=== PATIENT | male | born 1945 | race Caucasian/White ===

== ENCOUNTER 2016-09-28 09:35 | Inpatient (IN) | payer MEDICARE, OTHER ==
[~2016-09-28] VITALS: Ht 172.7 cm; Wt 81.6 kg
[~2016-09-28 09:35] MED LIST: ALBU2.5V13 NEB; ALBU8.5H2 IH; DILT240C88 PO; Ipratropium Bromide NEB; LEVO500T15 PO; MOME13HF2 IH; PRED20TA PO; RIVA10TA PO; TIOT18CA3 IH
--- NOTE | 2016-09-28 09:45 | NUR ---
WORSENING SOB X 3 DAYS. WORSENING WHEN AMBULATING. PT DOES STATE THIS HAPPENED BEFORE, AND HAS GOT BREATHING TX IN THE PAST. PT PLACED IN GOWN AND MONITOR. DR HILLS AT BEDSIDE FOR EVAL.
[2016-09-28] MEDS ORDERED: predniSONE 20 MG TABLET ONE (09:47)
[2016-09-28] MEDS ORDERED: IPRATROPIUM NEB FS 0.5 MG/2.5 ML AMPUL.NEB ONE (09:52)
[2016-09-28] MEDS ORDERED: ALBUTEROL FS 2.5 MG/3 ML VIAL.NEB ONE (09:52)
--- NOTE | 2016-09-28 09:53 | NUR ---
RT PAGED FOR BREATHING TX
--- NOTE | 2016-09-28 09:57 | NUR ---
RT AT BEDSIDE FOR BREATHING TX
[2016-09-28] MEDS ORDERED: IPRATROPIUM NEB FS 0.5 MG/2.5 ML AMPUL.NEB NEB ONE (10:00)
[2016-09-28] MEDS ORDERED: ALBUTEROL FS 2.5 MG/3 ML VIAL.NEB CONTNEB ONE (10:00)
[2016-09-28] MEDS ORDERED: predniSONE 20 MG TABLET PO ONE (10:00)
[2016-09-28 10:01] LABS: BASOPHILS % (AUTO) 0.3 % (0.0-2.0); EOSINOPHILS # (AUTO) 0.6 /CMM (0.0-0.7); EOSINOPHILS % (AUTO) 7.3 % (0.0-6.0); HEMATOCRIT 35 % (39-51); HEMOGLOBIN 11.5 g/dL (13.5-17.5); LYMPHOCYTES # (AUTO) 1.5 /CMM (0.8-4.8); MEAN CORPUSCULAR HEMOGLOBIN 26 PG (26.0-33.0); MEAN CORPUSCULAR HGB CONC 33 g/dl (31.0-36.0); MEAN CORPUSCULAR VOLUME 79 fL (80-96); MONOCYTES # (AUTO) 0.7 /CMM (0.1-1.30); NEUTROPHILS # (AUTO) 5.2 /CMM (1.8-8.9); NEUTROPHILS % (AUTO) 64.4 % (43.0-81.0); PLATELET COUNT (AUTO) 277 /CMM (150-450); RDW COEFFICIENT OF VARIATION 15.9 (11.5-15.0); RED BLOOD CELL COUNT(AUTO) 4.42 MIL/uL (4.5-6.0)
[2016-09-28] MEDS ORDERED: DILT240C88 PO (10:08)
[2016-09-28] MEDS ORDERED: FLUT12AE5 INH (10:08)
[2016-09-28] MEDS ORDERED: ASPI81TA2 PO (10:08)
[2016-09-28] MEDS ORDERED: HYDR12.55 PO (10:08)
[2016-09-28] MEDS ORDERED: ATOR40TA PO (10:08)
[2016-09-28] MEDS ORDERED: FAMO20TA8 PO (10:08)
[2016-09-28] MEDS ORDERED: IPRA3AMP IH (10:08)
[2016-09-28] MEDS ORDERED: LOSA25TA13 PO (10:08)
[2016-09-28] MEDS ORDERED: ALBU18HF2 IH (10:08)
[2016-09-28 10:14] LABS: CALCIUM, SERUM 9.2 mg/dL (8.5-10.1); CREATININE 0.9 mg/dL (0.6-1.3); POTASSIUM 4.1 mmol/L (3.5-5.1)
[2016-09-28 10:20] LABS: ALBUMIN 3.8 g/dL (3.4-5.0); BILIRUBIN,DIRECT 0.3 mg/dL (0.0-0.2)
[2016-09-28 10:23] LABS: TROPONIN I 0.021 ng/mL (0.00-0.056)
--- NOTE | 2016-09-28 10:39 | NUR ---
PAGED DR MARSHALL FOR ADMISSION
--- NOTE | 2016-09-28 11:12 | NUR ---
ISIS PAGED, RN CVICU
--- NOTE | 2016-09-28 11:19 | NUR ---
REPORT GIVEN TO OXANA CHANG FOR NIKKY
[2016-09-28 12:00] VITALS: BP 126/68
[2016-09-28] MEDS ORDERED: MAGNESIUM HYDROXIDE 30 ML UDC PO PRN (12:00)
[2016-09-28] MEDS ORDERED: ACETAMINOPHEN 325 MG TABLET PO PRN (12:00)
[2016-09-28] MEDS ORDERED: HYDROCODONE/APAP 5/325MG 1 EACH TABLET PO PRN (12:00)
[2016-09-28] MEDS ORDERED: Z GUARD REMEDY 2 OZ OINT TP PRN (12:00)
[2016-09-28] MEDS ORDERED: MAG HYDROX/AL HYDROX/SIMETH 30 ML UDC PO PRN (12:00)
[2016-09-28] MEDS ORDERED: ONDANSETRON HCL/PF 4 MG/2 ML VIAL IVP PRN (12:00)
[2016-09-28] MEDS ORDERED: AZITHROMYCIN 250 MG TABLET PO ONE (12:00)
[2016-09-28] MEDS ORDERED: ZOLPIDEM TARTRATE 5 MG TABLET PO PRN (12:00)
--- NOTE | 2016-09-28 13:00 | NUR ---
AM RN NOTE Received patient from ER @ 1140 via W/C. Pt A/O X3 verbally responsive. No SOB noted resp even and non-labored. Denies any pain or discomfort at this time. IV site on LAC #20 intact and patent. Body check done and pictures placed in chart. Pt seen and assessed by Dr. Cain. Pt continent of bowel and bladder. Will continue to monitor.
[2016-09-28] MEDS: IPRATROPIUM NEB FS 0.5 MG/2.5 ML AMPUL.NEB NEB SCH ×2 (14:48→20:09)
[2016-09-28] MEDS: ALBUTEROL FS 2.5 MG/3 ML VIAL.NEB NEB SCH ×2 (14:48→20:09)
[2016-09-28 15:57] VITALS: BP 147/71
[2016-09-28] MEDS: RIVAROXABAN 10 MG TABLET PO SCH (16:08)
[2016-09-28] MEDS: FLUTICASONE 110MCG 1 EA INHALER IH SCH (16:08)
--- NOTE | 2016-09-28 18:42 | NUR ---
AM RN NOTE Patient awake, ambulating in the hallways. Denies any SOB at this time. Will endorse care to next shift.
--- NOTE | 2016-09-28 19:30 | NUR ---
RN NOTES RECEIVED PT. AWAKE ON BED, A/OX3, DENIES PAIN, NO SOB, CALL LIGHT WITHIN REACH, SIDERAILS UPX2 , CONTINUE TO MONITOR
[2016-09-28 20:00] VITALS: BP 144/73
[2016-09-28 20:54] VITALS: BP 144/73
[2016-09-28] MEDS: FAMOTIDINE (20 MG) 20 MG TABLET PO SCH (21:11)
--- NOTE | 2016-09-28 22:01 | NUR ---
RN NOTES SPOKE TO DR. ESCAMILLA AND INFORMED HIM THAT PT IS ANXIOUS AND ASKING FOR ATIVAN. DR ESCAMILLA ORDERED ATIVAN 0.5 MG PO PRN ORDERED NOTED AND CARRIED OUT
[2016-09-28] MEDS ORDERED: LORAZEPAM 0.5 MG TABLET ONE (22:29)
[2016-09-28] MEDS: LORAZEPAM 0.5 MG TABLET PO PRN (22:33)
--- NOTE | 2016-09-28 22:40 | NUR ---
RN NOTES PT IS SO ANXIOUS- ATIVAN 0.5MG PO GIVEN ORDERED, V/S STABLE
[2016-09-29] MEDS: IPRATROPIUM NEB FS 0.5 MG/2.5 ML AMPUL.NEB NEB SCH ×7 (00:21→23:52)
[2016-09-29] MEDS: ALBUTEROL FS 2.5 MG/3 ML VIAL.NEB NEB SCH ×7 (00:21→23:52)
--- NOTE | 2016-09-29 06:45 | NUR ---
RN NOTES AWAKE, DENIES PAIN, NO SOB, MORNING CARE RENDERED, PT. NEEDS ATTENDED
[2016-09-29 07:04] LABS: BASOPHILS % (AUTO) 0.1 % (0.0-2.0); EOSINOPHILS % (AUTO) 0.1 % (0.0-6.0); HEMATOCRIT 30 % (39-51); HEMOGLOBIN 9.9 g/dL (13.5-17.5); LYMPHOCYTES # (AUTO) 0.8 /CMM (0.8-4.8); LYMPHOCYTES % (AUTO) 12.4 % (20.0-44.0); MEAN CORPUSCULAR HEMOGLOBIN 26 PG (26.0-33.0); MEAN CORPUSCULAR HGB CONC 33 g/dl (31.0-36.0); MEAN CORPUSCULAR VOLUME 80 fL (80-96); MONOCYTES # (AUTO) 0.8 /CMM (0.1-1.30); MONOCYTES % (AUTO) 11.8 % (2.0-12.0); NEUTROPHILS # (AUTO) 4.9 /CMM (1.8-8.9); NEUTROPHILS % (AUTO) 75.6 % (43.0-81.0); PLATELET COUNT (AUTO) 222 /CMM (150-450); RDW COEFFICIENT OF VARIATION 16.4 (11.5-15.0); RED BLOOD CELL COUNT(AUTO) 3.77 MIL/uL (4.5-6.0); WHITE BLOOD COUNT (AUTO) 6.5 K/uL (4.3-11.0)
[2016-09-29 07:11] LABS: CALCIUM, SERUM 9.1 mg/dL (8.5-10.1); CREATININE 0.7 mg/dL (0.6-1.3); MAGNESIUM 1.7 mg/dL (1.8-2.4); PHOSPHORUS 4.2 mg/dL (2.5-4.9); POTASSIUM 3.7 mmol/L (3.5-5.1)
--- NOTE | 2016-09-29 07:24 | NUR ---
AM RN NOTE Received patient awake, A/O X3 verbally responsive. No SOB noted resp even and non-labored. Denies any pain or discomfort at this time. IV site intact. Will continue to monitor.
[2016-09-29 08:00] VITALS: BP 148/81
[2016-09-29] MEDS: FLUTICASONE 110MCG 1 EA INHALER IH SCH ×2 (08:06→16:33)
[2016-09-29] MEDS: ASPIRIN 81 MG TAB.CHEW PO SCH (08:06)
[2016-09-29] MEDS: HYDROCHLOROTHIAZIDE 25 MG TABLET PO SCH (08:07)
[2016-09-29] MEDS: ATORVASTATIN 40 MG TABLET PO SCH (08:07)
[2016-09-29] MEDS: DILTIAZEM HCL CD 240 MG PO SCH (08:07)
[2016-09-29] MEDS: FAMOTIDINE (20 MG) 20 MG TABLET PO SCH ×2 (08:07→20:46)
[2016-09-29] MEDS: LOSARTAN POTASSIUM 25 MG TABLET PO SCH (08:07)
[2016-09-29] MEDS: methylPREDNISolone SOD SUCC 125 MG/2ML VIAL IV SCH (08:08)
[2016-09-29] MEDS ORDERED: IV SET PRIMARY PUMP SET 1 EA INFUS.SET MC ONE (11:40)
[2016-09-29] MEDS: LORAZEPAM 0.5 MG TABLET PO PRN ×2 (11:40→20:47)
[2016-09-29] MEDS: Magnesium 1GM/D5W 100ML PREMIX 100 ML IV SCH ×2 (11:44→12:46)
[2016-09-29] MEDS ORDERED: AZITHROMYCIN 250 MG TABLET PO SCH (12:00)
[2016-09-29 16:00] VITALS: BP 145/64
[2016-09-29] MEDS: RIVAROXABAN 10 MG TABLET PO SCH (16:34)
--- NOTE | 2016-09-29 18:52 | NUR ---
AM RN NOTE Pt resting in his bed no acute distress noted. IV site intact and patent. Will endorse care to next shift.
--- NOTE | 2016-09-29 19:20 | NUR ---
MS RN NOTES RECEIVED PT SITTING UP IN BED, A/O X 3. VERBALLY RESPONSIVE. NO DISTRESS, NO SOB NOTED. DENIES ANY PAIN OR DISCOMFORT AT THIS TIME. IV SITE ON LEFT ARM INTACT AND PATENT. NO S/S OF INFILTRATION NOTED. PT AMBULATORY. ALL NEEDS ATTENDED AND MET. KEPT COMFORTABLE. CALL LIGHT WITHIN REACH. SAFETY PRECAUTIONS OBSERVED. WILL CONTINUE TON MONITOR.
[2016-09-29 20:00] VITALS: BP 156/8
[2016-09-30] MEDS: ALBUTEROL FS 2.5 MG/3 ML VIAL.NEB NEB SCH ×4 (03:14→10:32)
[2016-09-30] MEDS: IPRATROPIUM NEB FS 0.5 MG/2.5 ML AMPUL.NEB NEB SCH ×4 (03:14→10:32)
--- NOTE | 2016-09-30 06:30 | NUR ---
MS RN NOTES PT UP IN BED, SLEEPING AT THIS TIME. AROUSES EASILY, A/O X 3. VERBALLY RESPONSIVE. NO DISTRESS, NO SOB NOTED. NO C/O PAIN OR DISCOMFORT AT THIS TIME. IV SITE ON LEFT ARM INTACT AND PATENT. NO S/S OF INFILTRATION NOTED. PT AMBULATORY. ALL NEEDS ATTENDED AND MET. KEPT COMFORTABLE. CALL LIGHT WITHIN REACH. SAFETY PRECAUTIONS OBSERVED. WILL ENDORSE TO NEXT SHIFT FOR NIKKY.
[2016-09-30 06:53] LABS: CALCIUM, SERUM 9.3 mg/dL (8.5-10.1); CREATININE 0.7 mg/dL (0.6-1.3); MAGNESIUM 1.9 mg/dL (1.8-2.4); POTASSIUM 3.5 mmol/L (3.5-5.1)
--- NOTE | 2016-09-30 07:13 | NUR ---
MS RN NOTES PT STABLE, NO DISTRESS ENDORSED TO DAY SHIFT RN FOR NIKKY.
--- NOTE | 2016-09-30 07:15 | NUR ---
RN MS NOTES PATIENT ALERT AND ORIENTED, AMBULATORY, NO S/SX OF DISTRESS NOTED, NO SHORTNESS OF BREATH, ALL NEEDS ATTENDED, SAFETY MEASURES IN PLACED, CALL LIGHT WITHIN REACH, WILL CONTINUE TO MONITOR.
[2016-09-30 08:00] VITALS: BP 149/71
[2016-09-30] MEDS: FLUTICASONE 110MCG 1 EA INHALER IH SCH (08:06)
[2016-09-30] MEDS: methylPREDNISolone SOD SUCC 125 MG/2ML VIAL IV SCH (08:07)
[2016-09-30] MEDS: ASPIRIN 81 MG TAB.CHEW PO SCH (08:07)
[2016-09-30] MEDS: ATORVASTATIN 40 MG TABLET PO SCH (08:07)
[2016-09-30] MEDS: DILTIAZEM HCL CD 240 MG PO SCH (08:07)
[2016-09-30 08:08] VITALS: BP 149/71
[2016-09-30] MEDS: LORAZEPAM 0.5 MG TABLET PO PRN (08:08)
[2016-09-30] MEDS: LOSARTAN POTASSIUM 25 MG TABLET PO SCH (08:08)
[2016-09-30] MEDS: FAMOTIDINE (20 MG) 20 MG TABLET PO SCH (08:08)
[2016-09-30] MEDS: HYDROCHLOROTHIAZIDE 25 MG TABLET PO SCH (08:08)
[2016-09-30] MEDS ORDERED: PRED20TA PO (10:02)
[2016-09-30] MEDS ORDERED: LEVO750T21 PO (10:02)
--- NOTE | 2016-09-30 10:31 | NUR ---
RN MS NOTES PATIENT SEEN BY DR. MTZ AND RECEIVED NEW ORDER FOR DISCHARGE. ORDER CARRIED OUT. PATIENT RECEIVED DISCHARGE INSTRUCTIONS, SKIN ASSESSMENT COMPLETED, PHOTO TAKEN OF RIGHT LOWER LEG AND ANKLE DRY SCABS AND SCRATCHES, PATIENT IN STABLE CONDITION, NO SOB NOR DISTRESS, NO COMPLAINT OF PAIN AT THIS TIME. PIV REMOVED, MEDICATIONS AND BELONGINGS GIVEN TO THE PATIENT, DISCHARGE PAPERWORKS SIGNED, REQUESTED ANOTHER BREATHING TREATMENT PRIOR TO LEAVING THE FACILITY.
--- NOTE | 2016-09-30 11:00 | NUR ---
MOTOCROSS RACER PATIENT LEFT THE FACILITY IN STABLE CONDITION, BROUGHT ALL HIS BELONGINGS, MEDICATIONS AND PAPERWORKS, PATIENT STATED HE WILL DRIVE HIS OWN CAR.
== END 2016-09-30 11:00 | disposition home or self-care (01) | DRG 189 ==
LOC: ER 09:38 → TELE2 11:17 → MEDSG2 11:51
PROVIDERS: ADMIT Family Medicine; ATTEND Family Medicine
DX: J96.01 Acute respiratory failure with hypoxia (principal); J44.1 Chronic obstructive pulmonary disease with (acute) exacerbation; D68.59 Other primary thrombophilia; I10 Essential (primary) hypertension; E78.5 Hyperlipidemia, unspecified; K21.9 Gastro-esophageal reflux disease without esophagitis; I48.91 Unspecified atrial fibrillation; Z87.891 Personal history of nicotine dependence; D63.8 Anemia in other chronic diseases classified elsewhere
CPT/HCPCS: 36415; 71010-TC; 80048-TC; 80061-TC; 80076-TC; 83605-TC; 83735-TC; 84100-TC; 84484-TC; 85025-TC; 87040-TC; 87081-TC; A4606; J2930; J3475; Z7610

== ENCOUNTER 2016-10-03 15:39 | Inpatient (IN) | payer MEDICARE, OTHER ==
[~2016-10-03] VITALS: Ht 177.8 cm; Wt 81.6 kg
[~2016-10-03 15:39] MED LIST changes: +ALBU18HF2 IH; -ALBU2.5V13 NEB; -ALBU8.5H2 IH; +ASPI81TA2 PO; +ATOR40TA PO; +FAMO20TA8 PO; +FLUT12AE5 INH; +HYDR12.55 PO; +IPRA3AMP IH; -Ipratropium Bromide NEB; -LEVO500T15 PO; +LEVO750T21 PO; +LOSA25TA13 PO; -MOME13HF2 IH
[2016-10-03 16:08] LABS: BASOPHILS % (AUTO) 0.2 % (0.0-2.0); EOSINOPHILS % (AUTO) 0.1 % (0.0-6.0); HEMATOCRIT 38 % (39-51); HEMOGLOBIN 12.2 g/dL (13.5-17.5); LYMPHOCYTES # (AUTO) 0.8 /CMM (0.8-4.8); LYMPHOCYTES % (AUTO) 7.1 % (20.0-44.0); MEAN CORPUSCULAR HEMOGLOBIN 26 PG (26.0-33.0); MEAN CORPUSCULAR HGB CONC 33 g/dl (31.0-36.0); MEAN CORPUSCULAR VOLUME 78 fL (80-96); MONOCYTES # (AUTO) 0.4 /CMM (0.1-1.30); MONOCYTES % (AUTO) 3.4 % (2.0-12.0); NEUTROPHILS # (AUTO) 10.3 /CMM (1.8-8.9); NEUTROPHILS % (AUTO) 89.2 % (43.0-81.0); PLATELET COUNT (AUTO) 365 /CMM (150-450); RDW COEFFICIENT OF VARIATION 16.6 (11.5-15.0); WHITE BLOOD COUNT (AUTO) 11.5 K/uL (4.3-11.0)
[2016-10-03 16:30] LABS: CALCIUM, SERUM 9.5 mg/dL (8.5-10.1); CARBON DIOXIDE 24 mmol/L (21-32); CHLORIDE 95 mmol/L (98-107); CREATININE 1.1 mg/dL (0.6-1.3); GLUCOSE 134 mg/dL (74-106); POTASSIUM 3.7 mmol/L (3.5-5.1); SODIUM SERUM 134 mmol/L (136-145); UREA NITROGEN, BLOOD 18 mg/dL (7-18)
[2016-10-03 16:31] LABS: INR 1.24 (0.87-1.13); PROTHROMBIN TIME 13.4 SECS (9.5-12.7)
[2016-10-03 16:36] LABS: ALANINE AMINOTRANSFERASE 34 U/L (12-78); ALBUMIN 3.6 g/dL (3.4-5.0); ALKALINE PHOSPHATASE 86 U/L (46-116); ASPARTATE AMINOTRANSFERASE 34 U/L (15-37); BILIRUBIN,DIRECT 0.2 mg/dL (0.0-0.2); BILIRUBIN,TOTAL 0.6 mg/dL (0.2-1.0); TOTAL PROTEIN, SERUM 7.6 g/dL (6.4-8.2)
[2016-10-03 16:38] LABS: TROPONIN I < 0.017 ng/mL (0.00-0.056)
[2016-10-03] MEDS ORDERED: IV NS 0.9% 1,000 ML IV PRN (18:41)
[2016-10-03] MEDS ORDERED: HYDROCODONE/APAP 5/325MG 1 EACH TABLET PO PRN (19:00)
[2016-10-03] MEDS ORDERED: ONDANSETRON HCL/PF 4 MG/2 ML VIAL IVP PRN (19:00)
[2016-10-03] MEDS ORDERED: ACETAMINOPHEN 325 MG TABLET PO PRN (19:00)
[2016-10-03] MEDS ORDERED: Z GUARD REMEDY 2 OZ OINT TP PRN (19:00)
[2016-10-03] MEDS ORDERED: ALBUTEROL FS 2.5 MG/3 ML VIAL.NEB NEB PRN (19:30)
[2016-10-03] MEDS ORDERED: IV SET PRIMARY PUMP SET 1 EA INFUS.SET MC ONE (19:56)
[2016-10-03 20:00] VITALS: BP 149/70
[2016-10-03] MEDS ORDERED: LORAZEPAM 0.5 MG TABLET PO PRN (21:00)
[2016-10-03] MEDS: FAMOTIDINE (20 MG) 20 MG TABLET PO SCH (21:19)
[2016-10-03] MEDS: IPRATROPIUM NEB FS 0.5 MG/2.5 ML AMPUL.NEB NEB SCH (22:01)
[2016-10-04 00:17] VITALS: BP 134/68
[2016-10-04 04:00] VITALS: BP 140/71
[2016-10-04 07:01] VITALS: BP 144/81
[2016-10-04] MEDS ORDERED: PANTOPRAZOLE 40 MG TABLET.DR PO SCH (07:30)
[2016-10-04 08:00] VITALS: BP 157/80
[2016-10-04 08:09] LABS: BASOPHILS % (AUTO) 0.2 % (0.0-2.0); EOSINOPHILS # (AUTO) 0.1 /CMM (0.0-0.7); EOSINOPHILS % (AUTO) 1.1 % (0.0-6.0); HEMATOCRIT 35 % (39-51); HEMOGLOBIN 11.5 g/dL (13.5-17.5); LYMPHOCYTES # (AUTO) 2.3 /CMM (0.8-4.8); LYMPHOCYTES % (AUTO) 18.1 % (20.0-44.0); MEAN CORPUSCULAR HEMOGLOBIN 26 PG (26.0-33.0); MEAN CORPUSCULAR HGB CONC 33 g/dl (31.0-36.0); MEAN CORPUSCULAR VOLUME 79 fL (80-96); MONOCYTES % (AUTO) 7.6 % (2.0-12.0); NEUTROPHILS # (AUTO) 9.2 /CMM (1.8-8.9); PLATELET COUNT (AUTO) 356 /CMM (150-450); RDW COEFFICIENT OF VARIATION 16.8 (11.5-15.0); RED BLOOD CELL COUNT(AUTO) 4.47 MIL/uL (4.5-6.0); WHITE BLOOD COUNT (AUTO) 12.6 K/uL (4.3-11.0)
[2016-10-04] MEDS: FAMOTIDINE (20 MG) 20 MG TABLET PO SCH (08:15)
[2016-10-04 08:16] VITALS: BP 157/80
[2016-10-04] MEDS: IPRATROPIUM NEB FS 0.5 MG/2.5 ML AMPUL.NEB NEB SCH (08:16)
[2016-10-04 08:27] LABS: ALBUMIN 3.4 g/dL (3.4-5.0); BILIRUBIN,TOTAL 0.7 mg/dL (0.2-1.0); CALCIUM, SERUM 9.1 mg/dL (8.5-10.1); MAGNESIUM 1.8 mg/dL (1.8-2.4); PHOSPHORUS 4.1 mg/dL (2.5-4.9); POTASSIUM 3.5 mmol/L (3.5-5.1); TOTAL PROTEIN, SERUM 6.9 g/dL (6.4-8.2)
[2016-10-04 08:30] LABS: THYROID STIMULATING HORMONE 0.776 uIU/mL (0.358-3.74)
[2016-10-04] MEDS ORDERED: predniSONE 20 MG TABLET PO SCH (09:00)
[2016-10-04] MEDS ORDERED: ASPIRIN 81 MG TAB.CHEW PO SCH (09:00)
[2016-10-04] MEDS ORDERED: LEVOFLOXACIN (750 MG) 750 MG TABLET PO SCH (09:00)
[2016-10-04] MEDS ORDERED: LOSARTAN POTASSIUM 25 MG TABLET PO SCH (09:00)
[2016-10-04] MEDS ORDERED: FLUTICASONE 110MCG 1 EA INHALER IH SCH (09:00)
[2016-10-04] MEDS ORDERED: HYDROCHLOROTHIAZIDE 25 MG TABLET PO SCH (09:00)
[2016-10-04] MEDS ORDERED: RIVAROXABAN 10 MG TABLET PO SCH (09:00)
[2016-10-04] MEDS ORDERED: ATORVASTATIN 40 MG TABLET PO SCH (09:00)
[2016-10-04] MEDS ORDERED: DILTIAZEM HCL CD 240 MG PO SCH (09:00)
[2016-10-04 09:18] LABS: IRON, SERUM 28 ug/dl (50-175); TOTAL IRON BINDING CAPACITY 405 ug/dl (250-450)
[2016-10-04 09:50] LABS: FERRITIN 27 ng/mL (8-388)
== END 2016-10-04 14:55 | disposition home or self-care (01) | DRG 74 ==
LOC: ER 15:41 → TELE 18:22
PROVIDERS: ADMIT Nurse Practitioner Acute Care; ATTEND Nurse Practitioner Acute Care
DX: G90.8 Other disorders of autonomic nervous system (principal); I48.92 Unspecified atrial flutter; I50.32 Chronic diastolic (congestive) heart failure; E87.1 Hypo-osmolality and hyponatremia; I49.9 Cardiac arrhythmia, unspecified; E78.5 Hyperlipidemia, unspecified; J44.9 Chronic obstructive pulmonary disease, unspecified; K29.70 Gastritis, unspecified, without bleeding; K21.9 Gastro-esophageal reflux disease without esophagitis; I48.91 Unspecified atrial fibrillation; D50.9 Iron deficiency anemia, unspecified; E86.0 Dehydration; Z79.01 Long term (current) use of anticoagulants; Z87.891 Personal history of nicotine dependence; I11.0 Hypertensive heart disease with heart failure; R53.81 Other malaise
CPT/HCPCS: 36415; 71010-TC; 80048-TC; 80053-TC; 80061-TC; 80076-TC; 82533; 82728-TC; 82962-TC; 83540-TC; 83735-TC; 84100-TC; 84443-TC; 84484-TC; 85025-TC; 85730-TC; 87081-TC; A4606; J7030; Z7610

== ENCOUNTER 2016-11-30 07:30 | Inpatient (IN) | payer MEDICARE, OTHER ==
[2016-11-30] VITALS (21 sets, daily range): BP systolic 139–170; BP diastolic 48–108
[~2016-11-30] VITALS: Ht 177.8 cm; Wt 87.1 kg
--- NOTE | 2016-11-30 07:30 | NUR ---
NAUSEA WITH BLOODY VOMITING AND BLOOD IN STOOL. ADMITS DRINKING BEER. NAD NOTED. PT AAO X4, AMB WITH STEADY GAIT. RR EVEN AND UNLABORED. VSS. PENDING MD BARRIENTOS.
[2016-11-30] MEDS ORDERED: ONDANSETRON HCL/PF 4 MG/2 ML VIAL IVP ONE (08:00)
[2016-11-30] MEDS ORDERED: PANTOPRAZOLE 80 MG in IV NS 0.9% 100 ML IV ONE (08:00)
[2016-11-30] MEDS ORDERED: IV NS 0.9% 1,000 ML BAG IV ONE (08:00)
--- NOTE | 2016-11-30 08:05 | NUR ---
POLYMER ENGINEER AT BEDSIDE
[2016-11-30] MEDS ORDERED: ONDANSETRON HCL/PF 4 MG/2 ML VIAL ONE (08:06)
[2016-11-30] MEDS ORDERED: PANTOPRAZOLE 40 MG VIAL ONE (08:11)
[2016-11-30 08:24] LABS: BASOPHILS % (AUTO) 0.6 % (0.0-2.0); EOSINOPHILS % (AUTO) 0.4 % (0.0-6.0); HEMATOCRIT 26 % (39-51); LYMPHOCYTES # (AUTO) 1.5 /CMM (0.8-4.8); LYMPHOCYTES % (AUTO) 17.9 % (20.0-44.0); MEAN CORPUSCULAR HEMOGLOBIN 23 PG (26.0-33.0); MEAN CORPUSCULAR HGB CONC 31 g/dl (31.0-36.0); MEAN CORPUSCULAR VOLUME 73 fL (80-96); MONOCYTES # (AUTO) 0.6 /CMM (0.1-1.30); MONOCYTES % (AUTO) 7.5 % (2.0-12.0); NEUTROPHILS # (AUTO) 6.2 /CMM (1.8-8.9); NEUTROPHILS % (AUTO) 73.6 % (43.0-81.0); PLATELET COUNT (AUTO) 184 /CMM (150-450); RDW COEFFICIENT OF VARIATION 19.7 (11.5-15.0); RED BLOOD CELL COUNT(AUTO) 3.49 MIL/uL (4.5-6.0); WHITE BLOOD COUNT (AUTO) 8.5 K/uL (4.3-11.0)
[2016-11-30 08:35] LABS: CALCIUM, SERUM 8.7 mg/dL (8.5-10.1); CREATININE 0.7 mg/dL (0.6-1.3)
[2016-11-30 08:43] LABS: INR 1.01 (0.87-1.13); PROTHROMBIN TIME 10.8 SECS (9.5-12.7); TROPONIN I 0.113 ng/mL (0.00-0.056)
[2016-11-30 08:44] LABS: ALBUMIN 3.5 g/dL (3.4-5.0); BILIRUBIN,DIRECT 0.2 mg/dL (0.0-0.2); BILIRUBIN,TOTAL 0.5 mg/dL (0.2-1.0); TOTAL PROTEIN, SERUM 7.3 g/dL (6.4-8.2)
[2016-11-30 09:16] LABS: LYMPHOCYTES % (MANUAL) 12 % (16-48); MONOCYTES % (MANUAL) 4 % (0-11.0); NEUTROPHILS % (MANUAL) 84 (42-76)
--- NOTE | 2016-11-30 09:17 | NUR ---
PT RESTING IN BED COMFORTABLY. NAD NOTED. AAO X4, VSS.
[2016-11-30] MEDS ORDERED: LORAZEPAM INJ 2 MG/ML VIAL IV ONE (09:30)
[2016-11-30] MEDS ORDERED: PANTOPRAZOLE 80 MG in IV NS 0.9% 500 ML IV ONE (10:00)
[2016-11-30] MEDS ORDERED: LORAZEPAM INJ 2 MG/ML VIAL ONE (10:02)
--- NOTE | 2016-11-30 10:22 | NUR ---
FIRST UNIT PRBC STARTED, VSS. WITNESSED BY STELLA CRANE RN. CONTINUE TO MONITOR.
[2016-11-30] MEDS ORDERED: Medication Not On Formulary EA (Ipratropium/Albuterol Sulfate (Duoneb 2.5-0.5 Mg/3 Ml So IH PRN (10:30)
[2016-11-30] MEDS ORDERED: PANTOPRAZOLE 40 MG VIAL IV SCH (10:30)
[2016-11-30] MEDS ORDERED: ACETAMINOPHEN 325 MG TABLET PO PRN (10:30)
[2016-11-30] MEDS ORDERED: ONDANSETRON HCL/PF 4 MG/2 ML VIAL IVP PRN (10:30)
[2016-11-30] MEDS ORDERED: FAMOTIDINE (20 MG) 20 MG TABLET PO SCH (10:30)
[2016-11-30] MEDS ORDERED: Z GUARD REMEDY 2 OZ OINT TP PRN (10:30)
[2016-11-30] MEDS ORDERED: TIOTROPIUM BROMIDE 6 CAP/BOX CAP.W.DEV IH SCH (10:30)
[2016-11-30] MEDS ORDERED: HYDROCODONE/APAP 5/325MG 1 EACH TABLET PO PRN (10:30)
--- NOTE | 2016-11-30 11:05 | NUR ---
REPORT GIVEN TO [facility] FARMWORKER ANIMAL FOR NIKKY
--- NOTE | 2016-11-30 11:20 | NUR ---
ICU/RN INITIAL NOTES,AM RECEIVED REPORT FROM BERNARDO ARGUETA. PT TRANSFERRED VIA GURNEY. PT ALERT, AWAKE, ORIENTED TO PERSON, PLACE AND TIME. PT ON ROOM AIR, NO ACUTE DISTRESS NOTED. PT PLACED ON TELE, CONTROLLED ATRIAL FIB. BLOOD TRANSFUSION INFUSING FIRST OUT OF 2 UNITS, WILL CONTINUE. PIV'S PATENT AND INTACT, NO S/S OF INFECTION OR INFILTRATION NOTED. WILL CONTINUE TO MONITOR AND ASSESS. ALL NEEDS WILL BE MET, SAFETY MEASURES TAKEN, BED IN LOW POSITION, SIDE RAILS UP, CALL LIGHT WITHIN REACH. WILL CONTINUE CARE
[2016-11-30] MEDS ORDERED: IPRATROPIUM NEB FS 0.5 MG/2.5 ML AMPUL.NEB NEB PRN (11:30)
[2016-11-30] MEDS: ATORVASTATIN 40 MG TABLET PO SCH (12:50)
[2016-11-30] MEDS: PANTOPRAZOLE 40 MG VIAL IV SCH ×2 (12:50→23:08)
[2016-11-30] MEDS: DILTIAZEM HCL CD 240 MG PO SCH (12:51)
[2016-11-30] MEDS: LOSARTAN POTASSIUM 25 MG TABLET PO SCH (12:51)
[2016-11-30] MEDS ORDERED: ALBUTEROL FS 2.5 MG/3 ML VIAL.NEB NEB PRN (13:30)
[2016-11-30] MEDS: IPRATROPIUM NEB FS 0.5 MG/2.5 ML AMPUL.NEB NEB SCH ×2 (13:30→19:47)
[2016-11-30] MEDS: LORAZEPAM INJ 2 MG/ML VIAL IV PRN (13:44)
--- NOTE | 2016-11-30 14:14 | NUR ---
pt refused abg at this time rn aware. zero distress noted pt [id number] on room air
--- NOTE | 2016-11-30 14:30 | NUR ---
ICU/RN: PT SEEN AND ASSESSED BY . PLAN OF CARE DISCUSSED. WILL FOLLOW THROUGH. NO NEW ORDERS AT THIS TIME. WILL CONTINUE TO MONITOR AND CARE.
[2016-11-30] MEDS ORDERED: FLUTICASONE 110MCG 1 EA INHALER IH SCH (17:00)
[2016-11-30] MEDS: IV NS 0.9% 1,000 ML IV PRN (18:00)
--- NOTE | 2016-11-30 18:01 | NUR ---
ICU/RN: IV FLUIDS JUST STARTED POST COMPLETION OF 2 UNITS OF PRBC'S.
--- NOTE | 2016-11-30 18:41 | NUR ---
ICU/RN ENDING NOTES,AM REPORT WILL BE ENDORSED TO NIGHT NURSE FOR CONTINUATION OF CARE. PT AAO 3-4. ALERT, FOLLOWS ALL COMMANDS. PT ON ROOM AIR, NO DISTRESS NOTED. NO S/S OF BLEEDING NOTED AT THIS TIME. 2 UNITS BLOOD TRANSFUSED, NO S/S OF ADVERSE REACTIONS NOTED. IV FLUIDS STARTED POST TRANSFUSION. PLANNING FOR EGD, NO ORDERS AT THIS TIME. WILL ENDORSE TO NIGHT RN TO COLLECT FOR OCCULT STOOL, PT HAD TO BM FOR MY SHIFT. ALL NEEDS WILL BE MET, SAFETY MEASURES TAKEN, BED IN LOW POSITION, SIDE RAILS UP, CALL LIGHT WITHIN REACH.
--- NOTE | 2016-11-30 19:55 | NUR ---
RETORT LOADER. INITIAL ASSESSMENT RECEIVED THE PT AWAKE, ALERT, FOLLOW COMMANDS. MEDICAL SECRETARY RECEPTIONIST SHOWING AFIB. PT ON ROOM AIR. SAT 95%. NO ACUTE DISTRESS NOTED. IV RT FA 20G,IVF NS 75ML/H. HOB ELEVATED. NPO. WILL CONTINUE TO ONITOR VITALS.
[2016-11-30] MEDS: ZOLPIDEM TARTRATE 5 MG TABLET PO PRN (23:08)
[2016-12-01] VITALS (50 sets, daily range): BP systolic 103–168; BP diastolic 45–97
[2016-12-01] MEDS: IPRATROPIUM NEB FS 0.5 MG/2.5 ML AMPUL.NEB NEB SCH ×4 (01:14→19:42)
--- NOTE | 2016-12-01 02:55 | NUR ---
SAFETY LEAD. AM CARE. ORAL CARE. BED BATH GIVEN. LINEN CHANGED. REMAINING SAME OXYGEN 2L VIA NASAL CANNULA. SAT 98%.DRAPERY HEMMER AUTOMATIC SHOWING A FLUTTER. IVF NS 75ML/H. NPO. AFEBRILE. WILL CONTINUE TO MONITOR VITALS.
[2016-12-01 04:39] LABS: BASOPHILS % (AUTO) 0.3 % (0.0-2.0); EOSINOPHILS # (AUTO) 0.1 /CMM (0.0-0.7); EOSINOPHILS % (AUTO) 1.4 % (0.0-6.0); HEMATOCRIT 27 % (39-51); HEMOGLOBIN 8.8 g/dL (13.5-17.5); LYMPHOCYTES % (AUTO) 15.4 % (20.0-44.0); MEAN CORPUSCULAR HEMOGLOBIN 25 PG (26.0-33.0); MEAN CORPUSCULAR HGB CONC 32 g/dl (31.0-36.0); MEAN CORPUSCULAR VOLUME 77 fL (80-96); MONOCYTES # (AUTO) 0.6 /CMM (0.1-1.30); MONOCYTES % (AUTO) 9.4 % (2.0-12.0); NEUTROPHILS # (AUTO) 4.9 /CMM (1.8-8.9); NEUTROPHILS % (AUTO) 73.5 % (43.0-81.0); PLATELET COUNT (AUTO) 143 /CMM (150-450); RDW COEFFICIENT OF VARIATION 20.3 (11.5-15.0); RED BLOOD CELL COUNT(AUTO) 3.56 MIL/uL (4.5-6.0); WHITE BLOOD COUNT (AUTO) 6.6 K/uL (4.3-11.0)
[2016-12-01] MEDS: IV NS 0.9% 1,000 ML IV PRN ×2 (04:48→21:57)
[2016-12-01 05:28] LABS: ALBUMIN 3.1 g/dL (3.4-5.0); CALCIUM, SERUM 8.4 mg/dL (8.5-10.1); CREATININE 0.6 mg/dL (0.6-1.3); MAGNESIUM 1.9 mg/dL (1.8-2.4); PHOSPHORUS 3.4 mg/dL (2.5-4.9); POTASSIUM 3.5 mmol/L (3.5-5.1); TOTAL PROTEIN, SERUM 6.3 g/dL (6.4-8.2)
[2016-12-01 05:53] LABS: TROPONIN I 5.334 ng/mL (0.00-0.056)
[2016-12-01] MEDS: ATORVASTATIN 40 MG TABLET PO SCH (09:49)
[2016-12-01] MEDS: FLUTICASONE 110MCG 1 EA INHALER IH SCH ×2 (09:49→16:48)
[2016-12-01] MEDS: LOSARTAN POTASSIUM 25 MG TABLET PO SCH (09:50)
[2016-12-01] MEDS: DILTIAZEM HCL CD 240 MG PO SCH (09:50)
[2016-12-01] MEDS: LORAZEPAM INJ 2 MG/ML VIAL IV PRN ×2 (11:38→20:08)
[2016-12-01] MEDS: PANTOPRAZOLE 40 MG VIAL IV SCH (11:59)
--- NOTE | 2016-12-01 18:36 | NUR ---
horticultural agent pt in bed up in chair couple of time in the day pt is stable vs stable denied any chest pain or discomfort, 2 units of prbc ordered 1 unit finished running 2nd unit of prbc hung running, no s/s of allergic reaction noted at this time, awaiting for gun stock maker to make rounds, report given to pm nurse for continuity of care, pt is still having black tarry stools, no nausia or vomiting during shift.
--- NOTE | 2016-12-01 19:10 | NUR ---
LAUNDRY HOUSEKEEPER. INITIAL ASSESSMENT. RECEIVED THE PT REST ON THE BED. AWAKE, ALERT, FOLLOW COMMANDS. OWNER SPA DIRECTOR SHOWING AFIB. CONTROLLED. OXYGEN 2L VIA NASAL CANNULA. SAT 98%. IV RT HAND IVF NS 75ML/H. HOB ELEVATED. TURN AND REPOSITION INDEPENDENT
[2016-12-01] MEDS: ZOLPIDEM TARTRATE 5 MG TABLET PO PRN (22:58)
[2016-12-02] VITALS (46 sets, daily range): BP systolic 126–167; BP diastolic 60–98
[2016-12-02] MEDS: PANTOPRAZOLE 40 MG VIAL IV SCH ×3 (00:41→23:01)
[2016-12-02] MEDS: IPRATROPIUM NEB FS 0.5 MG/2.5 ML AMPUL.NEB NEB SCH ×4 (01:08→19:47)
--- NOTE | 2016-12-02 07:05 | NUR ---
RN INITIAL NOTES RECEIVED PT AWAKE, A/OX4. NO RESPIRATORY DISTRESS NOTED. NO SOB NOTED. ON 02 AT 2LMP VIA NC. HOB ELEVATED. DENIES ANY PAIN. A.FIB ON MONITOR AT 67. IV LINES IN PLACE. TOLERATING NS AT 75ML/HR. NO SIGNS OF ACTIVE BLEEDING NOTED. SKIN REMAINS INTACT. PT COMFORTABLE. CALL LIGHT WITHIN REACH. WILL MONITOR.
[2016-12-02] MEDS: ATORVASTATIN 40 MG TABLET PO SCH (08:13)
[2016-12-02] MEDS: FLUTICASONE 110MCG 1 EA INHALER IH SCH ×2 (08:13→16:30)
[2016-12-02] MEDS: DILTIAZEM HCL CD 240 MG PO SCH (08:14)
[2016-12-02] MEDS: LOSARTAN POTASSIUM 25 MG TABLET PO SCH (08:14)
[2016-12-02 09:03] LABS: BASOPHILS % (AUTO) 0.2 % (0.0-2.0); EOSINOPHILS # (AUTO) 0.2 /CMM (0.0-0.7); EOSINOPHILS % (AUTO) 2.1 % (0.0-6.0); HEMATOCRIT 33 % (39-51); HEMOGLOBIN 10.7 g/dL (13.5-17.5); LYMPHOCYTES # (AUTO) 1.1 /CMM (0.8-4.8); LYMPHOCYTES % (AUTO) 14.8 % (20.0-44.0); MEAN CORPUSCULAR HEMOGLOBIN 26 PG (26.0-33.0); MEAN CORPUSCULAR HGB CONC 32 g/dl (31.0-36.0); MEAN CORPUSCULAR VOLUME 80 fL (80-96); MONOCYTES # (AUTO) 0.6 /CMM (0.1-1.30); MONOCYTES % (AUTO) 7.5 % (2.0-12.0); NEUTROPHILS # (AUTO) 5.6 /CMM (1.8-8.9); NEUTROPHILS % (AUTO) 75.4 % (43.0-81.0); PLATELET COUNT (AUTO) 134 /CMM (150-450); RDW COEFFICIENT OF VARIATION 20.3 (11.5-15.0); RED BLOOD CELL COUNT(AUTO) 4.18 MIL/uL (4.5-6.0); WHITE BLOOD COUNT (AUTO) 7.4 K/uL (4.3-11.0)
[2016-12-02] MEDS: IV NS 0.9% 1,000 ML IV PRN ×2 (10:17→23:00)
--- NOTE | 2016-12-02 11:00 | NUR ---
RN NOTES SEEN AND EXAMINED BY DR. ALTAMIRANO. AWARE OF CURRENT LAB VALUES. TROPONIN 2.430, TRENDING DOWN. WILL FF UP WITH CARDIO FOR CLEARANCE. PT STATED SHE FEELS BETTER. WILL MONITOR.
[2016-12-02] MEDS: LORAZEPAM INJ 2 MG/ML VIAL IV PRN ×2 (11:22→21:35)
--- NOTE | 2016-12-02 18:39 | NUR ---
RN CLOSING NOTES PT REMAINS STABLE. NO SIGNIFICANT CHANGE NOTED. NO ACTIVE BLEEDING NOTED. IV LINES IN PLACE. KEPT CLEAN AND DRY. ALL NEEDS ATTENDED AND MET. KEPT COMFORTABLE. CALL LIGHT WITHIN REACH. WILL ENDORSE FOR CONTINUITY OF CARE.
[2016-12-02] MEDS: ZOLPIDEM TARTRATE 5 MG TABLET PO PRN (23:02)
[2016-12-03] VITALS (36 sets, daily range): BP systolic 102–179; BP diastolic 58–114
[2016-12-03] MEDS: IPRATROPIUM NEB FS 0.5 MG/2.5 ML AMPUL.NEB NEB SCH ×4 (01:19→19:19)
--- NOTE | 2016-12-03 07:31 | NUR ---
SHUTTLE SPOTTER RECEIVED PATIENT FROM THE PREVIOUS SHIFT. PATIENT IS IN BED. ALERT AND ORIENTED X 4. ABLE TO VERBALIZE NEEDS. AFIB ON MONITOR. ABLE TO VERBALIZE NEEDS. CALL LIGHT AT REACH. WILL CONTINUE TO MONITOR AND PROVIDE CARE.
--- NOTE | 2016-12-03 07:35 | NUR ---
HEARING THERAPIST RECEIVED PATIENT FROM THE PREVIOUS SHIFT. PATIENT IS IN BED. RESTING COMFORTABLY. NO ACUTE DISTRESS NOTED. AFEBRILE. SINUS RHYTHM ON MONITOR. HARLEY DRAINING URINE TO GRAVITY. TURNED AND REPOSITIONED FOR COMFORT WOUND PREVENTION. Addendum: 12/03/16 at 1056 by KENA JENKINS RN DOCUMENTED ON THE WRONG PATIENT.
[2016-12-03 07:53] LABS: BASOPHILS # (AUTO) 0.1 /CMM (0.0-0.2); BASOPHILS % (AUTO) 1.2 % (0.0-2.0); EOSINOPHILS # (AUTO) 0.2 /CMM (0.0-0.7); EOSINOPHILS % (AUTO) 2.1 % (0.0-6.0); HEMATOCRIT 34 % (39-51); HEMOGLOBIN 10.8 g/dL (13.5-17.5); LYMPHOCYTES # (AUTO) 1.1 /CMM (0.8-4.8); LYMPHOCYTES % (AUTO) 15.4 % (20.0-44.0); MEAN CORPUSCULAR HEMOGLOBIN 26 PG (26.0-33.0); MEAN CORPUSCULAR HGB CONC 32 g/dl (31.0-36.0); MEAN CORPUSCULAR VOLUME 80 fL (80-96); MONOCYTES # (AUTO) 0.7 /CMM (0.1-1.30); MONOCYTES % (AUTO) 9.4 % (2.0-12.0); NEUTROPHILS # (AUTO) 5.3 /CMM (1.8-8.9); NEUTROPHILS % (AUTO) 71.9 % (43.0-81.0); PLATELET COUNT (AUTO) 145 /CMM (150-450); RDW COEFFICIENT OF VARIATION 21.1 (11.5-15.0); RED BLOOD CELL COUNT(AUTO) 4.23 MIL/uL (4.5-6.0); WHITE BLOOD COUNT (AUTO) 7.4 K/uL (4.3-11.0)
[2016-12-03 08:05] LABS: CALCIUM, SERUM 8.2 mg/dL (8.5-10.1); CREATININE 0.5 mg/dL (0.6-1.3)
[2016-12-03] MEDS: FLUTICASONE 110MCG 1 EA INHALER IH SCH ×2 (09:11→17:46)
[2016-12-03] MEDS: DILTIAZEM HCL CD 240 MG PO SCH (09:12)
[2016-12-03] MEDS: LOSARTAN POTASSIUM 25 MG TABLET PO SCH (09:12)
[2016-12-03] MEDS: ATORVASTATIN 40 MG TABLET PO SCH (09:12)
[2016-12-03] MEDS: LORAZEPAM INJ 2 MG/ML VIAL IV PRN ×2 (09:15→19:52)
[2016-12-03] MEDS: POTASSIUM CHLORIDE 20 MEQ TAB.PRT.SR PO ONE ×2 (10:30→11:26)
--- NOTE | 2016-12-03 10:45 | NUR ---
METALLURGICAL ENGINEER CALLED DR. HUYNH'S OFFICE NUMBER [phone] AND LEFT A MESSAGE REGARDING EGT SCHEDULE AND NPO STATUS. AWAITING CALL BACK.
[2016-12-03] MEDS: PANTOPRAZOLE 40 MG VIAL IV SCH ×2 (11:26→23:39)
--- NOTE | 2016-12-03 11:56 | NUR ---
SHEAR SCRAPMAN RN CALLED THE ACCORDION TUNER. PER ACCORDION TUNER PATIENT IS CLEARED FOR EGD PROCEDURE. CERTIFIED JUVENILE PROBATION OFFICER MADE AWARE OF CARDIAC CLEARANCE. ALSO HELD KDUR PER MD ORDER.
[2016-12-03] MEDS ORDERED: hydrALAZINE HCL 10 MG TABLET ONE (13:00)
[2016-12-03] MEDS ORDERED: hydrALAZINE HCL IV 20 MG VIAL ONE (13:00)
[2016-12-03] MEDS ORDERED: hydrALAZINE HCL IV 20 MG VIAL IV PRN (13:30)
[2016-12-03] MEDS ORDERED: POTASSIUM CHLORIDE 20 MEQ TAB.PRT.SR PO ONE (14:00)
--- NOTE | 2016-12-03 15:00 | NUR ---
TD/RN DOWNGRADED TO TD REPORT GIVEN BY ICU NURSEJORGE FOR PT ADMITTED FOR GI BLEED, UNDER THE CARE OF DR. ALTAMIRANO. PT HAD EGD TODAY. AWAITING FOR PT'S ARRIVAL.
--- NOTE | 2016-12-03 15:20 | NUR ---
TD/PRIMARY CARE NURSE PRACTITIONER TO HEIDI PT ARRIVED TO HEIDI VIA WHEELCHAIR ACCOMPANIED BY ICU NURSE JORGE. PT A/O X 4, NO ACUTE CHANGE OF CONDITION OR ACTIVE BLEEDING NOTED, DENIES ANY SYMPTOMS. PT ON ROOM AIR SATURATING WELL, TELEMONITORING BOX PLACED, WITH CONTROLLED A-FIB, HR. 76 IV SITES FLUSHED, PATENT, NO S/S OF INFECTION, SL. CONTINUE TO MONITOR. CL WITHIN REACHED AND SAFETY MAINTAINED.
--- NOTE | 2016-12-03 15:27 | NUR ---
SEATER GRINDER TRANSFERRED THE PATIENT TO HEIDI LEVEL OF CARE ON STABLE CONDITIONS. ACLS PROTOCOL.
--- NOTE | 2016-12-03 18:25 | NUR ---
TD/RN ROUNDS - DR. STANLEY PT SEEN & EXAMINED BY DR. STANLEY, NO NEW ORDERS RECEIVED AT THIS TIME. MONITORING CONTINUED.
--- NOTE | 2016-12-03 18:42 | NUR ---
TD/RN CONSENT - MYOCARDIAL STRESS TEST CONSENT FOR MYOCARDIAL STRESS TEST OBTAINED FROM PATIENT, PLACED ON CHART. PT TO BE NPO AFTER BREAKFAST IN AM.
--- NOTE | 2016-12-03 19:24 | NUR ---
TD/RN INCREASED HR PT NOTED WITH INCREASED HR TO THE 200s WHILE SITTING IN BED. DR. STANLEY NOTIFIED, WITH TELEPHONE ORDER RECEIVED FOR METOPROLOL 2.5MG IVP Q4HRS FOR HR ABOVE 120. ORDER NOTED AND CARRIED. PT DENIES ANY SYMPTOMS. CHARGE NURSE MADE AWARE.
[2016-12-03] MEDS ORDERED: METOPROLOL TARTRATE INJ 5 MG/5 ML AMPUL IVP PRN (19:30)
--- NOTE | 2016-12-03 19:36 | NUR ---
TD/RN AM SHIFT END NOTES PT'S HR 134 AT THIS TIME. NEW ORDER FOR PRN METOPROLOL PLACED, PT ENDORSED TO PM NURSE TO CONTINUE CARE. CL WITHIN REACHED AND SAFETY MAINTAINED.
--- NOTE | 2016-12-03 19:40 | NUR ---
RN TD NOTE PT RECEIVED WITH TACHYCARDIA(A-FIB 160BPM)/HYPERTENSION IN AN ANXIOUS STATE WONDERING WHERE HIS TWO FRIENDS WERE THAT CAME TO VISIT HIM AND LEFT. HE WAS NOT ABLE TO REACH THEM SO HE FELT NERVOUS. PT IS ON RA WITH 02 AT 96%. PT IS A/O X4 AND ABLE TO MAKE NEEDS KNOWN AND WALK WELL. PT HAS A LEFT FA 20G IV THAT IS INTACT AND A LEFT WRIST 20G THAT IS LEAKING WHEN FLUSHED SO IT WILL BE D/C'D. WILL MONITOR PT FOR REST OF SHIFT.
--- NOTE | 2016-12-03 19:50 | NUR ---
RN TD NOTE PT RECEIVED ATIVAN 1MG FOR ANXIETY WELL LOPRESSOR 2.5MG FOR TACHYCARDIA/HYPERTENSION. WILL CONTINUE TO MONITOR PT FOR ANY NEEDS.
[2016-12-03] MEDS ORDERED: METOPROLOL TARTRATE INJ 5 MG/5 ML AMPUL ONE (19:51)
[2016-12-03] MEDS: ZOLPIDEM TARTRATE 5 MG TABLET PO PRN (23:48)
[2016-12-04] VITALS: BP 158/73
[2016-12-04] MEDS: IPRATROPIUM NEB FS 0.5 MG/2.5 ML AMPUL.NEB NEB SCH ×3 (00:35→13:30)
[2016-12-04 04:00] VITALS: BP 140/76
--- NOTE | 2016-12-04 06:17 | NUR ---
RN HEIDI CLOSING NOTE PT REMAINS IN NO ACUTE DISTRESS AT THIS TIME. ON 2LPM 02 VIA NC. A-FIB/VFIB CONTROLLED DURING SHIFT WITH PRN LOPRESSOR ORDER. ATIVAN AND AMBIEN GIVEN DURING SHIFT. LEFT WRIST IV TAKEN OUT AFTER LEAKING. LFA IV DRY AND INTACT. WILL ENDORSE CARE TO AM NURSE.
--- NOTE | 2016-12-04 07:10 | NUR ---
RN INITIAL NOTE PATIENT RECEIVED IN BED, RESTING. NO S/S OF PAIN OR DISCOMFORT. PATIENT ALERT AND ORIENTED. ABLE TO MAKE NEEDS KNOWN. RESPIRATIONS ARE EVEN AND UNLABORED. NO S/S OF RESPIRATORY DISTRESS OR SOB. SATING WELL ON 2L NASAL CANULA. AFIB ON TELE MONITOR. IV SITE FLUSHED, PATENT. SKIN IS WARM AND DRY TO TOUCH. PATIENT SCHEDULED FOR STESS TEST TODAY. ORDERS FOR NPO STATUS AFTER BREAKFAST. SAFETY PRECAUTIONS IMPLEMENTED, BED IN LOCKED, LOW POSITION WITH TWO SIDE RAILS UP. WILL CONTINUE TO MONITOR CLOSELY.
[2016-12-04 08:00] VITALS: BP_SYST 161; BP_DIAS 81; BP_DIAS 87
[2016-12-04] MEDS: DILTIAZEM HCL CD 240 MG PO SCH (08:07)
[2016-12-04] MEDS: ATORVASTATIN 40 MG TABLET PO SCH (08:07)
[2016-12-04] MEDS: FLUTICASONE 110MCG 1 EA INHALER IH SCH (08:07)
[2016-12-04] MEDS: LOSARTAN POTASSIUM 25 MG TABLET PO SCH (08:08)
[2016-12-04] MEDS: PANTOPRAZOLE 40 MG VIAL IV SCH (11:42)
[2016-12-04 12:00] VITALS: BP 144/78
[2016-12-04] MEDS ORDERED: REGADENOSON 0.4 MG/5 ML DISP.SYRIN IVP ONE (13:00)
--- NOTE | 2016-12-04 13:10 | NUR ---
RN NOTE PATIENT WENT TO NUCLEAR MEDICINE FOR STRESS TEST
--- NOTE | 2016-12-04 14:00 | NUR ---
RT PT ABSENT FOR PROCEDURE, WILL CHECK BACK WITH AT A LATER TIME. Addendum: 12/04/16 at 1402 by YOLANDE WELLER RT Amended: Links added.
[2016-12-04 16:00] VITALS: BP 162/84
--- NOTE | 2016-12-04 18:29 | NUR ---
RN CLOSING NOTE PATIENT DISCHARGED HOME. PAPERWORK COMPLETE. IV SITE DISCONTINUED. ID BAND REMOVED.
== END 2016-12-04 18:23 | disposition home or self-care (01) | DRG 380 ==
LOC: ER 07:31 → ICU 11:00 → TELE1 12-03 15:12 → TELE-TD 12-03 18:42
PROVIDERS: ADMIT Internal Medicine; ATTEND Internal Medicine
PROC: 0DB58ZX Excision of Esophagus, Via Natural or Artificial Opening Endoscopic, Diagnostic (ICD-10-PCS; principal; 2016-12-03 12:30)
DX: K22.70 Barrett's esophagus without dysplasia (principal); I21.4 Non-ST elevation (NSTEMI) myocardial infarction; D68.59 Other primary thrombophilia; D62 Acute posthemorrhagic anemia; E78.5 Hyperlipidemia, unspecified; K92.0 Hematemesis; I10 Essential (primary) hypertension; E87.6 Hypokalemia; I35.0 Nonrheumatic aortic (valve) stenosis; J44.9 Chronic obstructive pulmonary disease, unspecified; K21.9 Gastro-esophageal reflux disease without esophagitis; K44.9 Diaphragmatic hernia without obstruction or gangrene; Z79.899 Other long term (current) drug therapy; Z79.51 Long term (current) use of inhaled steroids; Z87.891 Personal history of nicotine dependence; Z79.82 Long term (current) use of aspirin; Z79.01 Long term (current) use of anticoagulants; I48.2 Chronic atrial fibrillation
CPT/HCPCS: 36415; 71010-TC; 80048-TC; 80053-TC; 80061-TC; 80076-TC; 83690-TC; 83735-TC; 83880; 84100-TC; 84484-TC; 85025-TC; 85730-TC; 86850-TC; 86921-TC; 87081-TC; 88305-TC; 88313-TC; 88342; 93307-TC; 94799-TC; A4606; A9502; C9113; J0360; J2060; J2405; J2785; J3490; J7030; J7040; J7050; P9016-BL; Z7610

== ENCOUNTER 2017-07-22 12:18 | Inpatient (IN) | payer MEDICARE, OTHER ==
[~2017-07-22] VITALS: Ht 175.3 cm; Wt 83.9 kg
[~2017-07-22 12:18] MED LIST changes: +ASPI-992 PO; -ASPI81TA2 PO; -IPRA3AMP IH; +IPRA3AMP23 IH; -LEVO750T21 PO; -PRED20TA PO; -RIVA10TA PO; +SUCR1TAB PO
--- NOTE | 2017-07-22 12:20 | NUR ---
PRESENTS TO ER C/O SHORTNESS OF BREATH X 6 DAYS, WORSENING TODAY. ALSO C/O COUGH AND CONGESTION. A/OX 4. BREATHING EVEN AND UNLABORED. NAD NOTED. VITALS STABLE. SAFETY AND COMFORT MEASURES IN PLACE. AWAITING MD ORDERS.
[2017-07-22] MEDS ORDERED: methylPREDNISolone SOD SUCC 125 MG/2ML VIAL ONE (12:41)
--- NOTE | 2017-07-22 12:50 | NUR ---
NEW IV STARTED ON LFA, 18G, BLOOD DRAWN AND SENT TO LAB.
[2017-07-22] MEDS ORDERED: methylPREDNISolone SOD SUCC 125 MG/2ML VIAL IV ONE (13:00)
[2017-07-22] MEDS ORDERED: ALBUTEROL FS 2.5 MG/3 ML VIAL.NEB CONTNEB ONE (13:00)
[2017-07-22 13:05] LABS: BASOPHILS # (AUTO) 0.1 /CMM (0.0-0.2); LYMPHOCYTES # (AUTO) 0.8 /CMM (0.8-4.8)
[2017-07-22 13:11] LABS: BASOPHILS % (AUTO) 0.6 % (0.0-2.0); EOSINOPHILS % (AUTO) 0.6 % (0.0-6.0); HEMATOCRIT 40 % (39-51); HEMOGLOBIN 13.3 g/dL (13.5-17.5); LYMPHOCYTES % (AUTO) 8.5 % (20.0-44.0); MEAN CORPUSCULAR HGB CONC 33 g/dl (31.0-36.0); MEAN CORPUSCULAR VOLUME 79 fL (80-96); MONOCYTES % (AUTO) 10.8 % (2.0-12.0); NEUTROPHILS # (AUTO) 7.2 /CMM (1.8-8.9); NEUTROPHILS % (AUTO) 79.5 % (43.0-81.0); PLATELET COUNT (AUTO) 227 /CMM (150-450); RDW COEFFICIENT OF VARIATION 15.7 (11.5-15.0); RED BLOOD CELL COUNT(AUTO) 5.02 MIL/uL (4.5-6.0); WHITE BLOOD COUNT (AUTO) 9.2 K/uL (4.3-11.0)
[2017-07-22 13:16] LABS: CARBON DIOXIDE 25 mmol/L (21-32); CHLORIDE 92 mmol/L (98-107); CREATININE 0.7 mg/dL (0.6-1.3); GLUCOSE 105 mg/dL (74-106); POTASSIUM 4.2 mmol/L (3.5-5.1); SODIUM SERUM 128 mmol/L (136-145); UREA NITROGEN, BLOOD 9 mg/dL (7-18)
[2017-07-22 13:23] LABS: TROPONIN I < 0.017 ng/mL (0.00-0.056)
[2017-07-22 13:29] LABS: ALANINE AMINOTRANSFERASE 22 U/L (12-78); ALBUMIN 3.2 g/dL (3.4-5.0); ALKALINE PHOSPHATASE 127 U/L (46-116); ASPARTATE AMINOTRANSFERASE 34 U/L (15-37); B-TYPE NATRIURETIC PEPTIDE 2315 PG/ML (0-125); BILIRUBIN,DIRECT 0.3 mg/dL (0.0-0.2); BILIRUBIN,TOTAL 0.9 mg/dL (0.2-1.0); TOTAL PROTEIN, SERUM 7.9 g/dL (6.4-8.2)
[2017-07-22] MEDS ORDERED: ALBUTEROL FS 2.5 MG/3 ML VIAL.NEB ONE (13:39)
[2017-07-22] MEDS ORDERED: ASPIRIN 325 MG TABLET PO STA (13:40)
[2017-07-22] MEDS ORDERED: ASPIRIN 325 MG TABLET ONE (13:59)
[2017-07-22] MEDS ORDERED: BUDE10.22 IH (14:11)
[2017-07-22] MEDS ORDERED: SERT25TA PO (14:11)
[2017-07-22] MEDS ORDERED: ASPI-1152 PO (14:11)
--- NOTE | 2017-07-22 14:51 | NUR ---
REPORT GIVEN TO RAINER CHANG FOR NIKKY UPON ADMISSION.
[2017-07-22 15:10] VITALS: BP 171/92
--- NOTE | 2017-07-22 15:10 | NUR ---
CRISIS WORKEROPTO MECHANICAL TECHNICIAN NOTES. PATIENT ADMITTED FOR ACUTE RESPIRATORY FAILURE AND HYPONATREMIA. RECEIVED PATIENT AWAKE AND ALERT ,VERBALLY RESPONSIVE, ABLE TO MAKE NEEDS KNOWN, RESPIRATIONS EVEN AND UNLABORED, AMBULATORY, ON UM RN, NO DISTRESS NOTED AT THIS TIME, NO COMPLAINTS OF PAIN OR DISCOMFORT. IV INSERTED TO RIGHT WRIST 22 GAUGE INTACT AND PATENT, ACCOMPANIED BY FRIEND MARIA LUISA, BELONGINGS CHECKED , HOME MEDICATION TAKEN BY CHECO, SKIN IS INTACT, ORIENTED TO ROOM ,SAFETY MEASURES IN PLACE,CALL LIGHT KEPT WITHIN REACH. MD AWARE OF ADMISSION WITH ORDERS PLACED ,PATIENT HAD DINNER WITH NO COMPLICATIONS, FLUIDS OFFERED, REMAINS COMFORTABLE AT THIS TIME, WILL CONTINUE TO MONITOR.
[2017-07-22] MEDS ORDERED: ONDANSETRON HCL/PF 4 MG/2 ML VIAL IVP PRN (16:00)
[2017-07-22] MEDS ORDERED: Z GUARD REMEDY 2 OZ OINT TP PRN (16:00)
[2017-07-22] MEDS ORDERED: MAGNESIUM HYDROXIDE 30 ML UDC PO PRN (16:00)
[2017-07-22] MEDS ORDERED: MAG HYDROX/AL HYDROX/SIMETH 30 ML UDC PO PRN (16:00)
[2017-07-22] MEDS ORDERED: ACETAMINOPHEN 325 MG TABLET PO PRN (16:00)
[2017-07-22 16:30] VITALS: BP 164/84
[2017-07-22] MEDS: SUCRALFATE 1 G TABLET PO SCH ×2 (16:34→22:15)
[2017-07-22] MEDS: methylPREDNISolone SOD SUCC 40 MG/ML VIAL IV SCH (16:37)
[2017-07-22] MEDS: ENOXAPARIN SODIUM 40 MG/0.4 ML DISP.SYRIN SQ SCH (16:51)
[2017-07-22] MEDS ORDERED: Medication Not On Formulary EA (Budesonide/Formoterol Fumarate (Symbicort 80-4.5 Mcg Inh IH SCH (17:00)
[2017-07-22] MEDS: IPRATROPIUM NEB FS 0.5 MG/2.5 ML AMPUL.NEB NEB SCH ×3 (17:33→22:54)
[2017-07-22] MEDS ORDERED: hydrALAZINE HCL 25 MG TABLET PO PRN (18:30)
[2017-07-22] MEDS ORDERED: PNEUMOCOCCAL 23-VAL P-SAC VAC 0.5 ML VIAL SQ ONE (18:30)
[2017-07-22 18:36] VITALS: BP 153/79
--- NOTE | 2017-07-22 19:06 | NUR ---
REGIONAL CLIMATE CHANGE ANALYST CLOSING NOTES PATIENT IN BED, AWAKE AND ALERT VERBALLY RESPONSIVE,ON CONTRACT PROGRAMMER, NO S/S OF DISTRESS, RESPIRATIONS EVEN AND UNLABORED, NO COMPLAINTS OF PAIN OR DISCOMFORT, PATIENT IN BED RESTING AND COMFORTABLE, IV REMAINS INTACT AND PATENT, CALL LIGHT KEPT WITHIN REACH
[2017-07-22] MEDS ORDERED: ALBUTEROL FS 2.5 MG/3 ML VIAL.NEB NEB PRN (19:30)
--- NOTE | 2017-07-22 19:30 | NUR ---
BOX STAMPER NOTE RECEIVED PATIENT AWAKE AND ALERT IN BED. NO RESPIRATORY DISTRESS AT THIS TIME. DENIES ANY PAIN OR DISCOMFORT. IV SITE INTACT WITH NO REDNESS OR INFILTRATION NOTED. BED LOCKED AND IN LOWEST POSITION, SIDE RAILS UP, CALL LIGHT WITHIN REACH. WILL CONTINUE TO MONITOR.
[2017-07-22 20:00] VITALS: BP 178/81
[2017-07-22] MEDS: ALBUTEROL FS 2.5 MG/3 ML VIAL.NEB NEB SCH (20:21)
[2017-07-22] MEDS ORDERED: PNEUMOCOCCAL 23-VAL P-SAC VAC 0.5 ML VIAL ONE (21:38)
[2017-07-22 22:00] VITALS: BP 178/81
[2017-07-22] MEDS: ATORVASTATIN 40 MG TABLET PO SCH (22:15)
--- NOTE | 2017-07-22 22:30 | NUR ---
GENERAL MANAGER IN TRAINING NOTE ADMINISTERED FLU VACCINE TO RED. ADMINISTERED PNA VACCINE TO ABDOMEN. PATIENT TOLERATED WELL. WILL CONTINUE TO MONITOR.
[2017-07-23] VITALS: BP 150/96
[2017-07-23] MEDS: ALBUTEROL FS 2.5 MG/3 ML VIAL.NEB NEB SCH ×4 (02:08→15:30)
[2017-07-23] MEDS: IPRATROPIUM NEB FS 0.5 MG/2.5 ML AMPUL.NEB NEB SCH ×5 (03:30→20:19)
--- NOTE | 2017-07-23 06:09 | NUR ---
WELDING MACHINE OPERATOR FRICTION NOTE PATIENT STABLE. ALL NEEDS MET AND ATTENDED TO. WILL ENDORSE TO DAY SHIFT FOR NIKKY.
[2017-07-23 06:44] LABS: BASOPHILS % (AUTO) 0.1 % (0.0-2.0); HEMATOCRIT 37 % (39-51); HEMOGLOBIN 12.3 g/dL (13.5-17.5); LYMPHOCYTES # (AUTO) 0.4 /CMM (0.8-4.8); LYMPHOCYTES % (AUTO) 7.2 % (20.0-44.0); MEAN CORPUSCULAR HGB CONC 33 g/dl (31.0-36.0); MEAN CORPUSCULAR VOLUME 80 fL (80-96); MONOCYTES # (AUTO) 0.3 /CMM (0.1-1.30); MONOCYTES % (AUTO) 4.7 % (2.0-12.0); NEUTROPHILS # (AUTO) 5.1 /CMM (1.8-8.9); PLATELET COUNT (AUTO) 189 /CMM (150-450); RDW COEFFICIENT OF VARIATION 16.5 (11.5-15.0); RED BLOOD CELL COUNT(AUTO) 4.66 MIL/uL (4.5-6.0); WHITE BLOOD COUNT (AUTO) 5.8 K/uL (4.3-11.0)
--- NOTE | 2017-07-23 07:05 | NUR ---
telecommunications line mechanic initial notes Received patient in bed, awake, head of bed elevated, no SOB or distress noted, on room air and tolerated well, saturation of 97%. On tele monitor Aflutter heart rate of 67, no complaint of pain or discomfort noted. Alert and oriented x 4, verbally responsive and able to make needs known. IV intact and patent HL only. Call light with in patient reach, will continue to monitor accordingly.
[2017-07-23 07:07] LABS: CALCIUM, SERUM 8.8 mg/dL (8.5-10.1); CREATININE 0.5 mg/dL (0.6-1.3); MAGNESIUM 1.9 mg/dL (1.8-2.4); PHOSPHORUS 3.8 mg/dL (2.5-4.9); POTASSIUM 3.8 mmol/L (3.5-5.1)
[2017-07-23 08:00] VITALS: BP 150/96
[2017-07-23] MEDS: ASPIRIN EC 81 MG TABLET.DR PO SCH (08:14)
[2017-07-23] MEDS: methylPREDNISolone SOD SUCC 40 MG/ML VIAL IV SCH ×3 (08:14→16:06)
[2017-07-23] MEDS: SERTRALINE HCL 25 MG TABLET PO SCH (08:14)
[2017-07-23] MEDS: SUCRALFATE 1 G TABLET PO SCH ×4 (08:14→20:09)
[2017-07-23] MEDS: CARVEDILOL 6.25 MG TABLET PO SCH ×2 (08:16→20:10)
[2017-07-23] MEDS: DILTIAZEM HCL CD 240 MG PO SCH (08:16)
[2017-07-23] MEDS: VALSARTAN 80 MG TABLET PO SCH (09:00)
[2017-07-23] MEDS ORDERED: LOSARTAN POTASSIUM 25 MG TABLET PO SCH (09:00)
[2017-07-23] MEDS ORDERED: TIOTROPIUM BROMIDE 6 CAP/BOX CAP.W.DEV IH SCH (09:00)
[2017-07-23 09:12] LABS: THYROID STIMULATING HORMONE 0.38 uIU/mL (0.358-3.74)
[2017-07-23 09:13] LABS: ABG BASE EXCESS 0.3 mmol/L; ABG OXYGEN SATURATION 91.6 % (92.0-98.5); ABG PCO2 31.8 mmHg (35.0-45.0); ABG PH 7.479 (7.350-7.450); ABG PO2 63.6 mmHg (75.0-100.0); AaDO2 48.1 mmHg; COHb 0.3 % (0.5-1.5); MetHb 1.1 % (0.0-1.5); O2Hb 90.3 % (94.0-97.0); SITE, ABG Left Radial; VENT MODE, BG ROOM AIR
[2017-07-23] MEDS: DIGOXIN INJ 0.5 MG/2 ML AMPUL IV SCH ×2 (11:58→18:06)
[2017-07-23] MEDS ORDERED: ALBUTEROL FS 2.5 MG/0.5 ML VIAL.NEB NEB PRN (13:30)
[2017-07-23 15:22] LABS: IRON, SERUM 23 ug/dl (50-175); TOTAL IRON BINDING CAPACITY 267 ug/dl (250-450)
--- NOTE | 2017-07-23 15:53 | NUR ---
Ventolin scheduled for 15:30 (Q8)was not given due to it is a duplicate order. There is an active order for ventolin Q6 and Atrovent Q4. Both meds were given today at 14:50.
[2017-07-23 16:00] VITALS: BP_SYST 144; BP_SYST 151; BP_DIAS 78; BP_DIAS 80
[2017-07-23] MEDS: LORAZEPAM INJ 2 MG/ML VIAL IV PRN (16:06)
[2017-07-23] MEDS: PANTOPRAZOLE 40 MG VIAL IV SCH (16:06)
--- NOTE | 2017-07-23 19:13 | NUR ---
ms rn closing notes All needs provided, attended, and anticipated. Patient in stable condition at this time. Call light with in patient reach, endorsed to next shift RN to continue care.
[2017-07-23] MEDS ORDERED: PEG 3350/NA SULF,BICARB,CL/KCL 4,000 ML BOTTLE PO ONE (19:30)
[2017-07-23] MEDS ORDERED: MAGNESIUM CITRATE 296 ML BOTTLE PO ONE (19:30)
[2017-07-23] MEDS ORDERED: NA PHOS,M-B/NA PHOS,DI-BA 1 EA ENEMA RC PRN (19:30)
--- NOTE | 2017-07-23 19:30 | NUR ---
TENNIS COURT ATTENDANT NOTE RECEIVED PATIENT AWAKE AND ALERT IN BED. ABLE TO MAKE NEEDS KNOWN. IV SITE INTACT WITH NO REDNESS OR INFILTRATION. DENIES ANY PAIN OR DISCOMFORT. NO RESPIRATORY DISTRESS AT THIS TIME. ORDER FROM JUANITA WALKER, FOR COLONOSCOPY IN AM. WAITING TO BEGIN BOWEL PREP. BED LOCKED AND IN LOWEST POSITION. SIDE RAILS UP, CALL LIGHT WITHIN REACH. WILL CONTINUE TO MONITOR.
--- NOTE | 2017-07-23 20:00 | NUR ---
HAULAGE BOSS NOTE PER PATIENT, HE IS AWARE OF HIS EGD IN AM, BUT NOT COLONOSCOPY. CALLED JUANITA DIRECTOR OF EDUCATION AND TRAINING TO INFORM HER. WAITING FOR CALL BACK. PATIENT REFUSING GO-LYTLEY AT THIS TIME. WILL CONTINUE TO MONITOR.
[2017-07-23] MEDS ORDERED: MAGNESIUM CITRATE 296 ML BOTTLE ONE (20:04)
[2017-07-23 20:19] VITALS: BP 144/80
[2017-07-23] MEDS: ENOXAPARIN SODIUM 40 MG/0.4 ML DISP.SYRIN SQ SCH (21:00)
--- NOTE | 2017-07-23 21:00 | NUR ---
CONTRACTS REPRESENTATIVE NOTE SPOKE TO AARON GRANT. PER JUANITA, PATIENT IS TO HAVE BOTH COLONOSCOPY AND EGD IN AM. DUE TO PATIENTS HISTORY OF ULCERS AND GI BLEED. SHE ASKED ME TO INFORM PATIENT OF THIS. I SPOKE TO PATIENT WHO IS ANXIOUS AT THIS TIME. I EXPLAINED WHY BOTH PROCEDURES ARE NECESSARY. I PROVIDED RELAXATION TECHNIQUES AND REASSURED PATIENT. AT THIS TIME, PATIENT IS TILL REFUSING BOWEL PREP. WILL CONTINUE TO MONITOR AND REASSESS SHORTLY.
--- NOTE | 2017-07-23 21:20 | NUR ---
CBX OPERATOR NOTE REASSURED PATIENT ABOUT COLONOSCOPY AND EGD. EDUCATED PATIENT ON IMPORTANCE OF BOTH PROCEDURES. PATIENT IS AGREEING TO BEGIN GO LIGHTLY AT THIS TIME. WILL BE NPO POST MIDNIGHT.
[2017-07-23] MEDS: ATORVASTATIN 40 MG TABLET PO SCH (21:32)
[2017-07-23 22:00] VITALS: BP 144/80
[2017-07-24] VITALS: BP 130/69
[2017-07-24] MEDS: DIGOXIN INJ 0.5 MG/2 ML AMPUL IV SCH
[2017-07-24] MEDS: ZOLPIDEM TARTRATE 5 MG TABLET PO PRN ×2 (00:14→23:31)
[2017-07-24] MEDS: ALBUTEROL FS 2.5 MG/3 ML VIAL.NEB NEB SCH ×3 (00:15→15:11)
[2017-07-24] MEDS: IPRATROPIUM NEB FS 0.5 MG/2.5 ML AMPUL.NEB NEB SCH ×6 (00:15→20:13)
--- NOTE | 2017-07-24 00:30 | NUR ---
WARP PREPARER NOTE PATIENT HAS HAD TWO LARGE, LOOSE BOWEL MOVEMENTS. STOOL SPECIMEN AND URINE SPECIMEN COLLECTED AND PLACED IN LAB [facility]. WILL CONTINUE TO MONITOR.
[2017-07-24 04:00] VITALS: BP 135/70
[2017-07-24] MEDS ORDERED: NA PHOS,M-B/NA PHOS,DI-BA 1 EA ENEMA RC PRN (06:30)
--- NOTE | 2017-07-24 06:39 | NUR ---
local telephone operator note Patient stable. Patient's stool still with particles. Administered fleet enema. Patient very anxious. Does not want another enema. Explained importance of it. Will try to give another one in 30 minutes. All needs met and attended to. Consents and checklist in chart. Will endorse to day shift for tristan.
[2017-07-24 06:47] LABS: INR 0.96 (0.87-1.13)
[2017-07-24 06:55] LABS: BASOPHILS % (AUTO) 0.1 % (0.0-2.0); HEMATOCRIT 34 % (39-51); HEMOGLOBIN 11.2 g/dL (13.5-17.5); LYMPHOCYTES # (AUTO) 0.6 /CMM (0.8-4.8); LYMPHOCYTES % (AUTO) 7.9 % (20.0-44.0); MEAN CORPUSCULAR HGB CONC 33 g/dl (31.0-36.0); MEAN CORPUSCULAR VOLUME 81 fL (80-96); MONOCYTES # (AUTO) 0.5 /CMM (0.1-1.30); MONOCYTES % (AUTO) 5.6 % (2.0-12.0); NEUTROPHILS % (AUTO) 86.4 % (43.0-81.0); PLATELET COUNT (AUTO) 209 /CMM (150-450); RDW COEFFICIENT OF VARIATION 16.2 (11.5-15.0); RED BLOOD CELL COUNT(AUTO) 4.24 MIL/uL (4.5-6.0); WHITE BLOOD COUNT (AUTO) 8.1 K/uL (4.3-11.0)
[2017-07-24] MEDS ORDERED: ANESTHESIA TRAY IN PYXIS 1 EA TRAY MC ONE (07:09)
--- NOTE | 2017-07-24 07:10 | NUR ---
telemetry monitor initial notes Received patient in bed, awake, head of bed elevated, no SOB or distress noted, on room air and tolerated well. On tele monitor A flutter heart rate of 85, no complaint of pain or discomfort at this time. On NPO for procedure today. IV intact and patent, HL only. Call light with in patient reach, will continue to monitor accordingly.
[2017-07-24 07:28] LABS: CALCIUM, SERUM 8.4 mg/dL (8.5-10.1); CREATININE 0.6 mg/dL (0.6-1.3); MAGNESIUM 1.9 mg/dL (1.8-2.4); PHOSPHORUS 3.6 mg/dL (2.5-4.9); POTASSIUM 3.6 mmol/L (3.5-5.1)
[2017-07-24 07:53] LABS: URINE SODIUM, RANDOM < 5 mmol/l (40-220)
[2017-07-24 08:00] VITALS: BP_SYST 129; BP_SYST 135; BP_DIAS 75; BP_DIAS 84
[2017-07-24] MEDS: methylPREDNISolone SOD SUCC 40 MG/ML VIAL IV SCH ×3 (08:21→16:48)
[2017-07-24 08:22] LABS: OCCULT BLOOD STOOL POSITIVE (NEGATIVE)
[2017-07-24] MEDS: PANTOPRAZOLE 40 MG VIAL IV SCH ×2 (08:22→16:48)
[2017-07-24] MEDS: SUCRALFATE 1 G TABLET PO SCH ×4 (08:58→21:59)
[2017-07-24] MEDS: ASPIRIN EC 81 MG TABLET.DR PO SCH (08:58)
[2017-07-24] MEDS: DILTIAZEM HCL CD 240 MG PO SCH (08:58)
[2017-07-24] MEDS: SERTRALINE HCL 25 MG TABLET PO SCH (08:59)
[2017-07-24] MEDS: VALSARTAN 80 MG TABLET PO SCH (08:59)
[2017-07-24] MEDS: CARVEDILOL 6.25 MG TABLET PO SCH ×2 (08:59→21:59)
--- NOTE | 2017-07-24 09:00 | NUR ---
television reporter notes Held all morning oral medications due to patient is NPO for scheduled procedure. Will continue to monitor.
[2017-07-24 09:41] LABS: OSMOLALITY,URINE 647 mOS/kg (340-1090)
--- NOTE | 2017-07-24 11:38 | NUR ---
satellite television installer notes patient left the unit for scheduled procedure accompanied by pyrotechnic assembler in stable condition.
[2017-07-24] MEDS: SOD FERRIC GLUC 125 MG in IV NS 0.9% 100 ML IV SCH (15:16)
[2017-07-24 16:00] VITALS: BP 115/65
--- NOTE | 2017-07-24 19:13 | NUR ---
ms rn closing notes All needs provided, attended, and anticipated. Patient in stable condition. Call light with in patient reach, endorsed to next shift RN to continue care.
--- NOTE | 2017-07-24 19:30 | NUR ---
MS/RN RECEIVE PATIENT AWAKE, ALERT, ORIENTED, COMFORTABLE, NO C/O PAIN, NO DISTRESS NOTED, CALL LIGHT IN REACH. WILL MONITOR.
[2017-07-24 20:00] VITALS: BP 145/71
[2017-07-24] MEDS: ATORVASTATIN 40 MG TABLET PO SCH (21:59)
[2017-07-24] MEDS: ENOXAPARIN SODIUM 40 MG/0.4 ML DISP.SYRIN SQ SCH (22:00)
[2017-07-25] MEDS: ALBUTEROL FS 2.5 MG/3 ML VIAL.NEB NEB SCH ×4 (00:09→22:54)
[2017-07-25] MEDS: IPRATROPIUM NEB FS 0.5 MG/2.5 ML AMPUL.NEB NEB SCH ×7 (00:09→22:54)
--- NOTE | 2017-07-25 00:58 | NUR ---
MS/RN PATIENT IS SLEEPING AT THIS TIME, AROUSABLE, APPEAR COMFORTABLE, NO DISTRESS NOTED, CALL LIGHT IN REACH. WILL MONITOR.
--- NOTE | 2017-07-25 07:05 | NUR ---
MS/RN PATIENT STILL SLEEPING, EASILY AROUSABLE, APPEAR COMFORTABLE, NO DISTRESS NOTED, ALL NEEDS ATTENDED AT THIS TIME, WILL CONTINUE TO MONITOR.
[2017-07-25 08:00] VITALS: BP 158/84
[2017-07-25] MEDS: methylPREDNISolone SOD SUCC 40 MG/ML VIAL IV SCH ×3 (08:44→17:20)
[2017-07-25] MEDS: DILTIAZEM HCL CD 240 MG PO SCH (08:44)
[2017-07-25] MEDS: SERTRALINE HCL 25 MG TABLET PO SCH (08:45)
[2017-07-25] MEDS: VALSARTAN 80 MG TABLET PO SCH (08:45)
[2017-07-25] MEDS: SUCRALFATE 1 G TABLET PO SCH ×4 (08:45→21:46)
[2017-07-25] MEDS: PANTOPRAZOLE 40 MG VIAL IV SCH ×2 (08:46→17:21)
[2017-07-25] MEDS: CARVEDILOL 6.25 MG TABLET PO SCH ×2 (08:46→21:46)
[2017-07-25] MEDS: HYDROCODONE/APAP 5/325MG 1 EACH TABLET PO PRN (08:53)
[2017-07-25] MEDS ORDERED: ERGOCALCIFEROL (VITAMIN D 2) 50,000 UNIT CAPSULE PO SCH (09:00)
[2017-07-25] MEDS: LORAZEPAM INJ 2 MG/ML VIAL IV PRN ×2 (10:39→21:53)
--- NOTE | 2017-07-25 10:40 | NUR ---
MS RN NOTE: PT IN THE HALLWAY COMPLAINING OF ANXIETY ATIVAN 0.5 MG IV GIVEN PER [place] REQUEST VSS, UNABLE TO SCAN MEDICATIONS DUE TO THROW MEDICATIONS IN THE MED CONTAINER BY MISTAKE WILL CONTINUE MONITORING PT CONDITIONS
[2017-07-25 11:50] LABS: BASOPHILS # (AUTO) 0.1 /CMM (0.0-0.2); BASOPHILS % (AUTO) 0.6 % (0.0-2.0); HEMATOCRIT 33 % (39-51); HEMOGLOBIN 11.3 g/dL (13.5-17.5); LYMPHOCYTES # (AUTO) 0.5 /CMM (0.8-4.8); LYMPHOCYTES % (AUTO) 4.7 % (20.0-44.0); MEAN CORPUSCULAR HGB CONC 34 g/dl (31.0-36.0); MEAN CORPUSCULAR VOLUME 80 fL (80-96); MONOCYTES # (AUTO) 0.7 /CMM (0.1-1.30); MONOCYTES % (AUTO) 6.4 % (2.0-12.0); NEUTROPHILS # (AUTO) 10.1 /CMM (1.8-8.9); NEUTROPHILS % (AUTO) 88.3 % (43.0-81.0); PLATELET COUNT (AUTO) 229 /CMM (150-450); RDW COEFFICIENT OF VARIATION 16.4 (11.5-15.0); RED BLOOD CELL COUNT(AUTO) 4.17 MIL/uL (4.5-6.0); WHITE BLOOD COUNT (AUTO) 11.5 K/uL (4.3-11.0)
[2017-07-25] MEDS: SOD FERRIC GLUC 125 MG in IV NS 0.9% 100 ML IV SCH (15:11)
[2017-07-25 16:00] VITALS: BP 128/85
[2017-07-25] MEDS: FLUCONAZOLE (100 MG) 100 MG TABLET PO SCH (17:20)
--- NOTE | 2017-07-25 18:40 | NUR ---
RN NOTE; PT HAD NO BM THIS SHIFT
--- NOTE | 2017-07-25 19:30 | NUR ---
MS/RN RECEIVE PATIENT AWAKE, ALERT, ORIENTED, COMFORTABLE, NO C/O PAIN, NO DISTRESS NOTED, CALL LIGHT IN REACH. WILL MONITOR.
[2017-07-25 20:00] VITALS: BP 136/94
[2017-07-25] MEDS: ENOXAPARIN SODIUM 40 MG/0.4 ML DISP.SYRIN SQ SCH (21:00)
[2017-07-25] MEDS: ATORVASTATIN 40 MG TABLET PO SCH (21:47)
--- NOTE | 2017-07-25 22:09 | NUR ---
MS/RN PATIENT'S ROOM MATE IN 308-2 IS VERY CONFUSED AND IS GOING IN AND OUT OF THE ROOM. OFFERED THE PATIENT TO MOVE TO ANOTHER ROOM FOR HIS COMFORT, BUT PATIENT REFUSED AND BECAME ANXIOUS AND AGITATED AND REQUESTS FOR MEDICATION TO CALM HIM DOWN. ATIVAN 0.5 MG IVP WAS GIVEN ORDERED. WILL MONITOR.
--- NOTE | 2017-07-25 22:40 | NUR ---
MS/RN PATIENT IS SLEEPING AT THIS TIME, AROUSABLE, APPEAR COMFORTABLE, NO DISTRESS NOTED, CALL LIGHT IN REACH. WILL CONTINUE TO MONITOR.
--- NOTE | 2017-07-25 23:06 | NUR ---
MS/RN PER DR. HUYNH'S NOTE, HOLD ANTICOAGULATIONS 3-5 DAYS POST COLONOSCOPY. OBTAINED ORDER KELLEE ZEE NP, TO HOLD TONIGHT'S DOSE OF LOVENOX.
[2017-07-26] MEDS: ZOLPIDEM TARTRATE 5 MG TABLET PO PRN (01:28)
[2017-07-26] MEDS: IPRATROPIUM NEB FS 0.5 MG/2.5 ML AMPUL.NEB NEB SCH ×4 (03:43→15:23)
[2017-07-26] MEDS: HYDROCODONE/APAP 5/325MG 1 EACH TABLET PO PRN (06:01)
--- NOTE | 2017-07-26 06:36 | NUR ---
MS/RN PATIENT IS SLEEPING AT THIS TIME, AROUSABLE, APPEAR COMFORTABLE, NO SIGNS OF DISTRESS NOTED, CALL LIGHT IN REACH. ALL NEEDS ATTENDED AT THIS TIME, WILL CONTINUE TO MONITOR.
[2017-07-26] MEDS: ALBUTEROL FS 2.5 MG/3 ML VIAL.NEB NEB SCH ×2 (07:20→15:23)
--- NOTE | 2017-07-26 07:30 | NUR ---
MS RN OPENING NOTES RECEIVED PATIENT IN BED RESTING, ON BREATHING TREATMENT. NO ACUTE DISTRESS, NO SOB NOTED. NO S/S OF PAIN OR DISCOMFORT. IV SITE INTACT AND PATENT. KEPT PATIENT SAFE AND COMFORTABLE. BED IN LOW/LOCKED POSITION, SIDERAILS UPX2, CALL LIGHT IN REACH. WILL CONTINUE TO MONITOR ACCORDINGLY.
[2017-07-26 08:54] VITALS: BP 134/76
[2017-07-26] MEDS ORDERED: FLUTICASONE/VILANTEROL 1 EACH BLST.W.DEV IH SCH (09:00)
[2017-07-26] MEDS: methylPREDNISolone SOD SUCC 40 MG/ML VIAL IV SCH ×2 (09:29→16:58)
[2017-07-26] MEDS: PANTOPRAZOLE 40 MG VIAL IV SCH ×2 (09:29→16:58)
[2017-07-26] MEDS: VALSARTAN 80 MG TABLET PO SCH (09:30)
[2017-07-26] MEDS: CARVEDILOL 6.25 MG TABLET PO SCH (09:30)
[2017-07-26] MEDS: DILTIAZEM HCL CD 240 MG PO SCH (09:30)
[2017-07-26] MEDS: SERTRALINE HCL 25 MG TABLET PO SCH (09:30)
[2017-07-26] MEDS: SUCRALFATE 1 G TABLET PO SCH ×3 (09:31→16:58)
[2017-07-26] MEDS: FLUCONAZOLE (100 MG) 100 MG TABLET PO SCH (09:31)
[2017-07-26] MEDS: LORAZEPAM INJ 2 MG/ML VIAL IV PRN (09:44)
[2017-07-26] MEDS ORDERED: FLUC100T8 PO (11:00)
[2017-07-26] MEDS ORDERED: PRED20TA PO (11:00)
[2017-07-26] MEDS ORDERED: PANT40TA2 PO (11:00)
[2017-07-26] MEDS ORDERED: RIVA10TA PO (11:08)
[2017-07-26] MEDS: SOD FERRIC GLUC 125 MG in IV NS 0.9% 100 ML IV SCH (14:18)
[2017-07-26] MEDS ORDERED: BISACODYL SUPP (10 MG) 10 MG/SUPP.RECT SUPP.RECT RC PRN (14:30)
[2017-07-26 16:00] VITALS: BP 146/73
--- NOTE | 2017-07-26 16:00 | NUR ---
RN NOTES CALLED CAREGIVER TO SCHEDULE AN APPOINTMENT FOR THE PATIENT ON HIS PRIMARY CARE PROVIDER IN [facility]. PER CAREGIVER, APPOINTMENT WAS MADE AND SCHEDULED IT ON 08/03/17 AT 1000 AM.
--- NOTE | 2017-07-26 19:00 | NUR ---
CONTROL OPERATOR NOTES DISCHARGED PATIENT IN STABLE CONDITION PICKED UP BY CAREGIVER ACCOMPANIED BY FERNANDA GORDON. DISCHARGE INSTRUCTIONS GIVEN TO PATIENT AND CAREGIVER, VERBALIZED UNDERSTANDING, PAPERWORK AND PRESCRIPTIONS GIVEN. ALL BELONGINGS RETURNED. REMOVED IV, APPLIED PRESSURE, NO BLEEDING, NO COMPLICATIONS. REMOVED NAME BAND.
[2017-10-20] MEDS ORDERED: IPRA3AMP23 IH (11:36)
== END 2017-07-26 18:57 | disposition home or self-care (01) | DRG 368 ==
LOC: ER 12:20 → TELE 14:55 → MED 15:20 → TELE 15:21 → MED 07-24 11:52
PROVIDERS: ADMIT Internal Medicine; ATTEND Internal Medicine
PROC: 0DBN8ZZ Excision of Sigmoid Colon, Via Natural or Artificial Opening Endoscopic (ICD-10-PCS; 2017-07-24)
PROC: 0DB48ZX Excision of Esophagogastric Junction, Via Natural or Artificial Opening Endoscopic, Diagnostic (ICD-10-PCS; principal; 2017-07-24 12:59)
PROC: 0DB18ZX Excision of Upper Esophagus, Via Natural or Artificial Opening Endoscopic, Diagnostic (ICD-10-PCS; 2017-07-24 12:59)
DX: B37.81 Candidal esophagitis (principal); J96.01 Acute respiratory failure with hypoxia; I50.33 Acute on chronic diastolic (congestive) heart failure; E44.0 Moderate protein-calorie malnutrition; D62 Acute posthemorrhagic anemia; E87.1 Hypo-osmolality and hyponatremia; I48.92 Unspecified atrial flutter; J44.1 Chronic obstructive pulmonary disease with (acute) exacerbation; K22.70 Barrett's esophagus without dysplasia; I11.0 Hypertensive heart disease with heart failure; E86.0 Dehydration; E86.1 Hypovolemia; E03.9 Hypothyroidism, unspecified; I16.0 Hypertensive urgency; E11.9 Type 2 diabetes mellitus without complications; E78.5 Hyperlipidemia, unspecified; F41.9 Anxiety disorder, unspecified; K21.9 Gastro-esophageal reflux disease without esophagitis; Z87.891 Personal history of nicotine dependence; Z68.27 Body mass index [BMI] 27.0-27.9, adult; K44.9 Diaphragmatic hernia without obstruction or gangrene; K64.8 Other hemorrhoids; K57.30 Diverticulosis of large intestine without perforation or abscess without bleeding; E55.9 Vitamin D deficiency, unspecified; D12.5 Benign neoplasm of sigmoid colon; D50.9 Iron deficiency anemia, unspecified
CPT/HCPCS: 36415; 36600; 71045-TC; 80048-TC; 80061-TC; 80076-TC; 82272-TC; 82306; 82803-TC; 83540-TC; 83735-TC; 83880; 83935-TC; 84100-TC; 84300-TC; 84439-TC; 84443-TC; 84484-TC; 85025-TC; 85610-TC; 85730-TC; 87081-TC; 88305-TC; 88312-TC; 88313-TC; 88342; 90732; 93307-TC; A4606; C9113; J1160; J1650; J2060; J2704; J2916; J2920; J2930; J7030; J7050; Q2036; Z7610

== ENCOUNTER 2017-07-30 12:19 | Outpatient (CLI) | payer MEDICARE, OTHER ==
[~2017-07-30 12:19] MED LIST changes: +ASPI-1152 PO; -ASPI-992 PO; +BUDE10.22 IH; -FAMO20TA8 PO; +FLUC100T8 PO; -FLUT12AE5 INH; -HYDR12.55 PO; -IPRA3AMP23 IH; +PANT40TA2 PO; +PRED20TA PO; +RIVA10TA PO; +SERT25TA PO
[2017-07-30 12:28] VITALS: BP 140/93
[2017-10-20] MEDS ORDERED: IPRA3AMP23 IH (11:36)
== END 2017-07-30 23:59 | disposition home or self-care (01) ==
LOC: MSC 12:19
PROVIDERS: ATTEND Internal Medicine
DX: B37.81 Candidal esophagitis (principal); K22.70 Barrett's esophagus without dysplasia; D64.9 Anemia, unspecified; I48.92 Unspecified atrial flutter; I11.0 Hypertensive heart disease with heart failure; I50.32 Chronic diastolic (congestive) heart failure; E78.5 Hyperlipidemia, unspecified; E44.0 Moderate protein-calorie malnutrition; E03.9 Hypothyroidism, unspecified; E11.9 Type 2 diabetes mellitus without complications; D12.5 Benign neoplasm of sigmoid colon; Z79.01 Long term (current) use of anticoagulants; Z79.82 Long term (current) use of aspirin; K21.9 Gastro-esophageal reflux disease without esophagitis; K44.9 Diaphragmatic hernia without obstruction or gangrene

== ENCOUNTER 2017-10-20 11:18 | Inpatient (IN) | payer MEDICARE, OTHER ==
[~2017-10-20] VITALS: Ht 177.8 cm; Wt 80.7 kg
--- NOTE | 2017-10-20 11:25 | NUR ---
BB : COPD EXACERBATION. NAD NOTED, VSS, RESP EVEN AND UNLABORED, PT WAS PUT ON MONITOR, AT BS.
[2017-10-20] MEDS ORDERED: methylPREDNISolone SOD SUCC 125 MG/2ML VIAL ONE (11:29)
[2017-10-20] MEDS ORDERED: methylPREDNISolone SOD SUCC 125 MG/2ML VIAL IV ONE (11:30)
[2017-10-20] MEDS ORDERED: IPRATROPIUM NEB FS 0.5 MG/2.5 ML AMPUL.NEB NEB ONE (11:30)
[2017-10-20] MEDS ORDERED: ALBUTEROL FS 2.5 MG/3 ML VIAL.NEB CONTNEB ONE ×2 (11:30→13:00)
[2017-10-20] MEDS ORDERED: ALBUTEROL FS 2.5 MG/3 ML VIAL.NEB ONE ×2 (11:35→13:00)
[2017-10-20] MEDS ORDERED: IPRATROPIUM NEB FS 0.5 MG/2.5 ML AMPUL.NEB ONE ×2 (11:35→13:00)
[2017-10-20] MEDS ORDERED: PANT40TA2 PO (11:36)
[2017-10-20] MEDS ORDERED: RIVA10TA PO (11:36)
[2017-10-20] MEDS ORDERED: OMEG-167 PO (11:36)
[2017-10-20] MEDS ORDERED: BUDE10.2 IH (11:36)
[2017-10-20] MEDS ORDERED: IPRA3AMP IH (11:36)
[2017-10-20 11:40] LABS: BASOPHILS # (AUTO) 0.1 /CMM (0.0-0.2); BASOPHILS % (AUTO) 1.3 % (0.0-2.0); EOSINOPHILS % (AUTO) 6.4 % (0.0-6.0); HEMATOCRIT 43 % (39-51); LYMPHOCYTES # (AUTO) 1.6 /CMM (0.8-4.8); LYMPHOCYTES % (AUTO) 15.9 % (20.0-44.0); MEAN CORPUSCULAR HEMOGLOBIN 26 PG (26.0-33.0); MEAN CORPUSCULAR HGB CONC 33 g/dl (31.0-36.0); MEAN CORPUSCULAR VOLUME 78 fL (80-96); MONOCYTES # (AUTO) 0.5 /CMM (0.1-1.30); MONOCYTES % (AUTO) 5.3 % (2.0-12.0); NEUTROPHILS # (AUTO) 7.3 /CMM (1.8-8.9); NEUTROPHILS % (AUTO) 71.1 % (43.0-81.0); PLATELET COUNT (AUTO) 282 /CMM (150-450); RED BLOOD CELL COUNT(AUTO) 5.46 MIL/uL (4.5-6.0); WHITE BLOOD COUNT (AUTO) 10.2 K/uL (4.3-11.0)
--- NOTE | 2017-10-20 11:44 | NUR ---
RT AT BS
[2017-10-20 11:49] LABS: CALCIUM, SERUM 9.7 mg/dL (8.5-10.1); CARBON DIOXIDE 22 mmol/L (21-32); CHLORIDE 99 mmol/L (98-107); CREATININE 0.8 mg/dL (0.6-1.3); GLUCOSE 95 mg/dL (74-106); POTASSIUM 4.6 mmol/L (3.5-5.1); SODIUM SERUM 134 mmol/L (136-145); UREA NITROGEN, BLOOD 6 mg/dL (7-18)
[2017-10-20 11:59] LABS: TROPONIN I < 0.017 ng/mL (0.00-0.056)
--- NOTE | 2017-10-20 12:10 | NUR ---
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
[2017-10-20] MEDS ORDERED: HYDROCODONE/APAP 5/325MG 1 EACH TABLET PO PRN (13:00)
[2017-10-20] MEDS ORDERED: MAGNESIUM HYDROXIDE 30 ML UDC PO PRN (13:00)
[2017-10-20] MEDS ORDERED: ACETAMINOPHEN 325 MG TABLET PO PRN (13:00)
[2017-10-20] MEDS ORDERED: Z GUARD REMEDY 2 OZ OINT TP PRN (13:00)
[2017-10-20] MEDS ORDERED: MAG HYDROX/AL HYDROX/SIMETH 30 ML UDC PO PRN (13:00)
[2017-10-20] MEDS ORDERED: ONDANSETRON HCL/PF 4 MG/2 ML VIAL IVP PRN (13:00)
--- NOTE | 2017-10-20 13:12 | NUR ---
TELE 323-1 FOR COPD EXACERBATION, ADMITTING
--- NOTE | 2017-10-20 14:10 | NUR ---
male pt. alert and oriented x4 adm. to rm. 323-1.a little sob with exertion. o2 on standby if pt. needs.oriented to rm and procedures.friend accompanying pt.
[2017-10-20 16:00] VITALS: BP 161/73
[2017-10-20] MEDS: RIVAROXABAN 10 MG TABLET PO SCH (16:31)
[2017-10-20] MEDS: LEVOFLOXACIN 750 MG /D5W 150ML 750 MG in PREMIX 1 EA IV SCH (16:50)
[2017-10-20] MEDS: SERTRALINE HCL 25 MG TABLET PO SCH (17:07)
[2017-10-20] MEDS: PANTOPRAZOLE 40 MG TABLET.DR PO SCH (17:07)
[2017-10-20] MEDS: SUCRALFATE 1 G TABLET PO SCH ×3 (17:07→21:00)
[2017-10-20] MEDS: methylPREDNISolone SOD SUCC 125 MG/2ML VIAL IV SCH ×2 (17:08→23:01)
[2017-10-20] MEDS: DILTIAZEM HCL CD 240 MG PO SCH (17:08)
[2017-10-20] MEDS: IPRATROPIUM NEB FS 0.5 MG/2.5 ML AMPUL.NEB NEB PRN ×2 (17:32→23:28)
[2017-10-20] MEDS: ALBUTEROL FS 2.5 MG/0.5 ML VIAL.NEB NEB PRN ×2 (17:32→23:28)
--- NOTE | 2017-10-20 18:00 | NUR ---
walking about in rm. and halls.
--- NOTE | 2017-10-20 19:30 | NUR ---
RN NOTES RECEIVED PT. AWAKE , SITTING ON EDGE OF THE BED, TALKING ON HIS CELLPHONE, A/OX4, AMBULATORY, A-FIB ON TELE MONITOR HR-97, DENIES PAIN, NO SOB, BED IN LOCKED POSITION, CALL LIGHT WITHIN REACH, [id number], CONTINUE TO MONITOR
[2017-10-20 20:00] VITALS: BP 151/82
[2017-10-20] MEDS: GUAIFENESIN LA 600 MG TABLET.SA PO SCH (21:25)
[2017-10-20] MEDS ORDERED: ATORVASTATIN 40 MG TABLET PO SCH (22:00)
[2017-10-20] MEDS: ZOLPIDEM TARTRATE 5 MG TABLET PO PRN (23:00)
--- NOTE | 2017-10-20 23:30 | NUR ---
RN NOTES ASKED FOR SLEEPING PILL- AMBIEN 5 MG PO GIVEN ORDERED, V/S STABLE
[2017-10-21] VITALS (7 sets, daily range): BP systolic 127–144; BP diastolic 73–85
[2017-10-21] MEDS: methylPREDNISolone SOD SUCC 125 MG/2ML VIAL IV SCH ×4 (05:58→23:00)
--- NOTE | 2017-10-21 06:44 | NUR ---
RN NOTES AWAKE, DENIES PAIN, NO SOB, MORNING CARE RENDERED, CALL LIGHT WITHIN REACH, [id number], PT. NEEDS ATTENDED
[2017-10-21 07:17] LABS: BASOPHILS % (AUTO) 0.3 % (0.0-2.0); EOSINOPHILS % (AUTO) 0.1 % (0.0-6.0); HEMATOCRIT 39 % (39-51); HEMOGLOBIN 12.6 g/dL (13.5-17.5); LYMPHOCYTES # (AUTO) 0.7 /CMM (0.8-4.8); LYMPHOCYTES % (AUTO) 10.4 % (20.0-44.0); MEAN CORPUSCULAR HEMOGLOBIN 26 PG (26.0-33.0); MEAN CORPUSCULAR HGB CONC 32 g/dl (31.0-36.0); MEAN CORPUSCULAR VOLUME 80 fL (80-96); MONOCYTES # (AUTO) 0.1 /CMM (0.1-1.30); MONOCYTES % (AUTO) 1.5 % (2.0-12.0); NEUTROPHILS # (AUTO) 5.9 /CMM (1.8-8.9); NEUTROPHILS % (AUTO) 87.7 % (43.0-81.0); PLATELET COUNT (AUTO) 252 /CMM (150-450); RDW COEFFICIENT OF VARIATION 17.7 (11.5-15.0); RED BLOOD CELL COUNT(AUTO) 4.83 MIL/uL (4.5-6.0); WHITE BLOOD COUNT (AUTO) 6.8 K/uL (4.3-11.0)
[2017-10-21] MEDS ORDERED: PANTOPRAZOLE 40 MG TABLET.DR PO SCH (07:30)
--- NOTE | 2017-10-21 07:30 | NUR ---
MIS SPECIALIST NOTES PATIENT RECEIVED RESTING INSIDE ROOM, SLEEPING BUT EASILY AROUSABLE THROUGH VERBAL AND TACTILE STIMULI. ABLE TO MAKE NEEDS KNOWN AND FOLLOW SIMPLE INSTRUCTIONS. VERBALLY RESPONSIVE AND RESPONDS TO VERBAL AND TACTILE STIMULI. BREATHING EVEN AND UNLABORED. NO SOB OR ACUTE DISTRESS NOTED AT THIS TIME. PATIENT DENIES ANY PAIN OR DISCOMFORT. NO CHANGES IN LOC NOTED AT THIS TIME. PATIENT AFEBRILE, SKIN DRY AND WARM TO TOUCH. IV SITE INTACT AND PATENT, NO SWELLING NOTED ON SITE. WILL CONTINUE TO MONITOR. BED LOCKED AND IN LOW POSITION. BILATERAL UPPER SIDE RAILS UP AND LOCKED. CALL LIGHT WITHIN EASY REACH
[2017-10-21 07:31] LABS: CALCIUM, SERUM 9.8 mg/dL (8.5-10.1); CARBON DIOXIDE 24 mmol/L (21-32); CHLORIDE 101 mmol/L (98-107); CREATININE 0.7 mg/dL (0.6-1.3); GLUCOSE 170 mg/dL (74-106); MAGNESIUM 1.7 mg/dL (1.8-2.4); POTASSIUM 4.1 mmol/L (3.5-5.1); SODIUM SERUM 134 mmol/L (136-145); UREA NITROGEN, BLOOD 12 mg/dL (7-18)
[2017-10-21 07:42] LABS: CHOLESTEROL 137 mg/dL (<200); HDL CHOLESTEROL 74 mg/dL (40-60); LDL 58 mg/dL (0-99); THYROID STIMULATING HORMONE 0.509 uIU/mL (0.358-3.74); TRIGLYCERIDES 33 mg/dL (30-150)
[2017-10-21] MEDS: GUAIFENESIN LA 600 MG TABLET.SA PO SCH ×2 (08:38→20:52)
[2017-10-21] MEDS: ATORVASTATIN 40 MG TABLET PO SCH (08:38)
[2017-10-21] MEDS: DILTIAZEM HCL CD 240 MG PO SCH (08:38)
[2017-10-21] MEDS: SERTRALINE HCL 25 MG TABLET PO SCH (08:38)
[2017-10-21] MEDS: PANTOPRAZOLE 40 MG TABLET.DR PO SCH (08:38)
[2017-10-21] MEDS: SUCRALFATE 1 G TABLET PO SCH ×4 (08:38→20:52)
[2017-10-21] MEDS: LOSARTAN POTASSIUM 25 MG TABLET PO SCH (08:40)
[2017-10-21] MEDS ORDERED: SERTRALINE HCL 25 MG TABLET PO SCH (09:00)
[2017-10-21] MEDS ORDERED: DILTIAZEM HCL CD 240 MG PO SCH (09:00)
[2017-10-21] MEDS: Magnesium 1GM/D5W 100ML PREMIX 100 ML IV SCH ×2 (10:04→11:10)
[2017-10-21] MEDS: IPRATROPIUM NEB FS 0.5 MG/2.5 ML AMPUL.NEB NEB PRN (13:23)
[2017-10-21] MEDS: ALBUTEROL FS 2.5 MG/0.5 ML VIAL.NEB NEB PRN (13:24)
[2017-10-21] MEDS: LEVOFLOXACIN 750 MG /D5W 150ML 750 MG in PREMIX 1 EA IV SCH (15:08)
[2017-10-21] MEDS: RIVAROXABAN 10 MG TABLET PO SCH (17:13)
--- NOTE | 2017-10-21 18:40 | NUR ---
MOLD YARD SUPERVISOR NOTES PATIENT RESTING INSIDE ROOM. AWAKE, ALERT AND ORIENTED. VERBALLY RESPONSIVE AND RESPONDS TO VERBAL AND TACTILE STIMULI. BREATHING EVEN AND UNLABORED. NO SOB OR ACUTE DISTRESS NOTED. PATIENT DENIES ANY PAIN OR DISCOMFORT. NO CHANGES IN LOC NOTED AT THIS TIME. PATIENT AFEBRILE, SKIN DRY AND WARM TO TOUCH. IV SITE INTACT AND PATENT. WILL ENDORSE TO INCOMING SHIFT FOR NIKKY. BED LOCKED AND IN LOW POSITION. BILATERAL UPPER SIDE RAILS UP AND LOCKED. CALL LIGHT WITHIN EASY REACH
--- NOTE | 2017-10-21 19:30 | NUR ---
RN NOTES RECEIVED PT. AWAKE ON BED, A/OX4, AMBULATORY DENIES PAIN, NO SOB, A-FIB ON TELE MONITOR HR-66, DENIES PAIN, NO SOB, BED IN LOCKED POSITION, CALL LIGHT WITHIN REACH, SIDERAILSUPX2, CONTINUE TO MONITOR
[2017-10-21] MEDS: IPRATROPIUM NEB FS 0.5 MG/2.5 ML AMPUL.NEB NEB SCH (20:22)
[2017-10-21] MEDS: ALBUTEROL FS 2.5 MG/3 ML VIAL.NEB NEB SCH (20:22)
[2017-10-22] VITALS (8 sets, daily range): BP systolic 118–132; BP diastolic 66–80
[2017-10-22] MEDS: IPRATROPIUM NEB FS 0.5 MG/2.5 ML AMPUL.NEB NEB SCH ×3 (00:42→14:10)
[2017-10-22] MEDS: ALBUTEROL FS 2.5 MG/3 ML VIAL.NEB NEB SCH (00:42)
[2017-10-22] MEDS: ZOLPIDEM TARTRATE 5 MG TABLET PO PRN (01:04)
--- NOTE | 2017-10-22 01:06 | NUR ---
RN NOTES ASKED FOR SLEEPING PILL- AMBIEN 5 MG PO GIVEN ORDERED, V/S STABLE
[2017-10-22] MEDS: methylPREDNISolone SOD SUCC 125 MG/2ML VIAL IV SCH ×3 (05:54→17:31)
--- NOTE | 2017-10-22 06:46 | NUR ---
RN NOTES AWAKE, DENIES PAIN, NO SOB, MORNING CARE RENDERED, CALL LIGHT WITHIN REACH, [id number], PT. NEEDS ATTENDED
--- NOTE | 2017-10-22 07:11 | NUR ---
RN OPENING NOTES RECEIVED PATIENT IN BED RESTING. NO ACUTE DISTRESS, NO SOB NOTED. DENIED PAIN AND DISCOMFORT AT THE MOMENT. ON TELEMETRY AFIB HR 65. KEPT PATIENT SAFE AND COMFORTABLE. BED IN LOW/LOCKED POSITION, SIDERAILS UPX2, CALL LIGHT IN REACH. WILL CONTINUE TO MONITOR ACCORDINGLY.
[2017-10-22] MEDS: ALBUTEROL FS 2.5 MG/0.5 ML VIAL.NEB NEB SCH ×2 (07:37→14:10)
[2017-10-22] MEDS: ATORVASTATIN 40 MG TABLET PO SCH (08:33)
[2017-10-22] MEDS: SUCRALFATE 1 G TABLET PO SCH ×3 (08:33→16:44)
[2017-10-22] MEDS: PANTOPRAZOLE 40 MG TABLET.DR PO SCH (08:33)
[2017-10-22] MEDS: DILTIAZEM HCL CD 240 MG PO SCH (08:34)
[2017-10-22] MEDS: LOSARTAN POTASSIUM 25 MG TABLET PO SCH (08:34)
[2017-10-22] MEDS: GUAIFENESIN LA 600 MG TABLET.SA PO SCH (08:34)
[2017-10-22] MEDS: SERTRALINE HCL 25 MG TABLET PO SCH (08:35)
[2017-10-22] MEDS ORDERED: PRED20TA PO (11:45)
[2017-10-22] MEDS ORDERED: LEVO750T21 PO (11:45)
[2017-10-22] MEDS: LEVOFLOXACIN 750 MG /D5W 150ML 750 MG in PREMIX 1 EA IV SCH (14:50)
[2017-10-22] MEDS: RIVAROXABAN 10 MG TABLET PO SCH (16:48)
--- NOTE | 2017-10-22 19:15 | NUR ---
FITTER TYPE BAR AND SEGMENT NOTES DISCHARGED PATIENT IN STABLE CONDITION, PICKED UP BY CAREGIVER, JOSÉ. DISCHARGE INSTRUCTIONS GIVEN, VERBALIZED UNDERSTANDING. PAPERWORK AND PRESCRIPTION GIVEN. ALL BELONGINGS RETURNED, FORM SIGNED. REMOVED IV, APPLIED PRESSURE, NO BLEEDING, NO COMPLICATION. REMOVED NAME BAND.
== END 2017-10-22 19:10 | disposition home or self-care (01) | DRG 192 ==
LOC: ER 11:20 → TELE 13:33
DX: J44.1 Chronic obstructive pulmonary disease with (acute) exacerbation (principal); E11.9 Type 2 diabetes mellitus without complications; F41.9 Anxiety disorder, unspecified; I48.91 Unspecified atrial fibrillation; E03.9 Hypothyroidism, unspecified; E78.5 Hyperlipidemia, unspecified; G89.29 Other chronic pain; I10 Essential (primary) hypertension; K21.9 Gastro-esophageal reflux disease without esophagitis; Z79.01 Long term (current) use of anticoagulants; D64.9 Anemia, unspecified; Z87.891 Personal history of nicotine dependence
CPT/HCPCS: 31720; 36415; 71045-TC; 80048-TC; 80061-TC; 83735-TC; 84100-TC; 84443-TC; 84484-TC; 85025-TC; 87081-TC; A4216; A4606; J1956; J2930; J3475; Z7610

== ENCOUNTER 2018-05-25 22:04 | Emergency (ER) | payer MEDICARE, OTHER ==
[~2018-05-25] VITALS: Ht 177.8 cm; Wt 81.6 kg
[~2018-05-25 22:04] MED LIST changes: -ASPI-1152 PO; +BUDE10.2 IH; -BUDE10.22 IH; -FLUC100T8 PO; +IPRA3AMP23 IH; +LEVO750T21 PO; -LOSA25TA13 PO; +LOSA25TA27 PO; +OMEG-167 PO
[2018-05-25] MEDS ORDERED: IPRATROPIUM NEB FS 0.5 MG/2.5 ML AMPUL.NEB NEB ONE (22:30)
[2018-05-25] MEDS ORDERED: methylPREDNISolone SOD SUCC 125 MG/2ML VIAL IV ONE (22:30)
[2018-05-25] MEDS ORDERED: ALBUTEROL FS 2.5 MG/3 ML VIAL.NEB NEB ONE (22:30)
[2018-05-25] MEDS ORDERED: IPRATROPIUM NEB FS 0.5 MG/2.5 ML AMPUL.NEB ONE (22:35)
[2018-05-25] MEDS ORDERED: ALBUTEROL FS 2.5 MG/3 ML VIAL.NEB ONE (22:35)
[2018-05-25] MEDS ORDERED: methylPREDNISolone SOD SUCC 125 MG/2ML VIAL ONE (22:35)
[2018-05-25 22:43] LABS: BASOPHILS % (AUTO) 0.7 % (0.0-2.0); EOSINOPHILS % (AUTO) 5.9 % (0.0-6.0); HEMATOCRIT 42 % (39-51); HEMOGLOBIN 13.8 g/dL (13.5-17.5); LYMPHOCYTES # (AUTO) 1.5 /CMM (0.8-4.8); LYMPHOCYTES % (AUTO) 22.3 % (20.0-44.0); MEAN CORPUSCULAR HGB CONC 33 g/dl (31.0-36.0); MEAN CORPUSCULAR VOLUME 84 fL (80-96); MONOCYTES # (AUTO) 0.8 /CMM (0.1-1.30); MONOCYTES % (AUTO) 11.5 % (2.0-12.0); NEUTROPHILS % (AUTO) 59.6 % (43.0-81.0); PLATELET COUNT (AUTO) 172 /CMM (150-450); RED BLOOD CELL COUNT(AUTO) 4.97 MIL/uL (4.5-6.0); WHITE BLOOD COUNT (AUTO) 6.6 K/uL (4.3-11.0)
--- NOTE | 2018-05-25 22:45 | NUR ---
PT BIB FRIEND FOR C/C SOB, VS STABLE, O2 88% ON R/A, AOX4 AMBULATORY, PLACED ON ER BED 3, PLACED ON NC @ 2L/PM, LILLY JORGE BARRIENTOS DONE DR DENG WITH TX ORDERS ENTERED.
[2018-05-25 23:04] LABS: CALCIUM, SERUM 9.3 mg/dL (8.5-10.1); CARBON DIOXIDE 27 mmol/L (21-32); CHLORIDE 102 mmol/L (98-107); CREATININE 0.7 mg/dL (0.6-1.3); GLUCOSE 97 mg/dL (74-106); POTASSIUM 4.8 mmol/L (3.5-5.1); SODIUM SERUM 138 mmol/L (136-145); UREA NITROGEN, BLOOD 12 mg/dL (7-18)
[2018-05-25 23:16] LABS: B-TYPE NATRIURETIC PEPTIDE 1276 PG/ML (0-125)
[2018-05-26 00:48] VITALS: BP 132/84
[2018-06-16] MEDS ORDERED: PRED5TAB48 PO (09:14)
[2018-06-16] MEDS ORDERED: POTA20TA83 PO (09:14)
[2018-06-16] MEDS ORDERED: FURO20TA4 PO (09:14)
[2018-07-14] MEDS ORDERED: AZIT250T PO (09:17)
[2018-07-14] MEDS ORDERED: PRED20TA PO (09:17)
[2018-07-14] MEDS ORDERED: ALBUT2 NEB (09:17)
[2018-07-14] MEDS ORDERED: IPRA0.2S9 NEB (09:17)
== END 2018-05-26 | disposition home or self-care (01) ==
LOC: ER 22:06
DX: J44.1 Chronic obstructive pulmonary disease with (acute) exacerbation (principal); I11.0 Hypertensive heart disease with heart failure; I50.9 Heart failure, unspecified; R79.89 Other specified abnormal findings of blood chemistry; E78.5 Hyperlipidemia, unspecified; I48.91 Unspecified atrial fibrillation; Z60.2 Problems related to living alone; Z79.899 Other long term (current) drug therapy
CPT/HCPCS: 36415; 71045; 80048; 83880; 84484; 85025; 93005; 94644; 96374; 99285; A4606; J2930

== ENCOUNTER 2018-06-08 11:04 | Emergency (ER) | payer MEDICARE, OTHER ==
[~2018-06-08] VITALS: Ht 177.8 cm; Wt 81.6 kg
--- NOTE | 2018-06-08 11:07 | NUR ---
BIB SELF W C/O COPD EXACERBATION X 3 DAYS, SEEN HERE LAST WEEK FOR THE SAME ISSUE. TO ER BED 3, HOOKED TO MONITOR, CHANGED TO GOWN, AWAITING MD BARRIENTOS
--- NOTE | 2018-06-08 11:10 | NUR ---
DR MOORE AT BEDSIDE
[2018-06-08] MEDS ORDERED: methylPREDNISolone SOD SUCC 125 MG/2ML VIAL ONE (11:19)
[2018-06-08 11:24] LABS: BASOPHILS # (AUTO) 0.1 /CMM (0.0-0.2); BASOPHILS % (AUTO) 1.2 % (0.0-2.0); EOSINOPHILS % (AUTO) 5.8 % (0.0-6.0); HEMATOCRIT 40 % (39-51); HEMOGLOBIN 13.2 g/dL (13.5-17.5); LYMPHOCYTES # (AUTO) 1.1 /CMM (0.8-4.8); LYMPHOCYTES % (AUTO) 15.6 % (20.0-44.0); MEAN CORPUSCULAR HGB CONC 33 g/dl (31.0-36.0); MEAN CORPUSCULAR VOLUME 84 fL (80-96); MONOCYTES # (AUTO) 0.7 /CMM (0.1-1.30); MONOCYTES % (AUTO) 10.7 % (2.0-12.0); NEUTROPHILS # (AUTO) 4.7 /CMM (1.8-8.9); NEUTROPHILS % (AUTO) 66.7 % (43.0-81.0); PLATELET COUNT (AUTO) 174 /CMM (150-450); RED BLOOD CELL COUNT(AUTO) 4.76 MIL/uL (4.5-6.0)
[2018-06-08] MEDS ORDERED: OMEG1CAP PO (11:29)
[2018-06-08] MEDS ORDERED: ALBU18HF2 IH (11:29)
[2018-06-08] MEDS ORDERED: CARV12.52 PO (11:29)
[2018-06-08] MEDS ORDERED: UBID100C13 PO (11:29)
[2018-06-08] MEDS ORDERED: methylPREDNISolone SOD SUCC 125 MG/2ML VIAL IV ONE (11:30)
[2018-06-08] MEDS ORDERED: ALBUTEROL FS 2.5 MG/3 ML VIAL.NEB NEB ONE (11:30)
[2018-06-08] MEDS ORDERED: IPRATROPIUM NEB FS 0.5 MG/2.5 ML AMPUL.NEB NEB ONE (11:30)
[2018-06-08 11:32] LABS: CALCIUM, SERUM 8.8 mg/dL (8.5-10.1); CARBON DIOXIDE 25 mmol/L (21-32); CHLORIDE 103 mmol/L (98-107); CREATININE 0.7 mg/dL (0.6-1.3); GLUCOSE 115 mg/dL (74-106); POTASSIUM 4.5 mmol/L (3.5-5.1); SODIUM SERUM 136 mmol/L (136-145); UREA NITROGEN, BLOOD 11 mg/dL (7-18)
[2018-06-08] MEDS ORDERED: IPRATROPIUM NEB FS 0.5 MG/2.5 ML AMPUL.NEB ONE (11:44)
[2018-06-08] MEDS ORDERED: ALBUTEROL FS 2.5 MG/3 ML VIAL.NEB ONE (11:44)
--- NOTE | 2018-06-08 11:44 | NUR ---
JOSÉ [facility] [phone].
[2018-06-08 11:45] LABS: ALANINE AMINOTRANSFERASE 13 U/L (12-78); ALBUMIN 3.2 g/dL (3.4-5.0); ALKALINE PHOSPHATASE 117 U/L (46-116); ASPARTATE AMINOTRANSFERASE 14 U/L (15-37); B-TYPE NATRIURETIC PEPTIDE 770 PG/ML (0-125); BILIRUBIN,DIRECT 0.1 mg/dL (0.0-0.2); BILIRUBIN,TOTAL 0.3 mg/dL (0.2-1.0); TOTAL PROTEIN, SERUM 7.1 g/dL (6.4-8.2)
--- NOTE | 2018-06-08 11:47 | NUR ---
ONGOING BREATHING TX
--- NOTE | 2018-06-08 12:46 | NUR ---
CALLED FOR TELE BED
--- NOTE | 2018-06-08 12:57 | NUR ---
IV removed. Catheter intact and site benign. Pressure and 4x4 applied to site. No bleeding noted. Patient discharged in stable condition, assisted to waiting room as pt will be picked up by neighbor Roslyn. Written and verbal after care instructions given. Patient verbalizes understanding of instruction.
[2018-06-08 12:59] VITALS: BP 144/68
[2018-06-16] MEDS ORDERED: PRED5TAB48 PO (09:14)
[2018-06-16] MEDS ORDERED: POTA20TA83 PO (09:14)
[2018-06-16] MEDS ORDERED: FURO20TA4 PO (09:14)
[2018-07-14] MEDS ORDERED: ALBUT2 NEB (09:17)
[2018-07-14] MEDS ORDERED: IPRA0.2S9 NEB (09:17)
[2018-07-14] MEDS ORDERED: PRED20TA PO (09:17)
[2018-07-14] MEDS ORDERED: AZIT250T PO (09:17)
== END 2018-06-08 13:00 | disposition home or self-care (01) ==
LOC: ER 11:08
DX: J44.1 Chronic obstructive pulmonary disease with (acute) exacerbation (principal); I48.91 Unspecified atrial fibrillation; I11.0 Hypertensive heart disease with heart failure; I50.9 Heart failure, unspecified; E78.5 Hyperlipidemia, unspecified; F10.10 Alcohol abuse, uncomplicated; I44.7 Left bundle-branch block, unspecified; Y90.9 Presence of alcohol in blood, level not specified; Z60.2 Problems related to living alone; Z87.891 Personal history of nicotine dependence
CPT/HCPCS: 36415; 71045; 80048; 80076; 83880; 84484; 85025; 93005 ×2; 94640 ×2; 96374; 99284; A4606; J2930

== ENCOUNTER 2018-06-13 14:02 | Inpatient (IN) | payer MEDICARE, OTHER ==
[~2018-06-13] VITALS: Ht 177.8 cm; Wt 81.6 kg
[~2018-06-13 14:02] MED LIST changes: -BUDE10.2 IH; +CARV12.52 PO; -DILT240C88 PO; -IPRA3AMP23 IH; -LEVO750T21 PO; -OMEG-167 PO; +OMEG1CAP PO; -PRED20TA PO; -SUCR1TAB PO; +UBID100C13 PO
[2018-06-13] MEDS ORDERED: PRED50TA PO (14:24)
[2018-06-13] MEDS ORDERED: ALBU8.5H8 IH (14:24)
[2018-06-13 14:54] LABS: BASOPHILS % (AUTO) 0.7 % (0.0-2.0); EOSINOPHILS % (AUTO) 6.1 % (0.0-6.0); HEMATOCRIT 40 % (39-51); HEMOGLOBIN 13.2 g/dL (13.5-17.5); LYMPHOCYTES # (AUTO) 1.1 /CMM (0.8-4.8); LYMPHOCYTES % (AUTO) 16.2 % (20.0-44.0); MEAN CORPUSCULAR HGB CONC 33 g/dl (31.0-36.0); MEAN CORPUSCULAR VOLUME 83 fL (80-96); MONOCYTES # (AUTO) 0.7 /CMM (0.1-1.30); MONOCYTES % (AUTO) 10.5 % (2.0-12.0); NEUTROPHILS # (AUTO) 4.5 /CMM (1.8-8.9); NEUTROPHILS % (AUTO) 66.5 % (43.0-81.0); PLATELET COUNT (AUTO) 185 /CMM (150-450); RED BLOOD CELL COUNT(AUTO) 4.79 MIL/uL (4.5-6.0); WHITE BLOOD COUNT (AUTO) 6.8 K/uL (4.3-11.0)
--- NOTE | 2018-06-13 14:56 | NUR ---
CALLED RT FOR BREATHING TX.
[2018-06-13] MEDS ORDERED: ALBUTEROL FS 2.5 MG/3 ML VIAL.NEB NEB ONE (15:00)
[2018-06-13] MEDS ORDERED: IPRATROPIUM NEB FS 0.5 MG/2.5 ML AMPUL.NEB NEB ONE (15:00)
--- NOTE | 2018-06-13 15:00 | NUR ---
SOB SINCE YESTERDAY WORST TODAY, HX OF COPD. PT AAOX4, VSS. DENIES CP, DIZZINESS, N/V @ THIS TIME. PT SEEN & EVAL'D BY DR. WILLOUGHBY & WILL CONT TO MONITOR. AWAITING BREATHING TX.
[2018-06-13] MEDS ORDERED: IPRATROPIUM NEB FS 0.5 MG/2.5 ML AMPUL.NEB ONE (15:04)
[2018-06-13] MEDS ORDERED: ALBUTEROL FS 2.5 MG/3 ML VIAL.NEB ONE (15:04)
[2018-06-13 15:10] LABS: CALCIUM, SERUM 8.9 mg/dL (8.5-10.1); CARBON DIOXIDE 28 mmol/L (21-32); CHLORIDE 100 mmol/L (98-107); CREATININE 0.8 mg/dL (0.6-1.3); GLUCOSE 118 mg/dL (74-106); SODIUM SERUM 136 mmol/L (136-145); UREA NITROGEN, BLOOD 12 mg/dL (7-18)
[2018-06-13 15:22] LABS: ALANINE AMINOTRANSFERASE 11 U/L (12-78); ALBUMIN 3.4 g/dL (3.4-5.0); ALKALINE PHOSPHATASE 105 U/L (46-116); ASPARTATE AMINOTRANSFERASE 13 U/L (15-37); B-TYPE NATRIURETIC PEPTIDE 2776 PG/ML (0-125); BILIRUBIN,DIRECT 0.2 mg/dL (0.0-0.2); BILIRUBIN,TOTAL 0.6 mg/dL (0.2-1.0); TOTAL PROTEIN, SERUM 6.9 g/dL (6.4-8.2)
[2018-06-13] MEDS ORDERED: FUROSEMIDE 40 MG/4 ML VIAL IV ONE (18:00)
[2018-06-13] MEDS ORDERED: FUROSEMIDE 40 MG/4 ML VIAL ONE (18:06)
--- NOTE | 2018-06-13 18:29 | NUR ---
GIVEN 40MG OF LASIX IVP. PT HEIDY WELL.
[2018-06-13] MEDS ORDERED: ZOLPIDEM TARTRATE 5 MG TABLET PO PRN (18:30)
[2018-06-13] MEDS ORDERED: ONDANSETRON HCL/PF 4 MG/2 ML VIAL IVP PRN (18:30)
[2018-06-13] MEDS ORDERED: HYDROCODONE/APAP 5/325MG 1 EACH TABLET PO PRN (18:30)
[2018-06-13] MEDS ORDERED: ALBUTEROL FS 2.5 MG/0.5 ML VIAL.NEB NEB ONE (18:30)
[2018-06-13] MEDS ORDERED: MAG HYDROX/AL HYDROX/SIMETH 30 ML UDC PO PRN (18:30)
[2018-06-13] MEDS ORDERED: ACETAMINOPHEN 325 MG TABLET PO PRN (18:30)
[2018-06-13] MEDS ORDERED: Z GUARD REMEDY 2 OZ OINT TP PRN (18:30)
[2018-06-13] MEDS ORDERED: methylPREDNISolone SOD SUCC 125 MG/2ML VIAL IV ONE (18:30)
[2018-06-13] MEDS ORDERED: MAGNESIUM HYDROXIDE 30 ML UDC PO PRN (18:30)
--- NOTE | 2018-06-13 19:15 | NUR ---
RECEIVED REPORT FROM JEM CHANG FOR NIKKY
[2018-06-13] MEDS ORDERED: methylPREDNISolone SOD SUCC 125 MG/2ML VIAL ONE (19:32)
[2018-06-13] MEDS ORDERED: ALBUTEROL FS 2.5 MG/0.5 ML VIAL.NEB ONE (19:33)
--- NOTE | 2018-06-13 19:40 | NUR ---
GAVE REPORT TO PRITESH CHANG FOR NIKKY
[2018-06-13 20:00] VITALS: BP 139/83
--- NOTE | 2018-06-13 20:14 | NUR ---
PT TRANSFERRED PER ACLS PROTOCOL
[2018-06-13 21:08] VITALS: BP 139/83
--- NOTE | 2018-06-13 22:32 | NUR ---
SERVICE SPRINKLER HELPER RECEIVE PT FROM [facility] AT 2007 ADMIT TO TELE UNIT PT A/O X4, RESPIRATIONS EVEN AND UNLABORED, ON 2LPM VIA NC 02 SAT AT 95%, HEAD TO TOE ASSESSMENT IS DONE. HEAD OF BED ELEVATED, NO CHEST PAIN, NO PATTERSON, NO NAUSEA. ELEVATED LOWER EXTREMITY TO REDUCE EDEMA. WITH RHYTHM OF A-FIB CONTROLLED 73 IN THE TELE MTR, HOSPITALIST AWARE. NO S/S OF DISTRESS. KEPT CLEAN AND DRY AND COMFORTABLE, NEEDS ATTENDED. WILL MTR.
[2018-06-13] MEDS: methylPREDNISolone SOD SUCC 40 MG/ML VIAL IV SCH (23:04)
[2018-06-14] VITALS: BP 139/78
[2018-06-14 04:00] VITALS: BP 136/74
[2018-06-14] MEDS: methylPREDNISolone SOD SUCC 40 MG/ML VIAL IV SCH ×4 (05:19→23:12)
--- NOTE | 2018-06-14 06:09 | NUR ---
RN CLOSING NOTE ASLEEP AND EASILY AWAKEN, NOT IN DISTRESS. WITH RHYTHM OF A-FLUTTER 60 IN THE TELE MONITOR, HOSPITALIST AWARE. NNO. STABLE, RESPIRATIONS EVEN AND UNLABORED. NURSING CARE RENDERED, KEPT CLEAN AND DRY AND COMFORT, NEEDS ATTENDED AND ANTICIPATED. NO COMPLAIN OF PAIN, SAFETY MEASURES IN PLACE, CALL LIGHT WITHIN REACH. WILL ENDORSE TO THE NEXT SHIFT.
--- NOTE | 2018-06-14 07:30 | NUR ---
PRODUCT SAFETY TECHNICAL ASSISTANT NOTES PT IN BED, AWAKE, ALERT AND ORIENTED, NO COMPLAINT OF PAIN, RESPIRATIONS NORMAL, NO COMPLAINT OF SOB, CALL LIGHT WITHIN REACH, PLAN OF CARE DISCUSSED WITH PT, VERBALIZED UNDERSTANDING.
[2018-06-14 08:06] LABS: ALANINE AMINOTRANSFERASE 12 U/L (12-78); ALBUMIN 3.4 g/dL (3.4-5.0); ALKALINE PHOSPHATASE 109 U/L (46-116); ASPARTATE AMINOTRANSFERASE 13 U/L (15-37); BILIRUBIN,TOTAL 0.5 mg/dL (0.2-1.0); CARBON DIOXIDE 28 mmol/L (21-32); CHLORIDE 99 mmol/L (98-107); CREATININE 0.8 mg/dL (0.6-1.3); GLUCOSE 177 mg/dL (74-106); MAGNESIUM 1.7 mg/dL (1.8-2.4); PHOSPHORUS 3.8 mg/dL (2.5-4.9); POTASSIUM 3.9 mmol/L (3.5-5.1); SODIUM SERUM 137 mmol/L (136-145); TOTAL PROTEIN, SERUM 7.2 g/dL (6.4-8.2); UREA NITROGEN, BLOOD 13 mg/dL (7-18)
[2018-06-14 08:10] LABS: EOSINOPHILS % (AUTO) 0.2 % (0.0-6.0); HEMATOCRIT 42 % (39-51); HEMOGLOBIN 13.9 g/dL (13.5-17.5); LYMPHOCYTES # (AUTO) 0.6 /CMM (0.8-4.8); LYMPHOCYTES % (AUTO) 22.8 % (20.0-44.0); MEAN CORPUSCULAR HGB CONC 33 g/dl (31.0-36.0); MEAN CORPUSCULAR VOLUME 82 fL (80-96); MONOCYTES # (AUTO) 0.1 /CMM (0.1-1.30); MONOCYTES % (AUTO) 2.1 % (2.0-12.0); NEUTROPHILS # (AUTO) 2.1 /CMM (1.8-8.9); NEUTROPHILS % (AUTO) 74.9 % (43.0-81.0); PLATELET COUNT (AUTO) 186 /CMM (150-450); RED BLOOD CELL COUNT(AUTO) 5.04 MIL/uL (4.5-6.0); WHITE BLOOD COUNT (AUTO) 2.7 K/uL (4.3-11.0)
[2018-06-14 08:19] VITALS: BP 163/90
[2018-06-14] MEDS ORDERED: RIVAROXABAN 10 MG TABLET PO SCH (08:30)
[2018-06-14] MEDS ORDERED: FUROSEMIDE 40 MG/4 ML VIAL IV SCH (09:00)
[2018-06-14] MEDS: CARVEDILOL 12.5 MG TABLET PO SCH ×2 (09:14→16:39)
[2018-06-14] MEDS: LOSARTAN POTASSIUM 25 MG TABLET PO SCH (09:15)
[2018-06-14] MEDS: RIVAROXABAN 10 MG TABLET PO SCH (09:16)
[2018-06-14 09:38] LABS: CHOLESTEROL 201 mg/dL (<200); HDL CHOLESTEROL 76 mg/dL (40-60); LDL 117 mg/dL (0-99); THYROID STIMULATING HORMONE 0.158 uIU/mL (0.358-3.74); TRIGLYCERIDES 55 mg/dL (30-150)
[2018-06-14 10:27] LABS: EOSINOPHILS % (MANUAL) 2 % (0-4); LYMPHOCYTES % (MANUAL) 18 % (16-48); MONOCYTES % (MANUAL) 3 % (0-11.0); NEUTROPHILS % (MANUAL) 77 (42-76)
[2018-06-14] MEDS: Magnesium 1GM/D5W 100ML PREMIX 100 ML IV SCH ×2 (11:37→12:47)
--- NOTE | 2018-06-14 11:43 | NUR ---
WOUND CARE CONSULT: PT PRESENTS AMBULATORY AND CONTINENT WITH UPPER BACK RAISED LESION/SCAR, PRESENT ON ADMISSION. PT STATES HAS HAD CYST THERE FOR LONG HE CAN REMEMBER. DEFER TO MD. WILL SEE PRN. CURRENT DANIELA SCORE IS 22.
--- NOTE | 2018-06-14 13:06 | NUR ---
RN MS NOTES PT IN BED, AWAKE, ALERT AND ORIENTED, WATCHING TV, NO COMPLAINT OF PAIN, NO SOB, TOLERATING ROOM AIR NOW, AMBULATES WITH STEADY GAIT, SEEN BY DR. LOZA AND DR. MCMAHON THIS MORNING, PLAN OF CARE DISCUSSED WITH PT, VERBALIZED UNDERSTANDING, CALL LIGHT WITHIN REACH.
[2018-06-14] MEDS: IPRATROPIUM NEB FS 0.5 MG/2.5 ML AMPUL.NEB NEB PRN ×2 (15:52→22:52)
[2018-06-14 16:00] VITALS: BP 155/84
--- NOTE | 2018-06-14 18:45 | NUR ---
RN MS NOTES Patient with stable vital signs all shift, patient able to ambulate without assistance, no sob or ventilatory distress noted. Patient able to eat independently. Abdulaziz removes nasal cannula when he is ambulating. Tolerating diet well.
--- NOTE | 2018-06-14 19:09 | NUR ---
MS RN RECEIVED PT ON BED, A/O X 3, NOT IN ANY FORM OF DISTRESS, RESPIRATIONS EVEN AND UNLABORED, NO SOB NOTED, STABLE CONDITION. SAFETY MEASURES IN PLACE. WILL CONTINUE TO MONITOR.
[2018-06-14 20:00] VITALS: BP 117/72
[2018-06-15] MEDS: methylPREDNISolone SOD SUCC 40 MG/ML VIAL IV SCH ×2 (05:09→20:26)
--- NOTE | 2018-06-15 06:11 | NUR ---
RN CLOSING NOTE ASLEEP AND EASILY AWAKEN, STABLE AND NOT IN DISTRESS. RESPIRATIONS EVEN AND UNLABORED. NO COMPLAIN OF PAIN. NURSING CARE RENDERED, KEPT CLEAN AND DRY AND COMFORT, NEEDS ATTENDED AND ANTICIPATED. SAFETY MEASURES IN PLACE, CALL LIGHT WITHIN REACH. WILL ENDORSE TO THE NEXT SHIFT.
[2018-06-15 07:26] LABS: BASOPHILS % (AUTO) 0.1 % (0.0-2.0); HEMATOCRIT 39 % (39-51); HEMOGLOBIN 12.9 g/dL (13.5-17.5); LYMPHOCYTES # (AUTO) 0.9 /CMM (0.8-4.8); LYMPHOCYTES % (AUTO) 7.8 % (20.0-44.0); MEAN CORPUSCULAR HGB CONC 34 g/dl (31.0-36.0); MEAN CORPUSCULAR VOLUME 82 fL (80-96); MONOCYTES # (AUTO) 0.5 /CMM (0.1-1.30); MONOCYTES % (AUTO) 4.5 % (2.0-12.0); NEUTROPHILS % (AUTO) 87.6 % (43.0-81.0); PLATELET COUNT (AUTO) 210 /CMM (150-450); WHITE BLOOD COUNT (AUTO) 11.5 K/uL (4.3-11.0)
--- NOTE | 2018-06-15 07:34 | NUR ---
MS RN OPENING NOTE RECEIVED PT IN BED, ALERT AND ORIENTED X4. DENIES CHEST PAIN, SOB, N/V. BREATHING IS EVEN AND UNLABORED ON ROOM AIR. PT HAS NC AT THE BEDSIDE PRN FOR SOB. RIGHT AC #20G IV IS SALINE LOCKED WITHOUT REDNESS OR SWELLING. PT IS FOR POSSIBLE D/C TODAY BACK HOME. ALL NEEDS ATTENDED TO. BED IS LOCKED AND IN LOWEST POSITION, SIDE RAILS UP X2, CALL LIGHT AND POSSESSIONS WITHIN REACH.
[2018-06-15 07:35] LABS: CALCIUM, SERUM 9.3 mg/dL (8.5-10.1); CARBON DIOXIDE 30 mmol/L (21-32); CHLORIDE 100 mmol/L (98-107); CREATININE 0.8 mg/dL (0.6-1.3); GLUCOSE 151 mg/dL (74-106); MAGNESIUM 1.9 mg/dL (1.8-2.4); PHOSPHORUS 3.2 mg/dL (2.5-4.9); POTASSIUM 3.9 mmol/L (3.5-5.1); SODIUM SERUM 136 mmol/L (136-145); UREA NITROGEN, BLOOD 23 mg/dL (7-18)
[2018-06-15 08:00] VITALS: BP_SYST 131; BP_SYST 134; BP_DIAS 76
[2018-06-15] MEDS: POTASSIUM CHLORIDE 20 MEQ TAB.PRT.SR PO SCH (08:27)
[2018-06-15] MEDS: LOSARTAN POTASSIUM 25 MG TABLET PO SCH (08:27)
[2018-06-15] MEDS: CARVEDILOL 12.5 MG TABLET PO SCH ×2 (08:28→16:41)
[2018-06-15] MEDS: FUROSEMIDE 20 MG TABLET PO SCH (08:28)
[2018-06-15] MEDS: IPRATROPIUM NEB FS 0.5 MG/2.5 ML AMPUL.NEB NEB PRN ×2 (08:29→20:33)
[2018-06-15 16:00] VITALS: BP 124/62
[2018-06-15] MEDS: RIVAROXABAN 10 MG TABLET PO SCH (16:45)
--- NOTE | 2018-06-15 17:38 | NUR ---
MS RN NOTE PER FIONA CHIN TO RESTART ZOLOFT 25MG DAILY.
[2018-06-15] MEDS: SERTRALINE HCL 25 MG TABLET PO SCH (18:01)
--- NOTE | 2018-06-15 18:22 | NUR ---
MS RN CLOSING NOTE PT SITTING UP IN BED, ALERT AND ORIENTED X4. DENIES CHEST PAIN, SOB, N/V. BREATHING IS EVEN AND UNLABORED ON ROOM AIR. PT HAS NC AT THE BEDSIDE PRN FOR SOB. RIGHT AC #20G IV IS SALINE LOCKED WITHOUT REDNESS OR SWELLING. ADLS PROVIDED. ALL NEEDS ATTENDED TO, PT ASSISTED TO TURN AND REPOSITION Q2H FOR THE DURATION OF THE SHIFT. BED IS LOCKED AND IN LOWEST POSITION, SIDE RAILS UP X2, BED ALARM ON, CALL LIGHT AND POSSESSIONS WITHIN REACH. WILL ENDORSE TO SLIP CASTER NURSE FOR CONTINUITY OF CARE.
[2018-06-15] MEDS: GUAIFENESIN/D-METHORPHAN HB 5 ML UDC PO PRN (18:46)
--- NOTE | 2018-06-15 19:26 | NUR ---
MS RN AWAKE WATCHING TV, A/O X 3, NOT IN ANY FORM OF DISTRESS, RESPIRATIONS EVEN AND UNLABORED, NO SOB NOTED, STABLE CONDITION. SAFETY MEASURES IN PLACE. WILL CONTINUE TO MONITOR.
[2018-06-15 20:00] VITALS: BP 133/74
[2018-06-16] MEDS: GUAIFENESIN/D-METHORPHAN HB 5 ML UDC PO PRN (02:16)
--- NOTE | 2018-06-16 06:12 | NUR ---
RN CLOSING NOTE ASLEEP AND EASILY AWAKEN,TOLERATING ROOM AIR NOW @ 94%. NO SOB, NO COMPLAIN OF PAIN. RESPIRATIONS EVEN AND UNLABORED. NURSING CARE RENDERED, KEPT CLEAN AND DRY AND COMFORT, NEEDS ATTENDED AND ANTICIPATED. SAFETY MEASURES IN PLACE, CALL LIGHT WITHIN REACH. WILL ENDORSE TO THE NEXT SHIFT.
[2018-06-16 07:41] LABS: BASOPHILS % (AUTO) 0.2 % (0.0-2.0); HEMATOCRIT 38 % (39-51); HEMOGLOBIN 12.5 g/dL (13.5-17.5); LYMPHOCYTES # (AUTO) 0.9 /CMM (0.8-4.8); LYMPHOCYTES % (AUTO) 7.9 % (20.0-44.0); MEAN CORPUSCULAR HGB CONC 33 g/dl (31.0-36.0); MEAN CORPUSCULAR VOLUME 82 fL (80-96); MONOCYTES # (AUTO) 0.8 /CMM (0.1-1.30); MONOCYTES % (AUTO) 6.9 % (2.0-12.0); NEUTROPHILS # (AUTO) 9.3 /CMM (1.8-8.9); PLATELET COUNT (AUTO) 204 /CMM (150-450); RED BLOOD CELL COUNT(AUTO) 4.54 MIL/uL (4.5-6.0)
[2018-06-16 08:00] VITALS: BP 158/74
[2018-06-16 08:08] LABS: CARBON DIOXIDE 29 mmol/L (21-32); CHLORIDE 104 mmol/L (98-107); CREATININE 0.8 mg/dL (0.6-1.3); GLUCOSE 125 mg/dL (74-106); MAGNESIUM 1.9 mg/dL (1.8-2.4); PHOSPHORUS 3.1 mg/dL (2.5-4.9); POTASSIUM 4.2 mmol/L (3.5-5.1); SODIUM SERUM 140 mmol/L (136-145); UREA NITROGEN, BLOOD 27 mg/dL (7-18)
[2018-06-16] MEDS: POTASSIUM CHLORIDE 20 MEQ TAB.PRT.SR PO SCH (09:05)
[2018-06-16] MEDS: methylPREDNISolone SOD SUCC 40 MG/ML VIAL IV SCH (09:05)
[2018-06-16] MEDS: FUROSEMIDE 20 MG TABLET PO SCH (09:06)
[2018-06-16] MEDS: CARVEDILOL 12.5 MG TABLET PO SCH (09:06)
[2018-06-16] MEDS: SERTRALINE HCL 25 MG TABLET PO SCH (09:06)
[2018-06-16 09:07] VITALS: BP 140/79
[2018-06-16] MEDS: LOSARTAN POTASSIUM 25 MG TABLET PO SCH (09:07)
[2018-06-16] MEDS ORDERED: PRED5TAB48 PO (09:14)
[2018-06-16] MEDS ORDERED: FURO20TA4 PO (09:14)
[2018-06-16] MEDS ORDERED: POTA20TA83 PO (09:14)
--- NOTE | 2018-06-16 13:08 | NUR ---
MS RN PT DISCHARGED PT DISCHARGE HOME VIA PRIVATE CAR, ACCOMPANIED BY CAREGIVER FRANNY IN MEDICALLY STABLE CONDITION. PT IS A/OX4, DENIES CHEST PAIN, SOB, N/V. BREATHING IS EVEN AND UNLABORED ON ROOM AIR. WOUND DOCUMENTATION COMPLETED PER PROTOCOL. DISCHARGE PAPERWORK AND EDUCATION PROVIDED PER PROTOCOL. DISCUSSED MD RECOMMENDATIONS AND INSTRUCTION TO FOLLOW UP WITH PRIMARY CARE PROVIDER AND HEELER MACHINE WITHIN 1 WEEK INCLUDING TO FOLLOW UP REGARDING ABLATION FOR A FLUTTER PER DR. LOZA NOTES AND RECOMMENDATIONS. INFORMED PT TO CALL 911 OR RETURN TO THE NEAREST ER FOR CHEST PAIN, SOB, TEMPERATURE THAT DOES NOT GO DOWN WITH TYLENOL ADMINISTRATION, UNILATERAL CALF SWELLING OR REOCCURRENCE OF CHIEF COMPLAINT. PT AND CAREGIVER JOSÉ VERBALIZED UNDERSTANDING. COVER CUTTER MACHINE PROVIDED ASSISTANCE WITH PT DRESSING IN HOME CLOTHING PRIOR TO D/C. ALL BELONGINGS ACCOUNTED FOR AND BELONGINGS LIST SIGNED AND PLACED IN CHART. RETURNED PT MEDICATIONS FROM PHARMACY. RIGHT AC PERIPHERAL IV REMOVED WITH CATHETER TIP INTACT AND MINIMAL BLEEDING. THE NURSE ACCOMPANIED THE PT VIA WHEELCHAIR TO THE MAIN LOBBY WITHOUT INCIDENT. Addendum: 06/24/18 at 0847 by HEIDE CARCAMO RN PT REFUSED WOUND DOCUMENTATION TO COMPLETED PER PROTOCOL. EDUCATION PROVIDED REGARDING WOUND DOCUMENTATION UPON DISCHARGE. PT STILL REFUSED X2 AND WAS EAGER TO GO HOME.
[2018-07-14] MEDS ORDERED: PRED20TA PO (09:17)
[2018-07-14] MEDS ORDERED: AZIT250T PO (09:17)
[2018-07-14] MEDS ORDERED: ALBUT2 NEB (09:17)
[2018-07-14] MEDS ORDERED: IPRA0.2S9 NEB (09:17)
== END 2018-06-16 13:00 | disposition home or self-care (01) | DRG 190 ==
LOC: ER 14:04 → TELE 19:46 → MED 06-14 10:15
PROVIDERS: ADMIT Student in an Organized Health Care Education/Training Program; ATTEND Student in an Organized Health Care Education/Training Program
DX: J44.1 Chronic obstructive pulmonary disease with (acute) exacerbation (principal); I50.33 Acute on chronic diastolic (congestive) heart failure; I48.92 Unspecified atrial flutter; I11.0 Hypertensive heart disease with heart failure; E11.9 Type 2 diabetes mellitus without complications; E03.9 Hypothyroidism, unspecified; F41.9 Anxiety disorder, unspecified; I48.91 Unspecified atrial fibrillation; K21.9 Gastro-esophageal reflux disease without esophagitis; E78.5 Hyperlipidemia, unspecified; Z79.01 Long term (current) use of anticoagulants; Z79.51 Long term (current) use of inhaled steroids; Z87.891 Personal history of nicotine dependence; G89.29 Other chronic pain; D64.9 Anemia, unspecified
CPT/HCPCS: 36415; 71045-TC; 80048-TC; 80053-TC; 80061-TC; 80076-TC; 83735-TC; 83880; 84100-TC; 84439-TC; 84443-TC; 84484-TC; 85025-TC; 87081-TC; 93307-TC; 94799-TC; G0378; J1940; J2920; J2930; J3475

== ENCOUNTER 2018-06-29 19:43 | Inpatient (IN) | payer MEDICARE, OTHER ==
[~2018-06-29] VITALS: Ht 177.8 cm; Wt 78.2 kg
[~2018-06-29 19:43] MED LIST changes: +ALBU8.5H8 IH; +FURO20TA4 PO; +POTA20TA83 PO; +PRED50TA PO; +PRED5TAB48 PO
--- NOTE | 2018-06-29 20:07 | NUR ---
BIBS. C/O "HAVING SOB FOR 3X DAYS" -ACUTE DISTRESS AT THIS TIME. AOX4. AMBULATORY W.STEADY GAIT.
[2018-06-29] MEDS ORDERED: Magnesium 1GM/D5W 100ML PREMIX 200 ML IV ONE ×2 (20:18→20:29)
[2018-06-29] MEDS ORDERED: methylPREDNISolone SOD SUCC 125 MG/2ML VIAL ONE (20:29)
[2018-06-29] MEDS ORDERED: IPRATROPIUM NEB FS 0.5 MG/2.5 ML AMPUL.NEB NEB ONE (20:30)
[2018-06-29] MEDS ORDERED: methylPREDNISolone SOD SUCC 125 MG/2ML VIAL IV ONE (20:30)
[2018-06-29 20:48] LABS: BASOPHILS # (AUTO) 0.1 /CMM (0.0-0.2); EOSINOPHILS % (AUTO) 3.2 % (0.0-6.0); HEMATOCRIT 41 % (39-51); HEMOGLOBIN 13.6 g/dL (13.5-17.5); LYMPHOCYTES # (AUTO) 0.9 /CMM (0.8-4.8); LYMPHOCYTES % (AUTO) 12.4 % (20.0-44.0); MEAN CORPUSCULAR HGB CONC 33 g/dl (31.0-36.0); MEAN CORPUSCULAR VOLUME 82 fL (80-96); MONOCYTES # (AUTO) 0.8 /CMM (0.1-1.30); MONOCYTES % (AUTO) 10.5 % (2.0-12.0); NEUTROPHILS # (AUTO) 5.4 /CMM (1.8-8.9); NEUTROPHILS % (AUTO) 72.9 % (43.0-81.0); PLATELET COUNT (AUTO) 232 /CMM (150-450); RED BLOOD CELL COUNT(AUTO) 5.02 MIL/uL (4.5-6.0); WHITE BLOOD COUNT (AUTO) 7.5 K/uL (4.3-11.0)
[2018-06-29 20:58] LABS: CALCIUM, SERUM 9.1 mg/dL (8.5-10.1); CARBON DIOXIDE 27 mmol/L (21-32); CHLORIDE 96 mmol/L (98-107); GLUCOSE 111 mg/dL (74-106); POTASSIUM 4.2 mmol/L (3.5-5.1); SODIUM SERUM 131 mmol/L (136-145); UREA NITROGEN, BLOOD 13 mg/dL (7-18)
[2018-06-29] MEDS ORDERED: IPRATROPIUM NEB FS 0.5 MG/2.5 ML AMPUL.NEB ONE (21:00)
[2018-06-29 21:10] LABS: B-TYPE NATRIURETIC PEPTIDE 1209 PG/ML (0-125)
--- NOTE | 2018-06-29 21:13 | NUR ---
CALLED NURSING SUP. FOR TELE BED
--- NOTE | 2018-06-29 21:17 | NUR ---
TELE 320-1
[2018-06-29] MEDS ORDERED: ROSU20TA31 PO (21:21)
--- NOTE | 2018-06-29 21:41 | NUR ---
ISIS BRENNAN, SIMÓN ROWLEY NP FRESH FOODS CLERK
--- NOTE | 2018-06-29 21:50 | NUR ---
REPORT GIVEN TO YNES CHANG.
[2018-06-29 22:50] VITALS: BP 116/84
[2018-06-29 23:00] VITALS: BP 116/84
[2018-06-29] MEDS ORDERED: ALBUTEROL FS 2.5 MG/3 ML VIAL.NEB NEB ONE (23:00)
[2018-06-29] MEDS ORDERED: IPRATROPIUM NEB FS 0.5 MG/2.5 ML AMPUL.NEB NEB PRN (23:30)
[2018-06-29] MEDS ORDERED: TIOTROPIUM BROMIDE 6 CAP/BOX CAP.W.DEV IH PRN (23:30)
[2018-06-29] MEDS ORDERED: MAGNESIUM HYDROXIDE 30 ML UDC PO PRN (23:30)
[2018-06-29] MEDS ORDERED: ACETAMINOPHEN 325 MG TABLET PO PRN (23:30)
[2018-06-29] MEDS ORDERED: HYDROCODONE/APAP 5/325MG 1 EACH TABLET PO PRN (23:30)
[2018-06-29] MEDS ORDERED: ALBUTEROL FS 2.5 MG/0.5 ML VIAL.NEB NEB PRN (23:30)
[2018-06-29] MEDS ORDERED: ONDANSETRON HCL/PF 4 MG/2 ML VIAL IVP PRN (23:30)
[2018-06-29] MEDS ORDERED: ZOLPIDEM TARTRATE 5 MG TABLET PO PRN (23:30)
[2018-06-30] VITALS: BP 121/71
[2018-06-30] MEDS: RIVAROXABAN 10 MG TABLET PO SCH ×2 (00:33→17:46)
[2018-06-30] MEDS: CARVEDILOL 12.5 MG TABLET PO SCH ×3 (00:34→17:00)
--- NOTE | 2018-06-30 00:49 | NUR ---
SPIKE DRIVER Receive pt from ER via [facility] at 06/29/18 2245 pt a/o x 4, respirations even and unlabored. normal coordination. atraumatic, well developed, head to toe assessment is done skin intact, non toxic appearing, admit to tele unit. kept clean and dry and comfortable wiil cont to mtr.
[2018-06-30 04:00] VITALS: BP 106/62
[2018-06-30] MEDS ORDERED: methylPREDNISolone SOD SUCC 125 MG/2ML VIAL IV SCH (04:00)
--- NOTE | 2018-06-30 06:11 | NUR ---
FLORIST DESIGNER ASLEEP AND EASILY AWAKEN, RESPIRATIONS EVEN AND UNLABORED. TOLERATING ROOM AIR 98%. A-FLUTTER 67 IN THE TELE MTR. HOSPITALIST AWARE, NNO. NEEDS ATTENDED AND ANTICIPATED. NURSING CARE RENDERED. KEPT CLEAN AND DRY, COMFORTABLE. SAFETY MEASURES AT ALL TIMES. ENDORSE TO NEXT SHIFT.
[2018-06-30 06:52] LABS: BASOPHILS % (AUTO) 0.2 % (0.0-2.0); EOSINOPHILS % (AUTO) 0.1 % (0.0-6.0); HEMATOCRIT 37 % (39-51); HEMOGLOBIN 12.6 g/dL (13.5-17.5); LYMPHOCYTES # (AUTO) 0.4 /CMM (0.8-4.8); LYMPHOCYTES % (AUTO) 15.3 % (20.0-44.0); MEAN CORPUSCULAR HGB CONC 34 g/dl (31.0-36.0); MEAN CORPUSCULAR VOLUME 81 fL (80-96); MONOCYTES # (AUTO) 0.1 /CMM (0.1-1.30); MONOCYTES % (AUTO) 2.3 % (2.0-12.0); NEUTROPHILS # (AUTO) 2.2 /CMM (1.8-8.9); NEUTROPHILS % (AUTO) 82.1 % (43.0-81.0); PLATELET COUNT (AUTO) 196 /CMM (150-450); RED BLOOD CELL COUNT(AUTO) 4.59 MIL/uL (4.5-6.0); WHITE BLOOD COUNT (AUTO) 2.6 K/uL (4.3-11.0)
[2018-06-30 06:59] LABS: CALCIUM, SERUM 9.1 mg/dL (8.5-10.1); CARBON DIOXIDE 25 mmol/L (21-32); CHLORIDE 98 mmol/L (98-107); CREATININE 0.9 mg/dL (0.6-1.3); GLUCOSE 190 mg/dL (74-106); MAGNESIUM 2.1 mg/dL (1.8-2.4); PHOSPHORUS 4.3 mg/dL (2.5-4.9); SODIUM SERUM 132 mmol/L (136-145); UREA NITROGEN, BLOOD 15 mg/dL (7-18)
--- NOTE | 2018-06-30 07:15 | NUR ---
MEETING PLANNER. PT TELE A FLUTTER 63. PT A&0X4 AWAKE AND RESTING IN BED. PT TOLERATING ROOM AIR WITHOUT DISTRESS AND DENIES SOB, AUSCULTATED WITH DIMINISHED LUNG SOUNDS AND L LOWER CRACKLES/RHONCHI. PT WITH IVC AT R AC INTACT AND SALINE FLUSH PATENT. PT WITH ORDER FOR 1L FLUID RESTRICTION, DISCUSSED WITH PT. PT BED IN LOWEST LOCKED POSITION WITH HANDRAILSX2 AND CALL RAMÍREZ WITHIN REACH. PT BRIEFED ON TODAY'S POC AND IS WITHOUT CONCERN OR COMPLAINT AT THIS TIME.
[2018-06-30] MEDS: IPRATROPIUM NEB FS 0.5 MG/2.5 ML AMPUL.NEB NEB SCH ×3 (07:35→21:56)
[2018-06-30 08:00] VITALS: BP 119/70
[2018-06-30 08:05] LABS: EOSINOPHILS % (MANUAL) 1 % (0-4); LYMPHOCYTES % (MANUAL) 12 % (16-48); MONOCYTES % (MANUAL) 3 % (0-11.0); NEUTROPHILS % (MANUAL) 84 (42-76)
[2018-06-30] MEDS: FUROSEMIDE 20 MG TABLET PO SCH (08:14)
[2018-06-30] MEDS: LOSARTAN POTASSIUM 25 MG TABLET PO SCH (08:15)
[2018-06-30] MEDS: PANTOPRAZOLE 40 MG TABLET.DR PO SCH (08:15)
[2018-06-30] MEDS: SERTRALINE HCL 25 MG TABLET PO SCH (08:15)
[2018-06-30] MEDS: POTASSIUM CHLORIDE 20 MEQ TAB.PRT.SR PO SCH (08:16)
[2018-06-30] MEDS: methylPREDNISolone SOD SUCC 125 MG/2ML VIAL IV SCH ×2 (11:39→20:22)
--- NOTE | 2018-06-30 14:00 | NUR ---
PT SHOWERED. REPORTING INCREASED SOB, RT CALLED FOR PRN.
--- NOTE | 2018-06-30 18:18 | NUR ---
MSRN. PT A&0X4 OOB WATCHING T.V. PT TOLERATING ROOM AIR WITHOUT DISTRESS AND REPORTS MINOR CONTINUED SOB. PT WITH IVC AT R FA INTACT AND SL. PT BED IN LOWEST LOCKED POSITION WITH HANDRAILSX2 AND CALL RAMÍREZ WITHIN REACH. ALL DAY NURSE DUTIES ATTENDED TO AND PT WITHOUT CONCERN OR COMPLAINT AT THIS TIME. WILL ENDORSE TO NIGHT NURSE AT BEDSIDE FOR NIKKY.
--- NOTE | 2018-06-30 19:30 | NUR ---
RN MS OPENING NOTES RECEIVED PATIENT IN BED AWAKE. ALERT AND ORIENTED X4, VERBALLY RESPONSIVE, ABLE TO MAKE NEEDS KNOWN. BREATHING EVEN AND UNLABORED. NO SOB NOTED. TOLERATING ROOM AIR. NO COMPLAINTS OF PAIN OR DISCOMFORT. NO FACIAL GRIMACING. IV ON RIGHT FOREARM INTACT AND PATENT. SKIN DRY AND WARM TO TOUCH. AFEBRILE. REMINDED OF FLUID RESTRICTION. ALL OTHER NEEDS ATTENDED TO. SAFETY MEASURES IN PLACE. CALL LIGHT WITHIN REACH. WILL CONTINUE TO MONITOR.
[2018-06-30 20:00] VITALS: BP 142/83
[2018-06-30] MEDS ORDERED: ATORVASTATIN 40 MG TABLET PO SCH (22:00)
[2018-07-01] MEDS: IPRATROPIUM NEB FS 0.5 MG/2.5 ML AMPUL.NEB NEB SCH ×3 (00:35→13:17)
[2018-07-01] MEDS: methylPREDNISolone SOD SUCC 125 MG/2ML VIAL IV SCH ×2 (04:16→12:01)
[2018-07-01 06:42] LABS: CALCIUM, SERUM 9.3 mg/dL (8.5-10.1); CARBON DIOXIDE 26 mmol/L (21-32); CHLORIDE 102 mmol/L (98-107); CREATININE 0.9 mg/dL (0.6-1.3); GLUCOSE 147 mg/dL (74-106); POTASSIUM 4.5 mmol/L (3.5-5.1); SODIUM SERUM 135 mmol/L (136-145); UREA NITROGEN, BLOOD 24 mg/dL (7-18)
--- NOTE | 2018-07-01 06:55 | NUR ---
RN MS CLOSING NOTES PATIENT RESTING IN BED. NO ACUTE CHANGES THROUGHOUT SHIFT. BREATHING EVEN AND UNLABORED. NO SOB NOTED. TOLERATING ROOM AIR. NO COMPLAINTS OF PAIN OR DISCOMFORT. NO FACIAL GRIMACING. IV ON RIGHT FOREARM INTACT AND PATENT. SKIN DRY AND WARM TO TOUCH. AFEBRILE. ALL OTHER NEEDS ATTENDED TO. SAFETY MEASURES IN PLACE. CALL LIGHT WITHIN REACH. WILL ENDORSE TO ONCOMING NURSE FOR NIKKY.
[2018-07-01 08:00] VITALS: BP 126/73
[2018-07-01] MEDS: PANTOPRAZOLE 40 MG TABLET.DR PO SCH (08:41)
[2018-07-01] MEDS: POTASSIUM CHLORIDE 20 MEQ TAB.PRT.SR PO SCH (08:41)
[2018-07-01 08:42] VITALS: BP 126/68
[2018-07-01] MEDS: SERTRALINE HCL 25 MG TABLET PO SCH (08:42)
[2018-07-01] MEDS: CARVEDILOL 12.5 MG TABLET PO SCH (08:42)
[2018-07-01] MEDS: LOSARTAN POTASSIUM 25 MG TABLET PO SCH (08:42)
[2018-07-01] MEDS: FUROSEMIDE 20 MG TABLET PO SCH (08:43)
--- NOTE | 2018-07-01 10:34 | NUR ---
WOUND CARE CONSULT: PT PRESENTS AMBULATORY AND CONTINENT WITH DRY SCAB ON HIS LEFT KNEE, PRESENT ON ADMISSION. WILL SEE PRN.
--- NOTE | 2018-07-01 14:15 | NUR ---
PATIENT CLEARED FOR DISCHARGE TO HOME BY MD. PATIENT ALERT AND ORIENTED X4 , NOT IN DISTRESS , ON ROOM AIR TOLERATING WELL. D/C INSTRUCTIONS AND TEACHING PROVIDED TO PATIENT. PATIENT VERBALIZED UNDERSTANDING. APPOINTMENTS ARRANGED PRIOR TO DISCHARGE. PATIENT WILL SEE DR. SARAVIA IN ONE WEEK, AND ON JULY 08 AT 3-15 PM. VALUABLES CHECKED AND BELONGINGS FORM SIGHED BY PATIENT ( ALL BELONGINGS WITH PATIENT). D/C INSTRUCTIONS SIGHED BY PATIENT . CHART CHECKED: PICTURES WERE TAKEN BY OYSTER PREPARER. IV ASSESS AND ID WRIST BAND REMOVED.PATIENT SAFELY TRANSFERRED TO 1-ST FLOOR ACCOMPANIED BY RIP SAW OPERATOR AND FREIGHT SALES BROKER PETE
[2018-07-14] MEDS ORDERED: AZIT250T PO (09:17)
[2018-07-14] MEDS ORDERED: PRED20TA PO (09:17)
[2018-07-14] MEDS ORDERED: ALBUT2 NEB (09:17)
[2018-07-14] MEDS ORDERED: IPRA0.2S9 NEB (09:17)
== END 2018-07-01 15:00 | disposition home or self-care (01) | DRG 190 ==
LOC: ER 19:44 → TELE 22:03 → MED 06-30 10:35
PROVIDERS: ADMIT Nurse Practitioner Acute Care; ATTEND Nurse Practitioner Acute Care
DX: J44.1 Chronic obstructive pulmonary disease with (acute) exacerbation (principal); I50.33 Acute on chronic diastolic (congestive) heart failure; E87.1 Hypo-osmolality and hyponatremia; I48.92 Unspecified atrial flutter; I11.0 Hypertensive heart disease with heart failure; E78.5 Hyperlipidemia, unspecified; I48.2 Chronic atrial fibrillation; E03.9 Hypothyroidism, unspecified; E11.9 Type 2 diabetes mellitus without complications; G89.29 Other chronic pain; K21.9 Gastro-esophageal reflux disease without esophagitis; F41.9 Anxiety disorder, unspecified; Y92.89 Other specified places as the place of occurrence of the external cause; W18.30XA Fall on same level, unspecified, initial encounter; Z79.01 Long term (current) use of anticoagulants; Z79.899 Other long term (current) drug therapy; D64.9 Anemia, unspecified
CPT/HCPCS: 36415; 71045-TC; 80048-TC; 83735-TC; 83880; 84100-TC; 84484-TC; 85025-TC; 85730-TC; 87081-TC; 94799-TC; G0378; J2930; J3475

== ENCOUNTER 2018-07-12 13:07 | Inpatient (IN) | payer MEDICARE, OTHER ==
[~2018-07-12] VITALS: Ht 177.8 cm; Wt 80.7 kg
[~2018-07-12 13:07] MED LIST changes: +ROSU20TA31 PO
--- NOTE | 2018-07-12 13:07 | NUR ---
PT BIB SELF C/O WORSENING SOB AND L SIDE RIB AREA PAIN X 2 DAYS, PT IS AAOX4, NOTED RESPIRATORY DISTRESS, HOOKED TO O2 VIA NC AT 2LPM, HOOKED TO MONITOR, KEPT RESTED AND COMFORTABLE, WILL CONTINUE TO MONITOR.
--- NOTE | 2018-07-12 13:15 | NUR ---
SEEN AND EXAMINED BY DR. HILLS.
[2018-07-12] MEDS ORDERED: ALBUTEROL FS 2.5 MG/3 ML VIAL.NEB ONE (13:22)
[2018-07-12] MEDS ORDERED: IPRATROPIUM NEB FS 0.5 MG/2.5 ML AMPUL.NEB ONE (13:22)
--- NOTE | 2018-07-12 13:25 | NUR ---
IV LINE ESTABLISHED LABS DRAWNED AND SENT TO LAB.
[2018-07-12] MEDS ORDERED: methylPREDNISolone SOD SUCC 125 MG/2ML VIAL ONE (13:27)
[2018-07-12] MEDS ORDERED: methylPREDNISolone SOD SUCC 125 MG/2ML VIAL IV ONE (13:30)
[2018-07-12] MEDS ORDERED: ALBUTEROL FS 2.5 MG/3 ML VIAL.NEB CONTNEB ONE (13:30)
[2018-07-12] MEDS ORDERED: IPRATROPIUM NEB FS 0.5 MG/2.5 ML AMPUL.NEB NEB ONE (13:30)
--- NOTE | 2018-07-12 13:30 | NUR ---
SALES SPECIALIST AT BEDSIDE FOR XRAY.
[2018-07-12 13:32] LABS: BASOPHILS # (AUTO) 0.1 /CMM (0.0-0.2); BASOPHILS % (AUTO) 1.3 % (0.0-2.0); EOSINOPHILS % (AUTO) 3.4 % (0.0-6.0); HEMATOCRIT 40 % (39-51); HEMOGLOBIN 13.4 g/dL (13.5-17.5); LYMPHOCYTES # (AUTO) 1.2 /CMM (0.8-4.8); LYMPHOCYTES % (AUTO) 14.1 % (20.0-44.0); MEAN CORPUSCULAR HGB CONC 34 g/dl (31.0-36.0); MEAN CORPUSCULAR VOLUME 81 fL (80-96); MONOCYTES # (AUTO) 0.9 /CMM (0.1-1.30); MONOCYTES % (AUTO) 10.3 % (2.0-12.0); NEUTROPHILS # (AUTO) 6.2 /CMM (1.8-8.9); NEUTROPHILS % (AUTO) 70.9 % (43.0-81.0); PLATELET COUNT (AUTO) 258 /CMM (150-450); RED BLOOD CELL COUNT(AUTO) 4.94 MIL/uL (4.5-6.0); WHITE BLOOD COUNT (AUTO) 8.8 K/uL (4.3-11.0)
--- NOTE | 2018-07-12 13:39 | NUR ---
HOUSE SUP WAS CALLED FOR A TELE BED
[2018-07-12 13:40] LABS: CARBON DIOXIDE 28 mmol/L (21-32); CHLORIDE 98 mmol/L (98-107); CREATININE 0.9 mg/dL (0.6-1.3); GLUCOSE 124 mg/dL (74-106); POTASSIUM 4.6 mmol/L (3.5-5.1); SODIUM SERUM 134 mmol/L (136-145); UREA NITROGEN, BLOOD 10 mg/dL (7-18)
[2018-07-12 13:46] LABS: ALANINE AMINOTRANSFERASE 9 U/L (12-78); ALBUMIN 2.9 g/dL (3.4-5.0); ALKALINE PHOSPHATASE 121 U/L (46-116); ASPARTATE AMINOTRANSFERASE 17 U/L (15-37); BILIRUBIN,DIRECT 0.2 mg/dL (0.0-0.2); BILIRUBIN,TOTAL 0.6 mg/dL (0.2-1.0); TOTAL PROTEIN, SERUM 7.1 g/dL (6.4-8.2)
[2018-07-12] MEDS ORDERED: ALBU2.5V38 IH (13:51)
[2018-07-12] MEDS ORDERED: BUDE10.2 IH (13:51)
[2018-07-12] MEDS ORDERED: ACET-868 PO (13:51)
[2018-07-12] MEDS ORDERED: TRIA15OI2 TP (13:51)
--- NOTE | 2018-07-12 13:53 | NUR ---
ISIS CALLED. WAS PAGED
--- NOTE | 2018-07-12 14:08 | NUR ---
TELE BED 322-1 GIVEN. GERA IS THE RN
[2018-07-12] MEDS ORDERED: MAG HYDROX/AL HYDROX/SIMETH 30 ML UDC PO PRN (14:30)
[2018-07-12] MEDS ORDERED: TRIAMCINOLONE OINT 0.1% 15 GM TUBE TP PRN (14:30)
[2018-07-12] MEDS ORDERED: ONDANSETRON HCL/PF 4 MG/2 ML VIAL IVP PRN (14:30)
[2018-07-12] MEDS ORDERED: HYDROCODONE/APAP 5/325MG 1 EACH TABLET PO PRN (14:30)
[2018-07-12] MEDS ORDERED: ACETAMINOPHEN 325 MG TABLET PO PRN ×2 (14:30)
[2018-07-12] MEDS ORDERED: MAGNESIUM HYDROXIDE 30 ML UDC PO PRN (14:30)
[2018-07-12] MEDS ORDERED: Z GUARD REMEDY 2 OZ OINT TP PRN (14:30)
--- NOTE | 2018-07-12 14:30 | NUR ---
REPORT GIVEN TO BERNARDO CONKLIN FOR NIKKY.
[2018-07-12 15:00] VITALS: BP 126/69
[2018-07-12] MEDS ORDERED: AZITHROMYCIN 250 MG TABLET PO ONE (15:00)
--- NOTE | 2018-07-12 15:00 | NUR ---
COMMUNICATION ANALYSTPRESENTATION MANAGER NOTE PT ARRIVED TO TELE UNIT VIA GURNEY IN STABLE CONDITION ACCOMPANIED BY 2 ER STAFF. PT IS A/O X4, AFEBRILE. RESPIRATIONS ARE EVEN AND UNLABORED, NOT IN ANY ACUTE DISTRESS NOTED. PT DENIES ANY PAIN, SOB, N/V AT THIS TIME. PUPILS ARE REACTIVE TO LIGHT, BILATERAL HAND ONLINE PRODUCER ARE STRONG AND EQUAL. ABDOMEN IS SOFT AND NONDISTENDED, BOWEL SOUNDS ARE PRESENT IN ALL 4 QUADRANTS UPON AUSCULTATION. DENIES ANY BLADDER DISCOMFORT. PT IS CONTINENT AND ABLE TO AMBULATE TO THE BATHROOM. MULTIPLE SCABS NOTED TO BLE AND A RED, RAISED BUMP ON BACK. PICTURES TAKEN AND PLACED IN CHART. TELE LEADS PLACED AND NOTED WITH AFIB. ALL BELONGINGS ACCOUNTED FOR. DR. MARSHALL MADE AWARE OF ADMISSION WITH ORDERS NOTED AND CARRIED OUT. INSTRUCTED PT TO USE CALL LIGHT WHEN ASSISTANCE IS NEEDED, CALL LIGHT IS LEFT WITHIN REACH. WILL CONTINUE TO MONITOR THROUGHOUT SHIFT FOR CONTINUITY OF CARE.
[2018-07-12] MEDS ORDERED: IPRATROPIUM NEB FS 0.5 MG/2.5 ML AMPUL.NEB NEB SCH (15:30)
[2018-07-12] MEDS: IPRATROPIUM NEB FS 0.5 MG/2.5 ML AMPUL.NEB NEB SCH ×3 (15:38→23:34)
[2018-07-12 16:12] VITALS: BP 126/69
[2018-07-12] MEDS: CARVEDILOL 12.5 MG TABLET PO SCH (16:17)
[2018-07-12] MEDS: RIVAROXABAN 10 MG TABLET PO SCH (16:17)
--- NOTE | 2018-07-12 16:18 | NUR ---
GEOGRAPHIC ANALYST NOTES-- HELD XARELTO ORDER IS ONCE A DAY. PER PT, HE TOOK IT ONCE THIS MORNING AND ONLY TAKES IT ONCE A DAY. WILL CONTINUE TO MONITOR. NO S/SX OF BLEEDING.
[2018-07-12] MEDS ORDERED: ALBUTEROL FS 2.5 MG/3 ML VIAL.NEB NEB SCH (17:00)
[2018-07-12] MEDS ORDERED: Medication Not On Formulary EA (Omega-3 Fatty Acids/Fish Oil (Fish Oil 1,000 Mg Capsule) PO SCH (17:00)
--- NOTE | 2018-07-12 17:00 | NUR ---
CORE WINDER MACHINE OPERATOR NOTES-- PT SEEN AND EXAMINED BY DR. MARSHALL.
--- NOTE | 2018-07-12 18:43 | NUR ---
PROFESSIONAL BASS FISHER CLOSING NOTES ALL DUE MEDS GIVEN, NEEDS MET AND RENDERED. PT IS A/O X4, AFEBRILE. RESPIRATIONS ARE EVEN AND UNLABORED, NOT IN ANY ACUTE DISTRESS NOTED. PT DENIES ANY PAIN, SOB, N/V AT THIS TIME. IV ACCESS INTACT, NO INFILTRATION NOTED. DRESSING KEPT CLEAN AND DRY. SAFETY MEASURES ARE IN PLACE. REMINDED PT TO USE CALL LIGHT WHEN ASSISTANCE IS NEEDED, CALL LIGHT IS LEFT WITHIN REACH. WILL ENDORSE TO NEXT SHIFT FOR CONTINUITY OF CARE.
--- NOTE | 2018-07-12 19:00 | NUR ---
RN MS OPENING NOTES RECEIVED PATIENT IN BED AWAKE ALERT AND ORIENTED X4, ON 2 L VIA NC RESPIRATIONS EVEN AND UNLABORED WITH EQUAL RISE AND FALL OF CHEST, NO SOB AT THIS TIME DENIES ANY PAIN OR DISCOMFORT AT THIS TIME, ON CP BLEACHER OPERATOR A.FIB , NO DISTRESS PRESENT, IV SITE TO RIGHT AC #18G INTACT AND PATENT, NO REDNESS,NO INFILTRATION PRESENT. ORIENTED TO STAFF AND CALL LIGHT ALL NEEDS ATTENDED WILL CONTINUE TO MONITOR REMAINS COMFORTABLE AT THIS TIME.
[2018-07-12] MEDS ORDERED: ALBUTEROL FS 2.5 MG/0.5 ML VIAL.NEB NEB PRN (19:30)
[2018-07-12 20:00] VITALS: BP 110/66
[2018-07-12] MEDS: ALBUTEROL FS 2.5 MG/3 ML VIAL.NEB NEB SCH ×2 (20:26→23:35)
[2018-07-13] VITALS (7 sets, daily range): BP systolic 115–145; BP diastolic 51–80
[2018-07-13] MEDS: ZOLPIDEM TARTRATE 5 MG TABLET PO PRN (00:05)
--- NOTE | 2018-07-13 00:07 | NUR ---
RN MS NOTES PATIENT REQUESTING FOR AMBIEN PRN FOR SLEEP. PRN GIVEN ORDERED, WILL CONTINUE TO MONITOR FOR EFFECTIVENESS.
[2018-07-13] MEDS: ALBUTEROL FS 2.5 MG/3 ML VIAL.NEB NEB SCH ×6 (03:29→23:43)
[2018-07-13] MEDS: IPRATROPIUM NEB FS 0.5 MG/2.5 ML AMPUL.NEB NEB SCH ×6 (03:29→23:42)
--- NOTE | 2018-07-13 07:20 | NUR ---
BERNARDO MS CLOSING NOTES PATIENT IN BED SLEPT WELL , ALERT AND ORIENTED X 4, RESPIRATIONS EVEN AND UNLABORED WITH EQUAL RISE AND FALL OF CHEST, NO SOB AT THIS TIME DENIES ANY PAIN OR DISCOMFORT AT THIS TIME, ON MACHINE HEEL SEAT FITTER A.FIB , NO DISTRESS PRESENT, IV SITE TO RIGHT AC #18G INTACT AND PATENT, NO REDNESS,NO INFILTRATION PRESENT. CALL LIGHT ALL NEEDS ATTENDED WILL CONTINUE TO MONITOR REMAINS COMFORTABLE AT THIS TIME AND WILL ENDORSE TO NEXT SHIFT, ALL NEEDS WERE ATTENDED. Addendum: 07/13/18 at 0744 by RAINER SHAY RN HEART RATE 67.
--- NOTE | 2018-07-13 07:35 | NUR ---
MEDICAL TRANSCRIPTIONIST CLOSING NOTES RECEIVED PT SITTING UP IN BED. PT IS A/O X4, AFEBRILE. RESPIRATIONS ARE EVEN AND UNLABORED, NOT IN ANY ACUTE DISTRESS NOTED. PT DENIES ANY PAIN, SOB, N/V AT THIS TIME. IV ACCESS INTACT, NO INFILTRATION NOTED. DRESSING KEPT CLEAN AND DRY. SAFETY MEASURES ARE IN PLACE. REMINDED PT TO USE CALL LIGHT WHEN ASSISTANCE IS NEEDED, CALL LIGHT IS LEFT WITHIN REACH. WILL MONITOR THROUGHOUT SHIFT FOR CONTINUITY OF CARE.
[2018-07-13 07:50] LABS: BASOPHILS % (AUTO) 0.1 % (0.0-2.0); HEMATOCRIT 37 % (39-51); HEMOGLOBIN 12.4 g/dL (13.5-17.5); LYMPHOCYTES # (AUTO) 0.7 /CMM (0.8-4.8); LYMPHOCYTES % (AUTO) 10.7 % (20.0-44.0); MEAN CORPUSCULAR HGB CONC 34 g/dl (31.0-36.0); MEAN CORPUSCULAR VOLUME 79 fL (80-96); MONOCYTES # (AUTO) 0.1 /CMM (0.1-1.30); MONOCYTES % (AUTO) 2.1 % (2.0-12.0); NEUTROPHILS % (AUTO) 87.1 % (43.0-81.0); PLATELET COUNT (AUTO) 225 /CMM (150-450); RED BLOOD CELL COUNT(AUTO) 4.61 MIL/uL (4.5-6.0); WHITE BLOOD COUNT (AUTO) 6.9 K/uL (4.3-11.0)
[2018-07-13 08:05] LABS: CALCIUM, SERUM 9.2 mg/dL (8.5-10.1); CARBON DIOXIDE 24 mmol/L (21-32); CHLORIDE 99 mmol/L (98-107); CREATININE 0.9 mg/dL (0.6-1.3); GLUCOSE 195 mg/dL (74-106); MAGNESIUM 1.5 mg/dL (1.8-2.4); PHOSPHORUS 3.3 mg/dL (2.5-4.9); POTASSIUM 4.3 mmol/L (3.5-5.1); SODIUM SERUM 135 mmol/L (136-145); UREA NITROGEN, BLOOD 15 mg/dL (7-18)
[2018-07-13 08:19] LABS: CHOLESTEROL 144 mg/dL (<200); HDL CHOLESTEROL 56 mg/dL (40-60); LDL 80 mg/dL (0-99); TRIGLYCERIDES 44 mg/dL (30-150)
[2018-07-13] MEDS ORDERED: TIOTROPIUM BROMIDE 6 CAP/BOX CAP.W.DEV IH SCH (09:00)
[2018-07-13] MEDS ORDERED: Medication Not On Formulary EA (Ubidecarenone (Coq-10) 200 MG) PO SCH (09:00)
[2018-07-13] MEDS: methylPREDNISolone SOD SUCC 125 MG/2ML VIAL IV SCH (09:06)
[2018-07-13] MEDS: CARVEDILOL 12.5 MG TABLET PO SCH ×2 (09:07→16:03)
[2018-07-13] MEDS: LOSARTAN POTASSIUM 25 MG TABLET PO SCH (09:07)
[2018-07-13] MEDS: SERTRALINE HCL 25 MG TABLET PO SCH (09:08)
[2018-07-13] MEDS: ATORVASTATIN 40 MG TABLET PO SCH (09:08)
[2018-07-13] MEDS: FLUTICASONE/VILANTEROL 1 EACH BLST.W.DEV IH SCH (09:09)
[2018-07-13] MEDS: PANTOPRAZOLE 40 MG TABLET.DR PO SCH (09:10)
--- NOTE | 2018-07-13 09:30 | NUR ---
DOMESTIC CLEANER NOTES-- PT SEEN AND EXAMINED BY DR. MARSHALL.
[2018-07-13] MEDS: Magnesium 1GM/D5W 100ML PREMIX 100 ML IV SCH ×2 (10:20→11:21)
[2018-07-13] MEDS ORDERED: AZITHROMYCIN 250 MG TABLET PO SCH (15:00)
[2018-07-13] MEDS: RIVAROXABAN 10 MG TABLET PO SCH (16:07)
--- NOTE | 2018-07-13 19:46 | NUR ---
RN NOTES RECEIVED PATIENT AWAKE. PATIENT IS A/O X4. RESPIRATIONS ARE EVEN AND UNLABORED, NO SIGNS OF RESPIRATORY DISTRESS NOTED. DENIES SHORTNESS OF BREATH AT THIS TIME. DENIES ANY PAIN. IV ACCESS INTACT AND PATENT. SAFETY PRECAUTIONS IMPLEMENTED. CALL LIGHT WITHIN REACH. WILL CONTINUE TO MONITOR PATIENT THROUGHOUT THE SHIFT.
[2018-07-13] MEDS: ALBUTEROL FS 2.5 MG/0.5 ML VIAL.NEB NEB PRN ×3 (23:41→23:43)
[2018-07-14] VITALS: BP 123/67
[2018-07-14] MEDS: ZOLPIDEM TARTRATE 5 MG TABLET PO PRN (00:10)
[2018-07-14] MEDS: ALBUTEROL FS 2.5 MG/3 ML VIAL.NEB NEB SCH ×3 (03:56→11:28)
[2018-07-14] MEDS: IPRATROPIUM NEB FS 0.5 MG/2.5 ML AMPUL.NEB NEB SCH ×3 (03:56→11:28)
[2018-07-14 04:00] VITALS: BP 126/81
[2018-07-14 04:39] VITALS: BP 126/81
--- NOTE | 2018-07-14 06:14 | NUR ---
RN CLOSING NOTES PATIENT IS RESTING COMFORTABLY IN BED. A/O X4. RESPIRATIONS ARE EVEN AND UNLABORED. NO SIGNS OF RESPIRATORY DISTRESS. PATIENT DENIES SHORTNESS OF BREATH. PATIENT DENIES PAIN. PATIENT DENIES FURTHER NEEDS AT THIS TIME. SAFETY PRECAUTIONS IMPLEMENTED. CALL LIGHT WITHIN REACH. WILL ENDORSE TO AM SHIFT AT BEDSIDE.
[2018-07-14 06:44] LABS: HEMATOCRIT 34 % (39-51); HEMOGLOBIN 11.4 g/dL (13.5-17.5); LYMPHOCYTES # (AUTO) 0.8 /CMM (0.8-4.8); LYMPHOCYTES % (AUTO) 5.5 % (20.0-44.0); MEAN CORPUSCULAR HGB CONC 34 g/dl (31.0-36.0); MEAN CORPUSCULAR VOLUME 81 fL (80-96); MONOCYTES # (AUTO) 0.7 /CMM (0.1-1.30); MONOCYTES % (AUTO) 4.5 % (2.0-12.0); NEUTROPHILS # (AUTO) 13.8 /CMM (1.8-8.9); PLATELET COUNT (AUTO) 245 /CMM (150-450); RED BLOOD CELL COUNT(AUTO) 4.19 MIL/uL (4.5-6.0); WHITE BLOOD COUNT (AUTO) 15.3 K/uL (4.3-11.0)
[2018-07-14 06:45] LABS: CALCIUM, SERUM 9.2 mg/dL (8.5-10.1); CARBON DIOXIDE 26 mmol/L (21-32); CHLORIDE 101 mmol/L (98-107); CREATININE 0.7 mg/dL (0.6-1.3); GLUCOSE 143 mg/dL (74-106); MAGNESIUM 1.9 mg/dL (1.8-2.4); POTASSIUM 4.1 mmol/L (3.5-5.1); SODIUM SERUM 137 mmol/L (136-145); UREA NITROGEN, BLOOD 17 mg/dL (7-18)
--- NOTE | 2018-07-14 07:24 | NUR ---
INTERNAL CARVER OPENING NOTES RECEIVED PT SITTING UP IN BED. PT IS A/O X4, AFEBRILE. RESPIRATIONS ARE EVEN AND UNLABORED, NOT IN ANY ACUTE DISTRESS NOTED. PT DENIES ANY PAIN, SOB, N/V AT THIS TIME. IV ACCESS INTACT, NO INFILTRATION NOTED. DRESSING KEPT CLEAN AND DRY. SAFETY MEASURES ARE IN PLACE. REMINDED PT TO USE CALL LIGHT WHEN ASSISTANCE IS NEEDED, CALL LIGHT IS LEFT WITHIN REACH. WILL MONITOR THROUGHOUT SHIFT FOR CONTINUITY OF CARE.
[2018-07-14 08:00] VITALS: BP 110/68
[2018-07-14] MEDS: SERTRALINE HCL 25 MG TABLET PO SCH (08:38)
[2018-07-14] MEDS: ATORVASTATIN 40 MG TABLET PO SCH (08:38)
[2018-07-14] MEDS: methylPREDNISolone SOD SUCC 125 MG/2ML VIAL IV SCH (08:38)
[2018-07-14] MEDS: FLUTICASONE/VILANTEROL 1 EACH BLST.W.DEV IH SCH (08:38)
[2018-07-14] MEDS: PANTOPRAZOLE 40 MG TABLET.DR PO SCH (08:38)
[2018-07-14 08:39] VITALS: BP 110/68
[2018-07-14] MEDS: LOSARTAN POTASSIUM 25 MG TABLET PO SCH (08:39)
[2018-07-14] MEDS: CARVEDILOL 12.5 MG TABLET PO SCH (08:39)
--- NOTE | 2018-07-14 09:09 | NUR ---
SPOOLER NOTES-- PT SEEN AND EXAMINED BY DR. MARSHALL.
[2018-07-14] MEDS ORDERED: ALBUT2 NEB (09:17)
[2018-07-14] MEDS ORDERED: IPRA0.2S9 NEB (09:17)
[2018-07-14] MEDS ORDERED: AZIT250T PO (09:17)
[2018-07-14] MEDS ORDERED: PRED20TA PO (09:17)
--- NOTE | 2018-07-14 12:10 | NUR ---
AUTO DAMAGE APPRAISER NOTE PT DISCHARGED TO HOME IN MEDICALLY STABLE CONDITION VIA OWN VEHICLE. PT IS A/O X4, AFEBRILE. RESPIRATIONS ARE EVEN AND UNLABORED, NOT IN ANY ACUTE DISTRESS NOTED. PT DENIES ANY PAIN, N/V, SOB. PT RECEIVED BREATHING TX PRIOR TO LEAVING. PT IS AMBULATORY. EXPLAINED DISCHARGE PAPERWORK TO PT AND CG JOSÉ RE: ALL MEDICATIONS (SIDE EFFECTS, TIMES, DOSAGES) WITH VERBAL AND WRITTEN UNDERSTANDING. APPT WAS SET UP FOR [facility] TOMORROW, PT AND CG MADE AWARE. IV ACCESS REMOVED, APPLIED PRESSURE AND TOLERATED WELL. ID BAND REMOVED. ACCOMPANIED PT TO VEHICLE TO DROP ALL BELONGINGS OFF AND WALKED WITH PT TO [facility] TO MAKE SURE HE KNOWS WHERE IT IS. CHARGE NURSE AWARE. PT LEFT IN MEDICALLY STABLE CONDITION.
== END 2018-07-14 12:30 | disposition home or self-care (01) | DRG 190 ==
LOC: ER 13:09 → TELE 14:12
PROVIDERS: ADMIT Family Medicine; ATTEND Family Medicine
DX: J44.1 Chronic obstructive pulmonary disease with (acute) exacerbation (principal); J96.01 Acute respiratory failure with hypoxia; E87.1 Hypo-osmolality and hyponatremia; E44.0 Moderate protein-calorie malnutrition; I48.92 Unspecified atrial flutter; E78.5 Hyperlipidemia, unspecified; I50.9 Heart failure, unspecified; I11.0 Hypertensive heart disease with heart failure; Z79.51 Long term (current) use of inhaled steroids; Z79.899 Other long term (current) drug therapy; E03.9 Hypothyroidism, unspecified; D64.9 Anemia, unspecified; G89.29 Other chronic pain; I48.91 Unspecified atrial fibrillation; K21.9 Gastro-esophageal reflux disease without esophagitis; Z87.891 Personal history of nicotine dependence; Z79.01 Long term (current) use of anticoagulants; E86.1 Hypovolemia; F41.9 Anxiety disorder, unspecified; R73.9 Hyperglycemia, unspecified
CPT/HCPCS: 36415; 71045-TC; 80048-TC; 80061-TC; 80076-TC; 83605-TC; 83735-TC; 84100-TC; 84484-TC; 85025-TC; 87040-TC; 87081-TC; 94799-TC; G0378; J2930; J3475; J7050

== ENCOUNTER 2018-07-15 12:52 | Outpatient (CLI) | payer MEDICARE, OTHER ==
[~2018-07-15 12:52] MED LIST changes: +ACET-868 PO; -ALBU18HF2 IH; +ALBU2.5V38 IH; +ALBUT2 NEB; -ATOR40TA PO; +AZIT250T PO; +BUDE10.2 IH; -FURO20TA4 PO; +IPRA0.2S9 NEB; -POTA20TA83 PO; +PRED20TA PO; -PRED50TA PO; -PRED5TAB48 PO; +TRIA15OI2 TP
[2018-07-15 13:24] VITALS: BP 130/89
== END 2018-07-15 23:59 | disposition home or self-care (01) ==
LOC: MSC 12:52
PROVIDERS: ATTEND Nurse Practitioner Acute Care
DX: J44.9 Chronic obstructive pulmonary disease, unspecified (principal); I48.2 Chronic atrial fibrillation; I10 Essential (primary) hypertension; K21.9 Gastro-esophageal reflux disease without esophagitis; D64.9 Anemia, unspecified; G89.29 Other chronic pain; M54.5 Low back pain; E03.9 Hypothyroidism, unspecified; F32.9 Major depressive disorder, single episode, unspecified

== ENCOUNTER 2018-08-12 00:57 | Inpatient (IN) | payer MEDICARE, OTHER ==
[~2018-08-12] VITALS: Ht 167.6 cm; Wt 83.2 kg
[2018-08-12] MEDS ORDERED: ALBUTEROL FS 2.5 MG/3 ML VIAL.NEB ONE (01:12)
[2018-08-12] MEDS ORDERED: IPRATROPIUM NEB FS 0.5 MG/2.5 ML AMPUL.NEB ONE (01:12)
[2018-08-12] MEDS ORDERED: methylPREDNISolone SOD SUCC 125 MG/2ML VIAL ONE (01:15)
--- NOTE | 2018-08-12 01:16 | NUR ---
PT BIBS. C/O "HAVING SHORTNESS OF BREATH THATS NOT GOING AWAY AFTER I USE MY NEBULIZER" PT AOX4. -ACUTE DISTRESS AT THIS TIME.
[2018-08-12 01:26] LABS: BASOPHILS # (AUTO) 0.1 /CMM (0.0-0.2); BASOPHILS % (AUTO) 0.9 % (0.0-2.0); HEMATOCRIT 39 % (39-51); LYMPHOCYTES # (AUTO) 1.3 /CMM (0.8-4.8); LYMPHOCYTES % (AUTO) 23.4 % (20.0-44.0); MEAN CORPUSCULAR HGB CONC 33 g/dl (31.0-36.0); MEAN CORPUSCULAR VOLUME 81 fL (80-96); MONOCYTES # (AUTO) 0.6 /CMM (0.1-1.30); MONOCYTES % (AUTO) 10.5 % (2.0-12.0); NEUTROPHILS # (AUTO) 3.1 /CMM (1.8-8.9); NEUTROPHILS % (AUTO) 54.2 % (43.0-81.0); PLATELET COUNT (AUTO) 260 /CMM (150-450); RED BLOOD CELL COUNT(AUTO) 4.86 MIL/uL (4.5-6.0); WHITE BLOOD COUNT (AUTO) 5.7 K/uL (4.3-11.0)
[2018-08-12] MEDS ORDERED: IPRATROPIUM NEB FS 0.5 MG/2.5 ML AMPUL.NEB NEB ONE (01:30)
[2018-08-12] MEDS ORDERED: ALBUTEROL FS 2.5 MG/3 ML VIAL.NEB NEB ONE (01:30)
[2018-08-12] MEDS ORDERED: methylPREDNISolone SOD SUCC 125 MG/2ML VIAL IV ONE (01:30)
[2018-08-12 01:36] LABS: CALCIUM, SERUM 8.7 mg/dL (8.5-10.1); CARBON DIOXIDE 25 mmol/L (21-32); CHLORIDE 105 mmol/L (98-107); CREATININE 0.7 mg/dL (0.6-1.3); GLUCOSE 107 mg/dL (74-106); POTASSIUM 4.4 mmol/L (3.5-5.1); SODIUM SERUM 141 mmol/L (136-145); UREA NITROGEN, BLOOD 10 mg/dL (7-18)
[2018-08-12 01:48] LABS: ALANINE AMINOTRANSFERASE 14 U/L (12-78); ALBUMIN 3.8 g/dL (3.4-5.0); ALKALINE PHOSPHATASE 110 U/L (46-116); ASPARTATE AMINOTRANSFERASE 18 U/L (15-37); B-TYPE NATRIURETIC PEPTIDE 481 PG/ML (0-125); BILIRUBIN,DIRECT 0.1 mg/dL (0.0-0.2); BILIRUBIN,TOTAL 0.4 mg/dL (0.2-1.0); TOTAL PROTEIN, SERUM 7.5 g/dL (6.4-8.2)
--- NOTE | 2018-08-12 02:34 | NUR ---
REPORT GIVEN TO YOMAIRA CHANG
[2018-08-12] MEDS ORDERED: ONDANSETRON HCL/PF 4 MG/2 ML VIAL IVP PRN (03:00)
[2018-08-12] MEDS ORDERED: MAG HYDROX/AL HYDROX/SIMETH 30 ML UDC PO PRN (03:00)
[2018-08-12] MEDS ORDERED: HYDROCODONE/APAP 5/325MG 1 EACH TABLET PO PRN (03:00)
[2018-08-12] MEDS ORDERED: TRIAMCINOLONE OINT 0.1% 15 GM TUBE TP PRN (03:00)
[2018-08-12] MEDS ORDERED: Z GUARD REMEDY 2 OZ OINT TP PRN (03:00)
[2018-08-12] MEDS ORDERED: ACETAMINOPHEN 325 MG TABLET PO PRN (03:00)
[2018-08-12] MEDS ORDERED: MAGNESIUM HYDROXIDE 30 ML UDC PO PRN (03:00)
[2018-08-12 04:48] VITALS: BP 177/88
--- NOTE | 2018-08-12 07:30 | NUR ---
RN NOTES RECEIVED PATIENT IN BED, ON SITTING POSITION. A/OX4, ON MILD ANXIOUS STATE, ABLE TO MAKE NEEDS KNOWN. WITH COMPLAINTS OF SOB BUT ON BREATHING TREATMENT AT THIS TIME. NO INDICATION OF SOB NOTED.54* Addendum: 08/12/18 at 0828 by ANTOINETTE WAYNE RN DISREGARD ABOVE NOTES. WILL RE ENTER
--- NOTE | 2018-08-12 07:30 | NUR ---
RN NOTES RECEIVED PATIENT IN BED, ON SITTING POSITION. A/OX4, ON MILD ANXIOUS STATE, ABLE TO MAKE NEEDS KNOWN. WITH COMPLAINTS OF SOB BUT ON BREATHING TREATMENT AT THIS TIME. NO INDICATION OF SOB NOTED. SATING AT 96 %. WILL MONITOR PATIENT CLOSELY. SINUS RHYTHM ON THE MONITOR, HR AT 70 'S. IV ACCESS ON THE L WRIST, G [address] AND INTACT, PATENT ON FLUSHING. SAFETY MEASURES OBSERVED AND MAINTAINED. ENCOURAGE TO CALL FOR HELP OR ASSISTANCE, SRX2 RAISED, BED LOW AND LOCKED POSITION, CALL LIGHT PLACED WITHIN REACH
[2018-08-12] MEDS ORDERED: IPRATROPIUM NEB FS 0.5 MG/2.5 ML AMPUL.NEB NEB SCH (07:35)
[2018-08-12] MEDS ORDERED: ALBUTEROL FS 2.5 MG/0.5 ML VIAL.NEB NEB SCH (07:35)
[2018-08-12] MEDS: IPRATROPIUM NEB FS 0.5 MG/2.5 ML AMPUL.NEB NEB SCH ×3 (07:43→20:34)
[2018-08-12 08:00] VITALS: BP_SYST 154; BP_SYST 180; BP_DIAS 85; BP_DIAS 90
[2018-08-12] MEDS ORDERED: Medication Not On Formulary EA (Budesonide/Formoterol Fumarate (Symbicort 160-4.5 Mcg In IH SCH (09:00)
[2018-08-12] MEDS ORDERED: TIOTROPIUM BROMIDE 6 CAP/BOX CAP.W.DEV IH SCH (09:00)
[2018-08-12] MEDS ORDERED: Medication Not On Formulary EA (Omega-3 Fatty Acids/Fish Oil (Fish Oil 1,000 Mg Capsule) PO SCH (09:00)
[2018-08-12] MEDS ORDERED: Medication Not On Formulary EA (Ubidecarenone (Coq-10) 200 MG) PO SCH (09:00)
[2018-08-12] MEDS: PANTOPRAZOLE 40 MG TABLET.DR PO SCH ×2 (09:01→09:12)
[2018-08-12] MEDS: CARVEDILOL 12.5 MG TABLET PO SCH ×2 (09:08→16:31)
[2018-08-12] MEDS: LOSARTAN POTASSIUM 25 MG TABLET PO SCH (09:12)
[2018-08-12] MEDS: methylPREDNISolone SOD SUCC 40 MG/ML VIAL IV SCH ×3 (09:12→16:32)
[2018-08-12] MEDS: SERTRALINE HCL 25 MG TABLET PO SCH (09:12)
[2018-08-12] MEDS: AZITHROMYCIN 250 MG TABLET PO SCH (11:29)
[2018-08-12] MEDS: FLUTICASONE/VILANTEROL 1 EACH BLST.W.DEV IH SCH (11:29)
[2018-08-12] MEDS: ALBUTEROL HALF STRENGTH 1.25 MG/3 ML VIAL.NEB NEB SCH ×2 (13:26→20:34)
[2018-08-12 16:00] VITALS: BP_SYST 163; BP_DIAS 80; BP_DIAS 83
[2018-08-12] MEDS ORDERED: RIVAROXABAN 10 MG TABLET PO SCH (17:00)
--- NOTE | 2018-08-12 19:18 | NUR ---
RN NOTES ENDORSED PATIENT FOR CONTINUITY OF CARE/ NOT ON ANY FORM OF DISTRESS. NO ACUTE CHANGES WITHIN THE SHIFT. ALL NURSING NEEDS ATTENDED AND MET. SAFETY MEASURES IN PLACE AT ALL TIME. CALL LIGHT WITHIN REACH
[2018-08-12 20:00] VITALS: BP 144/78
--- NOTE | 2018-08-12 20:00 | NUR ---
MS RN NOTES RECEIVED PATIENT AMBULATING IN HALLWAY BY SELF, STRONG STEADY GAIT NOTED WITH BILATERAL NON SLIP SOCKS IN PLACE, AND INTERACTING WITH STAFF. NO DISTRESS NOTED. PERIPHERAL LINE INTACT AND PATENT. WILL CONTINUE TO MONITOR.
[2018-08-12] MEDS ORDERED: ATORVASTATIN 40 MG TABLET PO SCH (22:00)
--- NOTE | 2018-08-13 06:40 | NUR ---
PATIENT AWAKE IN BED WITH NO DISTRESS NOTED. CALL LIGHT WITHIN REACH. ALL DUE MEDS GIVEN ORDERED WITH NO ASE NOTED. NO FURTHER C/O PAIN OR DISCOMFORT. PERIPHERAL LINE INTACT AND PATENT. BED IN LOW LOCK SETTING. WILL ENDORSE TO ONCOMING SHIFT.
[2018-08-13 06:58] LABS: BASOPHILS % (AUTO) 0.1 % (0.0-2.0); HEMATOCRIT 34 % (39-51); HEMOGLOBIN 11.2 g/dL (13.5-17.5); LYMPHOCYTES # (AUTO) 0.7 /CMM (0.8-4.8); LYMPHOCYTES % (AUTO) 15.9 % (20.0-44.0); MEAN CORPUSCULAR HGB CONC 33 g/dl (31.0-36.0); MEAN CORPUSCULAR VOLUME 81 fL (80-96); MONOCYTES # (AUTO) 0.3 /CMM (0.1-1.30); NEUTROPHILS # (AUTO) 3.6 /CMM (1.8-8.9); PLATELET COUNT (AUTO) 209 /CMM (150-450); RED BLOOD CELL COUNT(AUTO) 4.19 MIL/uL (4.5-6.0); WHITE BLOOD COUNT (AUTO) 4.6 K/uL (4.3-11.0)
[2018-08-13] MEDS: ALBUTEROL HALF STRENGTH 1.25 MG/3 ML VIAL.NEB NEB SCH ×2 (07:31→13:07)
[2018-08-13] MEDS: IPRATROPIUM NEB FS 0.5 MG/2.5 ML AMPUL.NEB NEB SCH ×2 (07:31→13:07)
[2018-08-13 07:40] LABS: CALCIUM, SERUM 8.9 mg/dL (8.5-10.1); CARBON DIOXIDE 28 mmol/L (21-32); CHLORIDE 104 mmol/L (98-107); CREATININE 0.7 mg/dL (0.6-1.3); GLUCOSE 146 mg/dL (74-106); MAGNESIUM 1.8 mg/dL (1.8-2.4); PHOSPHORUS 3.2 mg/dL (2.5-4.9); POTASSIUM 3.8 mmol/L (3.5-5.1); SODIUM SERUM 141 mmol/L (136-145); UREA NITROGEN, BLOOD 14 mg/dL (7-18)
[2018-08-13] MEDS: CARVEDILOL 12.5 MG TABLET PO SCH (07:53)
[2018-08-13 08:00] VITALS: BP 153/81
[2018-08-13 08:30] LABS: CHOLESTEROL 179 mg/dL (<200); HDL CHOLESTEROL 76 mg/dL (40-60); LDL 105 mg/dL (0-99); THYROID STIMULATING HORMONE 0.279 uIU/mL (0.358-3.74); TRIGLYCERIDES 58 mg/dL (30-150)
[2018-08-13] MEDS: PANTOPRAZOLE 40 MG TABLET.DR PO SCH (08:32)
[2018-08-13] MEDS: FLUTICASONE/VILANTEROL 1 EACH BLST.W.DEV IH SCH (08:33)
[2018-08-13] MEDS: SERTRALINE HCL 25 MG TABLET PO SCH (08:35)
[2018-08-13] MEDS: AZITHROMYCIN 250 MG TABLET PO SCH (08:35)
[2018-08-13 08:36] VITALS: BP 144/78
[2018-08-13] MEDS: LOSARTAN POTASSIUM 25 MG TABLET PO SCH (08:36)
[2018-08-13] MEDS: methylPREDNISolone SOD SUCC 40 MG/ML VIAL IV SCH (08:36)
[2018-08-13] MEDS ORDERED: AZIT500T PO (12:01)
[2018-08-13] MEDS ORDERED: METH4TAB3 PO (12:01)
[2018-08-13] MEDS ORDERED: ALBU8.5H8 INH (12:01)
[2018-08-13] MEDS ORDERED: IPRA0.2S9 IH (12:01)
[2018-08-13] MEDS ORDERED: LEVA0.6320 NEB (12:01)
[2018-08-13] MEDS ORDERED: TIOT18CA3 INH (12:01)
[2018-08-13] MEDS ORDERED: BUDE10.2 INH (12:01)
--- NOTE | 2018-08-13 14:30 | NUR ---
Patient tolerated 100 % of lunch. Given discharge instruction and follow up information with current medication list in Turkmen to patient and caregiver Julissa. Patient and caregiver verbalized understanding. Discontinued IV site. Intact catheter tip noted. Patient identification bracelet removed. Ramez Figueroa RN
== END 2018-08-13 14:15 | disposition home or self-care (01) | DRG 191 ==
LOC: ER 01:00 → TELE 02:23 → MED 09:46
PROVIDERS: ADMIT Nurse Practitioner Acute Care; ATTEND Nurse Practitioner Acute Care
DX: J44.1 Chronic obstructive pulmonary disease with (acute) exacerbation (principal); D68.59 Other primary thrombophilia; I48.92 Unspecified atrial flutter; I10 Essential (primary) hypertension; E78.5 Hyperlipidemia, unspecified; Z79.01 Long term (current) use of anticoagulants; I70.90 Unspecified atherosclerosis; I48.2 Chronic atrial fibrillation; K21.9 Gastro-esophageal reflux disease without esophagitis; D63.8 Anemia in other chronic diseases classified elsewhere; G89.29 Other chronic pain; M54.9 Dorsalgia, unspecified; F32.9 Major depressive disorder, single episode, unspecified; E03.9 Hypothyroidism, unspecified; E66.9 Obesity, unspecified; Z68.29 Body mass index [BMI] 29.0-29.9, adult; G47.33 Obstructive sleep apnea (adult) (pediatric); E11.69 Type 2 diabetes mellitus with other specified complication; Z87.891 Personal history of nicotine dependence
CPT/HCPCS: 36415; 70220-TC; 71045-TC; 80048-TC; 80061-TC; 80076-TC; 83605-TC; 83735-TC; 83880; 84100-TC; 84443-TC; 84484-TC; 85025-TC; 85730-TC; 87040-TC; 87081-TC; 94799-TC; G0378; J2920; J2930

== ENCOUNTER 2018-09-06 19:20 | Emergency (ER) | payer MEDICARE, OTHER ==
[~2018-09-06] VITALS: Ht 177.8 cm; Wt 77.1 kg
[~2018-09-06 19:20] MED LIST changes: -ALBU2.5V38 IH; +ALBU8.5H8 INH; -ALBUT2 NEB; -AZIT250T PO; +AZIT500T PO; +BUDE10.2 INH; +IPRA0.2S9 IH; +LEVA0.6320 NEB; +METH4TAB3 PO; -PRED20TA PO; +TIOT18CA3 INH
--- NOTE | 2018-09-06 19:36 | NUR ---
BBSELF FROM HOME C/C ON/OFF SOB X2 DAYS, WORSE TODAY. PER PT, NO RELIEF FROM NEBULIZER AND INHALER. DENIES CP AND COUGH. AFEBRILE. AOX4, VSS, AMBULATORY. MOST COMFORTABLE IN TRIPOD POSITION. HOOKED TO MONITOR AND MADE COMFORTABLE. READY FOR EVAL.
[2018-09-06] MEDS ORDERED: Magnesium 1GM/D5W 100ML PREMIX 200 ML IV ONE (19:37)
[2018-09-06] MEDS ORDERED: IPRATROPIUM NEB FS 0.5 MG/2.5 ML AMPUL.NEB ONE (19:41)
[2018-09-06] MEDS ORDERED: ALBUTEROL FS 2.5 MG/3 ML VIAL.NEB ONE ×2 (19:41→20:39)
[2018-09-06] MEDS ORDERED: methylPREDNISolone SOD SUCC 125 MG/2ML VIAL ONE (19:44)
[2018-09-06] MEDS ORDERED: Magnesium 1GM/D5W 100ML PREMIX 100 ML IV ONE ×2 (19:44→20:50)
--- NOTE | 2018-09-06 19:50 | NUR ---
RT AT BEDSIDE FOR BREATHING TX
[2018-09-06 19:55] LABS: BASOPHILS # (AUTO) 0.1 /CMM (0.0-0.2); EOSINOPHILS % (AUTO) 7.3 % (0.0-6.0); HEMATOCRIT 39 % (39-51); LYMPHOCYTES # (AUTO) 1.4 /CMM (0.8-4.8); LYMPHOCYTES % (AUTO) 17.2 % (20.0-44.0); MEAN CORPUSCULAR HGB CONC 33 g/dl (31.0-36.0); MEAN CORPUSCULAR VOLUME 81 fL (80-96); MONOCYTES # (AUTO) 0.6 /CMM (0.1-1.30); NEUTROPHILS # (AUTO) 5.2 /CMM (1.8-8.9); NEUTROPHILS % (AUTO) 66.5 % (43.0-81.0); PLATELET COUNT (AUTO) 206 /CMM (150-450); RED BLOOD CELL COUNT(AUTO) 4.83 MIL/uL (4.5-6.0); WHITE BLOOD COUNT (AUTO) 7.9 K/uL (4.3-11.0)
[2018-09-06] MEDS ORDERED: ALBUTEROL FS 2.5 MG/3 ML VIAL.NEB CONTNEB ONE (20:00)
[2018-09-06] MEDS ORDERED: methylPREDNISolone SOD SUCC 125 MG/2ML VIAL IV ONE (20:00)
[2018-09-06] MEDS ORDERED: IPRATROPIUM NEB FS 0.5 MG/2.5 ML AMPUL.NEB NEB ONE (20:00)
[2018-09-06 20:04] LABS: CALCIUM, SERUM 8.6 mg/dL (8.5-10.1); CARBON DIOXIDE 26 mmol/L (21-32); CHLORIDE 105 mmol/L (98-107); CREATININE 0.8 mg/dL (0.6-1.3); GLUCOSE 94 mg/dL (74-106); POTASSIUM 4.4 mmol/L (3.5-5.1); SODIUM SERUM 142 mmol/L (136-145); UREA NITROGEN, BLOOD 11 mg/dL (7-18)
--- NOTE | 2018-09-06 20:34 | NUR ---
PT RESTING COMFORTABLY IN BED. NO COMPLAINTS AT THIS TIME. VSS.
[2018-09-06] MEDS ORDERED: AMOX/CLAVULANATE 875 MG TABLET ONE (20:50)
[2018-09-06] MEDS ORDERED: AMOX/CLAVULANATE 875 MG TABLET PO ONE (21:00)
[2018-09-06] MEDS ORDERED: ALBUTEROL FS 2.5 MG/3 ML VIAL.NEB NEB ONE (21:00)
--- NOTE | 2018-09-06 21:55 | NUR ---
IV removed. Catheter intact and site benign. Pressure and 4x4 applied to site. No bleeding noted.Patient discharged to home in stable condition. Written and verbal after care instructions given. Patient verbalizes understanding of instruction.
[2018-09-06 22:09] VITALS: BP 158/89
== END 2018-09-06 21:55 | disposition home or self-care (01) ==
LOC: ER 19:21
DX: J44.1 Chronic obstructive pulmonary disease with (acute) exacerbation (principal); J20.9 Acute bronchitis, unspecified; I10 Essential (primary) hypertension; E78.5 Hyperlipidemia, unspecified; F10.10 Alcohol abuse, uncomplicated; F17.200 Nicotine dependence, unspecified, uncomplicated; I48.91 Unspecified atrial fibrillation; Y90.9 Presence of alcohol in blood, level not specified; Z60.2 Problems related to living alone
CPT/HCPCS: 36415; 71045; 80048; 85025; 93005; 94640 ×2; 96365; 96366; 96375; 99284; J2930; J3475 ×2

== ENCOUNTER 2018-10-10 07:38 | Emergency (ER) | payer MEDICARE, OTHER ==
[~2018-10-10] VITALS: Ht 170.2 cm; Wt 90.7 kg
[~2018-10-10 07:38] MED LIST changes: -ROSU20TA31 PO; +ROSU20TA32 PO
[2018-10-10] MEDS ORDERED: methylPREDNISolone SOD SUCC 125 MG/2ML VIAL ONE (07:47)
[2018-10-10] MEDS ORDERED: IPRATROPIUM NEB FS 0.5 MG/2.5 ML AMPUL.NEB ONE (07:49)
[2018-10-10] MEDS ORDERED: ALBUTEROL FS 2.5 MG/3 ML VIAL.NEB ONE ×2 (07:49→09:21)
--- NOTE | 2018-10-10 07:50 | NUR ---
PT SELF PRESENTS TO ED BED 01 C/O SOB, CHEST TIGHTNESS X 2 DAYS. DENIES FEVER. HX OF COPD. GOWNED AND PLACED ON MONITOR. VSS. AWAITING MD BARRIENTOS.
--- NOTE | 2018-10-10 07:51 | NUR ---
IV LINE STARTED BLOOD DRAWN AND SENT TO LAB.
--- NOTE | 2018-10-10 07:52 | NUR ---
DR WILLOUGHBY AT BEDSIDE FOR EVAL.
[2018-10-10 07:59] LABS: BASOPHILS # (AUTO) 0.2 /CMM (0.0-0.2); BASOPHILS % (AUTO) 2.2 % (0.0-2.0); EOSINOPHILS % (AUTO) 9.6 % (0.0-6.0); HEMATOCRIT 43 % (39-51); HEMOGLOBIN 13.9 g/dL (13.5-17.5); LYMPHOCYTES % (AUTO) 19.5 % (20.0-44.0); MEAN CORPUSCULAR HGB CONC 33 g/dl (31.0-36.0); MEAN CORPUSCULAR VOLUME 82 fL (80-96); MONOCYTES # (AUTO) 0.9 /CMM (0.1-1.30); MONOCYTES % (AUTO) 8.5 % (2.0-12.0); NEUTROPHILS # (AUTO) 6.1 /CMM (1.8-8.9); NEUTROPHILS % (AUTO) 60.2 % (43.0-81.0); PLATELET COUNT (AUTO) 257 /CMM (150-450); RED BLOOD CELL COUNT(AUTO) 5.19 MIL/uL (4.5-6.0); WHITE BLOOD COUNT (AUTO) 10.2 K/uL (4.3-11.0)
[2018-10-10] MEDS ORDERED: IPRATROPIUM NEB FS 0.5 MG/2.5 ML AMPUL.NEB NEB ONE (08:00)
[2018-10-10] MEDS ORDERED: methylPREDNISolone SOD SUCC 125 MG/2ML VIAL IV ONE (08:00)
[2018-10-10] MEDS ORDERED: ALBUTEROL FS 2.5 MG/3 ML VIAL.NEB NEB ONE ×3 (08:00→09:30)
[2018-10-10 08:18] LABS: CALCIUM, SERUM 9.4 mg/dL (8.5-10.1); CARBON DIOXIDE 21 mmol/L (21-32); CHLORIDE 105 mmol/L (98-107); CREATININE 0.8 mg/dL (0.6-1.3); GLUCOSE 184 mg/dL (74-106); POTASSIUM 4.7 mmol/L (3.5-5.1); SODIUM SERUM 133 mmol/L (136-145); UREA NITROGEN, BLOOD 12 mg/dL (7-18)
[2018-10-10] MEDS ORDERED: ALBUTEROL FS 2.5 MG/0.5 ML VIAL.NEB ONE (08:25)
[2018-10-10 08:27] LABS: ALANINE AMINOTRANSFERASE 14 U/L (12-78); ALBUMIN 3.7 g/dL (3.4-5.0); ALKALINE PHOSPHATASE 101 U/L (46-116); ASPARTATE AMINOTRANSFERASE 30 U/L (15-37); BILIRUBIN,DIRECT 0.1 mg/dL (0.0-0.2); BILIRUBIN,TOTAL 0.7 mg/dL (0.2-1.0); TOTAL PROTEIN, SERUM 7.8 g/dL (6.4-8.2)
[2018-10-10] MEDS ORDERED: IV NS 0.9% 500 ML BAG IV ONE (08:30)
[2018-10-10] MEDS ORDERED: OMEG100037 PO (08:49)
[2018-10-10] MEDS ORDERED: BUDE10.2 IH (08:53)
[2018-10-10 09:14] LABS: EOSINOPHILS % (MANUAL) 2 % (0-4); LYMPHOCYTES % (MANUAL) 29 % (16-48); MONOCYTES % (MANUAL) 12 % (0-11.0); NEUTROPHILS % (MANUAL) 57 (42-76)
[2018-10-10 10:31] VITALS: BP 154/72
[2018-10-28] MEDS ORDERED: METH4TAB17 PO (10:49)
[2018-10-28] MEDS ORDERED: VALS80TA2 PO (10:49)
[2018-10-28] MEDS ORDERED: AZIT250T PO (10:49)
== END 2018-10-10 10:31 | disposition home or self-care (01) ==
LOC: ER 07:39
DX: J44.1 Chronic obstructive pulmonary disease with (acute) exacerbation (principal); I10 Essential (primary) hypertension; E78.5 Hyperlipidemia, unspecified; I48.91 Unspecified atrial fibrillation; E03.9 Hypothyroidism, unspecified; E11.9 Type 2 diabetes mellitus without complications; G89.29 Other chronic pain; D64.9 Anemia, unspecified; F41.9 Anxiety disorder, unspecified; K21.9 Gastro-esophageal reflux disease without esophagitis; F17.200 Nicotine dependence, unspecified, uncomplicated; Z60.2 Problems related to living alone; Z79.899 Other long term (current) drug therapy
CPT/HCPCS: 36415; 71045; 80048; 80076; 83605 ×2; 84484; 85025; 87040 ×2; 93005 ×2; 94640 ×3; 96374; 99285; J2930; J7040

== ENCOUNTER 2018-10-25 23:22 | Inpatient (IN) | payer MEDICARE, OTHER ==
[~2018-10-25] VITALS: Ht 177.8 cm; Wt 84.8 kg
[~2018-10-25 23:22] MED LIST changes: -ALBU8.5H8 INH; -AZIT500T PO; -BUDE10.2 INH; -METH4TAB3 PO; +OMEG100037 PO; -OMEG1CAP PO; -TIOT18CA3 INH; -TRIA15OI2 TP; -UBID100C13 PO
[2018-10-25] MEDS ORDERED: ALBUTEROL FS 2.5 MG/3 ML VIAL.NEB ONE (23:57)
[2018-10-25] MEDS ORDERED: TERBUTALINE SULFATE 1 MG/ML VIAL ONE (23:58)
[2018-10-25] MEDS ORDERED: IPRATROPIUM NEB FS 0.5 MG/2.5 ML AMPUL.NEB ONE (23:58)
[2018-10-25] MEDS ORDERED: methylPREDNISolone SOD SUCC 125 MG/2ML VIAL ONE (23:58)
[2018-10-26] VITALS (7 sets, daily range): BP systolic 141–182; BP diastolic 75–106
[2018-10-26] MEDS ORDERED: TERBUTALINE SULFATE 1 MG/ML VIAL ONE
[2018-10-26] MEDS ORDERED: TERBUTALINE SULFATE 1 MG/ML VIAL SQ ONE
[2018-10-26] MEDS ORDERED: methylPREDNISolone SOD SUCC 125 MG/2ML VIAL IV ONE
[2018-10-26] MEDS ORDERED: ALBUTEROL FS 2.5 MG/3 ML VIAL.NEB CONTNEB ONE
[2018-10-26] MEDS ORDERED: IPRATROPIUM NEB FS 0.5 MG/2.5 ML AMPUL.NEB NEB ONE
[2018-10-26 00:02] LABS: BASOPHILS # (AUTO) 0.2 /CMM (0.0-0.2); EOSINOPHILS % (AUTO) 1.8 % (0.0-6.0); HEMATOCRIT 43 % (39-51); HEMOGLOBIN 13.8 g/dL (13.5-17.5); LYMPHOCYTES # (AUTO) 2.3 /CMM (0.8-4.8); LYMPHOCYTES % (AUTO) 14.3 % (20.0-44.0); MEAN CORPUSCULAR HGB CONC 32 g/dl (31.0-36.0); MEAN CORPUSCULAR VOLUME 81 fL (80-96); MONOCYTES # (AUTO) 0.7 /CMM (0.1-1.30); MONOCYTES % (AUTO) 4.1 % (2.0-12.0); NEUTROPHILS # (AUTO) 12.5 /CMM (1.8-8.9); NEUTROPHILS % (AUTO) 78.8 % (43.0-81.0); PLATELET COUNT (AUTO) 196 /CMM (150-450); RED BLOOD CELL COUNT(AUTO) 5.31 MIL/uL (4.5-6.0); WHITE BLOOD COUNT (AUTO) 15.9 K/uL (4.3-11.0)
[2018-10-26 00:09] LABS: CALCIUM, SERUM 8.9 mg/dL (8.5-10.1); CARBON DIOXIDE 24 mmol/L (21-32); CHLORIDE 104 mmol/L (98-107); CREATININE 0.9 mg/dL (0.6-1.3); GLUCOSE 148 mg/dL (74-106); POTASSIUM 4.2 mmol/L (3.5-5.1); SODIUM SERUM 141 mmol/L (136-145); UREA NITROGEN, BLOOD 14 mg/dL (7-18)
[2018-10-26 00:21] LABS: ALANINE AMINOTRANSFERASE 21 U/L (12-78); ALKALINE PHOSPHATASE 105 U/L (46-116); ASPARTATE AMINOTRANSFERASE 44 U/L (15-37); B-TYPE NATRIURETIC PEPTIDE 1308 PG/ML (0-125); BILIRUBIN,DIRECT 0.2 mg/dL (0.0-0.2); TOTAL PROTEIN, SERUM 7.7 g/dL (6.4-8.2)
[2018-10-26] MEDS ORDERED: ALBUTEROL FS 2.5 MG/0.5 ML VIAL.NEB NEB ONE (01:30)
[2018-10-26 01:33] LABS: ABG BASE EXCESS -4.8 mmol/L; ABG OXYGEN SATURATION 56.9 % (92.0-98.5); ABG PCO2 37.7 mmHg (35.0-45.0); ABG PH 7.349 (7.350-7.450); ABG PO2 31.8 mmHg (75.0-100.0); AaDO2 123.4 mmHg; MetHb 0.7 % (0.0-1.5); O2Hb 55.9 % (94.0-97.0); SITE, ABG Right Radial; VENT MODE, BG 2L NC
[2018-10-26] MEDS ORDERED: ALBUTEROL FS 2.5 MG/3 ML VIAL.NEB ONE (01:36)
[2018-10-26] MEDS ORDERED: Z GUARD REMEDY 2 OZ OINT TP PRN (04:00)
[2018-10-26] MEDS ORDERED: MAG HYDROX/AL HYDROX/SIMETH 30 ML UDC PO PRN (04:00)
[2018-10-26] MEDS ORDERED: MAGNESIUM HYDROXIDE 30 ML UDC PO PRN (04:00)
[2018-10-26] MEDS ORDERED: ACETAMINOPHEN 325 MG TABLET PO PRN (04:00)
[2018-10-26] MEDS ORDERED: ONDANSETRON HCL/PF 4 MG/2 ML VIAL IVP PRN (04:00)
[2018-10-26] MEDS ORDERED: HYDROCODONE/APAP 5/325MG 1 EACH TABLET PO PRN (04:00)
[2018-10-26] MEDS ORDERED: LORAZEPAM 0.5 MG TABLET PO ONE (05:00)
[2018-10-26] MEDS ORDERED: AZITHROMYCIN 500 MG VIAL ONE (05:59)
[2018-10-26] MEDS: AZITHROMYCIN 500 MG in IV D5W 250 ML IV SCH (06:18)
[2018-10-26] MEDS: IPRATROPIUM NEB FS 0.5 MG/2.5 ML AMPUL.NEB NEB SCH ×7 (07:35→20:06)
[2018-10-26] MEDS: ALBUTEROL FS 2.5 MG/0.5 ML VIAL.NEB NEB SCH ×3 (08:27→19:57)
[2018-10-26] MEDS: ATORVASTATIN 40 MG TABLET PO SCH (08:48)
[2018-10-26] MEDS: PANTOPRAZOLE 40 MG TABLET.DR PO SCH (08:49)
[2018-10-26] MEDS: CARVEDILOL 12.5 MG TABLET PO SCH ×2 (08:49→17:35)
[2018-10-26] MEDS: LOSARTAN POTASSIUM 25 MG TABLET PO SCH (08:49)
[2018-10-26] MEDS: methylPREDNISolone SOD SUCC 40 MG/ML VIAL IV SCH ×3 (08:49→17:35)
[2018-10-26] MEDS: SERTRALINE HCL 25 MG TABLET PO SCH (08:55)
[2018-10-26] MEDS ORDERED: ENOXAPARIN SODIUM 40 MG/0.4 ML DISP.SYRIN SQ SCH (09:00)
[2018-10-26] MEDS ORDERED: Medication Not On Formulary EA (Omega-3/Dha/Epa/Fish Oil (Fish Oil 1,000 mg Softgel) 1,0 PO SCH (09:00)
[2018-10-26] MEDS ORDERED: LORAZEPAM 1 MG TABLET PO ONE (11:00)
[2018-10-26] MEDS: RIVAROXABAN 10 MG TABLET PO SCH (17:36)
[2018-10-26] MEDS: LORAZEPAM INJ 2 MG/ML VIAL IV PRN (23:30)
[2018-10-27] VITALS: BP 152/80
[2018-10-27] MEDS: IPRATROPIUM NEB FS 0.5 MG/2.5 ML AMPUL.NEB NEB SCH ×7 (01:21→19:40)
[2018-10-27 04:00] VITALS: BP 144/84
[2018-10-27] MEDS: GUAIFENESIN/D-METHORPHAN HB 5 ML UDC PO PRN (05:00)
[2018-10-27] MEDS: AZITHROMYCIN 500 MG in IV D5W 250 ML IV SCH (05:00)
[2018-10-27 07:17] LABS: BASOPHILS % (AUTO) 0.2 % (0.0-2.0); HEMATOCRIT 37 % (39-51); HEMOGLOBIN 12.1 g/dL (13.5-17.5); LYMPHOCYTES # (AUTO) 0.7 /CMM (0.8-4.8); MEAN CORPUSCULAR HGB CONC 33 g/dl (31.0-36.0); MEAN CORPUSCULAR VOLUME 81 fL (80-96); MONOCYTES # (AUTO) 0.3 /CMM (0.1-1.30); NEUTROPHILS # (AUTO) 7.1 /CMM (1.8-8.9); NEUTROPHILS % (AUTO) 86.8 % (43.0-81.0); PLATELET COUNT (AUTO) 130 /CMM (150-450); RED BLOOD CELL COUNT(AUTO) 4.54 MIL/uL (4.5-6.0); WHITE BLOOD COUNT (AUTO) 8.2 K/uL (4.3-11.0)
[2018-10-27] MEDS: ALBUTEROL FS 2.5 MG/0.5 ML VIAL.NEB NEB SCH ×3 (07:35→19:35)
[2018-10-27 07:40] LABS: CHOLESTEROL 135 mg/dL (<200); HDL CHOLESTEROL 85 mg/dL (40-60); LDL 43 mg/dL (0-99); THYROID STIMULATING HORMONE 0.274 uIU/mL (0.358-3.74); TRIGLYCERIDES 71 mg/dL (30-150)
[2018-10-27 07:45] LABS: ALANINE AMINOTRANSFERASE 17 U/L (12-78); ALBUMIN 3.2 g/dL (3.4-5.0); ALKALINE PHOSPHATASE 71 U/L (46-116); ASPARTATE AMINOTRANSFERASE 25 U/L (15-37); BILIRUBIN,DIRECT 0.2 mg/dL (0.0-0.2); BILIRUBIN,TOTAL 0.7 mg/dL (0.2-1.0); CALCIUM, SERUM 8.8 mg/dL (8.5-10.1); CARBON DIOXIDE 24 mmol/L (21-32); CHLORIDE 104 mmol/L (98-107); CREATININE 1.1 mg/dL (0.6-1.3); GLUCOSE 165 mg/dL (74-106); MAGNESIUM 1.5 mg/dL (1.8-2.4); PHOSPHORUS 2.6 mg/dL (2.5-4.9); POTASSIUM 4.1 mmol/L (3.5-5.1); SODIUM SERUM 139 mmol/L (136-145); TOTAL PROTEIN, SERUM 6.3 g/dL (6.4-8.2); UREA NITROGEN, BLOOD 15 mg/dL (7-18)
[2018-10-27 08:00] VITALS: BP 152/79
[2018-10-27] MEDS: CARVEDILOL 12.5 MG TABLET PO SCH ×2 (09:19→17:51)
[2018-10-27] MEDS: methylPREDNISolone SOD SUCC 40 MG/ML VIAL IV SCH ×3 (09:19→17:51)
[2018-10-27] MEDS: LOSARTAN POTASSIUM 25 MG TABLET PO SCH (09:19)
[2018-10-27] MEDS: ATORVASTATIN 40 MG TABLET PO SCH (09:19)
[2018-10-27] MEDS: SERTRALINE HCL 25 MG TABLET PO SCH (09:19)
[2018-10-27] MEDS: Magnesium 1GM/D5W 100ML PREMIX 100 ML IV SCH ×2 (09:24→11:10)
[2018-10-27] MEDS: PANTOPRAZOLE 40 MG TABLET.DR PO SCH (09:24)
[2018-10-27] MEDS: FLUTICASONE/VILANTEROL 1 EACH BLST.W.DEV IH SCH (09:24)
[2018-10-27 12:00] VITALS: BP 150/89
[2018-10-27] MEDS: LORAZEPAM INJ 2 MG/ML VIAL IV PRN ×2 (15:23→21:38)
[2018-10-27 16:00] VITALS: BP 155/76
[2018-10-27] MEDS: RIVAROXABAN 10 MG TABLET PO SCH (17:54)
[2018-10-27 20:00] VITALS: BP 127/66
[2018-10-28] MEDS: IPRATROPIUM NEB FS 0.5 MG/2.5 ML AMPUL.NEB NEB SCH ×6 (02:03→20:20)
[2018-10-28] MEDS: GUAIFENESIN/D-METHORPHAN HB 5 ML UDC PO PRN (06:34)
[2018-10-28 07:07] LABS: BASOPHILS % (AUTO) 0.1 % (0.0-2.0); HEMATOCRIT 34 % (39-51); HEMOGLOBIN 11.4 g/dL (13.5-17.5); LYMPHOCYTES # (AUTO) 0.9 /CMM (0.8-4.8); LYMPHOCYTES % (AUTO) 11.3 % (20.0-44.0); MEAN CORPUSCULAR HGB CONC 34 g/dl (31.0-36.0); MEAN CORPUSCULAR VOLUME 80 fL (80-96); MONOCYTES # (AUTO) 0.5 /CMM (0.1-1.30); MONOCYTES % (AUTO) 6.4 % (2.0-12.0); NEUTROPHILS # (AUTO) 6.3 /CMM (1.8-8.9); NEUTROPHILS % (AUTO) 82.2 % (43.0-81.0); PLATELET COUNT (AUTO) 120 /CMM (150-450); RED BLOOD CELL COUNT(AUTO) 4.26 MIL/uL (4.5-6.0); WHITE BLOOD COUNT (AUTO) 7.6 K/uL (4.3-11.0)
[2018-10-28] MEDS: ALBUTEROL FS 2.5 MG/0.5 ML VIAL.NEB NEB SCH ×3 (07:28→20:20)
[2018-10-28 07:31] LABS: CALCIUM, SERUM 8.6 mg/dL (8.5-10.1); CARBON DIOXIDE 28 mmol/L (21-32); CHLORIDE 101 mmol/L (98-107); CREATININE 0.8 mg/dL (0.6-1.3); GLUCOSE 128 mg/dL (74-106); MAGNESIUM 1.9 mg/dL (1.8-2.4); PHOSPHORUS 3.1 mg/dL (2.5-4.9); POTASSIUM 4.1 mmol/L (3.5-5.1); SODIUM SERUM 135 mmol/L (136-145); UREA NITROGEN, BLOOD 19 mg/dL (7-18)
[2018-10-28 08:00] VITALS: BP 160/59
[2018-10-28] MEDS: ATORVASTATIN 40 MG TABLET PO SCH (08:15)
[2018-10-28] MEDS: methylPREDNISolone SOD SUCC 40 MG/ML VIAL IV SCH ×3 (08:15→16:30)
[2018-10-28] MEDS: SERTRALINE HCL 25 MG TABLET PO SCH (08:15)
[2018-10-28] MEDS: LOSARTAN POTASSIUM 25 MG TABLET PO SCH (08:15)
[2018-10-28] MEDS: CARVEDILOL 12.5 MG TABLET PO SCH ×2 (08:16→16:30)
[2018-10-28] MEDS: PANTOPRAZOLE 40 MG TABLET.DR PO SCH (08:16)
[2018-10-28] MEDS: AZITHROMYCIN 250 MG TABLET PO SCH (08:16)
[2018-10-28] MEDS: FLUTICASONE/VILANTEROL 1 EACH BLST.W.DEV IH SCH (08:18)
[2018-10-28 09:00] VITALS: BP 160/59
[2018-10-28 10:00] VITALS: BP 165/90
[2018-10-28] MEDS ORDERED: AZIT250T PO (10:49)
[2018-10-28] MEDS ORDERED: VALS80TA2 PO (10:49)
[2018-10-28] MEDS ORDERED: METH4TAB17 PO (10:49)
[2018-10-28 10:53] LABS: THYROID STIMULATING HORMONE 0.172 uIU/mL (0.358-3.74)
[2018-10-28] MEDS: VALSARTAN 80 MG TABLET PO SCH (11:00)
[2018-10-28 16:00] VITALS: BP 161/97
[2018-10-28] MEDS: LORAZEPAM INJ 2 MG/ML VIAL IV PRN (16:30)
[2018-10-28] MEDS: RIVAROXABAN 10 MG TABLET PO SCH (16:33)
[2018-10-28 20:00] VITALS: BP 146/89
[2018-10-29] MEDS: IPRATROPIUM NEB FS 0.5 MG/2.5 ML AMPUL.NEB NEB SCH (07:48)
[2018-10-29] MEDS: ALBUTEROL FS 2.5 MG/0.5 ML VIAL.NEB NEB SCH (07:48)
[2018-10-29 07:50] LABS: HEMATOCRIT 37 % (39-51); LYMPHOCYTES # (AUTO) 0.9 /CMM (0.8-4.8); LYMPHOCYTES % (AUTO) 11.6 % (20.0-44.0); MEAN CORPUSCULAR HGB CONC 33 g/dl (31.0-36.0); MEAN CORPUSCULAR VOLUME 81 fL (80-96); MONOCYTES # (AUTO) 0.5 /CMM (0.1-1.30); MONOCYTES % (AUTO) 6.5 % (2.0-12.0); NEUTROPHILS # (AUTO) 6.3 /CMM (1.8-8.9); NEUTROPHILS % (AUTO) 81.9 % (43.0-81.0); PLATELET COUNT (AUTO) 122 /CMM (150-450); RED BLOOD CELL COUNT(AUTO) 4.52 MIL/uL (4.5-6.0); WHITE BLOOD COUNT (AUTO) 7.7 K/uL (4.3-11.0)
[2018-10-29 08:00] VITALS: BP 161/86
[2018-10-29 08:13] LABS: CALCIUM, SERUM 8.8 mg/dL (8.5-10.1); CARBON DIOXIDE 29 mmol/L (21-32); CHLORIDE 100 mmol/L (98-107); CREATININE 0.8 mg/dL (0.6-1.3); GLUCOSE 120 mg/dL (74-106); MAGNESIUM 1.8 mg/dL (1.8-2.4); PHOSPHORUS 3.9 mg/dL (2.5-4.9); POTASSIUM 3.8 mmol/L (3.5-5.1); SODIUM SERUM 136 mmol/L (136-145); UREA NITROGEN, BLOOD 21 mg/dL (7-18)
[2018-10-29] MEDS: PANTOPRAZOLE 40 MG TABLET.DR PO SCH (08:58)
[2018-10-29] MEDS: SERTRALINE HCL 25 MG TABLET PO SCH (08:59)
[2018-10-29] MEDS: AZITHROMYCIN 250 MG TABLET PO SCH (08:59)
[2018-10-29] MEDS: ATORVASTATIN 40 MG TABLET PO SCH (08:59)
[2018-10-29] MEDS: CARVEDILOL 12.5 MG TABLET PO SCH (08:59)
[2018-10-29] MEDS: methylPREDNISolone SOD SUCC 40 MG/ML VIAL IV SCH (09:00)
[2018-10-29] MEDS: VALSARTAN 80 MG TABLET PO SCH (09:00)
[2018-10-29] MEDS: FLUTICASONE/VILANTEROL 1 EACH BLST.W.DEV IH SCH (09:01)
[2018-10-29] MEDS ORDERED: NIFEdipine XL 60 MG TAB PO SCH (10:30)
[2018-10-29 11:06] VITALS: BP 149/60
== END 2018-10-29 13:00 | disposition home or self-care (01) | DRG 189 ==
LOC: ER 23:23 → TELE 10-26 02:29 → MED 10-27 15:11
PROVIDERS: ADMIT Nurse Practitioner Acute Care; ATTEND Nurse Practitioner Acute Care
DX: J96.01 Acute respiratory failure with hypoxia (principal); J44.1 Chronic obstructive pulmonary disease with (acute) exacerbation; D68.59 Other primary thrombophilia; F10.239 Alcohol dependence with withdrawal, unspecified; I10 Essential (primary) hypertension; J40 Bronchitis, not specified as acute or chronic; D63.8 Anemia in other chronic diseases classified elsewhere; D72.829 Elevated white blood cell count, unspecified; E03.9 Hypothyroidism, unspecified; E11.9 Type 2 diabetes mellitus without complications; E66.9 Obesity, unspecified; E78.5 Hyperlipidemia, unspecified; E83.42 Hypomagnesemia; K21.9 Gastro-esophageal reflux disease without esophagitis; Z87.891 Personal history of nicotine dependence; I48.2 Chronic atrial fibrillation; Z99.81 Dependence on supplemental oxygen; Z68.26 Body mass index [BMI] 26.0-26.9, adult; Y90.9 Presence of alcohol in blood, level not specified; F32.9 Major depressive disorder, single episode, unspecified; G89.29 Other chronic pain; Z79.01 Long term (current) use of anticoagulants
CPT/HCPCS: 36415; 36600; 71045-TC; 76536-TC; 76700-TC; 80048-TC; 80061-TC; 80076-TC; 82803-TC; 83735-TC; 83880; 84100-TC; 84439-TC; 84443-TC; 84484-TC; 85025-TC; 85378-TC; 87081-TC; 87400; 94799-TC; G0378; J0456; J2060; J2920; J2930; J3105; J3475; J7050; J7060

== ENCOUNTER 2018-11-15 18:08 | Emergency (ER) | payer MEDICARE, OTHER ==
[~2018-11-15] VITALS: Ht 170.2 cm; Wt 85.7 kg
[~2018-11-15 18:08] MED LIST changes: +AZIT250T PO; +METH4TAB17 PO; +VALS80TA2 PO
--- NOTE | 2018-11-15 18:22 | NUR ---
WEAKNESS FOR THE PAST FEW DAYS. STATES "JUST FEEL REALLY WEIRD". DENIES DIZZINESS, SOB, N/V. NO ACUTE DISTRESS NOTED. FRIEND AT BEDSIDE. ON MONITOR AND READY FOR EVAL.
[2018-11-15] MEDS ORDERED: ONDANSETRON HCL/PF 4 MG/2 ML VIAL IVP ONE (18:30)
[2018-11-15] MEDS ORDERED: IV NS 0.9% 1,000 ML BAG IV ONE (18:30)
[2018-11-15] MEDS ORDERED: ONDANSETRON HCL/PF 4 MG/2 ML VIAL ONE (18:33)
[2018-11-15 18:45] LABS: BASOPHILS # (AUTO) 0.1 /CMM (0.0-0.2); BASOPHILS % (AUTO) 1.1 % (0.0-2.0); EOSINOPHILS % (AUTO) 0.8 % (0.0-6.0); HEMATOCRIT 42 % (39-51); HEMOGLOBIN 13.8 g/dL (13.5-17.5); LYMPHOCYTES # (AUTO) 1.4 /CMM (0.8-4.8); MEAN CORPUSCULAR HGB CONC 33 g/dl (31.0-36.0); MEAN CORPUSCULAR VOLUME 82 fL (80-96); MONOCYTES # (AUTO) 0.5 /CMM (0.1-1.30); MONOCYTES % (AUTO) 6.3 % (2.0-12.0); NEUTROPHILS # (AUTO) 6.2 /CMM (1.8-8.9); NEUTROPHILS % (AUTO) 74.8 % (43.0-81.0); PLATELET COUNT (AUTO) 202 /CMM (150-450); RED BLOOD CELL COUNT(AUTO) 5.05 MIL/uL (4.5-6.0); WHITE BLOOD COUNT (AUTO) 8.3 K/uL (4.3-11.0)
[2018-11-15 18:53] LABS: CALCIUM, SERUM 8.5 mg/dL (8.5-10.1); CARBON DIOXIDE 24 mmol/L (21-32); CHLORIDE 103 mmol/L (98-107); CREATININE 1.1 mg/dL (0.6-1.3); GLUCOSE 110 mg/dL (74-106); POTASSIUM 4.3 mmol/L (3.5-5.1); SODIUM SERUM 141 mmol/L (136-145); UREA NITROGEN, BLOOD 16 mg/dL (7-18)
[2018-11-15 18:58] LABS: ALANINE AMINOTRANSFERASE 24 U/L (12-78); ALBUMIN 3.4 g/dL (3.4-5.0); ALKALINE PHOSPHATASE 75 U/L (46-116); ASPARTATE AMINOTRANSFERASE 39 U/L (15-37); BILIRUBIN,DIRECT 0.2 mg/dL (0.0-0.2); BILIRUBIN,TOTAL 0.4 mg/dL (0.2-1.0); TOTAL PROTEIN, SERUM 6.8 g/dL (6.4-8.2)
--- NOTE | 2018-11-15 20:06 | NUR ---
Patient is resting comfortably in bed with eyes closed. Easily aroused. VSS
[2018-11-15 20:18] LABS: APPEARANCE,URINE Clear (CLEAR); BILIRUBIN,URINE Negative (NEGATIVE); BLOOD, URINE Negative Ery/uL (NEGATIVE); COLOR,URINE Yellow (YELLOW); KETONES,URINE Negative (NEGATIVE); LEUKOCYTE ESTERASE ,URINE Negative (NEGATIVE); NITRITE, URINE Negative (NEGATIVE); PROTEIN,URINE Negative (NEGATIVE); UGLUCOSE Negative (NEGATIVE); UROBILINOGEN,URINE 0.2 EU/dL (0.2)
--- NOTE | 2018-11-15 20:46 | NUR ---
PT STATES FEELING MUCH BETTER. AMBULATES WITH A STEADY GAIT, UNASSISTED.
[2018-11-15 22:10] VITALS: BP 121/86
== END 2018-11-15 21:00 | disposition home or self-care (01) ==
LOC: ER 18:08
DX: R53.1 Weakness (principal); I48.2 Chronic atrial fibrillation; I10 Essential (primary) hypertension; J44.9 Chronic obstructive pulmonary disease, unspecified; E11.9 Type 2 diabetes mellitus without complications; E78.5 Hyperlipidemia, unspecified; F17.200 Nicotine dependence, unspecified, uncomplicated; Z98.890 Other specified postprocedural states; Z60.2 Problems related to living alone; Z79.899 Other long term (current) drug therapy
CPT/HCPCS: 36415; 71045; 80048; 80076; 81001; 82962; 85025; 93005; 96374; 99284; J2405; J7030; 81000-TC

== ENCOUNTER 2019-01-19 15:21 | Emergency (ER) | payer MEDICARE, OTHER ==
[~2019-01-19] VITALS: Ht 170.2 cm; Wt 85.3 kg
--- NOTE | 2019-01-19 15:30 | NUR ---
"SOB/Hard to breathe. COPD" +Retracting/use of accessory muscles/Labored/grunting. Patient a/ox4, labored breathing, assisted to bed, attached to the patent counsel, changed into gown. Patient HOB elevated, needs attended. MD at bedside for eval.
[2019-01-19] MEDS ORDERED: IPRATROPIUM NEB FS 0.5 MG/2.5 ML AMPUL.NEB ONE ×2 (15:42→16:34)
[2019-01-19] MEDS ORDERED: ALBUTEROL FS 2.5 MG/3 ML VIAL.NEB ONE ×3 (15:42→18:04)
[2019-01-19] MEDS ORDERED: predniSONE 20 MG TABLET ONE (15:43)
[2019-01-19 15:51] LABS: BASOPHILS % (AUTO) 0.7 % (0.0-2.0); EOSINOPHILS % (AUTO) 7.6 % (0.0-6.0); HEMATOCRIT 39 % (39-51); HEMOGLOBIN 13.1 g/dL (13.5-17.5); LYMPHOCYTES # (AUTO) 1.4 /CMM (0.8-4.8); LYMPHOCYTES % (AUTO) 20.1 % (20.0-44.0); MEAN CORPUSCULAR HGB CONC 33 g/dl (31.0-36.0); MEAN CORPUSCULAR VOLUME 85 fL (80-96); MONOCYTES # (AUTO) 0.5 /CMM (0.1-1.30); MONOCYTES % (AUTO) 7.8 % (2.0-12.0); NEUTROPHILS # (AUTO) 4.4 /CMM (1.8-8.9); NEUTROPHILS % (AUTO) 63.8 % (43.0-81.0); PLATELET COUNT (AUTO) 162 /CMM (150-450); RED BLOOD CELL COUNT(AUTO) 4.66 MIL/uL (4.5-6.0); WHITE BLOOD COUNT (AUTO) 6.9 K/uL (4.3-11.0)
[2019-01-19] MEDS ORDERED: predniSONE 20 MG TABLET PO ONE (16:00)
[2019-01-19] MEDS ORDERED: IPRATROPIUM NEB FS 0.5 MG/2.5 ML AMPUL.NEB NEB ONE ×2 (16:00→16:30)
[2019-01-19] MEDS ORDERED: ALBUTEROL FS 2.5 MG/3 ML VIAL.NEB NEB ONE ×2 (16:00→16:30)
[2019-01-19 16:06] LABS: CREATININE 0.8 mg/dL (0.6-1.3); POTASSIUM 4.2 mmol/L (3.5-5.1)
--- NOTE | 2019-01-19 17:30 | NUR ---
PATIENT'S ON ROOM AIR, WITH NO SOB AT THIS TIME. BREATHING HAS IMPROVED. WILL CONTINUE TO MONITOR.
[2019-01-19] MEDS ORDERED: ALBUTEROL FS 2.5 MG/3 ML VIAL.NEB CONTNEB ONE (18:00)
[2019-01-19] MEDS ORDERED: NIFE60TA73 PO (18:03)
--- NOTE | 2019-01-19 18:54 | NUR ---
PATIENT RESTING, IN NO DISTRESS. NEEDS ATTENDED. BREATHING TX STILL ONGOING.
[2019-01-19 18:58] VITALS: BP 144/82
--- NOTE | 2019-01-19 19:22 | NUR ---
ENDORSED TO ALAN CHANG FOR NIKKY.
--- NOTE | 2019-01-19 21:53 | NUR ---
Patient discharged to home in stable condition. Written and verbal after care instructions given. Patient verbalizes understanding of instruction.
== END 2019-01-19 20:25 | disposition other institution (70) ==
LOC: ER 15:21
DX: J44.1 Chronic obstructive pulmonary disease with (acute) exacerbation (principal); L91.8 Other hypertrophic disorders of the skin; I48.91 Unspecified atrial fibrillation; I10 Essential (primary) hypertension; E11.9 Type 2 diabetes mellitus without complications; E78.5 Hyperlipidemia, unspecified; F10.10 Alcohol abuse, uncomplicated; F17.200 Nicotine dependence, unspecified, uncomplicated; Y90.9 Presence of alcohol in blood, level not specified; Z98.49 Cataract extraction status, unspecified eye
CPT/HCPCS: 36415; 71045; 80048; 85025; 93005; 94640 ×2; 94644; 99285; J7512

== ENCOUNTER 2019-01-27 00:02 | Inpatient (IN) | payer MEDICARE, OTHER ==
[2019-01-27] VITALS (43 sets, daily range): BP systolic 121–163; BP diastolic 59–99
[~2019-01-27] VITALS: Ht 177.8 cm; Wt 85.7 kg
[~2019-01-27 00:02] MED LIST changes: -AZIT250T PO; -METH4TAB17 PO; +NIFE60TA73 PO; -VALS80TA2 PO
[2019-01-27] MEDS ORDERED: methylPREDNISolone SOD SUCC 125 MG/2ML VIAL ONE (00:07)
--- NOTE | 2019-01-27 00:11 | NUR ---
BIB RA, AA/OX4, CPAP PRIOR TO ARRIVAL C/C SOB. PER PARAMEDICS FOUND AT HOME SOB X 4 HOURS WITH MULTIPLE OPEN CONTAINERS OF ALBUTEROL FOUND AROUND PT. SKIN PINK, WARM, DRY. MOVES ALL EXTREMITIES WELL. HIGH FOWLERS POSITION. RT AT BEDSIDE WITH BIPAP IN PLACE 15/5, FIO2 AT 40%. ALL OTHER VSS. NAD. WILL CONTINUE TO MONITOR.
[2019-01-27 00:19] LABS: BASOPHILS # (AUTO) 0.1 /CMM (0.0-0.2); BASOPHILS % (AUTO) 0.9 % (0.0-2.0); EOSINOPHILS % (AUTO) 6.1 % (0.0-6.0); HEMATOCRIT 39 % (39-51); HEMOGLOBIN 12.9 g/dL (13.5-17.5); LYMPHOCYTES # (AUTO) 4.6 /CMM (0.8-4.8); LYMPHOCYTES % (AUTO) 35.5 % (20.0-44.0); MEAN CORPUSCULAR HGB CONC 33 g/dl (31.0-36.0); MEAN CORPUSCULAR VOLUME 85 fL (80-96); MONOCYTES # (AUTO) 1.2 /CMM (0.1-1.30); MONOCYTES % (AUTO) 8.9 % (2.0-12.0); NEUTROPHILS # (AUTO) 6.3 /CMM (1.8-8.9); NEUTROPHILS % (AUTO) 48.6 % (43.0-81.0); PLATELET COUNT (AUTO) 255 /CMM (150-450); RED BLOOD CELL COUNT(AUTO) 4.57 MIL/uL (4.5-6.0)
[2019-01-27] MEDS ORDERED: methylPREDNISolone SOD SUCC 125 MG/2ML VIAL IV ONE (00:30)
[2019-01-27] MEDS ORDERED: IPRATROPIUM NEB FS 0.5 MG/2.5 ML AMPUL.NEB NEB ONE (00:30)
[2019-01-27] MEDS ORDERED: ALBUTEROL FS 2.5 MG/3 ML VIAL.NEB CONTNEB ONE (00:30)
[2019-01-27 00:43] LABS: CALCIUM, SERUM 8.4 mg/dL (8.5-10.1); CARBON DIOXIDE 24 mmol/L (21-32); CHLORIDE 99 mmol/L (98-107); GLUCOSE 123 mg/dL (74-106); POTASSIUM 4.3 mmol/L (3.5-5.1); SODIUM SERUM 135 mmol/L (136-145); UREA NITROGEN, BLOOD 16 mg/dL (7-18)
--- NOTE | 2019-01-27 00:50 | NUR ---
ICU ROON 257
[2019-01-27 00:56] LABS: B-TYPE NATRIURETIC PEPTIDE 549 PG/ML (0-125)
--- NOTE | 2019-01-27 01:16 | NUR ---
PT SITTING UP WITH EYES OPEN. VSS. NAD. SAFETY MEASURES IN PLACE.
--- NOTE | 2019-01-27 01:16 | NUR ---
REPORT GIVEN TO COLLECTIONS CURATORBERNARDO KEYS
--- NOTE | 2019-01-27 01:49 | NUR ---
XRAY AT BEDSIDE
[2019-01-27] MEDS ORDERED: MAG HYDROX/AL HYDROX/SIMETH 30 ML UDC PO PRN (02:00)
[2019-01-27] MEDS ORDERED: HYDROCODONE/APAP 5/325MG 1 EACH TABLET PO PRN (02:00)
[2019-01-27] MEDS ORDERED: Z GUARD REMEDY 2 OZ OINT TP PRN (02:00)
[2019-01-27] MEDS ORDERED: ONDANSETRON HCL/PF 4 MG/2 ML VIAL IVP PRN (02:00)
[2019-01-27] MEDS ORDERED: ACETAMINOPHEN 325 MG TABLET PO PRN (02:00)
[2019-01-27] MEDS ORDERED: MAGNESIUM HYDROXIDE 30 ML UDC PO PRN (02:00)
--- NOTE | 2019-01-27 02:01 | NUR ---
PT TRANSPORTED TO ICU BED 257. VSS. NAD. VIA ACLS PROTOCOLS
[2019-01-27] MEDS: IV NS 0.9% 1,000 ML IV PRN ×2 (02:13→18:41)
[2019-01-27] MEDS ORDERED: AZITHROMYCIN 500 MG VIAL ONE (02:14)
[2019-01-27] MEDS: AZITHROMYCIN 500 MG in IV D5W 250 ML IV SCH ×2 (02:32→20:59)
--- NOTE | 2019-01-27 02:46 | NUR ---
RCVD PT ON BIPAP 15/5, RATE 4 , FIO2 40%. PT IS ALERT AND AWAKE. SKIN INTACT. BIPAP PLUGGED INTO RED OUTLET, ALARMS SET AND AUDIBLE. AMBU BAG AT BEDSIDE. WILL CONTINUE TO MONITOR.
--- NOTE | 2019-01-27 03:10 | NUR ---
RN NOTES RECEIVED PATIENT AWAKE ALERT ORIENTED X 3 WITH SOB AND ANXIETY NOTED PATIENT VERBALIZING THAT HE CANT BREATH COMFORTING PATIENT TO RELAX AND TEACH HOW TO BREATH GOOD. VSS SATURATION 98% TELE MONITOR REVEALS A- FLUTTER HR 76 DENIES CHEST PAIN NO N/V. PATIENT CALMED AND COOPERATE FROM BEING ANXIOUS.. BIPAP SETTING IS 15/5 RATE4 FIO2 40% SOLU MEDROL WAS GIVEN IN ER . IV SITE ON LAC AND RW G 18 INTACT AND PATENT. KEPT HOB ELEVATED TO 45% PATIENT REQUESTED AND COMFORTABLE. KEPT PT CLEAN AND DRY. CALL LIGHT INSTRUCTION PROVIDED. BED LOCKED AND IN LOWEST POSSIBLE POSITION. PATIENT SLEEP AT THIS TIME WITH SATURATION 98%. LAB DRAWN BLOOD CULTURE AT BEDSIDE AND IVF AND IV ATB STARTED ORDERED. WILL CLOSELY MONITOR.
[2019-01-27 04:52] LABS: BILIRUBIN,DIRECT 0.2 mg/dL (0.0-0.2); BILIRUBIN,TOTAL 0.3 mg/dL (0.2-1.0)
--- NOTE | 2019-01-27 06:59 | NUR ---
RN NOTES PATIENT ASLEEP WELL ON BED. BIPAP TOLERATED WELL AT THE SAME SETTING . DENIES PAIN. NO SIGNIFICANT CHANGE OF CONDITION. ENCOURAGED TO URINATE IN A URINAL PER PATIENT HE DOESN'T FEEL IT YET AND WANTED TO REST. A- FLUTTER ON TELE MONITOR. IVF NS ONGOING. KEPT PATIENT CLEAN AND DRY WILL ENDORSED CONTINUITY OF CARE TO AM NURSE.
--- NOTE | 2019-01-27 07:30 | NUR ---
RN NOTES RECEIVED PATIENT IN BED, ON HIGH BACK REST, ASLEEP BUT EASILY AWAKEN BY VERBAL STIMULI, ABLE TO MAKE NEEDS KNOWN. ON BI PAP, TOLERATING WELL. SATS AT 95%. A FIB ON THE TELEMONITOR WITH HR ON THE 80s. IV LINE ON THE R WRIST AND LAC G [address] AND INTACT, WITH ONGOING IVF OF NS AT 75CC/HR. PATIENT NO COMPLAINTS OF PAIN OF ANY KIND BUT NOTED TO BE ANXIOUS AND KEEPS ON ASKING " AM I GONNA BE ALRIGHT?" PATIENT'S CONCERNS ADDRESSED APPROPRIATELY. PATIENT THEN ENCOURAGE TO VERBALIZE FEELINGS AND CONCERNS, TO CALL CALL FOR HELP AND ASSISTANCE. CALL LIGHT PLACED WITHIN REACH. SAFETY MEASURES OBSERVED AND MAINTAINED. WILL CONTINUE TO MONITOR AND ATTEND TO NEEDS
[2019-01-27] MEDS: IPRATROPIUM NEB FS 0.5 MG/2.5 ML AMPUL.NEB NEB SCH ×3 (07:42→20:16)
[2019-01-27] MEDS: ALBUTEROL FS 2.5 MG/0.5 ML VIAL.NEB NEB SCH ×3 (07:43→20:17)
[2019-01-27] MEDS ORDERED: CARVEDILOL 12.5 MG TABLET PO SCH (08:00)
[2019-01-27] MEDS: methylPREDNISolone SOD SUCC 40 MG/ML VIAL IV SCH ×3 (08:54→17:23)
[2019-01-27] MEDS: LOSARTAN POTASSIUM 25 MG TABLET PO SCH (08:55)
[2019-01-27] MEDS: PANTOPRAZOLE 40 MG TABLET.DR PO SCH (08:55)
[2019-01-27] MEDS: ATORVASTATIN 40 MG TABLET PO SCH (08:55)
[2019-01-27] MEDS: SERTRALINE HCL 50 MG TABLET PO SCH (08:56)
[2019-01-27] MEDS: NIFEdipine XL 60 MG TAB PO SCH (08:56)
[2019-01-27] MEDS ORDERED: Medication Not On Formulary EA (Omega-3/Dha/Epa/Fish Oil (Fish Oil 1,000 mg Softgel) 1,0 PO SCH (09:00)
[2019-01-27] MEDS: LORAZEPAM 0.5 MG TABLET PO PRN (15:15)
[2019-01-27 16:31] LABS: APPEARANCE,URINE Clear (CLEAR); BILIRUBIN,URINE Negative (NEGATIVE); BLOOD, URINE Negative Ery/uL (NEGATIVE); COLOR,URINE Yellow (YELLOW); KETONES,URINE Negative (NEGATIVE); LEUKOCYTE ESTERASE ,URINE Negative (NEGATIVE); NITRITE, URINE Negative (NEGATIVE); PH,URINE 5.5 (5.0-8.0); PROTEIN,URINE Negative (NEGATIVE); UGLUCOSE Negative (NEGATIVE); UROBILINOGEN,URINE 0.2 EU/dL (0.2)
[2019-01-27] MEDS: RIVAROXABAN 10 MG TABLET PO SCH (17:23)
--- NOTE | 2019-01-27 18:00 | NUR ---
RN NOTES PATIENT BROUGHT DOWN TO HEIDI VIA ACLS PROTOCOL.
--- NOTE | 2019-01-27 19:10 | NUR ---
RN NOTES ENDORSED FOR CONTINUITY OF CARE. NOT ON ANY FORM OF DISTRESS. NO COMPLAINTS OF PAIN AT THIS TIME. ALL NURSING NEEDS ATTENDED AND MET. SAFETY MEASURES KEPT IN PLACE AT ALL TIMES AND CALL LIGHT WITHIN REACH AT ALL TIMES.
--- NOTE | 2019-01-27 20:00 | NUR ---
RN NOTES - RECEIVED PATIENT AWAKE ALERT ORIENTED X 3 WITH SOB AND ANXIETY NOTED. VSS SATURATION 98% TELE MONITOR REVEALS A- FLUTTER DENIES CHEST PAIN NO N/V. PATIENT CALMED AND COOPERATE FROM BEING ANXIOUS. IV SITE ON LAC AND RW G 18 INTACT AND PATENT. KEPT HOB ELEVATED TO 45 PATIENT REQUESTED AND COMFORTABLE. KEPT PT CLEAN AND DRY. CALL LIGHT INSTRUCTION PROVIDED. BED LOCKED AND IN LOWEST POSSIBLE POSITION. PATIENT SLEEP AT THIS TIME WITH SATURATION 98%. IVF AND IV ATB STARTED ORDERED. WILL CLOSELY MONITOR.
[2019-01-27] MEDS ORDERED: ZOLPIDEM TARTRATE 10 MG TABLET PO ONE (22:00)
[2019-01-28] VITALS (8 sets, daily range): BP systolic 121–159; BP diastolic 65–86
[2019-01-28] MEDS: IPRATROPIUM NEB FS 0.5 MG/2.5 ML AMPUL.NEB NEB SCH ×3 (07:30→19:47)
[2019-01-28] MEDS: ALBUTEROL FS 2.5 MG/0.5 ML VIAL.NEB NEB SCH ×3 (07:30→19:47)
[2019-01-28 07:40] LABS: BASOPHILS % (AUTO) 0.2 % (0.0-2.0); HEMATOCRIT 35 % (39-51); HEMOGLOBIN 11.8 g/dL (13.5-17.5); LYMPHOCYTES # (AUTO) 0.9 /CMM (0.8-4.8); LYMPHOCYTES % (AUTO) 9.6 % (20.0-44.0); MEAN CORPUSCULAR HGB CONC 34 g/dl (31.0-36.0); MEAN CORPUSCULAR VOLUME 84 fL (80-96); MONOCYTES # (AUTO) 0.8 /CMM (0.1-1.30); MONOCYTES % (AUTO) 8.7 % (2.0-12.0); NEUTROPHILS # (AUTO) 7.2 /CMM (1.8-8.9); NEUTROPHILS % (AUTO) 81.5 % (43.0-81.0); PLATELET COUNT (AUTO) 206 /CMM (150-450); RED BLOOD CELL COUNT(AUTO) 4.19 MIL/uL (4.5-6.0); WHITE BLOOD COUNT (AUTO) 8.8 K/uL (4.3-11.0)
[2019-01-28 07:47] LABS: CALCIUM, SERUM 8.4 mg/dL (8.5-10.1); CREATININE 0.8 mg/dL (0.6-1.3); MAGNESIUM 1.8 mg/dL (1.8-2.4); PHOSPHORUS 2.7 mg/dL (2.5-4.9); POTASSIUM 3.8 mmol/L (3.5-5.1)
--- NOTE | 2019-01-28 08:00 | NUR ---
TD/RN AM SHIFT INITIAL NOTES RECEIVED PT AWAKE IN BED, PT A/O X 3, PT DENIES ANY SYMPTOMS. PT ON 2L O2 VIA N/C SATURATING @ 99%, LUNG SOUNDS DIMINISHED, RESPIRATIONS EVEN & UNLABORED. ON TELE MONITORING WITH A-FLUTTER, HR 65. WITH ON GOING IV INFUSION OF NS @ 100CC/HR, IV SITES NOTED BLEEDING. IV INFUSION STOPPED WILL INSERT NEW IV SITE. PATENT WITH NO S/S OF INFECTION. PT IS COMFORTABLE, SCHEDULED AM MEDS TO BE GIVEN. CL WITHIN REACHED AND SAFETY MAINTAINED. ON GOING MONITORING.
[2019-01-28 08:06] LABS: THYROID STIMULATING HORMONE 0.448 uIU/mL (0.358-3.74)
[2019-01-28] MEDS: ATORVASTATIN 40 MG TABLET PO SCH (08:26)
[2019-01-28] MEDS: methylPREDNISolone SOD SUCC 40 MG/ML VIAL IV SCH ×2 (08:26→16:20)
[2019-01-28] MEDS: PANTOPRAZOLE 40 MG TABLET.DR PO SCH (08:26)
[2019-01-28] MEDS: LOSARTAN POTASSIUM 25 MG TABLET PO SCH (08:26)
[2019-01-28] MEDS: SERTRALINE HCL 50 MG TABLET PO SCH (08:26)
[2019-01-28] MEDS: NIFEdipine XL 60 MG TAB PO SCH (08:26)
[2019-01-28] MEDS ORDERED: methylPREDNISolone SOD SUCC 40 MG/ML VIAL IV SCH (10:00)
--- NOTE | 2019-01-28 13:05 | NUR ---
TELE1/RN ROUNDS - DR. ALTAMIRANO UPDATED PT'S CONDITION, PT SEEN & EXAMINED BY DR. ALTAMIRANO. WITH ORDERS RECEIVED TO CHANGE BREATHING TREATMENTS FROM Q6HRS TO Q4HRS, AMBIEN 5MG QHS PRN FOR SLEEP AND ZOLOFT SCHEDULE FROM AM TO HS. ORDER NOTED AND CARRIED OUT. Addendum: 01/28/19 at 1321 by MO STERLING RN ADDENDUM: DR. ALTAMIRANO ALSO DISCONTINUED NS @ 75CC/HR. NOTED AND CARRIED.
[2019-01-28] MEDS: LORAZEPAM 0.5 MG TABLET PO PRN (13:25)
[2019-01-28] MEDS ORDERED: ZOLPIDEM TARTRATE 5 MG TABLET PO PRN (13:30)
--- NOTE | 2019-01-28 14:00 | NUR ---
TELE1/RN WALKING STEADY PT WALKING WITH STEADY GAIT IN UNIT HALLWAY. MONITORING CONTINUED.
[2019-01-28] MEDS: RIVAROXABAN 10 MG TABLET PO SCH (16:19)
--- NOTE | 2019-01-28 19:05 | NUR ---
RN OPENING NOTE: PATIENT IN BED, AWAKE, AND VERBALLY RESPONSIVE. NO RESPIRATORY DISTRESS. NO PAIN. A&OX4. ON CARDIAC MONITORING SHOWING A-FLUTTER. PATIENT ON CARDIAC DIET. LEFT HAND IV SITE 20G PATENT AND INTACT. BED IN LOWEST POSITION. SAFETY MEASURES IMPLEMENTED. CALL LIGHT PLACED WITHIN REACH. WILL CONT. TO MONITOR.
--- NOTE | 2019-01-28 19:13 | NUR ---
TELE1/RN AM SHIFT END NOTES NO ACUTE CHANGE OF CONDITION NOTED DURING THE SHIFT, ALL NEEDS MET. PT ENDORSED TO PM NURSE TO CONTINUE CARE. CL WITHIN REACHED AND SAFETY MAINTAINED.
[2019-01-28] MEDS: AZITHROMYCIN 500 MG in IV D5W 250 ML IV SCH (20:10)
[2019-01-29] VITALS: BP 145/74
[2019-01-29 04:00] VITALS: BP 152/80
--- NOTE | 2019-01-29 07:00 | NUR ---
MACHINIST BENCH OPENING NOTE PATIENT IN BED, AWAKE, AND VERBALLY RESPONSIVE. NO RESPIRATORY DISTRESS. NO PAIN. A&OX4. ON CARDIAC MONITORING SHOWING A-FLUTTER WITH HR 70. PATIENT ON CARDIAC DIET. LEFT HAND IV SITE 20G PATENT, INTACT AND FLUSHED WELL. BED IN LOWEST POSITION AND LOCKED. SIDE RAILS UPX2. SAFETY MEASURES IMPLEMENTED. CALL LIGHT PLACED WITHIN REACH. WILL CONT. TO MONITOR.
--- NOTE | 2019-01-29 07:10 | NUR ---
RN CLOSING NOTES: PATIENT IN BED, AWAKE, AND VERBALLY RESPONSIVE. A&OX4. NO SOB. NO PAIN. ON SILK PRINTER SHOWING AFLUTTER. NO SIGNIFICANT CHANGES THROUGHOUT THE SHIFT. ENDORSED NIKKY TO AM NURSE.
[2019-01-29] MEDS: IPRATROPIUM NEB FS 0.5 MG/2.5 ML AMPUL.NEB NEB SCH ×3 (07:58→14:48)
[2019-01-29] MEDS: ALBUTEROL FS 2.5 MG/0.5 ML VIAL.NEB NEB SCH ×3 (07:58→14:48)
[2019-01-29 08:00] VITALS: BP 160/82
[2019-01-29] MEDS: methylPREDNISolone SOD SUCC 40 MG/ML VIAL IV SCH (08:04)
[2019-01-29] MEDS: NIFEdipine XL 60 MG TAB PO SCH (08:05)
[2019-01-29 08:06] VITALS: BP 160/82
[2019-01-29] MEDS: PANTOPRAZOLE 40 MG TABLET.DR PO SCH (08:06)
[2019-01-29] MEDS: ATORVASTATIN 40 MG TABLET PO SCH (08:06)
[2019-01-29] MEDS: LOSARTAN POTASSIUM 25 MG TABLET PO SCH (08:06)
[2019-01-29] MEDS ORDERED: PRED5TAB48 PO (11:28)
[2019-01-29] MEDS ORDERED: ATOR40TA PO (11:28)
[2019-01-29] MEDS ORDERED: DILT-3 PO (11:28)
[2019-01-29] MEDS ORDERED: SERT50TA PO (11:28)
[2019-01-29] MEDS ORDERED: AZIT250T PO (11:28)
[2019-01-29] MEDS ORDERED: FLUT1DIS3 INH (11:28)
--- NOTE | 2019-01-29 14:32 | NUR ---
MS RN NOTE PT DISCHARGED AND LEFT THE HOSPITAL BY HIS FERNED (ELIZABETH). STABLE UPON DISCHARGE. ACCOMPANIED BY THE CRIPPLE CUTTER TO THE CAR.
[2019-01-29] MEDS ORDERED: AZITHROMYCIN 250 MG TABLET PO SCH (21:00)
[2019-01-29] MEDS ORDERED: SERTRALINE HCL 50 MG TABLET PO SCH (22:00)
[2019-01-30] MEDS ORDERED: DILTIAZEM HCL CD 240 MG PO SCH (09:00)
[2019-02-25] MEDS ORDERED: PRED20TA PO (08:18)
== END 2019-01-29 15:21 | disposition home health service (06) | DRG 189 ==
LOC: ER 00:04 → ICU 00:57 → TELE-TD 18:15 → TELE1 01-28 11:03 → MEDSG1 01-29 10:14
PROVIDERS: ADMIT Nurse Practitioner Acute Care; ATTEND Internal Medicine
PROC: 5A09357 Assistance with Respiratory Ventilation, Less than 24 Consecutive Hours, Continuous Positive Airway Pressure (ICD-10-PCS; principal; 2019-01-27)
DX: J96.01 Acute respiratory failure with hypoxia (principal); J44.1 Chronic obstructive pulmonary disease with (acute) exacerbation; D68.59 Other primary thrombophilia; J44.0 Chronic obstructive pulmonary disease with (acute) lower respiratory infection; I48.92 Unspecified atrial flutter; E87.2 Acidosis; D72.829 Elevated white blood cell count, unspecified; J20.9 Acute bronchitis, unspecified; I48.91 Unspecified atrial fibrillation; I10 Essential (primary) hypertension; G47.33 Obstructive sleep apnea (adult) (pediatric); D63.8 Anemia in other chronic diseases classified elsewhere; E78.5 Hyperlipidemia, unspecified; E03.9 Hypothyroidism, unspecified; G89.29 Other chronic pain; M54.9 Dorsalgia, unspecified; F41.9 Anxiety disorder, unspecified; Z79.01 Long term (current) use of anticoagulants; K21.9 Gastro-esophageal reflux disease without esophagitis; F32.9 Major depressive disorder, single episode, unspecified; Z87.891 Personal history of nicotine dependence; I44.30 Unspecified atrioventricular block
CPT/HCPCS: 36415; 36600; 71045-TC; 74018; 80048-TC; 80061-TC; 81000-TC; 82247-TC; 82248-TC; 82803-TC; 83605-TC; 83735-TC; 83880; 84100-TC; 84443-TC; 84484-TC; 85025-TC; 87040-TC; 87081-TC; 87086-TC; 94799-TC; 99082-TC; G0378; J0456; J2920; J2930; J7030; J7050; J7060

== ENCOUNTER 2019-01-30 14:32 | Inpatient (IN) | payer MEDICARE, OTHER ==
[~2019-01-30] VITALS: Ht 170.2 cm; Wt 88.5 kg
[~2019-01-30 14:32] MED LIST changes: +ATOR40TA PO; +AZIT250T PO; +DILT-3 PO; +FLUT1DIS3 INH; +PRED5TAB48 PO; +SERT50TA PO
--- NOTE | 2019-01-30 14:39 | NUR ---
PT BIBA RA 102 Lightheaded/funny feeling "was here yesterday discharged am but felt funny/lightheaded" PT IS AAOX4, NOT IN RESPIRATORY DISTRESS, HOOKED TO MONITOR, KEPT RESTED AND COMFORTABLE, WILL CONTINUE TO MONITOR.
--- NOTE | 2019-01-30 14:39 | NUR ---
AT BEDSIDE FOR EVAL.
[2019-01-30] MEDS ORDERED: DILTIAZEM HCL 50 MG IV ONE (14:50)
--- NOTE | 2019-01-30 14:50 | NUR ---
BLOOD DRAWN AND SENT TO LAB.
[2019-01-30 14:55] LABS: BASOPHILS # (AUTO) 0.1 /CMM (0.0-0.2); BASOPHILS % (AUTO) 0.9 % (0.0-2.0); EOSINOPHILS % (AUTO) 1.3 % (0.0-6.0); HEMATOCRIT 40 % (39-51); HEMOGLOBIN 13.6 g/dL (13.5-17.5); LYMPHOCYTES # (AUTO) 2.7 /CMM (0.8-4.8); LYMPHOCYTES % (AUTO) 19.8 % (20.0-44.0); MEAN CORPUSCULAR HGB CONC 34 g/dl (31.0-36.0); MEAN CORPUSCULAR VOLUME 85 fL (80-96); MONOCYTES # (AUTO) 1.5 /CMM (0.1-1.30); MONOCYTES % (AUTO) 11.4 % (2.0-12.0); NEUTROPHILS # (AUTO) 8.9 /CMM (1.8-8.9); NEUTROPHILS % (AUTO) 66.6 % (43.0-81.0); PLATELET COUNT (AUTO) 264 /CMM (150-450); RED BLOOD CELL COUNT(AUTO) 4.75 MIL/uL (4.5-6.0); WHITE BLOOD COUNT (AUTO) 13.4 K/uL (4.3-11.0)
--- NOTE | 2019-01-30 14:57 | NUR ---
[facility] P[facility] (DR NEVILLE)
--- NOTE | 2019-01-30 14:58 | NUR ---
DOUGHNUT DOUGH MIXER AT BEDSIDE FOR XRAY.
[2019-01-30] MEDS ORDERED: DILTIAZEM HCL 50 MG IV IV ONE (15:00)
--- NOTE | 2019-01-30 15:04 | NUR ---
DR DENIA BRENNAN
[2019-01-30 15:12] LABS: CALCIUM, SERUM 8.8 mg/dL (8.5-10.1); CARBON DIOXIDE 30 mmol/L (21-32); CHLORIDE 100 mmol/L (98-107); CREATININE 0.9 mg/dL (0.6-1.3); GLUCOSE 105 mg/dL (74-106); POTASSIUM 3.4 mmol/L (3.5-5.1); SODIUM SERUM 136 mmol/L (136-145); UREA NITROGEN, BLOOD 23 mg/dL (7-18)
[2019-01-30 15:17] LABS: ALANINE AMINOTRANSFERASE 14 U/L (12-78); ALBUMIN 3.8 g/dL (3.4-5.0); ALKALINE PHOSPHATASE 72 U/L (46-116); ASPARTATE AMINOTRANSFERASE 18 U/L (15-37); B-TYPE NATRIURETIC PEPTIDE 2467 PG/ML (0-125); BILIRUBIN,DIRECT 0.2 mg/dL (0.0-0.2); BILIRUBIN,TOTAL 0.5 mg/dL (0.2-1.0); TOTAL PROTEIN, SERUM 6.8 g/dL (6.4-8.2)
--- NOTE | 2019-01-30 15:20 | NUR ---
DR KELIN BRENNAN
[2019-01-30] MEDS ORDERED: LORAZEPAM 1 MG TABLET ONE (15:48)
--- NOTE | 2019-01-30 15:51 | NUR ---
[facility] PAGED
--- NOTE | 2019-01-30 15:55 | NUR ---
CALLED FOR TELE BED
[2019-01-30] MEDS ORDERED: LORAZEPAM 1 MG TABLET PO ONE (16:00)
--- NOTE | 2019-01-30 16:30 | NUR ---
REPORT GIVEN TO BERNARDO OVERTON FOR NIKKY.
[2019-01-30 17:00] VITALS: BP 121/51
--- NOTE | 2019-01-30 17:45 | NUR ---
recieved patient from er. patient is a/ox4. diagnosis of chest pain. denied chest pain at this time. not in any form of distress, no sob. ambulatory. placed on telemoniotr, hr 30s. dr birmingham at the nursing station and made aware. per MD, transfer patient to [facility]. iv access intact and patent. kept patient safe and comfortable. bed in low/locked position, siderails upx2, call light in reach. will cont to moniotr accordingly.
--- NOTE | 2019-01-30 17:50 | NUR ---
nursing diversified crops supervisor assigned bed to HEIDI room 102. transferred patient to HEIDI via hosptal bed. ALS protocol iniitiated, placed on moniotr and 2lpm o2 via nc. Bedside report given to BERNARDO Estrella
[2019-01-30 18:15] VITALS: BP 103/54
--- NOTE | 2019-01-30 18:15 | NUR ---
RN note Received pt from Yared RN, pt aox3, in bed, tolerates room air, denies pain, on automatic dry starch operator hr 35, A-flutter, bp 103/54, no dizziness, wants food, per Dr Watters, okay to feed, cardiac diet ordered, call light within reach, bed in low, locked position. dr Wattesr paged for admitting orders. awaiting fro orders.
[2019-01-30] MEDS ORDERED: MAGNESIUM HYDROXIDE 30 ML UDC PO PRN (19:00)
[2019-01-30] MEDS ORDERED: HYDROCODONE/APAP 5/325MG 1 EACH TABLET PO PRN (19:00)
[2019-01-30] MEDS ORDERED: MAG HYDROX/AL HYDROX/SIMETH 30 ML UDC PO PRN (19:00)
[2019-01-30] MEDS ORDERED: ACETAMINOPHEN 325 MG TABLET PO PRN (19:00)
[2019-01-30] MEDS ORDERED: Z GUARD REMEDY 2 OZ OINT TP PRN (19:00)
[2019-01-30] MEDS ORDERED: ZOLPIDEM TARTRATE 5 MG TABLET PO PRN (19:00)
[2019-01-30] MEDS ORDERED: ONDANSETRON HCL/PF 4 MG/2 ML VIAL IVP PRN (19:00)
--- NOTE | 2019-01-30 19:06 | NUR ---
rn note attempted to reach dr Barahona, but not available at this time [phone]. will notify primary MD.
--- NOTE | 2019-01-30 20:10 | NUR ---
HEIDI RN PATIENT TRANSFERRED TO ROOM 261 PER BED ALL REPORTS GIVEN TO SHAHANA CHANG
--- NOTE | 2019-01-30 20:20 | NUR ---
2020 TRANSFERRED PATIENT TO ICU VIA BED ON ACLS PROTOCOL. AAOX4. DENIES CHEST PAIN.
[2019-01-30 20:30] VITALS: BP 112/56
--- NOTE | 2019-01-30 20:30 | NUR ---
FINISH SPECIALIST NOTE RECEIVED PT A/O X4 AND ABLE TO VERBALIZE NEEDS. TRANSFERRED SAFELY TO ROOM 261. ON 2L OF O2 VIA NC AND SATURATING WELL. BREATHING REGULAR AND UNLABORED. NOTED TO BE SLIGHTLY ANXIOUS. DENIES CHEST PAIN OR DISCOMFORT. TELE- AFLUTTER 30'S. AFEBRILE. IV'S IN PLACE AND FLUSHING WELL. CALL LIGHT WITHIN REACH. WILL MONITOR CLOSELY.
[2019-01-30] MEDS: IV NS 0.9% 1,000 ML IV PRN (20:35)
[2019-01-30 21:01] VITALS: BP 111/58
[2019-01-30 22:00] VITALS: BP 95/52
[2019-01-30 23:06] VITALS: BP 114/58
[2019-01-31] VITALS (16 sets, daily range): BP systolic 99–152; BP diastolic 43–78
[2019-01-31 05:00] LABS: BASOPHILS # (AUTO) 0.1 /CMM (0.0-0.2); BASOPHILS % (AUTO) 0.5 % (0.0-2.0); EOSINOPHILS % (AUTO) 1.4 % (0.0-6.0); HEMATOCRIT 36 % (39-51); HEMOGLOBIN 12.1 g/dL (13.5-17.5); LYMPHOCYTES # (AUTO) 2.3 /CMM (0.8-4.8); LYMPHOCYTES % (AUTO) 19.8 % (20.0-44.0); MEAN CORPUSCULAR HGB CONC 34 g/dl (31.0-36.0); MEAN CORPUSCULAR VOLUME 85 fL (80-96); MONOCYTES % (AUTO) 9.1 % (2.0-12.0); NEUTROPHILS % (AUTO) 69.2 % (43.0-81.0); PLATELET COUNT (AUTO) 194 /CMM (150-450); RED BLOOD CELL COUNT(AUTO) 4.22 MIL/uL (4.5-6.0); WHITE BLOOD COUNT (AUTO) 11.5 K/uL (4.3-11.0)
[2019-01-31 05:07] LABS: CALCIUM, SERUM 8.6 mg/dL (8.5-10.1); CREATININE 0.8 mg/dL (0.6-1.3); MAGNESIUM 1.5 mg/dL (1.8-2.4); PHOSPHORUS 4.6 mg/dL (2.5-4.9); POTASSIUM 3.4 mmol/L (3.5-5.1)
[2019-01-31 05:35] LABS: THYROID STIMULATING HORMONE 0.869 uIU/mL (0.358-3.74)
--- NOTE | 2019-01-31 07:11 | NUR ---
BULK PIGMENT REDUCER NOTE PT REMAINED STABLE DURING SHIFT. A/O X4. TELE- A-FLUTTER 30'S. NO DIZZINESS OR LIGHTHEADEDNESS NOTED. ALL SAFETY MEASURES IN PLACE. WILL ENDORSE TO NEXT SHIFT FOR CONTINUITY OF CARE.
[2019-01-31] MEDS: PANTOPRAZOLE 40 MG TABLET.DR PO SCH (07:18)
--- NOTE | 2019-01-31 07:36 | NUR ---
WOUND CARE CONSULT: PT PRESENTS WITH RAISED AREA TO UPPER BACK, PRESENT ON ADMISSION. PT STATES HAS HAD THIS RECURRENT CYST FOR YEARS AND DENIES DISCOMFORT. PT STATES WILL FOLLOW WITH HIS PMD. DEFER TO MD FOR RAISED AREA. PT IS INDEPENDENT WITH BED MOBILITY AND CONTINENT. WILL SEE PRN.
[2019-01-31] MEDS: ALBUTEROL FS 2.5 MG/0.5 ML VIAL.NEB NEB PRN ×2 (07:44→20:07)
--- NOTE | 2019-01-31 08:15 | NUR ---
IP ARCHITECT OPENING NOTES RECEIVED PT LYING ON BED,ALERT/ORIENTED X4.ON TELE HR IS 47,ON 2LPM O2 VIA NC CONTINUOUSLY.NO SOB AND ACUTE DISTRESS NOTED.IV LINE IS ON RIGHT AC G20,SL AND LEFT AC G18,WITH IV FLUID 0.9%NS @75CC/HR IS RUNNING.SITE IS CLEAN,DRY AND INTACT.NO INFILTRATION NOTED.SAFETY IS MAINTAINED AT ALL TIMES.BED IS IN LOW POSITION AND LOCKED,CALL LIGHT IS WITH IN REACH.WILL CONTINUE TO MONITOR THE PT CLOSELY.
[2019-01-31] MEDS: Magnesium 1GM/D5W 100ML PREMIX 100 ML IV SCH ×2 (09:58→11:10)
[2019-01-31] MEDS ORDERED: POTASSIUM CHLORIDE 20 MEQ TAB.PRT.SR PO SCH (11:00)
--- NOTE | 2019-01-31 12:01 | NUR ---
EMBROIDERY WORKER NOTES PER PT REQUEST,DR.SANTA MCMAHON (PCP)ORDERED XANAX 0.25MG PO Q6HR PRN.NEW ORDERS NOTED AND CARRIED OUT.
[2019-01-31] MEDS: ALPRAZOLAM 0.25 MG TABLET PO PRN ×2 (12:23→18:53)
--- NOTE | 2019-01-31 13:00 | NUR ---
QUALITY PROJECT MANAGER NOTES PT TRANSFERRED TO HEIDI TO ROOM 104 WITH ALL THE MEDICATIONS.
[2019-01-31] MEDS: FLUTICASONE/VILANTEROL 1 EACH BLST.W.DEV IH SCH (14:22)
[2019-01-31] MEDS: IV NS 0.9% 1,000 ML IV PRN (14:38)
[2019-01-31] MEDS ORDERED: RIVAROXABAN 10 MG TABLET PO SCH (17:00)
--- NOTE | 2019-01-31 18:49 | NUR ---
FACULTY RESEARCH PHYSICIAN CLOSING NOTES PT IS LYING ON BED,ALERT/ORIENTED X4.IV LINE IS IN PLACE WITH IV FLUID IS RUNNING.SITE IS CLEAN,DRY AND INTACT.RESPIRATION IS EVEN AND NONLABORED.NO SIGNIFICANT CHANGES NOTED IN THE SHIFT.WILL ENDORSE TO STUDENT RECRUITER RN FOR NIKKY.
[2019-01-31] MEDS: IPRATROPIUM NEB FS 0.5 MG/2.5 ML AMPUL.NEB NEB PRN (20:07)
[2019-02-01] MEDS: ALPRAZOLAM 0.25 MG TABLET PO PRN (01:41)
[2019-02-01 06:59] LABS: BASOPHILS # (AUTO) 0.1 /CMM (0.0-0.2); BASOPHILS % (AUTO) 0.8 % (0.0-2.0); EOSINOPHILS % (AUTO) 2.7 % (0.0-6.0); HEMATOCRIT 36 % (39-51); HEMOGLOBIN 11.8 g/dL (13.5-17.5); LYMPHOCYTES # (AUTO) 1.8 /CMM (0.8-4.8); LYMPHOCYTES % (AUTO) 21.1 % (20.0-44.0); MEAN CORPUSCULAR HGB CONC 33 g/dl (31.0-36.0); MEAN CORPUSCULAR VOLUME 85 fL (80-96); MONOCYTES # (AUTO) 0.8 /CMM (0.1-1.30); MONOCYTES % (AUTO) 9.3 % (2.0-12.0); NEUTROPHILS # (AUTO) 5.7 /CMM (1.8-8.9); NEUTROPHILS % (AUTO) 66.1 % (43.0-81.0); PLATELET COUNT (AUTO) 176 /CMM (150-450); RED BLOOD CELL COUNT(AUTO) 4.26 MIL/uL (4.5-6.0); WHITE BLOOD COUNT (AUTO) 8.7 K/uL (4.3-11.0)
--- NOTE | 2019-02-01 07:00 | NUR ---
RN NOTES RECEIVED PT ON BED, A/Ox4, ON RA , RESPIRATION EVEN AND UNLABORED, NO SOB NOTED . ON TELE A.FLUTTER HR IN 50'S , PT DENIES ANY DISTRESS , SR UP x3, CALL LIGHT WITHIN EASY REACH, BED LOCKED AND IN LOWEST POSITION, CONTINUE TO MONITOR.
[2019-02-01 07:28] LABS: CALCIUM, SERUM 8.4 mg/dL (8.5-10.1); CREATININE 0.7 mg/dL (0.6-1.3); MAGNESIUM 1.6 mg/dL (1.8-2.4); PHOSPHORUS 3.9 mg/dL (2.5-4.9); POTASSIUM 4.1 mmol/L (3.5-5.1)
[2019-02-01 08:00] VITALS: BP 150/81
[2019-02-01] MEDS: PANTOPRAZOLE 40 MG TABLET.DR PO SCH (08:15)
[2019-02-01] MEDS: FLUTICASONE/VILANTEROL 1 EACH BLST.W.DEV IH SCH (08:16)
[2019-02-01] MEDS: Magnesium 1GM/D5W 100ML PREMIX 100 ML IV SCH ×2 (10:49→12:02)
[2019-02-01] MEDS: ALBUTEROL FS 2.5 MG/0.5 ML VIAL.NEB NEB PRN (11:09)
[2019-02-01] MEDS: IPRATROPIUM NEB FS 0.5 MG/2.5 ML AMPUL.NEB NEB PRN (11:10)
[2019-02-01 12:00] VITALS: BP 137/85
--- NOTE | 2019-02-01 13:44 | NUR ---
RN NOTES DISCHARGE INSTRUCTION GIVEN TO RADHA ( COTTON BAG SEWER) AND PATIENT . VERBALIZED UNDERSTANDING . L AC IV SITE D/JENNIFER , PT LEFT THE FLOOR TO MAIN ENTRANCE ACCOMPANIED BY STAFF MEMBERS IN STABLE CONDITION VIA LYFT .
== END 2019-02-01 13:50 | disposition home or self-care (01) | DRG 918 ==
LOC: ER 14:34 → TELE 16:41 → TELE-TD 17:46 → ICU 20:23 → TELE1 01-31 12:38
PROVIDERS: ADMIT Student in an Organized Health Care Education/Training Program; ATTEND Student in an Organized Health Care Education/Training Program
DX: T44.7X1A Poisoning by beta-adrenoreceptor antagonists, accidental (unintentional), initial encounter (principal); D68.59 Other primary thrombophilia; I48.92 Unspecified atrial flutter; I48.20 Chronic atrial fibrillation, unspecified; T46.1X1A Poisoning by calcium-channel blockers, accidental (unintentional), initial encounter; E03.9 Hypothyroidism, unspecified; D63.8 Anemia in other chronic diseases classified elsewhere; E11.9 Type 2 diabetes mellitus without complications; K21.9 Gastro-esophageal reflux disease without esophagitis; Z79.01 Long term (current) use of anticoagulants; Z87.891 Personal history of nicotine dependence; G47.33 Obstructive sleep apnea (adult) (pediatric); E87.6 Hypokalemia; E78.5 Hyperlipidemia, unspecified; J44.9 Chronic obstructive pulmonary disease, unspecified; I10 Essential (primary) hypertension; J40 Bronchitis, not specified as acute or chronic; Y92.009 Unspecified place in unspecified non-institutional (private) residence as the place of occurrence of the external cause; G89.29 Other chronic pain; D72.828 Other elevated white blood cell count
CPT/HCPCS: 36415; 71045-TC; 80048-TC; 80061-TC; 80076-TC; 83735-TC; 83880; 84100-TC; 84443-TC; 84484-TC; 85025-TC; 85730-TC; 87081-TC; 93307-TC; 97116-TC; 97530-TC; G0378; J3475; J3490; J7030

== ENCOUNTER 2019-02-22 08:25 | Inpatient (IN) | payer MEDICARE, OTHER ==
[~2019-02-22] VITALS: Ht 162.6 cm; Wt 88.5 kg
[~2019-02-22 08:25] MED LIST changes: -ALBU8.5H8 IH; -CARV12.52 PO; -DILT-3 PO; -NIFE60TA73 PO; -SERT50TA PO
--- NOTE | 2019-02-22 08:29 | NUR ---
BIBRA60, FROM HOME SOB, ON CPAP, GIVEN ALBUTEROL X1 POWER CLEANER OPERATOR. TO ER BED 5, HOOKED TO DIESEL MOTOR MECHANIC, CHANGED TO HOSPITAL GOWRon RT AT BEDSIDE, DR RODRIGUEZ AT BEDSIDE. PATIENT NOTED W LFA 18G PERIPHERAL IVP, PATENT AND FLUSHING. AWAITING MD ORDERS
--- NOTE | 2019-02-22 08:30 | NUR ---
DR RODRIGUEZ AT BEDSIDE
--- NOTE | 2019-02-22 08:35 | NUR ---
PATIENT PL;ACED ON BIPAP MACHINE. SETTINGS: IPAP 15 EPAP 5 RATE 14 O2 40%
--- NOTE | 2019-02-22 08:35 | NUR ---
Jamey young in ED - 02/22/19 at [address] PATIENT [address];ACED ON BIPAP MACHINE. SETTINGS: IPAP 15 EPAP 5 RATE 14 O2 40%
[2019-02-22] MEDS ORDERED: IPRATROPIUM NEB FS 0.5 MG/2.5 ML AMPUL.NEB ONE ×3 (08:38→11:07)
[2019-02-22] MEDS ORDERED: ALBUTEROL FS 2.5 MG/3 ML VIAL.NEB ONE ×3 (08:38→11:07)
[2019-02-22] MEDS ORDERED: ROSU20TA2 PO (08:46)
[2019-02-22 09:00] LABS: BASOPHILS # (AUTO) 0.1 /CMM (0.0-0.2); BASOPHILS % (AUTO) 0.9 % (0.0-2.0); EOSINOPHILS % (AUTO) 6.2 % (0.0-6.0); HEMATOCRIT 39 % (39-51); HEMOGLOBIN 12.7 g/dL (13.5-17.5); LYMPHOCYTES # (AUTO) 1.7 /CMM (0.8-4.8); LYMPHOCYTES % (AUTO) 19.4 % (20.0-44.0); MEAN CORPUSCULAR HGB CONC 33 g/dl (31.0-36.0); MEAN CORPUSCULAR VOLUME 84 fL (80-96); MONOCYTES # (AUTO) 0.5 /CMM (0.1-1.30); NEUTROPHILS # (AUTO) 5.9 /CMM (1.8-8.9); NEUTROPHILS % (AUTO) 67.5 % (43.0-81.0); PLATELET COUNT (AUTO) 246 /CMM (150-450); RED BLOOD CELL COUNT(AUTO) 4.61 MIL/uL (4.5-6.0); WHITE BLOOD COUNT (AUTO) 8.7 K/uL (4.3-11.0)
[2019-02-22] MEDS ORDERED: IPRATROPIUM NEB FS 0.5 MG/2.5 ML AMPUL.NEB NEB ONE ×2 (09:00→11:30)
[2019-02-22] MEDS ORDERED: ALBUTEROL FS 2.5 MG/3 ML VIAL.NEB NEB ONE ×2 (09:00→11:30)
[2019-02-22 09:06] LABS: CALCIUM, SERUM 9.2 mg/dL (8.5-10.1); CREATININE 0.7 mg/dL (0.6-1.3); POTASSIUM 3.6 mmol/L (3.5-5.1)
[2019-02-22 10:10] LABS: ABG BASE EXCESS -2.4 mmol/L; ABG OXYGEN SATURATION 98.9 % (92.0-98.5); ABG PCO2 42.9 mmHg (35.0-45.0); ABG PH 7.351 (7.350-7.450); ABG PO2 195.2 mmHg (75.0-100.0); AaDO2 40.7 mmHg; COHb 0.6 % (0.5-1.5); MetHb 0.5 % (0.0-1.5); O2Hb 97.8 % (94.0-97.0); SITE, ABG Right Radial; VENT MODE, BG ST 15/5 BUR 14
--- NOTE | 2019-02-22 10:47 | NUR ---
RT Pt became extremely anxious and requested to be taken off BiPAP. Pt is on room air with adequate SpO2, with mild accessory muscle usage. RN notified and aware. Addendum: 02/22/19 at 1053 by YOLANDE WELLER RT Amended: Links added.
--- NOTE | 2019-02-22 10:48 | NUR ---
PATIENT NOTED WITH ANXIETY, REMOVED BIPAP MACHINE. MADE MD AWARE
[2019-02-22] MEDS ORDERED: predniSONE 20 MG TABLET ONE (11:06)
[2019-02-22] MEDS ORDERED: LORAZEPAM INJ 2 MG/ML VIAL ONE (11:08)
[2019-02-22] MEDS ORDERED: LORAZEPAM INJ 2 MG/ML VIAL IV ONE (11:30)
[2019-02-22] MEDS ORDERED: predniSONE 20 MG TABLET PO ONE (11:30)
--- NOTE | 2019-02-22 11:48 | NUR ---
Jamey young in ED - 02/22/19 at 1454 by ASHA PATIENT NOTED WITH ANXIETY, REMOVED BIPAP MACHINE. MADE AWARE
--- NOTE | 2019-02-22 12:00 | NUR ---
ASSUMED CARE. PT ON BIPAP, ON TELE ST. RR EVEN & UNLABORED. DENIES CP, SOB, DIZZINESS, N/V @ THIS TIME. WILL CONT TO MONITOR.
--- NOTE | 2019-02-22 14:00 | NUR ---
CALLED NURSING SUP FOR BED
--- NOTE | 2019-02-22 14:02 | NUR ---
PT ASLEEP, EASILY AWAKEN BY VERBAL STIMULI. DR. RODRIGUEZ DC'D BIPAP. PT ON O2 2L NC 98%, HEIDY WELL. PT STABLE NAD NOTED @ THIS TIME & WILL CONT TO MONITOR.
--- NOTE | 2019-02-22 14:42 | NUR ---
309-1 [facility]
[2019-02-22] MEDS ORDERED: ACETAMINOPHEN 325 MG TABLET PO PRN ×2 (15:00)
[2019-02-22] MEDS ORDERED: ONDANSETRON HCL/PF 4 MG/2 ML VIAL IVP PRN (15:00)
[2019-02-22] MEDS ORDERED: MAG HYDROX/AL HYDROX/SIMETH 30 ML UDC PO PRN (15:00)
[2019-02-22] MEDS ORDERED: MAGNESIUM HYDROXIDE 30 ML UDC PO PRN (15:00)
[2019-02-22] MEDS ORDERED: Z GUARD REMEDY 2 OZ OINT TP PRN (15:00)
--- NOTE | 2019-02-22 15:10 | NUR ---
Report given to Mary CHANG for tristan.
--- NOTE | 2019-02-22 15:14 | NUR ---
Patient wheeled via gurney accompanied by EMT in no distress, Mary RN at bedside to assume care.
--- NOTE | 2019-02-22 15:30 | NUR ---
male pt. adm. to rm 309-1.made comfortable on o2.
[2019-02-22] MEDS ORDERED: methylPREDNISolone SOD SUCC 125 MG/2ML VIAL IV ONE (15:50)
[2019-02-22] MEDS: IPRATROPIUM NEB FS 0.5 MG/2.5 ML AMPUL.NEB NEB SCH ×3 (15:53→23:30)
[2019-02-22 16:00] VITALS: BP 158/80
[2019-02-22] MEDS ORDERED: IPRATROPIUM NEB FS 0.5 MG/2.5 ML AMPUL.NEB IH SCH (17:00)
[2019-02-22] MEDS ORDERED: methylPREDNISolone SOD SUCC 125 MG/2ML VIAL IV SCH (17:00)
--- NOTE | 2019-02-22 17:45 | NUR ---
had coughing spell for 5 minutes.states he was eating hamburger and started to cough with it.rn stayed at bedside till pt. stopped coughing, suction set up present.
[2019-02-22] MEDS ORDERED: RIVAROXABAN 10 MG TABLET PO SCH (18:30)
[2019-02-22] MEDS ORDERED: SERTRALINE HCL 50 MG TABLET PO SCH (18:30)
--- NOTE | 2019-02-22 18:50 | NUR ---
photo taken of lesion upper back states has been there for a while.dr. waldron texted as pt. states he needs his zoloft and his zarelto.
--- NOTE | 2019-02-22 19:43 | NUR ---
MS RN RECEIVE PT IN BED A/O X 3, STABLE AND NOT IN DISTRESS, RESPIRATIONS EVEN AND UNLABORED. WILL CONT TO MTR
[2019-02-22] MEDS: ALBUTEROL FS 2.5 MG/0.5 ML VIAL.NEB NEB SCH (19:49)
[2019-02-22 20:00] VITALS: BP 158/78
[2019-02-22] MEDS: RIVAROXABAN 10 MG TABLET PO SCH (21:36)
[2019-02-22] MEDS: SERTRALINE HCL 50 MG TABLET PO SCH (21:41)
--- NOTE | 2019-02-22 22:26 | NUR ---
MS CHANG Pt seen S/B Dr. aMuro. Obtained new orders of Zolpidem 5 mg PO Q Prn read back and verified orders noted and carried out. Addendum: 02/22/19 at 2228 by PRITESH MARTIN RN Pt was seen 191402/22/19 during rounds
[2019-02-23] MEDS: ZOLPIDEM TARTRATE 5 MG TABLET PO PRN (00:07)
[2019-02-23] MEDS: ALBUTEROL FS 2.5 MG/0.5 ML VIAL.NEB NEB SCH ×4 (02:06→19:20)
[2019-02-23] MEDS: IPRATROPIUM NEB FS 0.5 MG/2.5 ML AMPUL.NEB NEB SCH ×6 (02:06→23:51)
--- NOTE | 2019-02-23 06:14 | NUR ---
MS RN ASLEEP AND EASILY AWAKEN, ON 2LPM VIA NC 02 SAT AT 97%. SLEPT WELL. NO C/O OF PAIN. RESPIRATIONS EVEN AND UNLABORED. NO S/S OF DISTRESS, NURSING CARE RENDERED, KEPT CLEAN AND DRY AND COMFORTABLE. NEEDS ATTENDED AND ANTICIPATED. SAFETY MEASURES AT ALL TIMES. ENDORSE TO THE NEXT SHIFT.
[2019-02-23 06:50] LABS: EOSINOPHILS % (AUTO) 4.1 % (0.0-6.0); HEMATOCRIT 38 % (39-51); HEMOGLOBIN 12.5 g/dL (13.5-17.5); LYMPHOCYTES # (AUTO) 0.5 /CMM (0.8-4.8); LYMPHOCYTES % (AUTO) 8.2 % (20.0-44.0); MEAN CORPUSCULAR HGB CONC 33 g/dl (31.0-36.0); MEAN CORPUSCULAR VOLUME 84 fL (80-96); MONOCYTES # (AUTO) 0.6 /CMM (0.1-1.30); MONOCYTES % (AUTO) 10.7 % (2.0-12.0); NEUTROPHILS # (AUTO) 4.7 /CMM (1.8-8.9); PLATELET COUNT (AUTO) 207 /CMM (150-450); WHITE BLOOD COUNT (AUTO) 6.1 K/uL (4.3-11.0)
[2019-02-23 07:18] LABS: CALCIUM, SERUM 9.4 mg/dL (8.5-10.1); CREATININE 0.8 mg/dL (0.6-1.3); MAGNESIUM 1.5 mg/dL (1.8-2.4); PHOSPHORUS 3.3 mg/dL (2.5-4.9)
[2019-02-23 08:00] VITALS: BP 159/92
--- NOTE | 2019-02-23 08:00 | NUR ---
RN NOTES RECEIVED PATIENT IN THE BED A/O X3. NO ACUTE RESPIRATORY DISTRESS, PATIENT HAS DRY COUGHING, ON O2- 2L NC. KEEP HOB ELEVATED FOR PREVENTION OF SOB. REFUSED F PAIN AT THIS TIME. ADMINISTERED SCHEDULED MEDICATION. IV ACCESS ON LEFT WRIST INTACT. NEEDS ATTENDED AND ANTICIPATED. PATIENT AMBULATORY SELF CARE, USING BATHROOM. SAFETY PRECAUTION MAINTAINED ALL THE TIME.
[2019-02-23] MEDS ORDERED: Medication Not On Formulary EA (Omega-3/Dha/Epa/Fish Oil (Fish Oil 1,000 mg Softgel) 1,0 PO SCH (09:00)
[2019-02-23] MEDS ORDERED: TIOTROPIUM BROMIDE 6 CAP/BOX CAP.W.DEV IH SCH (09:00)
[2019-02-23] MEDS: ATORVASTATIN 40 MG TABLET PO SCH (09:10)
[2019-02-23] MEDS: LOSARTAN POTASSIUM 25 MG TABLET PO SCH (09:10)
[2019-02-23] MEDS: PANTOPRAZOLE 40 MG TABLET.DR PO SCH (09:10)
[2019-02-23] MEDS: methylPREDNISolone SOD SUCC 125 MG/2ML VIAL IV SCH ×4 (09:10→20:52)
[2019-02-23] MEDS: FLUTICASONE/VILANTEROL 1 EACH BLST.W.DEV IH SCH (09:18)
[2019-02-23] MEDS: Magnesium 1GM/D5W 100ML PREMIX 100 ML IV SCH ×2 (09:37→11:13)
--- NOTE | 2019-02-23 13:00 | NUR ---
RN NOTES ADMINISTERED SCHEDULED MEDICATION. PATIENT TOLERATED LUNCH WELL, V/S STABLE, NO ACUTE RESPIRATORY DISTRESS, GETTING BREATHING TREATMENT AT THIS TIME. CONTINUED MONITORING.
[2019-02-23] MEDS: NEO/POLY-B/DEXAM OPHTH SUSP 5 ML BOTTLE EACHEYE SCH ×3 (13:38→20:52)
[2019-02-23 16:00] VITALS: BP 114/79
[2019-02-23] MEDS: LORAZEPAM 1 MG TABLET PO PRN (16:07)
--- NOTE | 2019-02-23 16:07 | NUR ---
RN NOTES ADMINISTERED ATIVAN 0.5 MG PO PRN FOR ANXIETY PER PATIENT REQUEST, V/S TAKEN BP -114/79, P-83, R-18 CONTINUED MONITORING.
--- NOTE | 2019-02-23 18:30 | NUR ---
RN NOTES MEDICATION WERE ADMINISTERED FOE ANXIETY EFFECTIVE, V/S STABLE. NO ACUTE RESPIRATORY DISTRESS, ON O2-2LNC. PATIENT USING BATHROOM, SELF CARE.TOLERATED DINNER WELL. ENDORSED ONCOMING NURSE FOLLOW PLAN OF CARE.
--- NOTE | 2019-02-23 19:12 | NUR ---
MS/RN NOTES RECEIVED PT. LYING IN BED. PT. IS AWAKE, ALERT AND ORIENTED X3. BREATHING EVEN AND UNLABORED ON 2LPM O2 VIA NC. NO SOB, RESPIRATORY DISTRESS OR COMPLAINTS OF PAIN NOTED AT THIS TIME. PT. WITH LEFT WRIST 18 GAUGE IV SALINE LOCK PRESENT, PATENT AND INTACT. BED LOCKED AND IN LOWEST POSITION, SIDE RAILS UP X2, CALL LIGHT WITHIN REACH, WILL CONTINUE TO MONITOR.
[2019-02-23 20:00] VITALS: BP 171/87
[2019-02-23] MEDS: SERTRALINE HCL 50 MG TABLET PO SCH (20:51)
[2019-02-23] MEDS: RIVAROXABAN 10 MG TABLET PO SCH (20:52)
[2019-02-23 21:07] VITALS: BP 152/85
[2019-02-24] MEDS: NEO/POLY-B/DEXAM OPHTH SUSP 5 ML BOTTLE EACHEYE SCH ×6 (00:27→20:51)
[2019-02-24] MEDS: ZOLPIDEM TARTRATE 5 MG TABLET PO PRN (00:27)
[2019-02-24] MEDS: ALBUTEROL FS 2.5 MG/0.5 ML VIAL.NEB NEB SCH ×5 (01:25→23:55)
[2019-02-24] MEDS: IPRATROPIUM NEB FS 0.5 MG/2.5 ML AMPUL.NEB NEB SCH ×6 (03:20→23:55)
[2019-02-24 06:19] LABS: BASOPHILS % (AUTO) 0.1 % (0.0-2.0); HEMATOCRIT 35 % (39-51); HEMOGLOBIN 11.5 g/dL (13.5-17.5); LYMPHOCYTES # (AUTO) 0.5 /CMM (0.8-4.8); LYMPHOCYTES % (AUTO) 5.8 % (20.0-44.0); MEAN CORPUSCULAR HGB CONC 33 g/dl (31.0-36.0); MEAN CORPUSCULAR VOLUME 84 fL (80-96); MONOCYTES # (AUTO) 0.4 /CMM (0.1-1.30); MONOCYTES % (AUTO) 4.4 % (2.0-12.0); NEUTROPHILS # (AUTO) 7.9 /CMM (1.8-8.9); NEUTROPHILS % (AUTO) 89.7 % (43.0-81.0); PLATELET COUNT (AUTO) 203 /CMM (150-450); RED BLOOD CELL COUNT(AUTO) 4.17 MIL/uL (4.5-6.0); WHITE BLOOD COUNT (AUTO) 8.8 K/uL (4.3-11.0)
--- NOTE | 2019-02-24 06:29 | NUR ---
MS/RN NOTES PT. IS LYING IN BED RESTING. BREATHING EVEN AND UNLABORED ON 2LPM O2 VIA NC. NO SOB, RESPIRATORY DISTRESS OR COMPLAINTS OF PAIN NOTED AT THIS TIME AND THROUGHOUT SHIFT. PT. WITH LEFT WRIST 18 GAUGE IV SALINE LOCK PRESENT, PATENT AND INTACT. ALL PT. NEEDS MET. BED LOCKED AND IN LOWEST POSITION, SIDE RAILS UP X2, CALL LIGHT WITHIN REACH, WILL ENDORSE TO DAYSHIFT NURSE FOR CONTINUITY OF CARE.
[2019-02-24] MEDS: PANTOPRAZOLE 40 MG TABLET.DR PO SCH (07:47)
[2019-02-24 08:00] VITALS: BP 169/89
--- NOTE | 2019-02-24 08:00 | NUR ---
RN Notes: Patient resting in bed; No acute respiratory distress; Vitals signs taken; BP: 169/89; Blood pressure medication given; Patient receiving breathing treatment by RT; Call light within reach; Continue monitoring; Patient self care by using bathroom.
[2019-02-24] MEDS: ATORVASTATIN 40 MG TABLET PO SCH (08:28)
[2019-02-24] MEDS: FLUTICASONE/VILANTEROL 1 EACH BLST.W.DEV IH SCH (08:28)
[2019-02-24] MEDS: LOSARTAN POTASSIUM 25 MG TABLET PO SCH (08:29)
[2019-02-24] MEDS: methylPREDNISolone SOD SUCC 125 MG/2ML VIAL IV SCH ×4 (08:29→20:50)
[2019-02-24] MEDS: HYDROCODONE/APAP 5/325MG 1 EACH TABLET PO PRN ×3 (09:51→23:53)
--- NOTE | 2019-02-24 09:51 | NUR ---
RN notes: administered narco 5/325 mg po prb for generalized pain (11/30) after coughing, v/s taken bp:153/79 HR: 71 RR: 22 Spo2: 98. Continue to monitor
--- NOTE | 2019-02-24 10:03 | NUR ---
WOUND CARE CONSULT: PT PRESENTS INDEPENDENT WITH BED MOBILITY AND CONTINENT. PT HAS RAISED LESION TO HIS BACK WHICH HE STATES HAS HAD FOR YEARS AND IS A RECURRENT CYST. NO DRAINAGE NOTED, NO TENDERNESS. DEFER TO MD. WILL SEE PRN. CURRENT DANIELA SCORE IS 19
--- NOTE | 2019-02-24 13:15 | NUR ---
RN Notes: Pain medication given was effective; Patient in bed eating lunch and tolerating well; No acute respiratory distress.
[2019-02-24 16:00] VITALS: BP 171/75
--- NOTE | 2019-02-24 16:08 | NUR ---
RN notes: Patient complained of pain rated 10/10 in his upper abdomen; pain is exacerbated with his coughing; Administered norco 5/325 mg (1 tab) per patient's request. Vital signs - BP: 171/75 HR: 69 RR: 20 Temp: 97.8 SpO2: 95; Continue monitoring.
[2019-02-24] MEDS: LORAZEPAM 1 MG TABLET PO PRN (17:30)
--- NOTE | 2019-02-24 17:30 | NUR ---
rn notes administered Ativan 0.5 mg po prn for anxiety per patient request v/s taken bp-168/84, p-73. continued monitoring.
[2019-02-24] MEDS ORDERED: CLONIDINE HCL 0.1 MG TABLET PO PRN (18:30)
--- NOTE | 2019-02-24 18:42 | NUR ---
RN Notes: Vital signs taken; Left arm BP: 187/98 HR: 71; Right arm BP: 181/93 HR: 71; Administered Norvasc 5mg as ordered; Medication given for anxiety and pain effective; Patient on O2 NC 2L; No acute respiratory distress; Call light within reach; Endorse to night time nanny nurse to follow plan of care.
[2019-02-24] MEDS: AMLODIPINE BESYLATE 5 MG TABLET PO SCH (18:47)
[2019-02-24 20:41] VITALS: BP 181/88
[2019-02-24] MEDS: RIVAROXABAN 10 MG TABLET PO SCH (20:49)
[2019-02-24] MEDS: SERTRALINE HCL 50 MG TABLET PO SCH (20:49)
[2019-02-25] MEDS: NEO/POLY-B/DEXAM OPHTH SUSP 5 ML BOTTLE EACHEYE SCH ×4 (01:51→12:29)
[2019-02-25] MEDS: ZOLPIDEM TARTRATE 5 MG TABLET PO PRN (01:51)
[2019-02-25] MEDS: IPRATROPIUM NEB FS 0.5 MG/2.5 ML AMPUL.NEB NEB SCH ×4 (03:30→15:22)
--- NOTE | 2019-02-25 06:28 | NUR ---
MS/RN NOTES PT. IS LYING IN BED RESTING. BREATHING EVEN AND UNLABORED ON 2LPM O2 VIA NC. NO SOB, RESPIRATORY DISTRESS OR COMPLAINTS OF PAIN NOTED AT THIS TIME. PT. WITH LEFT WRIST 18 GAUGE IV SALINE LOCK PRESENT, PATENT AND INTACT. ALL PT. NEEDS MET. BED LOCKED AND IN LOWEST POSITION, SIDE RAILS UP X2, CALL LIGHT WITHIN REACH, WILL ENDORSE TO DAYSHIFT NURSE FOR CONTINUITY OF CARE.
[2019-02-25 06:53] LABS: BASOPHILS % (AUTO) 0.1 % (0.0-2.0); HEMATOCRIT 37 % (39-51); LYMPHOCYTES # (AUTO) 0.7 /CMM (0.8-4.8); LYMPHOCYTES % (AUTO) 6.7 % (20.0-44.0); MEAN CORPUSCULAR HGB CONC 33 g/dl (31.0-36.0); MEAN CORPUSCULAR VOLUME 83 fL (80-96); MONOCYTES # (AUTO) 0.5 /CMM (0.1-1.30); MONOCYTES % (AUTO) 5.4 % (2.0-12.0); NEUTROPHILS # (AUTO) 8.7 /CMM (1.8-8.9); NEUTROPHILS % (AUTO) 87.8 % (43.0-81.0); PLATELET COUNT (AUTO) 220 /CMM (150-450); RED BLOOD CELL COUNT(AUTO) 4.39 MIL/uL (4.5-6.0)
[2019-02-25 07:04] LABS: CALCIUM, SERUM 8.9 mg/dL (8.5-10.1); CREATININE 0.8 mg/dL (0.6-1.3); MAGNESIUM 1.6 mg/dL (1.8-2.4); PHOSPHORUS 3.2 mg/dL (2.5-4.9); POTASSIUM 3.8 mmol/L (3.5-5.1)
[2019-02-25] MEDS: ALBUTEROL FS 2.5 MG/0.5 ML VIAL.NEB NEB SCH ×2 (07:51→13:08)
[2019-02-25] MEDS: PANTOPRAZOLE 40 MG TABLET.DR PO SCH (07:52)
--- NOTE | 2019-02-25 08:00 | NUR ---
RN NOTES RECEIVED PATIENT IN THE BED A/O X3, PATIENT ON O2-2L NC, NO ACUTE RESPIRATORY DISTRESS, V/S STABLE, ADMINISTERED SCHEDULED MEDICATION. PATIENT WAS COMPLAINING OF PAIN LOWER ABDOMEN WHEN COUGH, AND FEEL NERVOUS. SEEN PATIENT BY HOSPITALIST Dr MARSHALL, PLAN IS GOING HOME . NEEDS ATTENDED AND ANTICIPATED,.
[2019-02-25 08:08] VITALS: BP 131/89
[2019-02-25] MEDS ORDERED: PRED20TA PO (08:18)
[2019-02-25] MEDS: FLUTICASONE/VILANTEROL 1 EACH BLST.W.DEV IH SCH (08:28)
[2019-02-25] MEDS: methylPREDNISolone SOD SUCC 125 MG/2ML VIAL IV SCH ×2 (08:29→12:28)
[2019-02-25] MEDS: AMLODIPINE BESYLATE 5 MG TABLET PO SCH (08:29)
[2019-02-25 08:30] VITALS: BP 131/82
[2019-02-25] MEDS: ATORVASTATIN 40 MG TABLET PO SCH (08:30)
[2019-02-25] MEDS: LOSARTAN POTASSIUM 25 MG TABLET PO SCH (08:30)
[2019-02-25] MEDS: HYDROCODONE/APAP 5/325MG 1 EACH TABLET PO PRN (08:40)
--- NOTE | 2019-02-25 08:40 | NUR ---
rn notes administered narco 5/325 mg po prn for lower abdominal pain 09/30 per patient request, v/s taken bp 131/82, p-82. continued monitoring.
[2019-02-25] MEDS ORDERED: MAGNESIUM OXIDE 400 MG TABLET PO ONE (11:00)
--- NOTE | 2019-02-25 13:02 | NUR ---
RN NOTES MEDICATION WERE ADMINISTERED FOR PAIN EFFECTIVE, ENCOURAGED TO AMBULATE BECAUSE OF COMPLAINING OF BLOTTED ABDOMEN. CONTINUED MONITORING FOR SAFETY.
--- NOTE | 2019-02-25 15:30 | NUR ---
field marketing representative Notes: Patient discharged home; Patient A&O; Patient stable, no acute respiratory distress, and compliant with treatment plan; No complaints of pain; Medication reconciliation and discharge orders were reviewed and explained to patient; Patient verbalized understanding; Patient will follow up with primary MD and multi-speciality clinic on 02/27/2019 at 12:15 pm; Prescription electronically done by doctor Cain; Patient states he has oxygen at home (uses 2L of oxygen as needed); Patient signed paperwork; Patient refused photo of skin lesion to be taken at discharge; All belonging are with patient; Escorted patient to lobby for safety measures; Patient picked up by friend, Christa (contact infor: [phone]).
== END 2019-02-25 15:30 | disposition home or self-care (01) | DRG 191 ==
LOC: ER 08:25 → MED 14:50
PROVIDERS: ADMIT Internal Medicine; ATTEND Family Medicine
PROC: 5A09357 Assistance with Respiratory Ventilation, Less than 24 Consecutive Hours, Continuous Positive Airway Pressure (ICD-10-PCS; principal; 2019-02-22)
DX: J44.1 Chronic obstructive pulmonary disease with (acute) exacerbation (principal); I48.92 Unspecified atrial flutter; D68.69 Other thrombophilia; D63.8 Anemia in other chronic diseases classified elsewhere; E11.9 Type 2 diabetes mellitus without complications; F41.9 Anxiety disorder, unspecified; I48.91 Unspecified atrial fibrillation; K21.9 Gastro-esophageal reflux disease without esophagitis; E78.5 Hyperlipidemia, unspecified; E03.9 Hypothyroidism, unspecified; E83.42 Hypomagnesemia; B30.9 Viral conjunctivitis, unspecified; I10 Essential (primary) hypertension; G89.29 Other chronic pain; F17.200 Nicotine dependence, unspecified, uncomplicated; F32.9 Major depressive disorder, single episode, unspecified; Z71.6 Tobacco abuse counseling; Z79.01 Long term (current) use of anticoagulants
CPT/HCPCS: 36415; 36600; 71045-TC; 74018; 80048-TC; 82803-TC; 83735-TC; 84100-TC; 85025-TC; 87081-TC; 94799-TC; G0378; J2060; J2405; J2930; J3475; J7050

== ENCOUNTER 2019-02-28 13:54 | Outpatient (CLI) | payer MEDICARE, OTHER ==
[~2019-02-28 13:54] MED LIST changes: +PRED20TA PO; +ROSU20TA2 PO
[2019-02-28 14:22] VITALS: BP 132/67
== END 2019-02-28 23:59 | disposition home or self-care (01) ==
LOC: MSC 13:54
PROVIDERS: ATTEND Internal Medicine
DX: J44.1 Chronic obstructive pulmonary disease with (acute) exacerbation (principal); I48.91 Unspecified atrial fibrillation; Z79.01 Long term (current) use of anticoagulants; D63.8 Anemia in other chronic diseases classified elsewhere; D68.59 Other primary thrombophilia; I10 Essential (primary) hypertension; E78.5 Hyperlipidemia, unspecified; E03.9 Hypothyroidism, unspecified; G89.29 Other chronic pain; M54.9 Dorsalgia, unspecified; F41.8 Other specified anxiety disorders; H10.9 Unspecified conjunctivitis; Z79.899 Other long term (current) drug therapy

== ENCOUNTER 2019-07-06 10:18 | Inpatient (IN) | payer MEDICARE, OTHER ==
[~2019-07-06] VITALS: Ht 177.8 cm; Wt 86.2 kg
[~2019-07-06 10:18] MED LIST changes: -ATOR40TA PO; -AZIT250T PO; -BUDE10.2 IH; -PRED5TAB48 PO; -ROSU20TA32 PO
[2019-07-06] MEDS ORDERED: IPRATROPIUM NEB FS 0.5 MG/2.5 ML AMPUL.NEB ONE (10:58)
[2019-07-06] MEDS ORDERED: ALBUTEROL FS 2.5 MG/3 ML VIAL.NEB ONE ×2 (10:58→11:45)
[2019-07-06] MEDS ORDERED: IPRATROPIUM NEB FS 0.5 MG/2.5 ML AMPUL.NEB NEB ONE (11:00)
[2019-07-06] MEDS ORDERED: methylPREDNISolone SOD SUCC 125 MG/2ML VIAL IV ONE (11:00)
[2019-07-06] MEDS ORDERED: ALBUTEROL FS 2.5 MG/3 ML VIAL.NEB NEB ONE (11:00)
[2019-07-06] MEDS ORDERED: methylPREDNISolone SOD SUCC 125 MG/2ML VIAL ONE (11:02)
[2019-07-06 11:11] LABS: BASOPHILS # (AUTO) 0.1 /CMM (0.0-0.2); BASOPHILS % (AUTO) 0.6 % (0.0-2.0); EOSINOPHILS % (AUTO) 3.4 % (0.0-6.0); HEMATOCRIT 36 % (39-51); HEMOGLOBIN 11.4 g/dL (13.5-17.5); LYMPHOCYTES # (AUTO) 0.9 /CMM (0.8-4.8); MEAN CORPUSCULAR HGB CONC 32 g/dl (31.0-36.0); MEAN CORPUSCULAR VOLUME 74 fL (80-96); MONOCYTES # (AUTO) 0.5 /CMM (0.1-1.30); MONOCYTES % (AUTO) 5.7 % (2.0-12.0); NEUTROPHILS # (AUTO) 7.1 /CMM (1.8-8.9); NEUTROPHILS % (AUTO) 80.3 % (43.0-81.0); PLATELET COUNT (AUTO) 238 /CMM (150-450); RED BLOOD CELL COUNT(AUTO) 4.86 MIL/uL (4.5-6.0); WHITE BLOOD COUNT (AUTO) 8.9 K/uL (4.3-11.0)
[2019-07-06 11:19] LABS: CALCIUM, SERUM 8.8 mg/dL (8.5-10.1); CREATININE 0.7 mg/dL (0.6-1.3); POTASSIUM 4.1 mmol/L (3.5-5.1)
[2019-07-06 11:22] LABS: ABG BASE EXCESS -2.7 mmol/L; ABG OXYGEN SATURATION 96.9 % (92.0-98.5); ABG PCO2 47.3 mmHg (35.0-45.0); ABG PH 7.316 (7.350-7.450); ABG PO2 98.3 mmHg (75.0-100.0); AaDO2 110.8 mmHg; COHb 0.1 % (0.5-1.5); MetHb 0.4 % (0.0-1.5); O2Hb 96.4 % (94.0-97.0); SITE, ABG Right Brachial; VENT MODE, BG 4 LPM O2 FLOW VIA HHN TX
[2019-07-06] MEDS ORDERED: IPRATROPIUM NEB FS 0.5 MG/2.5 ML AMPUL.NEB IH SCH (11:30)
[2019-07-06] MEDS ORDERED: Medication Not On Formulary EA (Omega-3/Dha/Epa/Fish Oil (Fish Oil 1,000 mg Softgel) 1,0 PO SCH (11:30)
[2019-07-06] MEDS ORDERED: ACETAMINOPHEN 325 MG TABLET PO PRN ×2 (11:30→13:30)
[2019-07-06 11:32] LABS: ALBUMIN 3.9 g/dL (3.4-5.0); BILIRUBIN,DIRECT 0.1 mg/dL (0.0-0.2); BILIRUBIN,TOTAL 0.3 mg/dL (0.2-1.0); TOTAL PROTEIN, SERUM 7.4 g/dL (6.4-8.2)
[2019-07-06] MEDS: ALBUTEROL FS 2.5 MG/3 ML VIAL.NEB NEB SCH ×4 (11:43→23:22)
[2019-07-06] MEDS: IPRATROPIUM NEB FS 0.5 MG/2.5 ML AMPUL.NEB NEB SCH ×4 (11:43→23:22)
--- NOTE | 2019-07-06 11:46 | NUR ---
CALLED [facility], PAGED ROLANDO
--- NOTE | 2019-07-06 12:07 | NUR ---
CALLED NURSING SUP FOR BED
--- NOTE | 2019-07-06 12:11 | NUR ---
Patient awake alert sob wheezing noted with excertion Rt treatment x 2
--- NOTE | 2019-07-06 12:48 | NUR ---
118-1 [facility]
[2019-07-06 13:20] VITALS: BP 146/63
--- NOTE | 2019-07-06 13:20 | NUR ---
MS RN ADMITTING NOTE PATIENT ARRIVED BY WHEELCHAIR AND IS AMBULATORY TO BED. PATIENT IN NO ACUTE DISTRESS. NO SOB NOTED. PATIENT BREATHING IS LABORED WITH MOVEMENT. PATIENT ON NC 3L SATURATING AT 94% SPO2. SAFETY PRECAUTIONS IN PLACE. PATIENT BED IS LOCKED AND IN LOWEST POSITION. CALL LIGHT WITHIN REACH.WILL CONTINUE TO MONITOR. DR. MARSHALL MADE AWARE OF PATIENTS ARRIVAL TO UNIT.
[2019-07-06] MEDS ORDERED: MAGNESIUM HYDROXIDE 30 ML UDC PO PRN (13:30)
[2019-07-06] MEDS ORDERED: HYDROCODONE/APAP 5/325MG 1 EACH TABLET PO PRN (13:30)
[2019-07-06] MEDS ORDERED: ONDANSETRON HCL/PF 4 MG/2 ML VIAL IVP PRN (13:30)
[2019-07-06] MEDS ORDERED: MAG HYDROX/AL HYDROX/SIMETH 30 ML UDC PO PRN (13:30)
[2019-07-06] MEDS ORDERED: Z GUARD REMEDY 2 OZ OINT TP PRN (13:30)
[2019-07-06] MEDS: SERTRALINE HCL 50 MG TABLET PO SCH (13:52)
[2019-07-06] MEDS: PANTOPRAZOLE 40 MG TABLET.DR PO SCH (13:52)
[2019-07-06] MEDS: LOSARTAN POTASSIUM 25 MG TABLET PO SCH (13:53)
[2019-07-06] MEDS: predniSONE 20 MG TABLET PO SCH ×2 (13:53→16:45)
[2019-07-06] MEDS: AZITHROMYCIN 500 MG in IV D5W 250 ML IV SCH (14:58)
[2019-07-06] MEDS: FLUTICASONE/VILANTEROL 1 EACH BLST.W.DEV IH SCH (14:58)
[2019-07-06] MEDS ORDERED: ALBUTEROL FS 2.5 MG/3 ML VIAL.NEB NEB SCH (15:30)
[2019-07-06] MEDS ORDERED: IPRATROPIUM NEB FS 0.5 MG/2.5 ML AMPUL.NEB NEB SCH (15:30)
[2019-07-06] MEDS: RIVAROXABAN 10 MG TABLET PO SCH (16:38)
--- NOTE | 2019-07-06 16:43 | NUR ---
MS RN NOTE PATIENT REFUSING XARELTO 1700 DOSE DUE TO PATIENT STATING HE HAD TAKEN IT BEFORE COMING TO HOSPITAL TODAY.
--- NOTE | 2019-07-06 18:33 | NUR ---
MS RN CLOSING NOTE PATIENT IN NO ACUTE DISTRESS. NO SOB NOTED. PATIENT BREATHING IS EVEN AND UNLABORED. PATIENT ON 2L NC SATURATING AT 92% SPO2. PATIENT KEPT CLEAN, DRY AND COMFORTABLE THROUGHOUT SHIFT. PATIENT SAFETY PRECAUTIONS IN PLACE. IV PATENT AND INTACT. PATIENT BED IS LOCKED AND IN LOWEST POSITION. CALL LIGHT WITHIN REACH. WILL ENDORSE CARE TO PM SHIFT FOR NIKKY.
--- NOTE | 2019-07-06 19:49 | NUR ---
MS RN OPENING NOTES PATIENT RECEIVED RESTING IN BED, A/O X 4. ON 2L OF O2 VIA NC WITH BREATHING EVEN AND UNLABORED, NO SOB NOTED. NO SIGNS OF ACUTE DISTRESS. NO COMPLAINTS OF PAIN OR DISCOMFORT. IV LOCATED ON R SL. SAFETY PRECAUTIONS IN PLACE WITH BED IN LOWEST POSITION, CALL LIGHT WITHIN REACH, SIDE RAILS UP, AND CALL BREAKS ON. WILL CONTINUE TO MONITOR THROUGHOUT THE NIGHT.
[2019-07-06] MEDS: ZOLPIDEM TARTRATE 5 MG TABLET PO PRN (22:54)
[2019-07-07] MEDS: IPRATROPIUM NEB FS 0.5 MG/2.5 ML AMPUL.NEB NEB SCH ×6 (03:26→23:40)
[2019-07-07] MEDS: ALBUTEROL FS 2.5 MG/3 ML VIAL.NEB NEB SCH ×6 (03:26→23:40)
--- NOTE | 2019-07-07 06:26 | NUR ---
MS RN CLOSING NOTES PATIENT RESTING IN BED, A/O X 4. ON 2L OF O2 VIA NC WITH BREATHING EVEN AND UNLABORED, NO SOB NOTED. NO SIGNS OF ACUTE DISTRESS. SLIGHT COMPLAINTS OF PAIN OR DISCOMFORT DUE TO NECK SPASMS, HEAT PACK RELIEVES IT. IV LOCATED ON R HAND SL. SAFETY PRECAUTIONS IN PLACE WITH BED IN LOWEST POSITION, CALL LIGHT WITHIN REACH, SIDE RAILS UP, AND CALL BREAKS ON. ALL NEEDS ATTENDED TO THROUGHOUT THE NIGHT. WILL ENDORSE TO ONCOMING SHIFT ABOUT NIKKY.
[2019-07-07] MEDS: PANTOPRAZOLE 40 MG TABLET.DR PO SCH (07:52)
[2019-07-07 07:59] LABS: HEMATOCRIT 33 % (39-51); HEMOGLOBIN 10.4 g/dL (13.5-17.5); LYMPHOCYTES # (AUTO) 0.5 /CMM (0.8-4.8); LYMPHOCYTES % (AUTO) 6.4 % (20.0-44.0); MEAN CORPUSCULAR HGB CONC 32 g/dl (31.0-36.0); MEAN CORPUSCULAR VOLUME 73 fL (80-96); MONOCYTES # (AUTO) 0.5 /CMM (0.1-1.30); MONOCYTES % (AUTO) 6.6 % (2.0-12.0); NEUTROPHILS # (AUTO) 6.3 /CMM (1.8-8.9); PLATELET COUNT (AUTO) 239 /CMM (150-450); RED BLOOD CELL COUNT(AUTO) 4.49 MIL/uL (4.5-6.0); WHITE BLOOD COUNT (AUTO) 7.2 K/uL (4.3-11.0)
[2019-07-07 08:00] VITALS: BP 149/66
[2019-07-07 08:16] LABS: ALBUMIN 3.6 g/dL (3.4-5.0); BILIRUBIN,TOTAL 0.3 mg/dL (0.2-1.0); CALCIUM, SERUM 9.2 mg/dL (8.5-10.1); CREATININE 0.7 mg/dL (0.6-1.3); MAGNESIUM 1.7 mg/dL (1.8-2.4); POTASSIUM 4.3 mmol/L (3.5-5.1); TOTAL PROTEIN, SERUM 6.9 g/dL (6.4-8.2)
[2019-07-07] MEDS: methylPREDNISolone SOD SUCC 125 MG/2ML VIAL IV SCH (08:41)
[2019-07-07] MEDS: FLUTICASONE/VILANTEROL 1 EACH BLST.W.DEV IH SCH (08:41)
[2019-07-07] MEDS: ATORVASTATIN 40 MG TABLET PO SCH (08:42)
[2019-07-07] MEDS: SERTRALINE HCL 50 MG TABLET PO SCH (08:42)
[2019-07-07] MEDS: predniSONE 20 MG TABLET PO SCH ×3 (08:42→17:52)
[2019-07-07] MEDS: LOSARTAN POTASSIUM 25 MG TABLET PO SCH (08:44)
[2019-07-07] MEDS: Magnesium 1GM/D5W 100ML PREMIX 100 ML IV SCH ×2 (11:54→12:49)
[2019-07-07] MEDS: AZITHROMYCIN 500 MG in IV D5W 250 ML IV SCH (13:15)
[2019-07-07 16:00] VITALS: BP 133/80
[2019-07-07] MEDS: RIVAROXABAN 10 MG TABLET PO SCH (17:00)
--- NOTE | 2019-07-07 19:00 | NUR ---
MS RN NOTES 0700- PATIENT RECEIVED RESTING IN BED, A/O X 4. ON 2L OF O2 VIA NC WITH BREATHING EVEN AND UNLABORED, NO SOB NOTED. NO SIGNS OF ACUTE DISTRESS. NO COMPLAINTS OF PAIN OR DISCOMFORT. IV LOCATED ON R [facility]. SAFETY PRECAUTIONS IN PLACE WITH BED IN LOWEST POSITION, CALL LIGHT WITHIN REACH, SIDE RAILS UP, AND CALL BREAKS ON. WILL CONTINUE TO MONITOR. EXPLAINED PLAN OF CARE TO PATIENT AND MEDICATIONS COMING UP ON SHIFT. CLOSING- PATIENT HANDED OFF TO RAIL OPERATIONS CONTROLLER. RESTING IN BED COMFORTABLY. NO SIGNS OF ACUTE DISTRESS. PATIENT AMBULATED IN [place] TODAY. STATED HE'S FEELING A LOT BETTER. MEDICATIONS GIVEN ORDERED. BED IN LOWEST POSITION, CALL LIGHT WITHIN REACH, ALL MEASURES TAKEN TO ENSURE CLIENT SAFETY.
--- NOTE | 2019-07-07 19:45 | NUR ---
RN OPENING NOTES RECEIVED REPORT FROM DAYSHIFT RN. FOUND Pt AWAKE, WALKING AROUND. Pt IS AMB. NO S/S OF ACUTE DISTRESS OR SOB NOTED. ON 2-3L O2 VIA NC, PRN. Pt IS A/OX4, VERBAL, ABLE TO MAKE NEEDS KNOWN. IV ACCESS ON RHAND #20G, SL. POSSIBLE DC PLANNING FOR TOMORROW SINCE Pt HAS SCHEDULED ORAL SX ON WED OUTPT. WILL CONTINUE TO MONITOR Pt's CONDITION AND SAFETY THROUGHOUT THE NIGHT.
[2019-07-07 20:00] VITALS: BP 151/65
--- NOTE | 2019-07-07 20:47 | NUR ---
MS CHANG OPENING NOTES PATIENT RECEIVED RESTING IN BED, A/O X 4. ON 2L OF O2 VIA NC WITH BREATHING EVEN AND UNLABORED, NO SOB NOTED. NO SIGNS OF ACUTE DISTRESS. NO COMPLAINTS OF PAIN OR DISCOMFORT. IV LOCATED ON R [facility]. SAFETY PRECAUTIONS IN PLACE WITH BED IN LOWEST POSITION, CALL LIGHT WITHIN REACH, SIDE RAILS UP, AND CALL BREAKS ON. WILL CONTINUE TO MONITOR. EXPLAINED PLAN OF CARE TO PATIENT AND MEDICATIONS COMING UP ON SHIFT. Addendum: 07/07/19 at 2049 by TRINIDAD GUERRERO RN IN ERROR
[2019-07-07] MEDS: ZOLPIDEM TARTRATE 5 MG TABLET PO PRN (23:01)
--- NOTE | 2019-07-07 23:03 | NUR ---
RN NOTES Pt REQUESTED FOR HIS AMBIEN. Pt IS RESTING IN BED WATCHING TV. SAFETY MEASURES IN PLACE. WILL CONTINUE TO MONITOR Pt.
[2019-07-08 01:26] LABS: IRON, SERUM 14 ug/dl (50-175); TOTAL IRON BINDING CAPACITY 367 ug/dl (250-450)
[2019-07-08 01:35] LABS: FERRITIN 19 ng/mL (8-388)
[2019-07-08] MEDS: ALBUTEROL FS 2.5 MG/3 ML VIAL.NEB NEB SCH ×4 (03:30→14:47)
[2019-07-08] MEDS: IPRATROPIUM NEB FS 0.5 MG/2.5 ML AMPUL.NEB NEB SCH ×4 (03:30→14:47)
[2019-07-08 04:00] VITALS: BP 146/68
[2019-07-08 07:29] LABS: HEMATOCRIT 31 % (39-51); LYMPHOCYTES # (AUTO) 0.7 /CMM (0.8-4.8); LYMPHOCYTES % (AUTO) 8.4 % (20.0-44.0); MEAN CORPUSCULAR HGB CONC 33 g/dl (31.0-36.0); MEAN CORPUSCULAR VOLUME 74 fL (80-96); MONOCYTES # (AUTO) 0.8 /CMM (0.1-1.30); MONOCYTES % (AUTO) 8.8 % (2.0-12.0); NEUTROPHILS # (AUTO) 7.2 /CMM (1.8-8.9); NEUTROPHILS % (AUTO) 82.8 % (43.0-81.0); PLATELET COUNT (AUTO) 215 /CMM (150-450); RED BLOOD CELL COUNT(AUTO) 4.16 MIL/uL (4.5-6.0); WHITE BLOOD COUNT (AUTO) 8.7 K/uL (4.3-11.0)
--- NOTE | 2019-07-08 07:45 | NUR ---
RN CLOSING NOTES REPORT GIVEN TO BEVERLYMOMIKE RN, KAY. Pt IS CURRENTLY ASLEEP IN BED, RESPIRATIONS EVEN AND UNLABORED. POSSIBLE DC PLANNING FOR TODAY. SAFETY MEASURES IN PLACE. Pt ACCIDENTALLY PULLED OUT IV, NO BLEEDING NOTED. WAS UNABLE TO START A NEW IV ACCESS, ENDORSED TO BEVERLYMOMIKE RN TO SEE IF THEY CAN START ONE. SAFETY MEASURES IN PLACE. NO S/S OF ACUTE DISTRESS OR SOB NOTED DURING THE NIGHT.
[2019-07-08 07:46] LABS: CALCIUM, SERUM 9.3 mg/dL (8.5-10.1); CREATININE 0.9 mg/dL (0.6-1.3); MAGNESIUM 2.3 mg/dL (1.8-2.4); POTASSIUM 4.2 mmol/L (3.5-5.1)
[2019-07-08 08:00] VITALS: BP 165/96
--- NOTE | 2019-07-08 08:00 | NUR ---
MS RN NOTES PATIENT IN BED RESTING NO SOB OR ACUTE DISTRESS NOTED. PATIENT IS ALERT, ORIENTED X4. DENIES ANY PAIN. PERIPHERAL IV WAS DISLODGED. BED IN LOW LOCKED POSITION, CALL LIGHT WITHIN REACH WILL CONTINUE TO MONITOR.
[2019-07-08] MEDS: SERTRALINE HCL 50 MG TABLET PO SCH (08:29)
[2019-07-08] MEDS: PANTOPRAZOLE 40 MG TABLET.DR PO SCH (08:29)
[2019-07-08] MEDS: ATORVASTATIN 40 MG TABLET PO SCH (08:29)
[2019-07-08] MEDS: LOSARTAN POTASSIUM 25 MG TABLET PO SCH (08:30)
[2019-07-08] MEDS: predniSONE 20 MG TABLET PO SCH ×3 (08:30→16:01)
[2019-07-08] MEDS: FLUTICASONE/VILANTEROL 1 EACH BLST.W.DEV IH SCH (08:32)
[2019-07-08] MEDS: methylPREDNISolone SOD SUCC 125 MG/2ML VIAL IV SCH (09:00)
[2019-07-08] MEDS ORDERED: AZIT500T PO (10:03)
[2019-07-08] MEDS: AZITHROMYCIN 500 MG in IV D5W 250 ML IV SCH (13:16)
[2019-07-08] MEDS ORDERED: SOD FERRIC GLUC 125 MG in IV NS 0.9% 100 ML IV SCH (14:00)
--- NOTE | 2019-07-08 14:00 | NUR ---
MS RN NOTE PATIENT REMOVED PERIPHERAL IV STATES HE DOES NOT WISH TO HAVE ANOTHER PLACED. PATIENT REQUESTS PO ATB AND PO IRON. MADE AWARE ORDERS FOR PO ATB AND FERROUS SULFATE.
[2019-07-08] MEDS ORDERED: AZITHROMYCIN 250 MG TABLET PO SCH (14:37)
[2019-07-08 16:00] VITALS: BP 98/77
[2019-07-08] MEDS ORDERED: ALPRAZOLAM 0.25 MG TABLET PO ONE (16:00)
--- NOTE | 2019-07-08 16:09 | NUR ---
MS RN NOTES CALLED [facility] CONFIRMED PRESCRIPTION IS READY FOR CHUCKING AND SAWING MACHINE OPERATOR, PATIENT MADE AWARE.
[2019-07-08] MEDS ORDERED: FERROUS SULFATE (325 MG) 325 MG/TAB TABLET PO SCH (17:00)
--- NOTE | 2019-07-08 17:44 | NUR ---
MS RN NOTES PATIENT DISCHARGED HOME. DISCHARGE TEACHING PROVIDED VERBALIZED UNDERSTANDING. PATIENT EDUCATED THAT HE IS A HIGH RISK FOR COMPLICATIONS SPECIALLY DUE TO PEÑALOZA VIRUS OUTBREAK, ENCOURAGED PATIENT TO STAY HOME MUCH POSSIBLE, VERBALIZED UNDERSTANDING. ALL BELONGINGS ACCOUNTED FOR BELONGING LIST SIGNED. PATIENT IN STABLE CONDITION. MD AWARE OF ALL LABS AND TEST RESULTS. PATIENT REFUSED DISCHARGE PICTURES. PATIENT ESCORTED TO CAR.
== END 2019-07-08 18:00 | disposition home or self-care (01) | DRG 191 ==
LOC: ER 10:21 → MEDSG1 12:55
PROVIDERS: ADMIT Family Medicine; ATTEND Student in an Organized Health Care Education/Training Program
DX: J44.1 Chronic obstructive pulmonary disease with (acute) exacerbation (principal); I48.92 Unspecified atrial flutter; E87.1 Hypo-osmolality and hyponatremia; I48.91 Unspecified atrial fibrillation; E83.42 Hypomagnesemia; E03.9 Hypothyroidism, unspecified; D63.8 Anemia in other chronic diseases classified elsewhere; E86.1 Hypovolemia; R73.9 Hyperglycemia, unspecified; R78.89 Finding of other specified substances, not normally found in blood; I10 Essential (primary) hypertension; E78.5 Hyperlipidemia, unspecified; F41.9 Anxiety disorder, unspecified; F32.9 Major depressive disorder, single episode, unspecified; D50.9 Iron deficiency anemia, unspecified
CPT/HCPCS: 36415; 36600; 71045-TC; 80048-TC; 80053-TC; 80061-TC; 80076-TC; 82728-TC; 82803-TC; 83540-TC; 83605-TC; 83735-TC; 83880; 84100-TC; 84484-TC; 85025-TC; 87040-TC; 87081-TC; 94799-TC; A6253; G0378; J0456; J2916; J2930; J3475; J7030; J7050; J7060

== ENCOUNTER 2019-07-14 19:03 | Inpatient (IN) | payer MEDICARE, OTHER ==
[~2019-07-14] VITALS: Ht 182.9 cm; Wt 77.7 kg
[2019-07-14] VITALS (8 sets, daily range): BP systolic 75–160; BP diastolic 48–86
[~2019-07-14 19:03] MED LIST changes: +AZIT500T PO
--- NOTE | 2019-07-14 19:03 | NUR ---
PT BIBRA 102 FROM HOME C/O SOB 82% ON RA, ON NON REBREATHER ON HAT BRUSHER MACHINE 97%, PT IS AAOX3, NOTED RESPIRATORY DISTRESS, HOOKED TO BREWERY CELLAR WORKER, KEPT RESTED AND COMFORTABLE, WILL CONTINUE TO MONITOR.
[2019-07-14] MEDS ORDERED: methylPREDNISolone SOD SUCC 125 MG/2ML VIAL ONE ×2 (19:06→19:09)
--- NOTE | 2019-07-14 19:06 | NUR ---
SEEN AND EXAMINED BY
--- NOTE | 2019-07-14 19:10 | NUR ---
IV LINE ESTABLISHED, BLOOD DRAWN AND SENT TO LAB.
--- NOTE | 2019-07-14 19:15 | NUR ---
RT AT BEDSIDE FOR BREATHING TREATMENT.
[2019-07-14] MEDS ORDERED: ALBUTEROL FS 2.5 MG/3 ML VIAL.NEB ONE (19:17)
[2019-07-14] MEDS ORDERED: IPRATROPIUM NEB FS 0.5 MG/2.5 ML AMPUL.NEB ONE (19:17)
[2019-07-14 19:30] LABS: BASOPHILS # (AUTO) 0.2 /CMM (0.0-0.2); BASOPHILS % (AUTO) 1.2 % (0.0-2.0); EOSINOPHILS % (AUTO) 8.2 % (0.0-6.0); HEMATOCRIT 37 % (39-51); HEMOGLOBIN 11.7 g/dL (13.5-17.5); LYMPHOCYTES # (AUTO) 4.7 /CMM (0.8-4.8); LYMPHOCYTES % (AUTO) 24.8 % (20.0-44.0); MEAN CORPUSCULAR HGB CONC 32 g/dl (31.0-36.0); MEAN CORPUSCULAR VOLUME 75 fL (80-96); MONOCYTES # (AUTO) 1.5 /CMM (0.1-1.30); MONOCYTES % (AUTO) 8.2 % (2.0-12.0); NEUTROPHILS # (AUTO) 10.8 /CMM (1.8-8.9); NEUTROPHILS % (AUTO) 57.6 % (43.0-81.0); PLATELET COUNT (AUTO) 350 /CMM (150-450); RED BLOOD CELL COUNT(AUTO) 4.92 MIL/uL (4.5-6.0); WHITE BLOOD COUNT (AUTO) 18.8 K/uL (4.3-11.0)
[2019-07-14] MEDS ORDERED: IPRATROPIUM NEB FS 0.5 MG/2.5 ML AMPUL.NEB NEB ONE (19:30)
[2019-07-14] MEDS ORDERED: methylPREDNISolone SOD SUCC 125 MG/2ML VIAL IV ONE (19:30)
[2019-07-14] MEDS ORDERED: ALBUTEROL FS 2.5 MG/3 ML VIAL.NEB CONTNEB ONE (19:30)
[2019-07-14 19:38] LABS: CALCIUM, SERUM 8.9 mg/dL (8.5-10.1); CARBON DIOXIDE 23 mmol/L (21-32); CHLORIDE 103 mmol/L (98-107); GLUCOSE 136 mg/dL (74-106); POTASSIUM 4.7 mmol/L (3.5-5.1); SODIUM SERUM 137 mmol/L (136-145); UREA NITROGEN, BLOOD 11 mg/dL (7-18)
[2019-07-14 19:56] LABS: ALANINE AMINOTRANSFERASE 20 U/L (12-78); ALKALINE PHOSPHATASE 102 U/L (46-116); ASPARTATE AMINOTRANSFERASE 18 U/L (15-37); BILIRUBIN,DIRECT 0.1 mg/dL (0.0-0.2); BILIRUBIN,TOTAL 0.2 mg/dL (0.2-1.0); TOTAL PROTEIN, SERUM 7.7 g/dL (6.4-8.2)
[2019-07-14] MEDS ORDERED: CEFEPIME 1 GM in IV D5W 50 ML IV ONE (20:00)
[2019-07-14] MEDS ORDERED: LEVOFLOXACIN 750 MG /D5W 150ML PIGGYBACK IV ONE (20:00)
[2019-07-14] MEDS ORDERED: VANCOMYCIN 1 GM in IV D5W 250 ML IV ONE (20:00)
--- NOTE | 2019-07-14 20:04 | NUR ---
RT pt arrived in er via ems ofr sob. hx of asthma and copd. 1 hr cont tx given as ordered per . pt not tolerating tx, to intubate
[2019-07-14] MEDS ORDERED: PROPOFOL 100 ML ONE (20:10)
--- NOTE | 2019-07-14 20:12 | NUR ---
RT AND MD AT BEDSIDE FOR INTUBATION SET UP.
--- NOTE | 2019-07-14 20:19 | NUR ---
ICU 259
--- NOTE | 2019-07-14 20:20 | NUR ---
RT pt intubated with no complications. 7.5 23 @ lip. VC+ 22 450 50% +5. tolerating well. obtaining good volume. minimal secretions. expiratory wheeze heard. abg in 1 hr.
[2019-07-14] MEDS ORDERED: NIFE-34 PO (20:23)
[2019-07-14] MEDS: PROPOFOL 10MG/ML 50ML 50 ML IV PRN (20:45)
--- NOTE | 2019-07-14 20:45 | NUR ---
RSI INITIATED AT 2014 MEDS GIVEN ETOMIDATE 30MG IVP AND ROCURONIUM 80MG IVP GIVEN UNDER DIRECT SUPERVISION OF DR. SOLIS. 7.5ET TUBE PALCED BY MD AND RT AT 2019, 23 AT THE LIP, PLACEMENT CHECK BY BILAT BREATH SOUNDS, O2 SAT AT 100%, PT COLOR IS PINK, SKIN W/D TO TOUCH. PER DR SOLIS, OG TUBE INSTRTED WITH EASE, PLACEMENT CHECK THROUGH AUSCULATION AND RETURN OF GASTRIC CONTENTS; F/C INSERTED ALSO AT THIS TIME. 16FR. DRAINING CLEAR YELLOW URINE.
--- NOTE | 2019-07-14 20:47 | NUR ---
NOW ICU 260
--- NOTE | 2019-07-14 20:49 | NUR ---
SPOKE WITH EMELY FROM [facility] [facility] [employer] [facility] TO INFORM OF POSSIBLE COVID
[2019-07-14 20:52] LABS: BILIRUBIN,URINE Negative (NEGATIVE); BLOOD, URINE Trace-intact Ery/uL (NEGATIVE); COLOR,URINE Yellow (YELLOW); KETONES,URINE Negative (NEGATIVE); LEUKOCYTE ESTERASE ,URINE Trace (NEGATIVE); NITRITE, URINE Negative (NEGATIVE); PROTEIN,URINE 30 mg/dl (NEGATIVE); UGLUCOSE Negative (NEGATIVE); UROBILINOGEN,URINE 0.2 EU/dL (0.2)
[2019-07-14 20:53] LABS: APPEARANCE,URINE SLIGHTLY HAZY (CLEAR); BACTERIA,URINE Few /HPF (None Seen); RBC,URINE 0-2 /HPF (0-2); SQUAMOUS EPITHELIAL CELL,UR Rare /HPF (None Seen)
[2019-07-14] MEDS ORDERED: ROCURONIUM BROMIDE 50 MG/5 ML IV ONE (20:55)
[2019-07-14] MEDS ORDERED: ETOMIDATE 2 MG/ML VIAL IV ONE (20:55)
[2019-07-14] MEDS ORDERED: FEE EMEERGENCY 1 MIN EA MC ONE (20:55)
[2019-07-14] MEDS ORDERED: ONDANSETRON HCL/PF 4 MG/2 ML VIAL IVP PRN (21:00)
[2019-07-14] MEDS ORDERED: FEE PK DOSING 1 MIN EA MC ONE (21:04)
--- NOTE | 2019-07-14 21:13 | NUR ---
REPORT GIVEN TO FERDINAND CHANG FOR NIKKY PT WILL BE TRANSPORTED TO ICU
[2019-07-14] MEDS ORDERED: LEVOFLOXACIN 750 MG /D5W 150ML 150 ML IV ONE (21:17)
[2019-07-14 21:41] LABS: ABG BASE EXCESS -5.5 mmol/L; ABG OXYGEN SATURATION 96.3 % (92.0-98.5); ABG PCO2 65.4 mmHg (35.0-45.0); ABG PH 7.179 (7.350-7.450); ABG PO2 102.1 mmHg (75.0-100.0); AaDO2 180.8 mmHg; COHb 0.4 % (0.5-1.5); MetHb 0.5 % (0.0-1.5); O2Hb 95.4 % (94.0-97.0); SITE, ABG Left Radial; VENT MODE, BG AC 22 450 50% +5
--- NOTE | 2019-07-14 22:00 | NUR ---
PT RECEIEVED FROM ER FOR RESPIRATORY FAILURE, COPD EXACERBATION, PNA, RULE OUT COVID 19. PT IS SEDATED, BUT STILL RESTLESS AND AGITATED, WILL TITRATE UP. PT IS SR WITH L BBB. PT IS ON VENT SETTINGS ORDERED. 02SAT 100%. BP WNL. COVID SWAB SENT. PT GIVEN 2.7 L NS BOLUS. VSS. WILL CONTINUE TO MONITOR
[2019-07-14] MEDS ORDERED: IV NS 0.9% 1,000 ML BAG IV ONE (22:30)
--- NOTE | 2019-07-14 22:45 | NUR ---
PER DR SOLIS, HE ADDED ORDER FOR IVF NS 2.7L FOR PT, ENDORSED TO ICU NURSE AT THIS TIME
[2019-07-14] MEDS: PROPOFOL 100 ML IV PRN (23:26)
[2019-07-14] MEDS: PIPERACILLIN /TAZOBACTAM 3.375 G in IV D5W 50 ML IV SCH (23:26)
[2019-07-14] MEDS ORDERED: LORAZEPAM INJ 2 MG/ML VIAL IV ONE (23:30)
[2019-07-15] VITALS (55 sets, daily range): BP systolic 110–144; BP diastolic 61–86
[2019-07-15 02:33] LABS: FERRITIN 28 ng/mL (8-388)
[2019-07-15] MEDS: PROPOFOL 100 ML IV PRN ×6 (02:53→22:53)
[2019-07-15 04:39] LABS: ABG BASE EXCESS -2.5 mmol/L; ABG OXYGEN SATURATION 99.2 % (92.0-98.5); ABG PCO2 45.6 mmHg (35.0-45.0); COHb 0.3 % (0.5-1.5); MetHb 0.6 % (0.0-1.5); O2Hb 98.3 % (94.0-97.0); PEEP,BG 5 cm H2O; SITE, ABG Right Radial; VENT MODE, BG AC 22 450 100% +5; VT, ABG 450 mL
[2019-07-15 05:11] LABS: BASOPHILS % (AUTO) 0.2 % (0.0-2.0); EOSINOPHILS % (AUTO) 0.1 % (0.0-6.0); HEMATOCRIT 32 % (39-51); HEMOGLOBIN 10.1 g/dL (13.5-17.5); LYMPHOCYTES # (AUTO) 0.3 /CMM (0.8-4.8); LYMPHOCYTES % (AUTO) 1.9 % (20.0-44.0); MEAN CORPUSCULAR HGB CONC 31 g/dl (31.0-36.0); MEAN CORPUSCULAR VOLUME 75 fL (80-96); MONOCYTES # (AUTO) 0.3 /CMM (0.1-1.30); MONOCYTES % (AUTO) 1.7 % (2.0-12.0); NEUTROPHILS # (AUTO) 14.4 /CMM (1.8-8.9); NEUTROPHILS % (AUTO) 96.1 % (43.0-81.0); PLATELET COUNT (AUTO) 208 /CMM (150-450)
[2019-07-15 05:22] LABS: CALCIUM, SERUM 7.8 mg/dL (8.5-10.1); CREATININE 0.9 mg/dL (0.6-1.3); POTASSIUM 4.7 mmol/L (3.5-5.1)
[2019-07-15 05:27] LABS: ALBUMIN 3.1 g/dL (3.4-5.0); BILIRUBIN,TOTAL 0.4 mg/dL (0.2-1.0); MAGNESIUM 1.5 mg/dL (1.8-2.4); PHOSPHORUS 2.8 mg/dL (2.5-4.9); TOTAL PROTEIN, SERUM 6.1 g/dL (6.4-8.2)
[2019-07-15] MEDS: PIPERACILLIN /TAZOBACTAM 3.375 G in IV D5W 50 ML IV SCH ×4 (05:57→23:57)
[2019-07-15] MEDS: Magnesium 1GM/D5W 100ML PREMIX 100 ML IV SCH ×2 (06:55→08:35)
--- NOTE | 2019-07-15 08:00 | NUR ---
PILLAR WORKER NOTE PATIENT IN BED RESTLESS ,TRYING TO REMOVE ALL LINES. WITH VENT SETTING ORDERED, ON PROPOFOL DRIP ORDERED, WITH HARLEY CATH TO GRAVITY WITH YELLOW COLOR URINE, OG TUBE IN PLACE, KEEP HOB ELEVATED AT ALL TIME DR GARCIA AT BEDSIDE OK TO INCREASE PROPOFOL UP TP 100 MCG\KG BED LOWEST AND LOCKED POSITION , WILL MONITOR
--- NOTE | 2019-07-15 08:16 | NUR ---
WOUND CARE CONSULT: NO SKIN ASSESSMENT AT THIS TIME DUE TO PT RESTING NOW AND WAS RESTLESS PREVIOUSLY PER RN. RECOMMENDATIONS MADE FOR SKIN PROTECTION AND DISCUSSED WITH NURSING STAFF. WILL SEE PRN. CURRENT DANIELA SCORE IS 13.
[2019-07-15] MEDS: NITROGLYCERIN 30 GM TUBE TP SCH ×2 (08:36→20:20)
[2019-07-15] MEDS: PANTOPRAZOLE 40 MG VIAL IV SCH (08:41)
[2019-07-15] MEDS: VANCOMYCIN 1 GM in IV D5W 250 ML IV SCH ×2 (08:43→20:10)
--- NOTE | 2019-07-15 10:10 | NUR ---
UNIVERSITY RELATIONS DIRECTOR NOTE RT AT BEDSIDE, SUCTION DONE
[2019-07-15] MEDS ORDERED: IPRATROPIUM BROMIDE 14 GM INHALER (or 12.9 GM) IH SCH ×2 (10:30→11:00)
[2019-07-15] MEDS ORDERED: ALBUTEROL SULFATE INH 18 GM HFA.AER.AD IH SCH ×2 (11:00→12:00)
--- NOTE | 2019-07-15 11:08 | NUR ---
TELE RNNOTE DR MARSHALL AND DR LOZA AWARE THAT TROP 3.449 NO NEW ORDER AT THIS TIME
--- NOTE | 2019-07-15 11:23 | NUR ---
SUPERVISOR POST WAVE NOTE UNABLE TO DO DIPRIVAN SEDATION PATIENT IS VERY RESTLESS ,INCREASED DIPRIVAN TO 65 MCG KG\HR
[2019-07-15] MEDS: IPRATROPIUM NEB FS 0.5 MG/2.5 ML AMPUL.NEB NEB SCH ×2 (12:41→19:53)
[2019-07-15] MEDS: ALBUTEROL FS 2.5 MG/3 ML VIAL.NEB NEB SCH ×2 (12:42→19:53)
--- NOTE | 2019-07-15 15:22 | NUR ---
TEXTILE DYER NOTE KEEP CLEAN DRY , ALL NEEDS ATTENDED CONT ON DRIP DIPRIVAN PER PROTOCOL, AWAIT FOR TROPONIN LEVEL
--- NOTE | 2019-07-15 16:15 | NUR ---
BORDER PATROL OFFICER NOTE REPORTED TO DR LOZA THAT TROPONIN 3.449 WITH ORDER START LOVENOX PER PHARMACY, WILL F\U
--- NOTE | 2019-07-15 16:29 | NUR ---
FABRICATION SPECIALIST NOTE LOVENOX SCHEDULED AT 2100
[2019-07-15] MEDS ORDERED: RIVAROXABAN 10 MG TABLET PO SCH (17:00)
--- NOTE | 2019-07-15 17:38 | NUR ---
RT NOTE: PATIENT RECEIVED ORALLY INTUBATED WITH 7.5 ETT SECURED AT 23 CM MID LIP LINE ON PB 840 VENT. ALARMS VERIFIED AND AUDIBLE. VENT PLUGGED INTO RED OUTLET. AMBU BAG AT [facility].
--- NOTE | 2019-07-15 18:47 | NUR ---
PLAY BACK OPERATOR NOTE PATIENT IN BED WITH ETT TUBE IN PLACE ,TO VENT SETTING ORDERED ,ON DIPRIVAN DRIP PER HOSPITAL PROTOCOL AT 65 MCG\KG\HR , NO SOB NOTED , ORAL AND ETT SUCTION DONE ,KEEP CLEAN DRY , WITH HARLEY CATH T GRAVITY WITH YELLOW COLOR URINE ,STILL ON SOFT RESTRAIN , UNABLE TO REMOVE , AT RISK TO REMOVE ALL LINES AND TUBES , WILL F\U AND CONT TO MONITOR
--- NOTE | 2019-07-15 20:00 | NUR ---
PHOTOGRAPH TINTER - NOTES - PT RECEIVED IN BED FOR RESPIRATORY FAILURE, COPD EXACERBATION, PNA, RULE OUT COVID 19. PT IS SEDATED. PT IS SR WITH L BBB. PT IS ON VENT SETTINGS ORDERED. 02SAT 100%. BP WNL. PT WITH LEFT HAND 18G AND LEFT AC 18G IV. VSS. WILL CONTINUE TO MONITOR
[2019-07-15] MEDS: ENOXAPARIN SODIUM 80 MG/0.8 ML DISP.SYRIN SQ SCH (20:10)
[2019-07-15] MEDS: ATORVASTATIN 40 MG TABLET PO SCH (22:23)
[2019-07-16] VITALS (43 sets, daily range): BP systolic 114–180; BP diastolic 55–110
[2019-07-16] MEDS: PROPOFOL 100 ML IV PRN ×4 (01:48→12:25)
[2019-07-16] MEDS: ALBUTEROL FS 2.5 MG/3 ML VIAL.NEB NEB SCH ×4 (02:04→19:36)
[2019-07-16] MEDS: IPRATROPIUM NEB FS 0.5 MG/2.5 ML AMPUL.NEB NEB SCH ×4 (02:04→19:36)
[2019-07-16 04:46] LABS: BASOPHILS % (AUTO) 0.2 % (0.0-2.0); EOSINOPHILS % (AUTO) 0.1 % (0.0-6.0); HEMATOCRIT 29 % (39-51); HEMOGLOBIN 9.2 g/dL (13.5-17.5); LYMPHOCYTES # (AUTO) 0.9 /CMM (0.8-4.8); LYMPHOCYTES % (AUTO) 7.4 % (20.0-44.0); MEAN CORPUSCULAR HGB CONC 32 g/dl (31.0-36.0); MEAN CORPUSCULAR VOLUME 74 fL (80-96); MONOCYTES # (AUTO) 0.8 /CMM (0.1-1.30); MONOCYTES % (AUTO) 6.2 % (2.0-12.0); NEUTROPHILS # (AUTO) 10.7 /CMM (1.8-8.9); NEUTROPHILS % (AUTO) 86.1 % (43.0-81.0); PLATELET COUNT (AUTO) 199 /CMM (150-450); RED BLOOD CELL COUNT(AUTO) 3.85 MIL/uL (4.5-6.0); WHITE BLOOD COUNT (AUTO) 12.4 K/uL (4.3-11.0)
[2019-07-16 05:14] LABS: ALBUMIN 2.9 g/dL (3.4-5.0); BILIRUBIN,TOTAL 0.2 mg/dL (0.2-1.0); CALCIUM, SERUM 8.2 mg/dL (8.5-10.1); CREATININE 0.8 mg/dL (0.6-1.3); PHOSPHORUS 2.4 mg/dL (2.5-4.9); POTASSIUM 4.1 mmol/L (3.5-5.1); TOTAL PROTEIN, SERUM 5.7 g/dL (6.4-8.2)
[2019-07-16] MEDS: PIPERACILLIN /TAZOBACTAM 3.375 G in IV D5W 50 ML IV SCH ×4 (06:08→23:17)
--- NOTE | 2019-07-16 06:45 | NUR ---
pt is in sinus cierra with bigeminy and left bundle branch block, dr donnelly informed, 12 lead ekg done. pt goes back to normal sinus rhythm with left bundle branch block when suctioned and woken up
--- NOTE | 2019-07-16 08:00 | NUR ---
RAG CUTTING MACHINE OPERATOR INITIAL NOTE RECEIVED PATIENT SEDATED, RESPONSIVE TO PAIN, DOESN'T OPEN EYES WITH STERNAL RUB, PULLS AWAY FROM PAIN, DOES NOT FOLLOW SIMPLE COMMANDS, KICKS OFF BLANKETS. NO RESPIRATORY DISTRESS NOTED, WITH VENT SETTINGS AC 22M TV 500, FO2 55%, PEEP 5. ON TELE MONITOR SR WITH FIRST DEGREE, BBB, BIGEMINY, TRIGEMINY. WITH OGT PATENT, INTACT, IN PLACE, CLAMPED. WITH DIPRIVAN AT 65MCG/KG/MIN. F/C PATENT, INTACT, DRAINING BY GRAVITY. SEEN AND EXAMINED BY WOUND NURSE. BILATERAL WRIST RESTRAINTS IN PLACE, CIRCULATION CHECKED. HOB ELEVATED. TURNED AND REPOSITIONED. ISOLATION PRECAUTIONS OBSERVED. SIDE RAILS UP AND LOCKED. BED KEPT AT LOCKED POSITION. WILL CONTINUE TO MONITOR.
[2019-07-16] MEDS: VANCOMYCIN 1 GM in IV D5W 250 ML IV SCH ×2 (08:12→19:56)
[2019-07-16] MEDS: ENOXAPARIN SODIUM 80 MG/0.8 ML DISP.SYRIN SQ SCH ×2 (08:14→20:05)
[2019-07-16] MEDS: NITROGLYCERIN 30 GM TUBE TP SCH ×2 (08:14→20:06)
[2019-07-16] MEDS: PANTOPRAZOLE 40 MG VIAL IV SCH (08:14)
[2019-07-16] MEDS: ASPIRIN 81 MG TAB.CHEW PO SCH (08:15)
--- NOTE | 2019-07-16 08:35 | NUR ---
WOUND CARE CONSULT: PT PRESENTS WITH INTACT SKIN AND CURRENT DANIELA SCORE OF 13. RECOMMENDATIONS MADE FOR SKIN PROTECTION. DISCUSSED WITH NURSING STAFF. WILL SEE PRN. DAWN IN AGREEMENT WITH PLAN OF CARE.
[2019-07-16] MEDS ORDERED: Z GUARD REMEDY 2 OZ OINT TP PRN (09:00)
[2019-07-16 09:44] LABS: ABG BASE EXCESS 0.4 mmol/L; ABG OXYGEN SATURATION 98.7 % (92.0-98.5); ABG PH 7.421 (7.350-7.450); ABG PO2 209.2 mmHg (75.0-100.0); AaDO2 139.6 mmHg; COHb 0.3 % (0.5-1.5); MetHb 0.5 % (0.0-1.5); O2Hb 97.9 % (94.0-97.0); SITE, ABG Right Radial; VENT MODE, BG AC 22 500 55% +5
[2019-07-16] MEDS: LORAZEPAM INJ 2 MG/ML VIAL IVP PRN ×3 (10:40→19:57)
[2019-07-16] MEDS: MORPHINE SULFATE INJ 4 MG/ML DISP.SYRIN IV PRN (11:05)
--- NOTE | 2019-07-16 11:32 | NUR ---
INFERTILITY NURSE NOTE CLARIFIED INDICATION FOR ATIVAN AND MORPHINE, PER DR GARCIA USE FOR SEDATION AND DISCONTINUE DIPRIVAN. MORPHINE AND ATIVAN WAS GIVEN, PATIENT ATTEMPTING TO SIT UP, PULL ON TUBES, AND SINUS TACHYCARDIC. PER DR GARCIA CHANGE TO VERSED DRIP. WILL CONTINUE TO MONITOR.
[2019-07-16] MEDS: MIDAZOLAM HCL 50 MG in IV NS 0.9% 40 ML IV PRN ×2 (12:24→21:30)
[2019-07-16] MEDS ORDERED: NEUTRA PHOS 1 POWD.PACKET PO ONE (16:30)
--- NOTE | 2019-07-16 18:58 | NUR ---
COOK CHILI CLOSING NOTE ALL DUE MEDS GIVEN, NO RESPIRATORY DISTRESS NOTED, ETT IN PLACE WITH VENT SETTING AC 16, TV 500, FIO2 45%, PEEP 5. NO DISTRESS NOTED. ALL DUE MEDS GIVEN. OGT PATENT AND INTACT, IN PLACE. F/C PATENT, DRAINING BY GRAVITY. KEPT CLEAN AND DRY. HOB ELEVATED. SIDE RAILS UP AND LOCKED. BED KEPT AT LOWEST POSITION. BILATERAL SOFT WRIST RESTRAINTS IN PLACE FOR SAFETY. CONTINUITY OF CARE ENDORSED TO PM NURSE.
--- NOTE | 2019-07-16 20:00 | NUR ---
RECLAMATION KETTLE TENDER NOTE PT RECEIVED IN BED MOVING HIS LEGS AND ARMS, ATIVAN 1 MG IVP GIVEN. PT REMAIN ON VERSED 7 ML/HR. ETT INTACT AND PATENT 7.09/12 TOLERATING VENT SETTINGS, NO S/S OF PAIN NOTED NOTED. LEFT AC SL IS LEAKING, DC'D THE SL, NO BLEEDING NOTED, SECURED THE SITE WITH 2X2 GAUZE. F/C INTACT AND PATENT DRAINING YELLOWISH COLOR URINE. ON TELE SB WITH BBB WITH 1ST DEGREE AV BLOCK HR 44. BILATERAL WRIST RESTRAINTS ON, SKIN AROUND WRIST WNL. REPOSITION HIM FOR COMFORT AND SKIN MANAGEMENT. SIDE RAILS UP X 3 AND CALL LIGHT WITHIN REACH. VSS. CONTINUE TO MONITOR. Addendum: 07/17/19 at 0118 by NAGI FERGUSON RN PT REMAIN IN COVID R/O ISOLATION, ISOLATION PRECAUTIONS TAKEN.
--- NOTE | 2019-07-16 20:30 | NUR ---
RT NOTE PT RECEIVED INTUBATED WITH 7.5 @ 23 CM ON LEFT LIP LINE. CUFF CHECKED VIA PROGRAM DIRECTOR CABLE TELEVISION. AMBU BAG @ BEDSIDE. TX GIVEN, NO ADVERSE REACTIONS NOTED. SX DONE, ET TUBE SECURED AND PATENT. ALARMS ON AND AUDIBLE. NO DISTRESS NOTED AT THIS TIME. CONT. PULSE OX CONNECTED. WILL MONITOR. Addendum: 07/16/19 at 2030 by SILVANO LOPEZ RT Amended: Links added.
[2019-07-16] MEDS: ATORVASTATIN 40 MG TABLET PO SCH (21:07)
--- NOTE | 2019-07-16 23:00 | NUR ---
WASHROOM OPERATOR NOTE PT HR IN 30'S PT IS SEDATED. DECREASE THE VERSED AT 6 MG/HR. CONTINUE TO MONITOR.
[2019-07-17] VITALS (26 sets, daily range): BP systolic 123–162; BP diastolic 54–85
[2019-07-17] MEDS: IPRATROPIUM NEB FS 0.5 MG/2.5 ML AMPUL.NEB NEB SCH ×4 (01:17→19:18)
[2019-07-17] MEDS: ALBUTEROL FS 2.5 MG/3 ML VIAL.NEB NEB SCH ×4 (01:18→19:18)
[2019-07-17 04:37] LABS: CALCIUM, SERUM 8.3 mg/dL (8.5-10.1); CREATININE 0.8 mg/dL (0.6-1.3)
[2019-07-17] MEDS: MIDAZOLAM HCL 50 MG in IV NS 0.9% 40 ML IV PRN (04:59)
[2019-07-17] MEDS: PIPERACILLIN /TAZOBACTAM 3.375 G in IV D5W 50 ML IV SCH ×4 (05:00→23:00)
--- NOTE | 2019-07-17 05:35 | NUR ---
GRAIN DRIER NOTE PT IS SEDATED HR GOES DOWN TO 33, DECREASED VERSED TO 5 MG /HR. CONTINUE TO MONITOR HIM.
--- NOTE | 2019-07-17 06:00 | NUR ---
AUTOMATIC BLOCKER NOTE HR 54, PT REMAIN SEDATED. NO DISTRESS OR DISCOMFORT NOTED. REPOSITION HIM Q2H.
--- NOTE | 2019-07-17 06:22 | NUR ---
REROLLER HAND NOTE PT IN BED SEDATED, NO DISTRESS OR DISCOMFORT NOTED. NO S/S OF PAIN NOTED. ON TELE MONITOR A FIB 52. TOLERATING VENT SETTINGS WELL. F/C INTACT AND PATENT DRAINING ZE COLOR URINE 650 ML FOR THE SHIFT. VERSED INFUSING AT 5 MG/HR. NO S/S OF INFILTRATION NOTED. REPOSITION HIM Q2H, KEPT HIM DRY AND CLEAN. ALL NEEDS ATTENDED. WILL ENDORSE TO DAY SHIFT NURSE FOR CONTINUE TO CARE.
--- NOTE | 2019-07-17 07:10 | NUR ---
BUS DRIVER SCHOOL NOTES RECEIVED PATIENT MILDLY SEDATED , AGITATED , DOES NOT FOLLOW COMMANDS , ON BILATERAL SOFT WRIST RESTRAINS IN PLACE , OGT IS OUT , ON MECHANICAL VENT SETTING ORDERED WITH SPO2 OF 100% SR WITH BBB 1ST DEGREE AV BLOCK 75 ON BEDSIDE MONITOR , FC DRAINING VIA GRAVITY , IV OF LFA # 22 WITH VERSED @ 5MCG/KG/HR WITH NS @ TKO , L WRIST # 20 PATENT AND INTACT SL , ALL NEEDS ATTENDED ,WILL CONTINUE TO MONITIR OGT RE INSERTED , AUSCULTATED NOTED GURGLING SOUND AROUND STOMACH REGION , ASPIRATED NOTED WITH GREENISH THICK OUTPUT
[2019-07-17] MEDS ORDERED: RIVAROXABAN 10 MG TABLET PO SCH (07:30)
[2019-07-17] MEDS: LORAZEPAM INJ 2 MG/ML VIAL IVP PRN ×2 (07:33→18:15)
--- NOTE | 2019-07-17 07:59 | NUR ---
RT PATIENT REC'D ORALLY INTUBATED ON [facility] VENT. ETT SECURE AND PATENT. VENT SETTINGS AND ALARMS CHECKED. STEPHIEU BAG AT HOB Addendum: 07/17/19 at 1616 by CINDY VÁSQUEZ RT Amended: Links added.
--- NOTE | 2019-07-17 08:00 | NUR ---
MANAGER OF ENGINEERING NOTES SEEN AND EVALUATED BY DR GARCIA , DISCUSSED CURRENT VENT SETTINGS , SR 65 80 ON BEDSIDE MONITOR WITH 1ST DEGREE AV BLOCK , WITH EPISODES OF BRADYCARDIA LAST NIGHT PER PM NURSE , , PT ON MAXED DOSE OF VERSED @ 10MCG/KG/HR , NOTED WITH AGITATION , PT ON ATIVAN 1MG Q1PRN AND MORPHINE 3MG Q2 , PER MD OK TO INCREASE MORPHINE TO 5MG , OK TO DC DIPRIVAN , PT REMOVED HIS OGT AT THE START OF SHIFT , ASKED MD IF HE WANTS TO DO A REPEAT CHEST XRAY TO CHECK PLACEMENT . OK TO REPEAT CHEST XRAY PER
[2019-07-17] MEDS: VANCOMYCIN 1 GM in IV D5W 250 ML IV SCH ×2 (08:47→19:30)
[2019-07-17] MEDS: MORPHINE SULFATE INJ 4 MG/ML DISP.SYRIN IV PRN (08:47)
[2019-07-17] MEDS: NITROGLYCERIN 30 GM TUBE TP SCH ×2 (08:48→21:41)
[2019-07-17] MEDS: PANTOPRAZOLE 40 MG VIAL IV SCH (08:48)
[2019-07-17] MEDS: ASPIRIN 81 MG TAB.CHEW PO SCH (08:48)
[2019-07-17] MEDS ORDERED: MORPHINE SULFATE INJ 4 MG/ML DISP.SYRIN IV PRN (09:00)
[2019-07-17] MEDS: RIVAROXABAN 10 MG TABLET PO SCH (10:17)
[2019-07-17] MEDS: IV D5/ 0.9% NACL 1,000 ML IV PRN (10:57)
[2019-07-17] MEDS: MIDAZOLAM HCL 100 MG in IV NS 0.9% 80 ML IV PRN ×2 (12:24→23:01)
--- NOTE | 2019-07-17 19:07 | NUR ---
TRANSPORTATION CLERK NOTES PT STABLE , SEDATED , ON BILATERAL SOFT WRIST RESTRAINS IN PLACE , OGT IN PLACE , ON MECHANICAL VENT SETTING ORDERED WITH SPO2 OF 100% SB 40 WITH BBB 1ST DEGREE AV BLOCK ON BEDSIDE MONITOR , FC DRAINING VIA GRAVITY , IV OF LFA # 22 WITH VERSED @ 10MG/HR WITH NS @ TKO , D5NS @ 50ML/HR , L WRIST # 20 PATENT AND INTACT SL , ALL NEEDS ATTENDED ,REPORT GIVEN TO KIM FOR CONTINUITY OF CARE
--- NOTE | 2019-07-17 19:09 | NUR ---
INSTRUMENTATION FITTER NOTES CALLED PHARMACY , SPOKE WITH RUCHI F/U VERSED BAG , PHARMACIST AWARE
[2019-07-17] MEDS: ATORVASTATIN 40 MG TABLET PO SCH (21:41)
[2019-07-17] MEDS ORDERED: IV NS 0.9% 250 ML IV PRN (23:00)
[2019-07-18] VITALS (45 sets, daily range): BP systolic 100–179; BP diastolic 48–123
--- NOTE | 2019-07-18 00:44 | NUR ---
PT RECEIVE STABLE ON MV SETTINGS ARE AC 16 450 +5 @ 40% FIO2, ALARMS ARE ON AND AUDIBLE, AMBU BAG IS AT BEDSIDE, VENT IS PLUG IN RED OUTLET, WILL CONTINUE TO MONITOR Addendum: 07/18/19 at 0046 by LANI GAMBLE RT Amended: Links added.
[2019-07-18] MEDS: IPRATROPIUM NEB FS 0.5 MG/2.5 ML AMPUL.NEB NEB SCH ×4 (01:22→19:51)
[2019-07-18] MEDS: ALBUTEROL FS 2.5 MG/3 ML VIAL.NEB NEB SCH ×4 (01:22→19:51)
[2019-07-18 04:22] LABS: BASOPHILS % (AUTO) 0.3 % (0.0-2.0); EOSINOPHILS % (AUTO) 4.2 % (0.0-6.0); HEMATOCRIT 31 % (39-51); LYMPHOCYTES % (AUTO) 13.1 % (20.0-44.0); MEAN CORPUSCULAR HGB CONC 32 g/dl (31.0-36.0); MEAN CORPUSCULAR VOLUME 75 fL (80-96); MONOCYTES # (AUTO) 0.7 /CMM (0.1-1.30); MONOCYTES % (AUTO) 9.4 % (2.0-12.0); NEUTROPHILS # (AUTO) 5.5 /CMM (1.8-8.9); PLATELET COUNT (AUTO) 183 /CMM (150-450); RED BLOOD CELL COUNT(AUTO) 4.17 MIL/uL (4.5-6.0); WHITE BLOOD COUNT (AUTO) 7.5 K/uL (4.3-11.0)
[2019-07-18 04:38] LABS: ALBUMIN 2.9 g/dL (3.4-5.0); BILIRUBIN,TOTAL 0.4 mg/dL (0.2-1.0); CALCIUM, SERUM 8.5 mg/dL (8.5-10.1); CREATININE 0.7 mg/dL (0.6-1.3); MAGNESIUM 1.8 mg/dL (1.8-2.4); PHOSPHORUS 3.6 mg/dL (2.5-4.9); POTASSIUM 3.8 mmol/L (3.5-5.1)
[2019-07-18] MEDS: IV D5/ 0.9% NACL 1,000 ML IV PRN (05:01)
[2019-07-18] MEDS: PIPERACILLIN /TAZOBACTAM 3.375 G in IV D5W 50 ML IV SCH ×4 (05:01→23:30)
[2019-07-18] MEDS: LORAZEPAM INJ 2 MG/ML VIAL IVP PRN ×3 (05:19→11:16)
--- NOTE | 2019-07-18 05:19 | NUR ---
GRAZING EXAMINER PT EXTREMELY AGITATED AT THIS TIME; UNABLE TO PROVIDE ORAL CARE OR TURNING AT THIS TIME. ATIVAN 1 MG IV GIVEN AT THIS TIME. CONTINUE TO MONITOR.
[2019-07-18] MEDS ORDERED: POTASSIUM CHLORIDE 20 MEQ POWDER PACKET GT SCH (08:30)
--- NOTE | 2019-07-18 08:30 | NUR ---
TORPEDO SPECIALIST: pt is sedated with 10 mg/h Versed now, rest, reactive by touch/pain, on wrists restraints, SR/SB, SBP 140-165, O2sat. over 94%, no SOB, on AC mode, updated with all above, confirmed: stop sedation/start SIMV mode, no more isolation/COVID 19 negative, charge nurse rechecked lad/micro results: COVID 19 negative
[2019-07-18] MEDS: VANCOMYCIN 1 GM in IV D5W 250 ML IV SCH ×2 (08:54→20:45)
[2019-07-18] MEDS: NITROGLYCERIN 30 GM TUBE TP SCH ×2 (08:55→21:21)
[2019-07-18] MEDS: ASPIRIN 81 MG TAB.CHEW PO SCH (08:58)
[2019-07-18] MEDS: PANTOPRAZOLE 40 MG VIAL IV SCH (08:58)
[2019-07-18] MEDS: FUROSEMIDE 40 MG/4 ML VIAL IV SCH ×2 (08:58→11:16)
--- NOTE | 2019-07-18 09:00 | NUR ---
COLOR TECHNICIAN: Versed is off, on SIMV mode, SR/ST 115, no SOB, O2sat. over 95%
--- NOTE | 2019-07-18 09:30 | NUR ---
AIRCRAFT DESIGN ENGINEER: pt.is active, can open eyes for seconds, unable to follow commands, no eyes contact, restless episodes, O2sat.over 94%, RR 24-28, ST 110-120, suctioned well
--- NOTE | 2019-07-18 10:30 | NUR ---
WELLNESS ASSISTANT: pt is agitating, restless, unable to follow commands, uncontrolled strong arms/legs activity, RR 24-30, ST 110-125, coughing, RT is in room, placed back on AC mode, Ativan 1 mg IV given, resumed Versed gtt
[2019-07-18] MEDS: MIDAZOLAM HCL 100 MG in IV NS 0.9% 80 ML IV PRN (11:07)
[2019-07-18] MEDS: ACETAMINOPHEN 650 MG/SUPP.RECT RC PRN (11:16)
--- NOTE | 2019-07-18 12:10 | NUR ---
UNIT COORDINATOR: is in room/updated again, said: start Diprivan gtt, titrate off Versed gtt, keep HR over 60, SIMV mode/weaning tomorrow
[2019-07-18] MEDS: PROPOFOL 100 ML IV PRN ×2 (13:26→18:07)
--- NOTE | 2019-07-18 14:00 | NUR ---
WRAP TURNER: started Diprivan gtt/35 mcg/kg/m now, titrate Versed gtt off/4 mg/h now, pt.is tolerated well/sedated/reactive by touch, HR 67-74, SBP over 100, O2sat. over 96%, no SOB
--- NOTE | 2019-07-18 16:48 | NUR ---
ADJUSTER ARBITRATOR: pt is sedated well with 40 mcg/kg/m Diprivan, rest, no SOB, HR 60-70, SBP over 100 blelow 150, O2sat. over 96%, urine out over 2L
[2019-07-18] MEDS: RIVAROXABAN 10 MG TABLET PO SCH (17:00)
--- NOTE | 2019-07-18 17:47 | NUR ---
COTTRELL OPERATOR: pt.is reactive by pain stimuli: grimacing, trace arms/legs activity, HR 45-55 episodes, SBP over 100, decreased sedation to 30 mcg/kg/m Diprivan, O2sat. over 95%
--- NOTE | 2019-07-18 20:07 | NUR ---
RT NOTE PT RECEIVED INTUBATED WITH 7.5 ET TUBE SZ @ 24 CM ON LEFT LIP LINE. MOVED TUBE TO MID LIP LINE. AMBU BAG @ BEDSIDE. TX GIVEN, NO ADVERSE REACTIONS NOTED. SX DONE, ET TUBE SECURED AND PATENT VIA ANCHOR FAST. VENT PLUGGED TO RED OUTLET. ALARMS ON AND AUDIBLE. NO DISTRESS NOTED AT THIS TIME. WILL CONTINUE TO MONITOR T/O SHIFT. Addendum: 07/18/19 at 2008 by SILVANO LOPEZ RT Amended: Links added.
[2019-07-18] MEDS: ATORVASTATIN 40 MG TABLET PO SCH (21:21)
[2019-07-19] VITALS (43 sets, daily range): BP systolic 86–149; BP diastolic 47–98
[2019-07-19] MEDS: PROPOFOL 100 ML IV PRN ×2 (00:30→04:30)
[2019-07-19] MEDS: ALBUTEROL FS 2.5 MG/3 ML VIAL.NEB NEB SCH ×4 (01:27→19:30)
[2019-07-19] MEDS: IPRATROPIUM NEB FS 0.5 MG/2.5 ML AMPUL.NEB NEB SCH ×4 (01:27→19:35)
[2019-07-19 04:41] LABS: BASOPHILS % (AUTO) 0.4 % (0.0-2.0); EOSINOPHILS % (AUTO) 3.2 % (0.0-6.0); HEMATOCRIT 34 % (39-51); HEMOGLOBIN 10.6 g/dL (13.5-17.5); LYMPHOCYTES # (AUTO) 0.8 /CMM (0.8-4.8); LYMPHOCYTES % (AUTO) 7.2 % (20.0-44.0); MEAN CORPUSCULAR HGB CONC 32 g/dl (31.0-36.0); MEAN CORPUSCULAR VOLUME 74 fL (80-96); MONOCYTES # (AUTO) 0.8 /CMM (0.1-1.30); MONOCYTES % (AUTO) 6.9 % (2.0-12.0); NEUTROPHILS # (AUTO) 9.2 /CMM (1.8-8.9); NEUTROPHILS % (AUTO) 82.3 % (43.0-81.0); PLATELET COUNT (AUTO) 181 /CMM (150-450); RED BLOOD CELL COUNT(AUTO) 4.53 MIL/uL (4.5-6.0); WHITE BLOOD COUNT (AUTO) 11.1 K/uL (4.3-11.0)
[2019-07-19 04:55] LABS: BILIRUBIN,TOTAL 0.4 mg/dL (0.2-1.0); CALCIUM, SERUM 8.7 mg/dL (8.5-10.1); MAGNESIUM 1.9 mg/dL (1.8-2.4); PHOSPHORUS 4.2 mg/dL (2.5-4.9); POTASSIUM 3.2 mmol/L (3.5-5.1); TOTAL PROTEIN, SERUM 6.5 g/dL (6.4-8.2)
[2019-07-19] MEDS: PIPERACILLIN /TAZOBACTAM 3.375 G in IV D5W 50 ML IV SCH ×4 (06:01→23:16)
--- NOTE | 2019-07-19 07:05 | NUR ---
RN NOTES RECEIVED PT ON BED, INTUBATED AND SEDATED, TOLERATING CURRENT VENT SETTING WELL, ON DIPRIVAN AT 30MCG/KG/ MIN, ON TELE SB HR IN 50'S, OGT INTACT, HARLEY DRINING TO GRAVITY, LEFT WRIST IV G 20 AND L FOREARM IV G 22 ,SITES CLEAN, DRY AND INTACT, SR UP x3, CALL LIGHT WITHIN EASY REACH , BED LOCKED AND IN LOWEST POSITION, CONTINUE TO MONITOR
[2019-07-19] MEDS: NITROGLYCERIN 30 GM TUBE TP SCH ×2 (08:07→21:19)
[2019-07-19] MEDS: PANTOPRAZOLE 40 MG VIAL IV SCH (08:07)
[2019-07-19] MEDS: VANCOMYCIN 1 GM in IV D5W 250 ML IV SCH ×2 (08:07→20:03)
[2019-07-19] MEDS: ASPIRIN 81 MG TAB.CHEW PO SCH (08:07)
--- NOTE | 2019-07-19 08:20 | NUR ---
RT NOTE: PATIENT'S VENT SETTINGS CHANGED TO SIMV 4, PSV=12, PEEP+5 PER MD ORDER. PATIENT IS AWAKE AT THIS TIME. NURSE AWARE.
[2019-07-19] MEDS ORDERED: POTASSIUM CHLORIDE 20 MEQ POWDER PACKET NG SCH (08:30)
[2019-07-19 09:30] LABS: ABG BASE EXCESS 0.7 mmol/L; ABG OXYGEN SATURATION 97.6 % (92.0-98.5); ABG PCO2 37.2 mmHg (35.0-45.0); ABG PO2 109.6 mmHg (75.0-100.0); AaDO2 132.8 mmHg; COHb 0.1 % (0.5-1.5); MetHb 0.4 % (0.0-1.5); O2Hb 97.1 % (94.0-97.0); PEEP,BG 5 cm H2O; SITE, ABG Right Radial; VT, ABG 500 mL
[2019-07-19] MEDS ORDERED: DC PROPOFOL WHEN EXTUBATED XX PRN (10:00)
--- NOTE | 2019-07-19 10:40 | NUR ---
RN NOTES PT IS VERY AGITATED AND RESTLESS , TRIES TO GET OUT OF THE BED, DR JOSE TORRES, REGARDING ABG RESULTS ON SIMV MODE , PT PULLED ON HIS TWO IV SITES, NEW IV SITES STARTED CONTINUE TO MONITOR .
--- NOTE | 2019-07-19 11:10 | NUR ---
RN NOTES PT AWAKE, ALERT, FOLLOWS SIMPLE COMMAND, AGITATED, DR GARCIA AT THE BEDSIDE, PT EXTUBATED PER DR GARCIA ORDER , O2 SAT 97% ON 3L O2 N/C , HR IN 120, BP STABLE, CONTINUE TO MONITOR .
--- NOTE | 2019-07-19 11:10 | NUR ---
RT NOTE: PATIENT AWAKE AND FOLLOWING ORDERS. ASSESSED BY . PATIENT EXTUBATED PER DR GARCIA'S ORDERS. PATIENT PLACED ON OXYGEN 3LPM VIA NASAL CANNULA. BIPAP STD BY PER . NURSE AT BEDSIDE AND AWARE.
[2019-07-19] MEDS: IV D5/ 0.9% NACL 1,000 ML IV PRN (12:31)
[2019-07-19] MEDS: ACETAMINOPHEN 650 MG/SUPP.RECT RC PRN (12:43)
--- NOTE | 2019-07-19 12:59 | NUR ---
RN NOTES PT AGITATED, HR IN 120'S , O2 SAT 97%, ON 5L O2 N/C , BP 106/75 .CONTINUE TO MONITOR . CRICKET [place]on/JENNIFER PER DR GARCIA ORDER .
--- NOTE | 2019-07-19 13:45 | NUR ---
RN NOTES PT STILL VERY AGITATED , PULLING AND PUSHING ON HIS RESTRAINS , KICKING THE STAFF MEMBERS, SCREAMING LOUD , STATED WANTS TO GO HOME, HR IN HIGH 130'S, O2 SAT WNL , BP STABLE , DR GARCIA AND ROLANDO NOTIFED, ORDER RECEIVED FOR ATIVAN 0.25 IV PRN . CONTINUE TO MONITOR .
[2019-07-19] MEDS: LORAZEPAM INJ 2 MG/ML VIAL IV PRN (14:11)
[2019-07-19 14:40] LABS: ABG BASE EXCESS -1.3 mmol/L; ABG OXYGEN SATURATION 97.1 % (92.0-98.5); ABG PCO2 33.5 mmHg (35.0-45.0); ABG PH 7.441 (7.350-7.450); ABG PO2 101.8 mmHg (75.0-100.0); AaDO2 144.9 mmHg; COHb 0.3 % (0.5-1.5); MetHb 0.3 % (0.0-1.5); O2Hb 96.5 % (94.0-97.0); SITE, ABG Right Radial; VENT MODE, BG NASAL CANNULA
--- NOTE | 2019-07-19 16:18 | NUR ---
ICU/RN PT IS POST EXTUBATION THIS MORNING 11:10 AM ,VERY AGITATED AND CONFUSED.HIGH RISK OF FALL.NEED 1:1 SITTER.MD NOTIFIED .NEW ORDER RECEIVED.PRIMARY NURSE AT BED SIDE ALL THE TIME.
[2019-07-19] MEDS: RIVAROXABAN 10 MG TABLET PO SCH (16:47)
--- NOTE | 2019-07-19 17:21 | NUR ---
RN NOTES PT STILL RESTLESS AND AGITATED AND COMBATIVE AND TRIES TO GET OUT OF THE BED, HR IN 130'S, O2 SAT ON 5L N/C 95%, PT TOLERATING ICE CHIPS WELL, D5NS AT 60CC/HR RUNNING VIA L UPPER ARM IV SITE, ROBIN SOFT WRIST RESTRAINS ON FOR PT SAFETY, CONTINUE TO MONITOR .
--- NOTE | 2019-07-19 18:22 | NUR ---
RN NOTES PT IS LESS AGITATED, STILL CONFUSED AND WANTS TO GO HOME , PULLING ON HIS RESTRAINS, HR IN 120'S , BP STABLE, O2 ST 98% ON 4L O2 N/C, T=98.0 ORALLY , SR UP x3, CALL LIGHT WITHIN EASY REACH, BED LOCKED AND IN LOWEST POSITION, WILL ENDORSE TO DIRECTOR TOXICOLOGY NURSE FOR CONTINUITY OF CARE.
[2019-07-19] MEDS: LORAZEPAM INJ 2 MG/ML VIAL IVP PRN (19:22)
[2019-07-19] MEDS: HALOPERIDOL LACTATE INJ 5 MG/ML VIAL IM PRN (20:06)
--- NOTE | 2019-07-19 20:12 | NUR ---
ASSISTANT TO THE CEO NOTE RECEIVED PT EXTREMELY AGITATED, KICKING, RESTLESS AND PULLED OUT IV. CODE SOTO ACTIVATED AND ATIVAN GIVEN. PT REMAINS AGITATED. SPOKE WITH JAVA J2EE APPLICATION DEVELOPER DR. MTZ WITH ORDERS TO GIVE HALDOL 2MG IM Q6H PRN, ORDERS NOTED AND CARRIED OUT. PT 1:1 RATIO. REMAINS ON BILATERAL SOFT WRIST RESTRAINTS WITH PALPABLE PULSES AND NO DISCOLORATION NOTED. ON 3 L OF O2 VIA NC AND SATURATING WELL. BREATHING UNLABORED. BED ALARM ENABLED. WILL CONTINUE CONSTANT VISUAL MONITORING.
--- NOTE | 2019-07-19 20:17 | NUR ---
ALBUTEROL NOT GIVEN TO PATIENT DUE TO HIGH HR; RN NOTIFIED. Addendum: 07/19/19 at 2018 by DG MILLER RT Amended: Links added.
[2019-07-19] MEDS: ATORVASTATIN 40 MG TABLET PO SCH (21:18)
[2019-07-20] VITALS (15 sets, daily range): BP systolic 121–178; BP diastolic 66–110
[2019-07-20] MEDS: LORAZEPAM INJ 2 MG/ML VIAL IVP PRN (01:06)
[2019-07-20] MEDS: ALBUTEROL FS 2.5 MG/3 ML VIAL.NEB NEB SCH ×4 (01:38→20:04)
[2019-07-20] MEDS: IPRATROPIUM NEB FS 0.5 MG/2.5 ML AMPUL.NEB NEB SCH ×4 (01:38→20:04)
[2019-07-20 04:53] LABS: BASOPHILS # (AUTO) 0.1 /CMM (0.0-0.2); BASOPHILS % (AUTO) 0.5 % (0.0-2.0); EOSINOPHILS % (AUTO) 4.4 % (0.0-6.0); HEMATOCRIT 34 % (39-51); HEMOGLOBIN 10.9 g/dL (13.5-17.5); LYMPHOCYTES # (AUTO) 1.3 /CMM (0.8-4.8); LYMPHOCYTES % (AUTO) 11.8 % (20.0-44.0); MEAN CORPUSCULAR HGB CONC 32 g/dl (31.0-36.0); MEAN CORPUSCULAR VOLUME 74 fL (80-96); MONOCYTES % (AUTO) 9.1 % (2.0-12.0); NEUTROPHILS # (AUTO) 8.1 /CMM (1.8-8.9); NEUTROPHILS % (AUTO) 74.2 % (43.0-81.0); PLATELET COUNT (AUTO) 192 /CMM (150-450); RED BLOOD CELL COUNT(AUTO) 4.65 MIL/uL (4.5-6.0)
[2019-07-20 05:04] LABS: CREATININE 0.9 mg/dL (0.6-1.3); PHOSPHORUS 3.1 mg/dL (2.5-4.9); POTASSIUM 3.3 mmol/L (3.5-5.1)
[2019-07-20] MEDS: PIPERACILLIN /TAZOBACTAM 3.375 G in IV D5W 50 ML IV SCH ×3 (05:15→17:11)
[2019-07-20] MEDS: HALOPERIDOL LACTATE INJ 5 MG/ML VIAL IM PRN ×2 (05:18→18:26)
[2019-07-20] MEDS ORDERED: POTASSIUM CHLORIDE 20 MEQ POWDER PACKET GT ONE (08:00)
--- NOTE | 2019-07-20 08:00 | NUR ---
ICU/RN AM SHIFT OPENING NOTES RECEIVED PT AWAKE IN BED, PT A/O X 1, VERY RESTLESS, DENIES ANY SYMPTOMS, BARELY OPEN EYES, MUMBLES WORDS. NO ACUTE CHANGE OF CONDITION NOTED, NO FEVER. ON 3L O2 VIA N/C SATURATING @ 98%, LUNG SOUNDS CLEAR. RESPIRATIONS EVEN & UNLABORED. ON TELE MONITORING WITH CONTROLLED A-FIB WITH BBB, HR 74. WITH ON GOING IV INFUSION OF D5NS @ 60CC/HR, IV SITE PATENT WITH NO S/S OF INFECTION. BILATERAL WRIST RESTRAINT IN PLACED, REMOVED TO CHECK FOR CIRCULATION AND COMFORT, THEN PLACED BACK. PT ON NPO STATUS AT THIS TIME. SCHEDULED AM MEDS TO BE GIVEN. UPDATED PT'S CONDITION, PT SEEN & EXAMINED BY DR. MARSHALL, NO NEW ORDER RECEIVED AT THIS TIME. CL WITH REACHED AND SAFETY MAINTAINED. ON GOING MONITORING.
[2019-07-20] MEDS: VANCOMYCIN 1 GM in IV D5W 250 ML IV SCH ×2 (08:15→19:59)
[2019-07-20] MEDS: PANTOPRAZOLE 40 MG VIAL IV SCH (08:15)
[2019-07-20] MEDS: NITROGLYCERIN 30 GM TUBE TP SCH ×2 (08:15→20:00)
[2019-07-20] MEDS: ASPIRIN 81 MG TAB.CHEW PO SCH (08:15)
[2019-07-20] MEDS: POTASSIUM CL. PREMIX PERIPHER. 50 ML IV SCH ×2 (09:27→10:40)
[2019-07-20 09:36] LABS: ABG BASE EXCESS -3.7 mmol/L; ABG OXYGEN SATURATION 91.3 % (92.0-98.5); ABG PCO2 38.1 mmHg (35.0-45.0); ABG PH 7.365 (7.350-7.450); AaDO2 177.4 mmHg; COHb 0.1 % (0.5-1.5); MetHb 0.3 % (0.0-1.5); O2Hb 90.9 % (94.0-97.0); SITE, ABG Right Radial; VENT MODE, BG VENTI MASK 40%
[2019-07-20] MEDS: IV D5/ 0.9% NACL 1,000 ML IV PRN (09:39)
--- NOTE | 2019-07-20 11:27 | NUR ---
ICU/DRYWALL TAPER OF CARE - DOWN GRADED REPORT GIVEN TO NURSE BURGER, ENDORSED PT TO CONTINUE CARE. PT WILL BE TRANSFERRED TO ROOM 310#1. Addendum: 07/20/19 at 1201 by MO STERLING RN ADDENDUM: PT TRANSFERRED TO ROOM 310 VIA BED IN STABLE CONDITION, ENDORSED TO NURSE BURGER TO CONTINUE CARE.
--- NOTE | 2019-07-20 12:00 | NUR ---
CAMERA CONTROL OPERATOR NOTES RECEIVED PT FROM PAPERBOARD MACHINE OPERATOR BIMAL VIA BED, PT IS VERBALLY RESPONSIVE, CONFUSED, UNABLE TO KEEP STILL IN BED, KEPT COMFORTABLE IN BED, IV FLUIDS INFUSING, CALL LIGHT WITHIN REACH, FREQUENT CHECKING DONE, WILL CONTINUE TO MONITOR.
[2019-07-20] MEDS: RIVAROXABAN 10 MG TABLET PO SCH (17:00)
--- NOTE | 2019-07-20 17:00 | NUR ---
TACKING MACHINE OPERATOR NOTES PO MED NOT GIVEN, PT UNABLE TO FOLLOW DIRECTIONS, CONFUSED, RISK FOR ASPIRATION, AWAITING SWALLOW EVAL.
--- NOTE | 2019-07-20 17:30 | NUR ---
SECURITY COORDINATOR NOTES PT IN BED, RESTING, NOTED UNABLE TO KEEP STILL, HALDOL PRN GIVEN ORDERED, SAFETY PRECAUTIONS OBSERVED, IV FLUIDS INFUSING WELL, ENDORSED TO JOINER HELPER NURSE FOR CONTINUITY OF CARE.
[2019-07-20] MEDS: ATORVASTATIN 40 MG TABLET PO SCH (22:00)
--- NOTE | 2019-07-20 22:00 | NUR ---
[facility] SKIN ASSESSMENT PATIENT FOUND TO HAVE EXCORIATION TO BUTTOCKS. WOUND CARE CONSULT PLACED PER PROTOCOL . Addendum: 07/21/19 at 0323 by JOHANNE RIVAS RN patient transferred to [facility], z guard applied.
[2019-07-21] MEDS: PIPERACILLIN /TAZOBACTAM 3.375 G in IV D5W 50 ML IV SCH ×4 (00:15→17:10)
[2019-07-21] MEDS: IPRATROPIUM NEB FS 0.5 MG/2.5 ML AMPUL.NEB NEB SCH ×4 (02:00→20:06)
[2019-07-21] MEDS: ALBUTEROL FS 2.5 MG/3 ML VIAL.NEB NEB SCH ×4 (02:00→20:06)
[2019-07-21] MEDS: IV D5/ 0.9% NACL 1,000 ML IV PRN (05:02)
[2019-07-21 06:26] LABS: BASOPHILS # (AUTO) 0.1 /CMM (0.0-0.2); BASOPHILS % (AUTO) 0.5 % (0.0-2.0); EOSINOPHILS % (AUTO) 3.5 % (0.0-6.0); HEMATOCRIT 36 % (39-51); HEMOGLOBIN 11.2 g/dL (13.5-17.5); LYMPHOCYTES # (AUTO) 0.9 /CMM (0.8-4.8); LYMPHOCYTES % (AUTO) 7.3 % (20.0-44.0); MEAN CORPUSCULAR HGB CONC 32 g/dl (31.0-36.0); MEAN CORPUSCULAR VOLUME 75 fL (80-96); MONOCYTES # (AUTO) 0.9 /CMM (0.1-1.30); MONOCYTES % (AUTO) 7.5 % (2.0-12.0); NEUTROPHILS % (AUTO) 81.2 % (43.0-81.0); PLATELET COUNT (AUTO) 183 /CMM (150-450); RED BLOOD CELL COUNT(AUTO) 4.76 MIL/uL (4.5-6.0); WHITE BLOOD COUNT (AUTO) 12.3 K/uL (4.3-11.0)
[2019-07-21 06:31] LABS: CALCIUM, SERUM 9.2 mg/dL (8.5-10.1); CARBON DIOXIDE 29 mmol/L (21-32); CHLORIDE 109 mmol/L (98-107); CREATININE 0.9 mg/dL (0.6-1.3); GLUCOSE 133 mg/dL (74-106); POTASSIUM 3.4 mmol/L (3.5-5.1); SODIUM SERUM 149 mmol/L (136-145); UREA NITROGEN, BLOOD 8 mg/dL (7-18)
--- NOTE | 2019-07-21 07:10 | NUR ---
SHOE PLANNER NOTES RECEIVED PATIENT IN BED, ASLEEP. AROUSABLE TO VERBAL AND TACTILE STIMULI. SITTER AT BEDSIDE. NO SOB. RED # 20 INTACT AND PATENT INFUSING D5 NS @ 60 ML/HR HEIDY WELL. BED IN LOWEST POSITION, LOCKED. BED ALARM ON. CALL LIGHT WITHIN REACH. FREQUENT VISUAL CHECK DONE.
--- NOTE | 2019-07-21 07:20 | NUR ---
EMPLOYMENT MANAGER NOTES ON TELEMONITORING [id number] HR: 102 WITHOUT S/S OF DISTRESS AT THIS TIME.
[2019-07-21] MEDS ORDERED: POTASSIUM CHLORIDE 20 MEQ TAB.PRT.SR PO SCH (08:00)
[2019-07-21] MEDS: POTASSIUM CL. PREMIX PERIPHER. 50 ML IV SCH ×4 (08:06→12:27)
--- NOTE | 2019-07-21 08:06 | NUR ---
WOUND CARE CONSULT: PT SEEN FOR RASH ON BUTTOCKS AND GROIN AREAS WELL SPOTTY RASH ON BACK. RN TO DISCUSS BACK RASH WITH MD. PT DENIES ANY ITCHING OR DISCOMFORT TO HIS BACK. RECOMMENDATIONS MADE FOR SKIN CARE AND PROTECTION. DISCUSSED WITH NURSING STAFF. PT HAS BEEN INCONTINENT. PT ON [place] [facility] LOW AIRLOSS BED. WILL SEE PRN. IN AGREEMENT WITH PLAN OF CARE. Addendum: 07/21/19 at 0808 by JAYDA MCGUIRE WNDNU Amended: Links added.
[2019-07-21] MEDS: VANCOMYCIN 1 GM in IV D5W 250 ML IV SCH ×2 (08:12→20:32)
[2019-07-21] MEDS: PANTOPRAZOLE 40 MG TABLET.DR PO SCH (09:59)
[2019-07-21] MEDS: ASPIRIN 81 MG TAB.CHEW PO SCH (09:59)
[2019-07-21] MEDS: CLOTRIMAZOLE 1% 15 GM TUBE TP SCH ×2 (10:00→17:09)
[2019-07-21] MEDS: NITROGLYCERIN 30 GM TUBE TP SCH ×2 (10:03→20:24)
[2019-07-21] MEDS: AMIODARONE HCL 200 MG TABLET PO SCH ×3 (10:05→17:09)
--- NOTE | 2019-07-21 19:00 | NUR ---
CITY WELLNESS COORDINATOR NOTES ALERT AND ORIENTED X2. PATIENT WITH EPISODES OF FORGETFULNESS. SITTER AT BEDSIDE. NO S/S OF RESPIRATORY DISTRESS. ON ROOM AIR WITH SPO2 OF 95%. PATIENT AMBULATED MAJORITY OF THE TIME DURING THE SHIFT WITH SITTER AT SIDE WITHOUT SOB NOR C/O PAIN NOR DISCOMFORT. OBSERVED GAIT STEADY WITH EPISODES OF UNSTEADINESS BUT PATIENT ABLE TO BALANCE SELF. BRP. LFA # 22 INTACT AND PATENT INFUSING D5 NS @ 60 ML/HR HEIDY WELL. BED IN LOWEST POSITION, LOCKED. BED ALARM ON. CALL LIGHT WITHIN REACH. FREQUENT VISUAL CHECK DONE. ABLE TO VERBALIZE NEEDS. IN NO APPARENT DISTRESS. PER PATIENT, HE WILL TALK TO DR. LOZA TOMORROW REGARDING CATH PROCEDURE AND WILL DECIDE IF HE WILL AGREE.
--- NOTE | 2019-07-21 19:30 | NUR ---
SUPERVISOR OVENS PM NOTE BEDSIDE REPORT RECIEVED FROM TOMAS CHANG. GEOVANY MICHAEL AT THE BEDSIDE SITTER. PATIENT IS ALERT AND ORIENTED X3 TO PERSON AND PLACE AND ABLE TO STATE HIS POC FOR CARDIAC CATH TOMORROW PT REORIENTED TO TIME. CONSENT SIGNED FOR CARDIAC CATH PROCEDURE TOMORROW WITNESSED BY MYSELF AND TOMAS CHANG. PT STATES, "WELL I WANT TO DISCUSS THIS MORE WITH DR. LOZA. PT REASSURED DENIA WOULD BE IN TO SEE HIM IN AM TO REVIEW PROCEDURE WITH HIM AND AT ANY POINT HE CAN REFUSE TO HAVE IT PERFORMED. PT VERBALZIED UNDERSTANDING. PER REPORT PATIENT HAS EPISODES OF FORGETFULNESS. NO S/S OF RESPIRATORY DISTRESS BREATHING EVEN AND UNLABORED. ON ROOM AIR. PATIENT PER REPORT IS AMBULATORY AND USING BATHROOM . STANDBY ASSISTANCE. RED # 20 INTACT AND PATENT LFA #22 INTACT PATENT INFUSING D5 NS @ 60 ML/HR. BED IN LOWEST POSITION, LOCKED. BED ALARM ON. CALL LIGHT WITHIN REACH. FREQUENT VISUAL CHECK DONE. ABLE TO VERBALIZE NEEDS. IN NO APPARENT DISTRESS. WILL CONT TO MONITOR.
[2019-07-21 20:00] VITALS: BP 144/73
[2019-07-21] MEDS: ATORVASTATIN 40 MG TABLET PO SCH (21:23)
[2019-07-22] VITALS (7 sets, daily range): BP systolic 106–149; BP diastolic 53–78
[2019-07-22] MEDS: PIPERACILLIN /TAZOBACTAM 3.375 G in IV D5W 50 ML IV SCH ×5 (00:13→23:09)
[2019-07-22] MEDS: IPRATROPIUM NEB FS 0.5 MG/2.5 ML AMPUL.NEB NEB SCH ×4 (00:37→20:07)
[2019-07-22] MEDS: ALBUTEROL FS 2.5 MG/3 ML VIAL.NEB NEB SCH ×4 (00:37→20:07)
[2019-07-22] MEDS: IV D5/ 0.9% NACL 1,000 ML IV PRN ×2 (05:30→23:13)
[2019-07-22 06:43] LABS: BASOPHILS # (AUTO) 0.1 /CMM (0.0-0.2); BASOPHILS % (AUTO) 0.8 % (0.0-2.0); EOSINOPHILS % (AUTO) 3.6 % (0.0-6.0); HEMATOCRIT 33 % (39-51); HEMOGLOBIN 10.3 g/dL (13.5-17.5); LYMPHOCYTES # (AUTO) 0.9 /CMM (0.8-4.8); LYMPHOCYTES % (AUTO) 7.2 % (20.0-44.0); MEAN CORPUSCULAR HGB CONC 31 g/dl (31.0-36.0); MEAN CORPUSCULAR VOLUME 74 fL (80-96); MONOCYTES # (AUTO) 1.1 /CMM (0.1-1.30); MONOCYTES % (AUTO) 8.3 % (2.0-12.0); NEUTROPHILS # (AUTO) 10.5 /CMM (1.8-8.9); NEUTROPHILS % (AUTO) 80.1 % (43.0-81.0); PLATELET COUNT (AUTO) 197 /CMM (150-450); RED BLOOD CELL COUNT(AUTO) 4.45 MIL/uL (4.5-6.0); WHITE BLOOD COUNT (AUTO) 13.2 K/uL (4.3-11.0)
[2019-07-22 06:56] LABS: CARBON DIOXIDE 24 mmol/L (21-32); CHLORIDE 100 mmol/L (98-107); CREATININE 3.1 mg/dL (0.6-1.3); GLUCOSE 112 mg/dL (74-106); POTASSIUM 3.4 mmol/L (3.5-5.1); SODIUM SERUM 138 mmol/L (136-145); UREA NITROGEN, BLOOD 19 mg/dL (7-18)
--- NOTE | 2019-07-22 07:20 | NUR ---
TELE/RN OPENING NOTE Patient is sitting up in bed, A/O x2, with periods of confusion, showing no signs of acute distress or SOB, saturating >95% on 3L NC. IV line in the LFA#22g is running D5NS @60ml/hour. Dr. Almendarez at the bedside and spoke with Dr. Jon in regards to planned cardiac cath, no scheduled time yet, per MD, could be later this afternoon or first thing tomorrow morning. Per Erickson Gross, ok to give AM meds. Bed is in lowest position, side rails x3 in upright position, sitter at the bedside. Fall, safety and aspiration precautions enforced. Will continue with plan of care.
[2019-07-22] MEDS: AMIODARONE HCL 200 MG TABLET PO SCH ×3 (08:36→16:32)
[2019-07-22] MEDS: CLOTRIMAZOLE 1% 15 GM TUBE TP SCH ×2 (08:36→16:32)
[2019-07-22] MEDS: PANTOPRAZOLE 40 MG TABLET.DR PO SCH (08:36)
[2019-07-22] MEDS: ASPIRIN 81 MG TAB.CHEW PO SCH (08:36)
[2019-07-22] MEDS: NITROGLYCERIN 30 GM TUBE TP SCH ×2 (08:37→20:06)
[2019-07-22 08:56] LABS: CALCIUM, SERUM 9.1 mg/dL (8.5-10.1); CARBON DIOXIDE 26 mmol/L (21-32); CHLORIDE 99 mmol/L (98-107); CREATININE 3.4 mg/dL (0.6-1.3); GLUCOSE 107 mg/dL (74-106); POTASSIUM 3.5 mmol/L (3.5-5.1); SODIUM SERUM 139 mmol/L (136-145); UREA NITROGEN, BLOOD 20 mg/dL (7-18)
[2019-07-22] MEDS: GUAIFENESIN 300 MG/15 ML UDC PO PRN ×2 (08:56→23:49)
[2019-07-22 09:03] LABS: ALANINE AMINOTRANSFERASE 19 U/L (12-78); ALBUMIN 3.1 g/dL (3.4-5.0); ALKALINE PHOSPHATASE 60 U/L (46-116); ASPARTATE AMINOTRANSFERASE 45 U/L (15-37); BILIRUBIN,TOTAL 0.8 mg/dL (0.2-1.0); TOTAL PROTEIN, SERUM 6.9 g/dL (6.4-8.2)
--- NOTE | 2019-07-22 09:07 | NUR ---
RN NOTE non-admin Vanco due to trough level of 38. Pharmacy aware. Lab redraw ordered.
[2019-07-22 10:49] LABS: MAGNESIUM 1.5 mg/dL (1.8-2.4)
--- NOTE | 2019-07-22 14:40 | NUR ---
RN NOTE Per MD, do not replace magnesium due to renal function. Pharmacy aware.
--- NOTE | 2019-07-22 15:52 | NUR ---
RN NOTE Patient remains stable, frequently ambulates around unit with sitter, IVF running @125ml/hr. Per , ok for patient to eat. Will check renal fx in AM tomorrow to determine if patient will have cardiac cath. Addendum: 07/22/19 at 1613 by CATINA AN RN Tele monitor A-fib, a-flutter, with AVB and BBB. Dr. Almendarez is aware.
[2019-07-22] MEDS: LORAZEPAM INJ 2 MG/ML VIAL IV PRN (16:32)
--- NOTE | 2019-07-22 19:11 | NUR ---
TELE/RN CLOSING NOTE Patient is resting up in bed, A/O x2, with periods of confusion, showing no signs of acute distress or SOB, saturating >95% on 3L NC. Patient has no complaints of pain throughout shift. Tele monitor a-fib with aflutter with 1st degree AV block with BBB, HR 82. IV line in the LFA#22g is running D5NS @125ml/hour. Patient allowed to eat due to no scheduled cardiac cath yet; will monitor if renal fx will improve tomorrow, ok per MD. Charge nurse aware. All patient needs met, all due meds given, patient kept clean and comfortable throughout shift. Bed is in lowest position, side rails x3 in upright position, sitter at the bedside. Fall, safety and aspiration precautions enforced. Will endorse to night worker.
--- NOTE | 2019-07-22 19:20 | NUR ---
OCCUPATIONAL THERAPY DEPARTMENT CHAIR OPENING NOTES PATIENT AWAKE AND RESTING IN BED. SITTER PRESENT AT THE BEDSIDE. A/OX2. ON 3L NC. NO S/S OF ACUTE RESPIRATORY DISTRESS AND NO COMPLAINTS OF PAIN AT THIS TIME. TELE MONITOR READING A-FIB, 1ST DEGREE AVB W/ BBB, HEART RATE 92. IV PRESENT ON RIGHT FOREARM, SIZE 22, INTACT & PATENT WITH D5NS RUNNING AT 125 ML/HR. PATIENT ABLE TO VERBALIZE NEEDS. SAFETY MEASURES IN PLACE. BED LOCKED, SIDE RAILS X2, CALL LIGHT WITHIN REACH. WILL CONTINUE TO MONITOR.
[2019-07-22] MEDS: ATORVASTATIN 40 MG TABLET PO SCH (21:06)
[2019-07-23] VITALS (9 sets, daily range): BP systolic 124–154; BP diastolic 65–87
[2019-07-23] MEDS: LORAZEPAM INJ 2 MG/ML VIAL IV PRN ×2 (00:31→20:51)
--- NOTE | 2019-07-23 00:31 | NUR ---
MS RN NOTES PATIENT IS ANXIOUS AND RESTLESS. PER PATIENT'S REQUEST, ADMINISTERED PRN ATIVAN 0.25 MG IV. VITAL SIGNS - BP: 141/78 HR: 89 SPO2: 95. SAFETY MEASURES IN PLACE. WILL CONTINUE TO MONITOR.
[2019-07-23] MEDS: IPRATROPIUM NEB FS 0.5 MG/2.5 ML AMPUL.NEB NEB SCH ×4 (02:22→19:39)
[2019-07-23] MEDS: ALBUTEROL FS 2.5 MG/3 ML VIAL.NEB NEB SCH ×4 (02:22→19:39)
[2019-07-23] MEDS: PIPERACILLIN /TAZOBACTAM 3.375 G in IV D5W 50 ML IV SCH (05:06)
--- NOTE | 2019-07-23 06:20 | NUR ---
MS RN CLOSING NOTES PATIENT AWAKE AND AMBULATING AROUND ROOM. SITTER PRESENT AT THE BEDSIDE. A/OX2-3. REMAINED STABLE DURING ENTIRE SHIFT. TELE MONITOR READING A-FIB WITH 1ST DEGREE AVB W/ BBB, HEART RATE 84. PATIENT DENIES SOB OR PAIN. IV ON RIGHT FOREARM, SIZE 22, INTACT & PATENT, D5 NS RUNNING AT 125ML/HR. SAFETY MEASURES IN PLACE. BED LOCKED, SIDE RAILS X2, CALL LIGHT WITHIN REACH. WILL ENDORSE TO DAY SHIFT NURSE PLAN OF CARE.
[2019-07-23 06:37] LABS: BASOPHILS % (AUTO) 0.6 % (0.0-2.0); EOSINOPHILS % (AUTO) 7.1 % (0.0-6.0); HEMATOCRIT 27 % (39-51); HEMOGLOBIN 8.4 g/dL (13.5-17.5); LYMPHOCYTES # (AUTO) 0.7 /CMM (0.8-4.8); LYMPHOCYTES % (AUTO) 8.7 % (20.0-44.0); MEAN CORPUSCULAR HGB CONC 32 g/dl (31.0-36.0); MEAN CORPUSCULAR VOLUME 73 fL (80-96); MONOCYTES # (AUTO) 0.7 /CMM (0.1-1.30); MONOCYTES % (AUTO) 9.2 % (2.0-12.0); NEUTROPHILS # (AUTO) 5.6 /CMM (1.8-8.9); NEUTROPHILS % (AUTO) 74.4 % (43.0-81.0); PLATELET COUNT (AUTO) 169 /CMM (150-450); RED BLOOD CELL COUNT(AUTO) 3.61 MIL/uL (4.5-6.0); WHITE BLOOD COUNT (AUTO) 7.5 K/uL (4.3-11.0)
[2019-07-23 06:38] LABS: CREATINE KINASE, TOTAL 165 U/L (39-308)
[2019-07-23 06:39] LABS: CALCIUM, SERUM 8.3 mg/dL (8.5-10.1); CARBON DIOXIDE 23 mmol/L (21-32); CHLORIDE 104 mmol/L (98-107); CREATININE 4.8 mg/dL (0.6-1.3); GLUCOSE 113 mg/dL (74-106); MAGNESIUM 1.7 mg/dL (1.8-2.4); PHOSPHORUS 4.6 mg/dL (2.5-4.9); POTASSIUM 3.2 mmol/L (3.5-5.1); SODIUM SERUM 140 mmol/L (136-145); UREA NITROGEN, BLOOD 26 mg/dL (7-18)
[2019-07-23] MEDS ORDERED: Magnesium 1GM/D5W 100ML PREMIX 100 ML IV SCH (07:11)
[2019-07-23] MEDS: POTASSIUM CHLORIDE 20 MEQ TAB.PRT.SR PO SCH ×2 (07:56→09:13)
--- NOTE | 2019-07-23 08:00 | NUR ---
RN NOTES RECEIVED PATIENT IN THE BED ON TELE SR-80, ON O2-2LNC. PATIENT HAS NO ACUTE RESPIRATORY DISTRESS, COUGHING, WITH WHITE SMALL DISCHARGE. DIMINISHED BREATH SOUNDS. PATIENT REFUSED PAIN , AMBULATORY, GETTING ANXIOUS EASILY. ADMINISTERED SCHEDULED MEDICATION, REPLACED LOW MG. AND KCL, PER ORDER, ALSO ADMINISTERED SCHEDULED MEDICATION. PATIENT AMBULATORY WITH ASSIST. SAFETY PRECAUTION MAINTAINED ALL THE TIME. 1:1 SITTER NEXT TO THE BED FOR SAFETY. INFUSING D5NS AT 125 ML/HR ON RIGHT FA INTACT.CALL LIGHT WITHIN TO REACH. SAFETY PRECAUTION MAINTAINED ALL THE TIME.
[2019-07-23] MEDS ORDERED: VANCOMYCIN 1 GM in IV D5W 250 ML IV SCH (09:00)
--- NOTE | 2019-07-23 09:00 | NUR ---
RN NOTES PATIENT WITH RT GETTING BREATHING TX, ALSO AMBULATED IN THE HALLWAY WITH 1:1 SITTER.
[2019-07-23] MEDS: PANTOPRAZOLE 40 MG TABLET.DR PO SCH (09:14)
[2019-07-23] MEDS: NIFEdipine XL (30MG) 30 MG TAB PO SCH (09:14)
[2019-07-23] MEDS: ASPIRIN 81 MG TAB.CHEW PO SCH (09:14)
[2019-07-23] MEDS: CLOTRIMAZOLE 1% 15 GM TUBE TP SCH ×2 (09:14→19:38)
[2019-07-23] MEDS: NITROGLYCERIN 30 GM TUBE TP SCH ×2 (09:21→21:24)
--- NOTE | 2019-07-23 10:00 | NUR ---
RN NOTES EDUCATED PAIN FOR UA CLEAN CATH SPECIMEN, GIVEN CLEAN CONTAINER FOR SPECIMEN, PATIENT VERBALIZED UNDERSTANDING.
[2019-07-23] MEDS: IV D5/ 0.9% NACL 1,000 ML IV PRN ×2 (10:38→20:58)
[2019-07-23] MEDS: PIPERACILLIN /TAZOBACTAM 2.25 G in IV D5W 50 ML IV SCH ×2 (12:54→20:48)
--- NOTE | 2019-07-23 13:00 | NUR ---
RN NOTES INFUSING ZOSYN 100 ML/HR ON RIGHT FA INTACT.
[2019-07-23] MEDS ORDERED: ALBUTEROL FS 2.5 MG/3 ML VIAL.NEB ONE (14:25)
[2019-07-23] MEDS ORDERED: IPRATROPIUM NEB FS 0.5 MG/2.5 ML AMPUL.NEB ONE (14:25)
--- NOTE | 2019-07-23 18:06 | NUR ---
RN NOTES PER CERAMIC RESTORER SHOWING 1ST DEGREE HEART BLOCK, HR-75, BP-124/72, PATIENT STABLE, BEEF SELECTOR DR SARAVIA AWARE OF ORDER IS MONITORING. CALL LIGHT WITHIN TO REACH, 1:1 SITTER NEXT TO THE BED FOR SAFETY. CONTINUE MONITORING. E
[2019-07-23 18:25] LABS: APPEARANCE,URINE SL CLOUDY (CLEAR); BILIRUBIN,URINE NEGATIVE (NEGATIVE); BLOOD, URINE SMALL Ery/uL (NEGATIVE); COLOR,URINE YELLOW (YELLOW); KETONES,URINE NEGATIVE (NEGATIVE); LEUKOCYTE ESTERASE ,URINE TRACE (NEGATIVE); NITRITE, URINE NEGATIVE (NEGATIVE); PH,URINE 5.5 (5.0-8.0); PROTEIN,URINE 30 mg/dl (NEGATIVE); UGLUCOSE NEGATIVE (NEGATIVE); UROBILINOGEN,URINE 0.2 EU/dL (0.2)
[2019-07-23 18:44] LABS: CREATININE, URINE 115.3 MG/DL (30.0-125.0); URINE TOTAL PROTEIN 73.4 mg/dL (0-11.9)
[2019-07-23 18:50] LABS: BACTERIA,URINE 1+ /HPF (None Seen); SQUAMOUS EPITHELIAL CELL,UR Few /HPF (None Seen)
[2019-07-23 18:51] LABS: COARSE GRANULAR CASTS,URINE Moderate /LPF (None Seen); URIC ACID CRYSTALS,URINE Rare /HPF (None Seen)
[2019-07-23 18:59] LABS: EOSINOPHIL,URINE None Seen
--- NOTE | 2019-07-23 19:55 | NUR ---
DRY COLOR MIXER OPENING NOTES RECEIVED PATIENT FROM MORNING SHIFT, ALERT AND ORIENTED X 2-3 WITH EPISODES OF CONFUSION. AMBULATORY WITH ASSIST, VERBALLY RESPONSIVE AND ABLE TO FOLLOW DIRECTIONS. BREATHING REGULAR AND UNLABORED ON OXYGEN AT 3L/MIN. ON ONE TO ONE SITTER. RIGHT FOREARM G22 IV LINE INTACT AND PATENT, INFUSING WELL WITH NO BLEEDING OR S/S OF INFECTION/INFILTRATION NOTED. ON CARDIAC MONITORING WITH NSR WITH 1ST DEGREE HEART BLOCK AT 86bpm. DENIES ANY SUICIDAL/HOMICIDAL IDEATION AT THIS TIME. NO COMPLAINTS OF PAIN/DISCOMFORT REPORTED OF NOW. BED LOW AND LOCKED ON SEMI FOWLERS POSITION. CALL LIGHT IN REACH. WILL CONTINUE TO MONITOR.
--- NOTE | 2019-07-23 21:00 | NUR ---
ARCHITECT INTERN NOTES ANXIETY VERBALIZED, ATIVAN 0.25MG GIVEN VIA IV PUSH. NON-PHARMACOLOGICAL INTERVENTIONS PROVIDED. WILL CONTINUE TO MONITOR.
[2019-07-23] MEDS: ATORVASTATIN 40 MG TABLET PO SCH (21:24)
--- NOTE | 2019-07-23 23:00 | NUR ---
CONSUMER ATTORNEY NOTES SEEN PATIENT SITTING ON THE EDGE OF THE BED, LEANING ON THE BEDSIDE TABLE WITH SHORTNESS OF BREATH AND CRACKLES ON AUSCULTATION. IV INFUSION STOPPED. RT NOTIFIED AND CHANGE PATIENT TO HUMIDIFIED OXYGEN. REASSURED PATIENT. WILL CLOSELY MONITOR.
[2019-07-24] VITALS (7 sets, daily range): BP systolic 124–143; BP diastolic 69–76
[2019-07-24] MEDS: IPRATROPIUM NEB FS 0.5 MG/2.5 ML AMPUL.NEB NEB SCH ×4 (01:04→19:49)
[2019-07-24] MEDS: ALBUTEROL FS 2.5 MG/3 ML VIAL.NEB NEB SCH ×4 (01:04→19:49)
--- NOTE | 2019-07-24 04:26 | NUR ---
RN NOTES: 0406- PT NOTED TO HAVE SOB, PLACED ON ORTHOPNEIC POSITION. VS TAKEN AND RECORDED. 0410-FINGERSTICK BLOOD GLUCOSE CHECK PERFORMED, RESULT IS 87. 0417ASKED BEHAVIORAL MEDICAL DIRECTOR PRISCA TO PLEASE HELP ASSESS PT RECOMMENDS . STAT ABG AND CXR ORDERED, MD AWARE, OKAY TO DO CXR AND ABG. PT A/O ABLE TO MAKE HIS NEEDS KNOWN. PT PREVIOUSLY FROM ICU ON BIPAP. 0426- CXR BEING DONE AT BED SIDE, DHON RT AT BED SIDE, DOING ABG.
[2019-07-24 04:39] LABS: ABG BASE EXCESS -7.8 mmol/L; ABG OXYGEN SATURATION 92.8 % (92.0-98.5); ABG PCO2 33.7 mmHg (35.0-45.0); ABG PH 7.329 (7.350-7.450); ABG PO2 70.6 mmHg (75.0-100.0); AaDO2 118.1 mmHg; COHb 0.3 % (0.5-1.5); MetHb 0.4 % (0.0-1.5); O2Hb 92.2 % (94.0-97.0); SITE, ABG Right Radial; VENT MODE, BG Nasal Cannula
--- NOTE | 2019-07-24 05:00 | NUR ---
COMMERCIAL CONSTRUCTION ESTIMATOR NOTES CALLED AND SPOKE TO REGARDING PATIENT'S CHANGE OF CONDITION. RELAYED LATEST ABG RESULT AND RT/ICU NURSE SUGGESTIONS WITH ORDERS TO INCREASE OXYGEN TO 4L/MIN NOTED AND CARRIED OUT. RT NOTIFIED. Addendum: 07/24/19 at 0504 by MARILIA MEADOWS RN PER HE WILL CHECK PATIENTS RECORDS AND WILL CALL FOR FURTHER ORDERS.
[2019-07-24] MEDS: PIPERACILLIN /TAZOBACTAM 2.25 G in IV D5W 50 ML IV SCH ×3 (05:28→22:40)
[2019-07-24] MEDS ORDERED: FUROSEMIDE 40 MG/4 ML VIAL IV ONE (05:30)
[2019-07-24 06:30] LABS: BASOPHILS % (AUTO) 0.6 % (0.0-2.0); EOSINOPHILS % (AUTO) 7.7 % (0.0-6.0); HEMATOCRIT 28 % (39-51); HEMOGLOBIN 8.9 g/dL (13.5-17.5); LYMPHOCYTES # (AUTO) 0.7 /CMM (0.8-4.8); LYMPHOCYTES % (AUTO) 9.7 % (20.0-44.0); MEAN CORPUSCULAR HGB CONC 32 g/dl (31.0-36.0); MEAN CORPUSCULAR VOLUME 75 fL (80-96); MONOCYTES # (AUTO) 0.7 /CMM (0.1-1.30); MONOCYTES % (AUTO) 9.6 % (2.0-12.0); NEUTROPHILS # (AUTO) 5.4 /CMM (1.8-8.9); NEUTROPHILS % (AUTO) 72.4 % (43.0-81.0); PLATELET COUNT (AUTO) 190 /CMM (150-450); RED BLOOD CELL COUNT(AUTO) 3.76 MIL/uL (4.5-6.0); WHITE BLOOD COUNT (AUTO) 7.5 K/uL (4.3-11.0)
--- NOTE | 2019-07-24 06:45 | NUR ---
MEDICAL INSURANCE CODING SPECIALIST CLOSING NOTES PATIENT IN BED ALERT AND ORIENTED X 2-3 WITH EPISODES OF CONFUSION. BREATHING REGULAR BUT SLIGHTLY LABORED ON OXYGEN AT 4L/MIN. RIGHT FOREARM G22 IV LINE PATENT AND FLUSHING WELL. MAINTAINED ON CARDIAC MONITORING WITH NSR WITH 1ST DEGREE HEART BLOCK AT 88bpm. NO COMPLAINTS OF PAIN/DISCOMFORT REPORTED THE WHOLE SHIFT. BED LOW AND LOCKED ON SEMI FOWLERS POSITION. CALL LIGHT IN REACH. WILL ENDORSE TO MORNING SHIFT FOR NIKKY.
[2019-07-24 06:49] LABS: ALANINE AMINOTRANSFERASE 14 U/L (12-78); ALBUMIN 2.6 g/dL (3.4-5.0); ALKALINE PHOSPHATASE 46 U/L (46-116); ASPARTATE AMINOTRANSFERASE 26 U/L (15-37); BILIRUBIN,TOTAL 0.5 mg/dL (0.2-1.0); CALCIUM, SERUM 8.6 mg/dL (8.5-10.1); CARBON DIOXIDE 20 mmol/L (21-32); CHLORIDE 104 mmol/L (98-107); CREATININE 6.2 mg/dL (0.6-1.3); GLUCOSE 92 mg/dL (74-106); MAGNESIUM 1.9 mg/dL (1.8-2.4); PHOSPHORUS 5.8 mg/dL (2.5-4.9); POTASSIUM 3.8 mmol/L (3.5-5.1); SODIUM SERUM 140 mmol/L (136-145); TOTAL PROTEIN, SERUM 6.2 g/dL (6.4-8.2); UREA NITROGEN, BLOOD 28 mg/dL (7-18)
--- NOTE | 2019-07-24 07:30 | NUR ---
HEALTH THERAPIST NOTES PT IN BED, AWAKE, ALERT AND ORIENTED, NO COMPLAINT OF PAIN, COMPLAINED OF SOB AFTER WALKING TO THE BATHROOM, ASSISTED TO BED, KEPT ON O2, BREATHING TREATMENT GIVEN BY RT, SITTER AT BEDSIDE, WILL CONTINUE TO MONITOR.
[2019-07-24] MEDS: PANTOPRAZOLE 40 MG TABLET.DR PO SCH (08:58)
[2019-07-24] MEDS: NIFEdipine XL (30MG) 30 MG TAB PO SCH (08:58)
[2019-07-24] MEDS: ASPIRIN 81 MG TAB.CHEW PO SCH (08:58)
[2019-07-24] MEDS: NITROGLYCERIN 30 GM TUBE TP SCH ×2 (08:59→23:29)
[2019-07-24] MEDS: CLOTRIMAZOLE 1% 15 GM TUBE TP SCH ×2 (09:02→16:46)
--- NOTE | 2019-07-24 09:23 | NUR ---
DIRECTOR OF PULMONARY UNIT NOTES PT IN BED, RESTING, NOT IN DISTRESS, SEEN BY DR. CRANE, PLAN OF CARE DISCUSSED WITH PT, VERBALIZED UNDERSTANDING, NEEDS ATTENDED.
[2019-07-24] MEDS: LORAZEPAM INJ 2 MG/ML VIAL IV PRN ×2 (10:27→22:42)
--- NOTE | 2019-07-24 13:00 | NUR ---
SALES COMMUNICATIONS MANAGER NOTES PT IN BED, AWAKE, ALERT AND ORIENTED, NO COMPLAINT OF PAIN OR DISTRESS, ABLE TO AMBULATE TO THE BATHROOM, DR. GREENWOOD ORDERED FOR HD, PT GAVE CONSENT, PER DR. CRANE, DR. HYDE WILL INSERT AMADA CATH, PT INFORMED OF PLAN, AGREED AND VERBALIZED UNDERSTANDING.
--- NOTE | 2019-07-24 18:36 | NUR ---
EMERGENCY MEDICAL SERVICES COORDINATOR NOTES PT IN BED, AWAKE, ALERT AND ORIENTED, NO COMPLAINT OF PAIN, WITH SOB WHEN WALKING TO THE BATHROOM, PT FOR HD CATH INSERTION AND DIALYSIS, CONSENTS GIVEN AND SIGNED, NEEDS ATTENDED.
--- NOTE | 2019-07-24 19:05 | NUR ---
CLOTH DYER OPENING NOTES RECEIVED PT IN BED AWAKE ALERT AND ORIENTED X3 , ABLE TO MAKE NEEDS KNOWN RESPIRATIONS EVEN AND UNLABORED WITH EQUAL RISE AND FALL OF CHEST,CURRENTLY ON 02 4 L VIA NC AND TOLERATING WELL. ON A OPERATOR SR 85WITH BBB, NO DISTRESS PRESENT, DENIES ANY PAIN OR DISCOMFORT AT THIS TIME, IV SITE TO RIGHT FA #22 G INTACT AND PATENT, NO REDNESS, NO INFILTRATION PRESENT, SITTER AT BEDSIDE, SAFETY PRECAUTIONS IN PLACE, LOW BED AND LOCKED, TOILETING AND FLUID NEEDS ATTENDED WILL CONTINUE TO MONITOR AND ATTEND TO NEEDS. REMAINS COMFORTABLE AT THIS TIME.
--- NOTE | 2019-07-24 19:30 | NUR ---
TAG MAKER NOTES HD CATH INSERTION NOTED TO RIGHT GROIN TRIPLE LUMEN, DRESSING IS CLEAN DRY AND INTACT.
--- NOTE | 2019-07-24 20:12 | NUR ---
INTERIOR DESIGN ASSISTANT NOTES HD NURSE AT BEDSIDE.
--- NOTE | 2019-07-24 21:30 | NUR ---
HEMODIALYSIS CATHETER INSERTION Personnel Recruiter: [facility] Casey Jin NP Trialysis 13f 30cm Patient has order to insert HD catheter. Informed consent is signed and in chart. Insertion site determined to be right femoral vein. Patient was prepped using sterile technique with chlorhexidine. Patient was covered with a sterile drape and i donned a sterile gown. The insertion site was anesthetized with 1% lidocaine. Needle inserted under ultrasound guidance. Guidewire inserted through needle and needle removed. Small dallin made at insertion site of approximately 2 mm. Dilator inserted over guidewire then removed. Catheter inserted fully over guidewire. Guidewire removed. Blood return at all three ports. Caps placed on each port. Catheter secured with 2 sutures. Biopatch placed and covered with tegaderm. No s/s of complication. Tolerated well with minimal blood loss. Ebl 3ml.
--- NOTE | 2019-07-24 22:40 | NUR ---
HD COMPLETED AT THIS TIME PATIENT REQUESTING FOR ATIVAN . PRN ATIVAN GIVEN ORDERED AND REST WASTED WITH ANOTHER RN. WILL CONTINUE TO MONITOR BLOOD PRESSURE FOR NITRO PATCH APPLICATION.
[2019-07-24] MEDS: ATORVASTATIN 40 MG TABLET PO SCH (22:41)
[2019-07-24] MEDS: LINEZOLID 600 MG TABLET PO SCH (22:41)
[2019-07-25] VITALS: BP_SYST 130; BP_DIAS 68; BP_DIAS 76
[2019-07-25] MEDS: ALBUTEROL FS 2.5 MG/3 ML VIAL.NEB NEB SCH ×4 (01:33→21:09)
[2019-07-25] MEDS: IPRATROPIUM NEB FS 0.5 MG/2.5 ML AMPUL.NEB NEB SCH ×4 (01:33→21:09)
[2019-07-25 04:00] VITALS: BP 137/74
[2019-07-25] MEDS: PIPERACILLIN /TAZOBACTAM 2.25 G in IV D5W 50 ML IV SCH ×3 (04:36→20:59)
[2019-07-25 06:30] LABS: BASOPHILS % (AUTO) 0.6 % (0.0-2.0); EOSINOPHILS % (AUTO) 6.3 % (0.0-6.0); HEMATOCRIT 26 % (39-51); HEMOGLOBIN 8.5 g/dL (13.5-17.5); LYMPHOCYTES # (AUTO) 0.7 /CMM (0.8-4.8); LYMPHOCYTES % (AUTO) 10.7 % (20.0-44.0); MEAN CORPUSCULAR HGB CONC 32 g/dl (31.0-36.0); MEAN CORPUSCULAR VOLUME 73 fL (80-96); MONOCYTES # (AUTO) 0.6 /CMM (0.1-1.30); NEUTROPHILS # (AUTO) 4.5 /CMM (1.8-8.9); NEUTROPHILS % (AUTO) 73.4 % (43.0-81.0); PLATELET COUNT (AUTO) 198 /CMM (150-450); RED BLOOD CELL COUNT(AUTO) 3.61 MIL/uL (4.5-6.0); WHITE BLOOD COUNT (AUTO) 6.1 K/uL (4.3-11.0)
--- NOTE | 2019-07-25 06:31 | NUR ---
DISTRIBUTION CLERK CLOSING NOTES PT IN BED AWAKE ALERT AND ORIENTED X3 , ABLE TO MAKE NEEDS KNOWN RESPIRATIONS EVEN AND UNLABORED WITH EQUAL RISE AND FALL OF CHEST,CURRENTLY ON 02 4 L VIA NC AND TOLERATING WELL. ON VENEER PRESS OPERATOR SR 88 WITH BBB, NO DISTRESS PRESENT, DENIES ANY PAIN OR DISCOMFORT AT THIS TIME, IV SITE TO RIGHT FA #22 G INTACT AND PATENT, NO REDNESS, NO INFILTRATION PRESENT, ALL DUE MEDICATIONS GIVEN NO ADVERSE REACTIONS SITTER AT BEDSIDE, SAFETY PRECAUTIONS IN PLACE, LOW BED AND LOCKED, TOILETING AND FLUID NEEDS ATTENDED WILL CONTINUE TO MONITOR AND ENDORSE TO SHIFT REMAINS COMFORTABLE AT THIS TIME.
[2019-07-25 07:29] LABS: ALANINE AMINOTRANSFERASE 12 U/L (12-78); ALBUMIN 2.4 g/dL (3.4-5.0); ALKALINE PHOSPHATASE 49 U/L (46-116); ASPARTATE AMINOTRANSFERASE 24 U/L (15-37); BILIRUBIN,TOTAL 0.5 mg/dL (0.2-1.0); CALCIUM, SERUM 8.3 mg/dL (8.5-10.1); CARBON DIOXIDE 24 mmol/L (21-32); CHLORIDE 101 mmol/L (98-107); CREATININE 5.3 mg/dL (0.6-1.3); GLUCOSE 92 mg/dL (74-106); MAGNESIUM 1.7 mg/dL (1.8-2.4); PHOSPHORUS 5.1 mg/dL (2.5-4.9); POTASSIUM 3.9 mmol/L (3.5-5.1); SODIUM SERUM 138 mmol/L (136-145); UREA NITROGEN, BLOOD 22 mg/dL (7-18)
--- NOTE | 2019-07-25 08:30 | NUR ---
DOG LICENSE OFFICER SUPERVISOR OPENING NOTES RECEIVED PT IN BED AWAKE AT THIS TIME. AO X3 , PT IS ABLE TO VERBALIZE NEED. TELE SOUND TECHNICIAN ON SR 78. PT APPEARS COMFORTABLE WITH NO S/S OF DISTRESS. RESPIRATIONS EVEN AND UNLABORED. PT ON OXYGEN 4L NC. PT DENIES ANY PAIN OR DISCOMFORT AT THIS TIME, IV SITE TO RIGHT FA G#20 INTACT AND PATENT, NO REDNESS, NO INFILTRATION PRESENT, SITTER AT BEDSIDE, SAFETY PRECAUTIONS MAINTAINED, BED IN LOCKED LOWEST POSITION, SIDE RAILS UP X 2, CALL LIGHT WITHIN REACH, BATHROOM PRIVILEGES ATTENDED. WILL CONTINUE TO MONITOR
[2019-07-25] MEDS: PANTOPRAZOLE 40 MG TABLET.DR PO SCH (08:31)
[2019-07-25] MEDS: ASPIRIN 81 MG TAB.CHEW PO SCH (08:31)
[2019-07-25] MEDS: LINEZOLID 600 MG TABLET PO SCH ×2 (08:31→21:23)
[2019-07-25] MEDS: NIFEdipine XL (30MG) 30 MG TAB PO SCH (08:31)
[2019-07-25] MEDS: NITROGLYCERIN 30 GM TUBE TP SCH ×2 (08:33→21:23)
[2019-07-25] MEDS: LORAZEPAM INJ 2 MG/ML VIAL IV PRN ×2 (08:35→17:31)
[2019-07-25] MEDS: CLOTRIMAZOLE 1% 15 GM TUBE TP SCH ×2 (09:32→16:35)
[2019-07-25 16:00] VITALS: BP 147/80
--- NOTE | 2019-07-25 18:56 | NUR ---
INDUSTRIAL AUTOMATION SPECIALIST CLOSING NOTES PT IN BED AWAKE AT THIS TIME. AOX3 , HOB ELEVATED. IV SL INTACT AND PATENT. NO DISTRESS NOTED THROUGH OUT THE SHIFT. SITTER AT BEDSIDE, SAFETY PRECAUTIONS IN PLACE, BED IN LOWEST LOCKED POSITION, SIDE RAILS UP X 2, CALL LIGHT WITHIN REACH, WILL ENDORSE TO LABORATORY MILLER FOR NIKKY.
--- NOTE | 2019-07-25 19:27 | NUR ---
PAPIER MACHE' MOLDER RECEIVE PT A/O X 3, ON CARDIAC MONITORING SR 78'S WITH BBB IN TELE MONITOR, NO S/S OF DISTRESS, STABLE, SAFETY MEASURES IN PLACE. WILL CONT TO MONITOR.
[2019-07-25 20:00] VITALS: BP 142/72
[2019-07-25] MEDS: ATORVASTATIN 40 MG TABLET PO SCH (21:23)
[2019-07-25] MEDS: GUAIFENESIN 300 MG/15 ML UDC PO PRN (21:23)
[2019-07-26] VITALS: BP 137/61
[2019-07-26] MEDS: IPRATROPIUM NEB FS 0.5 MG/2.5 ML AMPUL.NEB NEB SCH ×5 (01:30→19:23)
[2019-07-26] MEDS: ALBUTEROL FS 2.5 MG/3 ML VIAL.NEB NEB SCH ×5 (01:30→19:23)
[2019-07-26 04:00] VITALS: BP 143/71
[2019-07-26] MEDS: PIPERACILLIN /TAZOBACTAM 2.25 G in IV D5W 50 ML IV SCH ×3 (04:50→20:29)
--- NOTE | 2019-07-26 06:30 | NUR ---
WHITING CAN WORKER PT SLEPT WELL, MONITORED ACCORDINGLY, ON RESPIRATORY MEDICINE PHYSICIAN SINUS RHYTHM 85 WITH 1 AVB WITH BBB, NEEDS ATTENDED AND ANTICIPATED, KEPT CLEAN, DRY AND COMFORTABLE. AM CARE RENDERED, NO C/O OF PAIN. SAFETY MEASURES AT ALL TIMES. WILL ENDORSE NEXT SHIFT POC. 1:1 SITTER AT BEDSIDE.
[2019-07-26 06:32] LABS: BASOPHILS # (AUTO) 0.1 /CMM (0.0-0.2); EOSINOPHILS % (AUTO) 6.8 % (0.0-6.0); HEMATOCRIT 27 % (39-51); HEMOGLOBIN 8.9 g/dL (13.5-17.5); LYMPHOCYTES # (AUTO) 0.7 /CMM (0.8-4.8); LYMPHOCYTES % (AUTO) 10.6 % (20.0-44.0); MEAN CORPUSCULAR HGB CONC 33 g/dl (31.0-36.0); MEAN CORPUSCULAR VOLUME 73 fL (80-96); MONOCYTES # (AUTO) 0.5 /CMM (0.1-1.30); MONOCYTES % (AUTO) 8.5 % (2.0-12.0); NEUTROPHILS # (AUTO) 4.7 /CMM (1.8-8.9); NEUTROPHILS % (AUTO) 73.1 % (43.0-81.0); PLATELET COUNT (AUTO) 204 /CMM (150-450); RED BLOOD CELL COUNT(AUTO) 3.75 MIL/uL (4.5-6.0); WHITE BLOOD COUNT (AUTO) 6.4 K/uL (4.3-11.0)
[2019-07-26 06:37] LABS: CALCIUM, SERUM 8.4 mg/dL (8.5-10.1); CARBON DIOXIDE 23 mmol/L (21-32); CHLORIDE 101 mmol/L (98-107); CREATININE 6.2 mg/dL (0.6-1.3); GLUCOSE 94 mg/dL (74-106); MAGNESIUM 1.7 mg/dL (1.8-2.4); PHOSPHORUS 6.2 mg/dL (2.5-4.9); SODIUM SERUM 138 mmol/L (136-145); UREA NITROGEN, BLOOD 26 mg/dL (7-18)
--- NOTE | 2019-07-26 07:02 | NUR ---
SUPERVISOR DOPING RECEIVE PATIENT IN BED RESTING COMFORTABLY IN MODERATE HIGH BACK REST. A/O X 3, SITTER ON BEDSIDE, ON CARDIAC MONITORING SR 70'S WITH BBB IN TELE MONITOR, NO S/S OF DISTRESS NOTED AT THIS TIME. IV ACCESS ON RFA #20, SL, PATENT AND INTACT, SAFETY MEASURES IN PLACE, BED IN LOWEST LOCKED POSITION WITH SIDE RAILS UP X3. CALL LIGHT WITHIN EASY REACH. WILL CONT TO MONITOR.
[2019-07-26 08:00] VITALS: BP 130/70
--- NOTE | 2019-07-26 08:10 | NUR ---
RN NOTES DIALYSIS NURSE ON UNIT, ABOUT TO START HD, PATIENT IN STABLE CONDITION WITH V/S WNL. WILL CONTINUE TO MONITOR.
[2019-07-26] MEDS: ASPIRIN 81 MG TAB.CHEW PO SCH (09:00)
[2019-07-26] MEDS: LINEZOLID 600 MG TABLET PO SCH ×2 (09:00→20:29)
[2019-07-26] MEDS: NIFEdipine XL (30MG) 30 MG TAB PO SCH (09:00)
[2019-07-26] MEDS: PANTOPRAZOLE 40 MG TABLET.DR PO SCH (09:00)
--- NOTE | 2019-07-26 10:20 | NUR ---
RN NOTES HD WAS DONE, OUTPUT OF 2L, V/S WNL. NO SIGNS OF DISTRESS NOTED. WILL CONTINUE TO MONITOR.
[2019-07-26] MEDS: NITROGLYCERIN 30 GM TUBE TP SCH ×2 (10:22→20:30)
[2019-07-26] MEDS: CLOTRIMAZOLE 1% 15 GM TUBE TP SCH ×2 (10:23→17:50)
[2019-07-26] MEDS: LORAZEPAM INJ 2 MG/ML VIAL IV PRN ×2 (12:44→23:17)
[2019-07-26 16:00] VITALS: BP 124/67
--- NOTE | 2019-07-26 18:35 | NUR ---
RN NOTES PATIENT IN BED RESTING COMFORTABLY IN MODERATE HIGH BACK REST. A/O X 3, SITTER ON BEDSIDE, NO S/S OF DISTRESS NOTED THROUGHOUT THE SHIFT. IV ACCESS ON RFA #20, SL, PATENT AND INTACT, SAFETY MEASURES IN PLACE, BED IN LOWEST LOCKED POSITION WITH SIDE RAILS UP X3. CALL LIGHT WITHIN EASY REACH. WILL ENDORSE TO PLATER PRODUCTION NURSE FOR NIKKY.
--- NOTE | 2019-07-26 19:17 | NUR ---
MS RN OPENING NOTES PATIENT AWAKE IN BED. A/OX3. ON 3L NC. PATIENT DENIES SOB OR PAIN AT THIS TIME. SITTER PRESENT AT THE BEDSIDE. IV PRESENT ON RIGHT FOREARM, SIZE 20, INTACT & PATENT, HEP LOCKED. PATIENT IS AMBULATORY WITH STEADY GAIT. SAFETY MEASURES IN PLACE. BED LOCKED, SIDE RAILS X2, CALL LIGHT WITHIN REACH. WILL CONTINUE TO MONITOR.
[2019-07-26 20:18] VITALS: BP 137/78
[2019-07-26] MEDS: ATORVASTATIN 40 MG TABLET PO SCH (21:27)
--- NOTE | 2019-07-26 23:17 | NUR ---
MS RN NOTES PATIENT COMPLAINING OF ANXIETY AND IS REQUESTING ATIVAN. PER PATIENT'S REQUEST ADMINISTERED PRN ATIVAN 0.25 MG VIA IV. VITAL SIGNS- BP: 131/78 HR: 85 RR: 18 SPO2: 99 ON 3L NC. WILL CONTINUE TO MONITOR.
[2019-07-27] MEDS: IPRATROPIUM NEB FS 0.5 MG/2.5 ML AMPUL.NEB NEB SCH ×4 (00:48→20:28)
[2019-07-27] MEDS: ALBUTEROL FS 2.5 MG/3 ML VIAL.NEB NEB SCH ×4 (00:48→20:29)
[2019-07-27 04:00] VITALS: BP 146/75
[2019-07-27] MEDS: PIPERACILLIN /TAZOBACTAM 2.25 G in IV D5W 50 ML IV SCH ×3 (04:52→20:54)
--- NOTE | 2019-07-27 05:09 | NUR ---
MS RN NOTES PATIENT C/O OF HEADACHE RATED 4/10. REQUESTED FOR A HOT PACK FOR NECK. WILL CONTINUE TO MONITOR.
--- NOTE | 2019-07-27 05:22 | NUR ---
MS RN NOTES PATIENT STATED RELIEF OF HEADACHE WITH HOT PACK. WILL CONTINUE TO MONITOR.
[2019-07-27 06:23] LABS: HEMATOCRIT 27 % (39-51); HEMOGLOBIN 8.9 g/dL (13.5-17.5); MEAN CORPUSCULAR VOLUME 74 fL (80-96); RED BLOOD CELL COUNT(AUTO) 3.72 MIL/uL (4.5-6.0)
[2019-07-27 06:24] LABS: BASOPHILS # (AUTO) 0.1 /CMM (0.0-0.2); BASOPHILS % (AUTO) 0.9 % (0.0-2.0); EOSINOPHILS % (AUTO) 9.2 % (0.0-6.0); LYMPHOCYTES # (AUTO) 0.7 /CMM (0.8-4.8); LYMPHOCYTES % (AUTO) 11.8 % (20.0-44.0); MEAN CORPUSCULAR HGB CONC 32 g/dl (31.0-36.0); MONOCYTES # (AUTO) 0.6 /CMM (0.1-1.30); MONOCYTES % (AUTO) 9.6 % (2.0-12.0); NEUTROPHILS # (AUTO) 4.1 /CMM (1.8-8.9); NEUTROPHILS % (AUTO) 68.5 % (43.0-81.0); PLATELET COUNT (AUTO) 217 /CMM (150-450)
--- NOTE | 2019-07-27 06:30 | NUR ---
MS RN CLOSING NOTES PATIENT SLEEPING IN BED COMFORTABLY. REMAINED STABLE DURING ENTIRE SHIFT. SITTER PRESENT AT THE BEDSIDE. A/O X3. ON 3L NC. NO S/S OF ACUTE RESPIRATORY DISTRESS OR PAIN NOTED. IV ON RIGHT FOREARM INTACT & PATENT, HEP LOCKED. SAFETY MEASURES IN PLACE. BED LOCKED, SIDE RAILS X2, CALL LIGHT WITHIN REACH. WILL ENDORSE TO DAY SHIFT NURSE PLAN OF CARE.
[2019-07-27 06:38] LABS: CALCIUM, SERUM 8.4 mg/dL (8.5-10.1); CARBON DIOXIDE 25 mmol/L (21-32); CHLORIDE 100 mmol/L (98-107); CREATININE 5.6 mg/dL (0.6-1.3); GLUCOSE 93 mg/dL (74-106); MAGNESIUM 1.7 mg/dL (1.8-2.4); PHOSPHORUS 5.9 mg/dL (2.5-4.9); SODIUM SERUM 137 mmol/L (136-145); UREA NITROGEN, BLOOD 22 mg/dL (7-18)
--- NOTE | 2019-07-27 07:25 | NUR ---
M/S RN NOTES PATIENT AWAKE IN BED, ALERT AND ORIENTED X3, NO RESPIRATORY DISTRESS, ON O2 AT 3LPM VIA NASAL CANULA. PATIENT WITH NO C/O PAIN AT THIS TIME. SKIN WARM TO TOUCH, IV ACCESS SITE ON THE RFA #20G INTACT AND PATENT, HD CATH ON THE RT FEMORAL. PATIENTS NEEDS ATTENDED, BED ON LOWEST LOCKED POSITION, CALL LIGHT WITHIN REACH. WILL CONTINUE TO MONITOR.
[2019-07-27] MEDS ORDERED: Magnesium 1GM/D5W 100ML PREMIX 100 ML IV SCH (07:51)
[2019-07-27] MEDS: NIFEdipine XL (30MG) 30 MG TAB PO SCH (08:05)
[2019-07-27] MEDS: ASPIRIN 81 MG TAB.CHEW PO SCH (08:05)
[2019-07-27] MEDS: PANTOPRAZOLE 40 MG TABLET.DR PO SCH (08:05)
[2019-07-27] MEDS: NITROGLYCERIN 30 GM TUBE TP SCH ×2 (08:10→20:54)
[2019-07-27] MEDS: LINEZOLID 600 MG TABLET PO SCH ×2 (08:19→20:54)
[2019-07-27] MEDS: CLOTRIMAZOLE 1% 15 GM TUBE TP SCH ×2 (08:51→16:02)
[2019-07-27] MEDS: LORAZEPAM INJ 2 MG/ML VIAL IV PRN ×2 (12:22→21:44)
[2019-07-27 16:05] VITALS: BP 123/73
--- NOTE | 2019-07-27 18:59 | NUR ---
M/S RN NOTES PATIENT AWAKE IN BED, NO RESPIRATORY DISTRESS, NO C/O PAIN AT THIS TIME. SKIN WARM TO TOUCH, IV ACCESS SITE INTACT AND PATENT. HD ACCESS INTACT. PATIENT'S NEEDS ATTENDED, BED ON LOWEST LOCKED POSITION, CALL LIGHT WITHIN REACH. WILL ENDORSE TO ONCOMING NURSE.
--- NOTE | 2019-07-27 19:00 | NUR ---
RN OPENING NOTES Patient awake on bed, on O2 inhalation, no SOB/respiratory distress noted at this time. Patient denies any discomfort at this time. Kept on bed clean, dry and comfortable. With sitter at bedside. On fall and aspiration precautions. Will continue to monitor accordingly.
[2019-07-27 19:41] VITALS: BP 138/75
[2019-07-27] MEDS: ACETAMINOPHEN 325 MG TABLET PO PRN (20:55)
[2019-07-27] MEDS: ATORVASTATIN 40 MG TABLET PO SCH (21:01)
[2019-07-28] MEDS: IPRATROPIUM NEB FS 0.5 MG/2.5 ML AMPUL.NEB NEB SCH ×4 (01:29→19:48)
[2019-07-28] MEDS: ALBUTEROL FS 2.5 MG/3 ML VIAL.NEB NEB SCH ×4 (01:29→19:48)
[2019-07-28] MEDS: PIPERACILLIN /TAZOBACTAM 2.25 G in IV D5W 50 ML IV SCH ×3 (05:48→21:33)
--- NOTE | 2019-07-28 06:57 | NUR ---
RN CLOSING NOTES Patient asleep, easily awaken. Kept on NPO since midnight. Witnessed patient signed consent for permacath placement. All due meds given as ordered. All nursing needs attended. Kept on bed clean, dry and comfortable. Call light within easy reach. Endorse.
[2019-07-28 07:18] LABS: BASOPHILS % (AUTO) 0.7 % (0.0-2.0); EOSINOPHILS % (AUTO) 11.6 % (0.0-6.0); HEMATOCRIT 28 % (39-51); LYMPHOCYTES # (AUTO) 0.8 /CMM (0.8-4.8); MEAN CORPUSCULAR HGB CONC 32 g/dl (31.0-36.0); MEAN CORPUSCULAR VOLUME 74 fL (80-96); MONOCYTES # (AUTO) 0.6 /CMM (0.1-1.30); MONOCYTES % (AUTO) 9.4 % (2.0-12.0); NEUTROPHILS # (AUTO) 3.9 /CMM (1.8-8.9); NEUTROPHILS % (AUTO) 64.3 % (43.0-81.0); PLATELET COUNT (AUTO) 219 /CMM (150-450); RED BLOOD CELL COUNT(AUTO) 3.78 MIL/uL (4.5-6.0)
[2019-07-28 07:37] LABS: MAGNESIUM 1.8 mg/dL (1.8-2.4); PHOSPHORUS 6.8 mg/dL (2.5-4.9)
[2019-07-28] MEDS: ASPIRIN 81 MG TAB.CHEW PO SCH (09:00)
[2019-07-28] MEDS: LINEZOLID 600 MG TABLET PO SCH ×2 (09:00→21:33)
[2019-07-28] MEDS: PANTOPRAZOLE 40 MG TABLET.DR PO SCH (09:00)
[2019-07-28] MEDS: NIFEdipine XL (30MG) 30 MG TAB PO SCH (09:00)
[2019-07-28] MEDS ORDERED: LIDOCAINE HCL/PF 1% 30 ML SDV ONE (09:17)
[2019-07-28] MEDS ORDERED: HEPARIN SODIUM, PORCINE 1,000 UNIT/ML VIAL ONE (09:17)
[2019-07-28] MEDS: CLOTRIMAZOLE 1% 15 GM TUBE TP SCH ×2 (09:28→17:14)
[2019-07-28] MEDS: NITROGLYCERIN 30 GM TUBE TP SCH ×2 (09:30→21:33)
[2019-07-28] MEDS ORDERED: FENTANYL PF 100MCG/2ML AMPUL ONE (09:42)
--- NOTE | 2019-07-28 11:25 | NUR ---
M/S RN NOTES PATIENT CAME BACK FROM SURGERY, VSS 151/75, 77, 18, 97.8. PATIENT IN NO RESPIRATORY DISTRESS, NO C/O PAIN AT THIS TIME. PATIENT'S NEEDS ATTENDED, WILL CONTINUE TO MONITOR.
[2019-07-28] MEDS: LORAZEPAM INJ 2 MG/ML VIAL IV PRN ×2 (15:06→21:34)
--- NOTE | 2019-07-28 19:24 | NUR ---
M/S RN NOTES HD FINISHED, 1500ML FLUIDS REMOVED, PATIENT IN NO RESPIRATORY DISTRESS, NO C/O PAIN AT THIS TIME. SKIN WARM TO TOUCH, IV ACCESS SITE INTACT AND PATENT, PERMA CATH WITH DRESSING C/D/I. PATIENT'S NEEDS ATTENDED, BED ON LOWEST LOCKED POSITION, CALL LIGHT WITHIN REACH. WILL ENDORSE TO ONCOMING NURSE.
--- NOTE | 2019-07-28 19:45 | NUR ---
MS RN OPENING NOTES RECEIVED PATIENT FROM MORNING SHIFT, ALERT AND ORIENTED X 3. AMBULATORY WITH ASSIST, VERBALLY RESPONSIVE AND ABLE TO FOLLOW DIRECTIONS. BREATHING REGULAR AND UNLABORED ON OXYGEN AT 3L/MIN VIA NASAL CANNULA. ON ONE TO ONE SITTER. RIGHT FOREARM G20 IV LINE INTACT AND PATENT, FLUSHING WELL WITH NO S/S OF INFECTION/INFILTRATION NOTED. S/P RIGHT INTRAJUGULAR PERMACATH PLACEMENT WITH NO ACTIVE BLEEDING SEEN, S/P HEMODIALYSIS, NO ADVERSE REACTIONS OR COMPLICATIONS OBSERVED. DENIES ANY SUICIDAL/HOMICIDAL IDEATION AT THIS TIME. COMPLAINED OF HEADACHE, NON-PHARMACOLOGICAL INTERVENTIONS PROVIDED. BED LOW AND LOCKED ON SEMI FOWLERS POSITION. CALL LIGHT IN REACH. WILL CONTINUE TO MONITOR.
[2019-07-28] MEDS: ACETAMINOPHEN 325 MG TABLET PO PRN (20:05)
[2019-07-28] MEDS: ATORVASTATIN 40 MG TABLET PO SCH (21:33)
[2019-07-28 22:00] VITALS: BP 130/82
--- NOTE | 2019-07-28 22:00 | NUR ---
MS RN NOTES ANXIETY VERBALIZED, ATIVAN 0.25MG GIVEN VIA IV PUSH. NON-PHARMACOLOGICAL INTERVENTIONS PROVIDED. WILL CONTINUE TO MONITOR.
[2019-07-29] MEDS: IPRATROPIUM NEB FS 0.5 MG/2.5 ML AMPUL.NEB NEB SCH ×4 (01:06→20:09)
[2019-07-29] MEDS: ALBUTEROL FS 2.5 MG/3 ML VIAL.NEB NEB SCH ×4 (01:06→20:09)
[2019-07-29] MEDS: ACETAMINOPHEN 325 MG TABLET PO PRN (02:05)
[2019-07-29] MEDS: PIPERACILLIN /TAZOBACTAM 2.25 G in IV D5W 50 ML IV SCH ×3 (04:11→21:55)
--- NOTE | 2019-07-29 06:30 | NUR ---
MS RN CLOSING NOTES PATIENT IN BED ALERT AND ORIENTED X 3. AMBULATORY WITH ASSIST, VERBALLY RESPONSIVE AND ABLE TO FOLLOW DIRECTIONS. BREATHING REGULAR AND UNLABORED ON OXYGEN AT 3L/MIN VIA NASAL CANNULA. S/P RIGHT INTRAJUGULAR PERMACATH PLACEMENT WITH NO ACTIVE BLEEDING SEEN. BED LOW AND LOCKED ON SEMI FOWLERS POSITION. CALL LIGHT IN REACH. WILL ENDORSE TO MORNING SHIFT FOR NIKKY.
[2019-07-29 06:56] LABS: BASOPHILS # (AUTO) 0.1 /CMM (0.0-0.2); BASOPHILS % (AUTO) 1.2 % (0.0-2.0); EOSINOPHILS % (AUTO) 12.2 % (0.0-6.0); HEMATOCRIT 31 % (39-51); HEMOGLOBIN 9.9 g/dL (13.5-17.5); MEAN CORPUSCULAR HGB CONC 32 g/dl (31.0-36.0); MEAN CORPUSCULAR VOLUME 74 fL (80-96); MONOCYTES # (AUTO) 0.6 /CMM (0.1-1.30); MONOCYTES % (AUTO) 9.4 % (2.0-12.0); NEUTROPHILS # (AUTO) 3.6 /CMM (1.8-8.9); NEUTROPHILS % (AUTO) 60.2 % (43.0-81.0); PLATELET COUNT (AUTO) 254 /CMM (150-450); RED BLOOD CELL COUNT(AUTO) 4.21 MIL/uL (4.5-6.0)
[2019-07-29 07:10] LABS: CALCIUM, SERUM 9.6 mg/dL (8.5-10.1); CARBON DIOXIDE 26 mmol/L (21-32); CHLORIDE 100 mmol/L (98-107); CREATININE 6.4 mg/dL (0.6-1.3); GLUCOSE 92 mg/dL (74-106); PHOSPHORUS 6.1 mg/dL (2.5-4.9); POTASSIUM 4.3 mmol/L (3.5-5.1); SODIUM SERUM 138 mmol/L (136-145); UREA NITROGEN, BLOOD 21 mg/dL (7-18)
--- NOTE | 2019-07-29 07:30 | NUR ---
RN MS NOTES PT IN BED, AWAKE, ALERT AND ORIENTED, DENIES PAIN, NOT IN DISTRESS, CALL LIGHT WITHIN REACH, KEPT WARM AND COMFORRTABLE IN BED, NEEDS ATTENDED, SITTER AT BEDSIDE.
[2019-07-29 08:00] VITALS: BP 146/71
--- NOTE | 2019-07-29 08:00 | NUR ---
m/s it compliance analyst: notes received pt in bed awake, a/ox3 with sitter at bedside. no c/o pain or anxiety. instructed to call for assistance. will continue to monitor.
[2019-07-29 08:30] VITALS: BP 146/71
[2019-07-29] MEDS: ASPIRIN 81 MG TAB.CHEW PO SCH (08:48)
[2019-07-29] MEDS: PANTOPRAZOLE 40 MG TABLET.DR PO SCH (08:48)
[2019-07-29] MEDS: LINEZOLID 600 MG TABLET PO SCH ×2 (08:48→21:59)
[2019-07-29] MEDS: CLOTRIMAZOLE 1% 15 GM TUBE TP SCH ×2 (08:50→16:51)
[2019-07-29] MEDS: LORAZEPAM INJ 2 MG/ML VIAL IV PRN ×2 (10:04→18:24)
--- NOTE | 2019-07-29 10:04 | NUR ---
m/s wafer cleaner: notes c/o of anxiousness, ativan 0.25mg ivp given by rn as ordered. sitter remains at bedside. will continue to monitor.
[2019-07-29] MEDS: NITROGLYCERIN 30 GM TUBE TP SCH ×3 (10:05→21:56)
[2019-07-29] MEDS: NIFEdipine XL (30MG) 30 MG TAB PO SCH (10:05)
--- NOTE | 2019-07-29 10:26 | NUR ---
m/s bath steward/stewardess: md visit seen and examined by dr. arechiga at this time and informed pt that his wheelchair dialysis is being set up by case management as outpatient and for d'c planning once is set up.
--- NOTE | 2019-07-29 12:30 | NUR ---
m/s hemmer automatic: notes hd nurse (elana) at bedside and removed right femoral hd catheter, jayson. well. pressure dressing applied. sitter remains at bedside. instructed to call for assistance.
[2019-07-29] MEDS ORDERED: NEPRO VAN 237 ML CAN PO PRN (14:00)
--- NOTE | 2019-07-29 15:00 | NUR ---
m/s diabetes clinical manager: notes resting comfortable. no distress noted. will continue to monitor.
[2019-07-29 16:00] VITALS: BP 140/72
--- NOTE | 2019-07-29 18:24 | NUR ---
m/s watch dial stoner: notes c/o of anxiousness, ativan 0.25mg ivp given by rn as ordered. sitter remains at bedside. needs attended. will continue to monitor.
--- NOTE | 2019-07-29 19:22 | NUR ---
m/s board operator: notes report given to vae (rn) for continuity of care.
--- NOTE | 2019-07-29 19:59 | NUR ---
RN MS NOTES RECEIVED PATIENT IN BED, AWAKE, ALERT AND ORIENTED, DENIES PAIN, NOT IN DISTRESS, CALL LIGHT WITHIN REACH, KEPT WARM AND COMFORTABLE IN BED, NEEDS ATTENDED, PATIENT IS LOOKING FOR HIS BELONGINGS UPON ADMISSION, CHECKED PATIENTS' CHART, NO ITEMS RECORDED. WILL FOLLOW UP. SITTER AT BEDSIDE. WILL CONTINUE TO MONITOR ACCORDINGLY.
[2019-07-29 20:02] VITALS: BP 152/84
[2019-07-29] MEDS: ATORVASTATIN 40 MG TABLET PO SCH (21:59)
--- NOTE | 2019-07-29 22:00 | NUR ---
RN NOTES RECEIVED PHONE CALL FROM PATIENT'S CAREGIVER JOSÉ EATONB ( [phone] ), CONCERNING ABOUT PATIENT'S BELONGINGS UPON ADMISSION, PER CAREGIVER, PATIENT'S PERSONAL ITEMS INCLUDES WALLET, KEYS, GLASSES, SHAVER, CHANGE OF CLOTHES, ALL INSIDE IN A [employer] BAG. PATIENT WAS TRANSPORTED BR PARAMEDICS FROM [facility] PER CAREGIVER. INFORMED CAREGIVER THAT WILL FOLLOW UP IN THE MORNING AND WILL ASK ER AND ICU REGARDING PATIENT'S PERSONAL BELONGINGS.
[2019-07-30] MEDS: LORAZEPAM INJ 2 MG/ML VIAL IV PRN ×2 (01:04→11:39)
[2019-07-30] MEDS: ALBUTEROL FS 2.5 MG/3 ML VIAL.NEB NEB SCH ×3 (01:05→13:43)
[2019-07-30] MEDS: IPRATROPIUM NEB FS 0.5 MG/2.5 ML AMPUL.NEB NEB SCH ×3 (01:05→13:43)
[2019-07-30] MEDS: PIPERACILLIN /TAZOBACTAM 2.25 G in IV D5W 50 ML IV SCH ×2 (04:25→12:45)
[2019-07-30] MEDS: ACETAMINOPHEN 325 MG TABLET PO PRN (05:29)
--- NOTE | 2019-07-30 07:14 | NUR ---
RN NOTES ALL NEEDS ATTENDED AND MET, ABLE TO REST AND SLEPT AT INTERVALS SAFETY MEASURES IN PLACE, SITTER AT BEDSIDE, WILL ENDORSE TO AM NURSE FOR CONTINUITY OF CARE.
--- NOTE | 2019-07-30 07:48 | NUR ---
MS/RN OPENING NOTE Patient is resting in bed, A/O x3, showing no signs of acute distress or SOB, currently on scheduled breathing treatment. IV line in the RFA #20g is clean and intact s/l. HD permacath noted in the right upper chest. RIJ pressure dressing noted. Bed is in lowest position, side rails x3 in upright position, call light is within reach, sitter at the bedside. Will continue with plan of care.
[2019-07-30 08:00] VITALS: BP 126/73
[2019-07-30] MEDS: CLOTRIMAZOLE 1% 15 GM TUBE TP SCH (09:00)
[2019-07-30] MEDS: PANTOPRAZOLE 40 MG TABLET.DR PO SCH (09:00)
[2019-07-30] MEDS: NIFEdipine XL (30MG) 30 MG TAB PO SCH (09:00)
[2019-07-30] MEDS: NITROGLYCERIN 30 GM TUBE TP SCH (09:00)
--- NOTE | 2019-07-30 09:42 | NUR ---
MS/RN NOTE HELD MEDICATIONS DUE TO PATIENT RECEIVING HD AT THIS TIME.
[2019-07-30] MEDS: LINEZOLID 600 MG TABLET PO SCH (10:30)
[2019-07-30] MEDS: ASPIRIN 81 MG TAB.CHEW PO SCH (10:30)
--- NOTE | 2019-07-30 10:30 | NUR ---
MS/RN NOTE HD COMPLETED WITH 1L OUT. PATIENT REMAIN STABLE, VS WNL, SITTER AT THE BEDSIDE.
[2019-07-30] MEDS ORDERED: ASPI-1169 PO (11:35)
[2019-07-30] MEDS ORDERED: RIVA10TA PO (11:38)
--- NOTE | 2019-07-30 16:00 | NUR ---
MS/RN DC NOTE Patient is medically stable for discharge. MD cleared for DC. A/O x3, showing no signs of acute distress or SOB, patient is stable on RA saturating 92%- 94% on RA. DC instructions provided and patient verbalized understanding. ID band removed, IV line removed. Skin assessed, photos taken and placed in chart. RUC Permacath left in place. All patient needs met, all due medications given. Patient kept clean and dry throughout shift. I was not able to locate stated belongings from the patient (clothes, wallet, keys in [employer] grocery bag). There is no record in our belongings list that the patient came in with these belongings. Nursing supervisor die casting does not have the belonging in the same either. Patient's caregiver Julissa stated the ambulance was names [facility] and i contact CM and ER and was not able to find a phone number; couldn't find a number online either. Patient's caregiver stated, "It could have been left at his house, I will look inside his house once we get home." Patient left the unit ambulatory and picked up by caregiver en route to home.
== END 2019-07-30 15:50 | disposition home or self-care (01) | DRG 870 ==
LOC: ER 19:04 → ICU 20:17 → TELE 07-20 11:30 → TELE2 07-23 15:07 → TELE 07-25 12:59 → MED 07-26 16:00
PROVIDERS: ADMIT Registered Nurse
PROC: 5A1955Z Respiratory Ventilation, Greater than 96 Consecutive Hours (ICD-10-PCS; principal; 2019-07-14)
PROC: 0BH17EZ Insertion of Endotracheal Airway into Trachea, Via Natural or Artificial Opening (ICD-10-PCS; 2019-07-14)
PROC: 5A1D70Z Performance of Urinary Filtration, Intermittent, Less than 6 Hours Per Day (ICD-10-PCS; 2019-07-24)
PROC: 06HY33Z Insertion of Infusion Device into Lower Vein, Percutaneous Approach (ICD-10-PCS; 2019-07-24)
PROC: 0JH63XZ Insertion of Tunneled Vascular Access Device into Chest Subcutaneous Tissue and Fascia, Percutaneous Approach (ICD-10-PCS; 2019-07-28)
PROC: 02HV33Z Insertion of Infusion Device into Superior Vena Cava, Percutaneous Approach (ICD-10-PCS; 2019-07-28)
PROC: B518YZA Fluoroscopy of Superior Vena Cava using Other Contrast, Guidance (ICD-10-PCS; 2019-07-28)
DX: A41.9 Sepsis, unspecified organism (principal); R65.21 Severe sepsis with septic shock; J96.02 Acute respiratory failure with hypercapnia; G92 Toxic encephalopathy; J15.9 Unspecified bacterial pneumonia; I21.A1 Myocardial infarction type 2; J96.01 Acute respiratory failure with hypoxia; N17.0 Acute kidney failure with tubular necrosis; E87.2 Acidosis; J44.1 Chronic obstructive pulmonary disease with (acute) exacerbation; J44.0 Chronic obstructive pulmonary disease with (acute) lower respiratory infection; I48.92 Unspecified atrial flutter; I50.32 Chronic diastolic (congestive) heart failure; E44.1 Mild protein-calorie malnutrition; D50.9 Iron deficiency anemia, unspecified; D63.8 Anemia in other chronic diseases classified elsewhere; E03.9 Hypothyroidism, unspecified; E83.42 Hypomagnesemia; E87.6 Hypokalemia; E88.09 Other disorders of plasma-protein metabolism, not elsewhere classified; F32.9 Major depressive disorder, single episode, unspecified; F41.9 Anxiety disorder, unspecified; I25.10 Atherosclerotic heart disease of native coronary artery without angina pectoris; I48.0 Paroxysmal atrial fibrillation; Z79.01 Long term (current) use of anticoagulants; Z87.891 Personal history of nicotine dependence; E66.9 Obesity, unspecified; Z68.23 Body mass index [BMI] 23.0-23.9, adult; R73.9 Hyperglycemia, unspecified; I11.0 Hypertensive heart disease with heart failure
CPT/HCPCS: 31720; 36415; 36600; 71045-TC; 76770-TC; 80048-TC; 80053-TC; 80061-TC; 80076-TC; 80202-TC; 81000-TC; 82550-TC; 82570-TC; 82728-TC; 82803-TC; 82962-TC; 83605-TC; 83615-TC; 83735-TC; 84100-TC; 84155-TC; 84300-TC; 84484-TC; 85025-TC; 85378-TC; 85730-TC; 86140; 86704; 86705; 86706; 86803; 87040-TC; 87081-TC; 87086-TC; 87340; 90935-TC; 92611-TC; 93307-TC; 94002-TC; 94003-TC; 94760-TC; 94799-TC; 97110-TC; 97116-TC; 97530-TC; 99082-TC; A4216; C1750; C1769; C9113; G0378; J0692; J1630; J1644; J1650; J1940; J1956; J2060; J2250; J2270; J2405; J2543; J2704; J2930; J3010; J3370; J3475; J3480; J3490; J7030; J7040; J7042; J7050; J7060

== ENCOUNTER 2019-08-01 14:00 | Emergency (ER) | payer MEDICARE, OTHER ==
[~2019-08-01] VITALS: Ht 177.8 cm; Wt 75.7 kg
[~2019-08-01 14:00] MED LIST changes: +ASPI-1169 PO; -AZIT500T PO; -IPRA0.2S9 IH; -LOSA25TA27 PO; -PRED20TA PO; -TIOT18CA3 IH
--- NOTE | 2019-08-01 14:20 | NUR ---
pt ambulatory to er bed 04. presents w/ r sided cristine catheter bleeding. pt states started bleeding last night. blood clots noted to insertion site. no active bleeding noted. denies any other complaint. awaiting md ryder.
--- NOTE | 2019-08-01 14:22 | NUR ---
dr jasso at bedside for eval.
--- NOTE | 2019-08-01 14:28 | NUR ---
laborer chicken farm at bedside for blood draw.
[2019-08-01 14:38] LABS: BASOPHILS # (AUTO) 0.1 /CMM (0.0-0.2); BASOPHILS % (AUTO) 1.5 % (0.0-2.0); EOSINOPHILS % (AUTO) 12.6 % (0.0-6.0); HEMATOCRIT 31 % (39-51); HEMOGLOBIN 9.9 g/dL (13.5-17.5); LYMPHOCYTES # (AUTO) 1.1 /CMM (0.8-4.8); LYMPHOCYTES % (AUTO) 15.2 % (20.0-44.0); MEAN CORPUSCULAR HGB CONC 32 g/dl (31.0-36.0); MEAN CORPUSCULAR VOLUME 74 fL (80-96); MONOCYTES # (AUTO) 0.6 /CMM (0.1-1.30); MONOCYTES % (AUTO) 7.5 % (2.0-12.0); NEUTROPHILS # (AUTO) 4.7 /CMM (1.8-8.9); NEUTROPHILS % (AUTO) 63.2 % (43.0-81.0); PLATELET COUNT (AUTO) 235 /CMM (150-450); WHITE BLOOD COUNT (AUTO) 7.4 K/uL (4.3-11.0)
[2019-08-01 14:43] LABS: CALCIUM, SERUM 9.2 mg/dL (8.5-10.1); CARBON DIOXIDE 23 mmol/L (21-32); CHLORIDE 99 mmol/L (98-107); GLUCOSE 123 mg/dL (74-106); POTASSIUM 4.3 mmol/L (3.5-5.1); SODIUM SERUM 135 mmol/L (136-145); UREA NITROGEN, BLOOD 29 mg/dL (7-18)
[2019-08-01 14:45] LABS: CREATININE 7.5 mg/dL (0.6-1.3)
--- NOTE | 2019-08-01 14:45 | NUR ---
PAGED DR. GALICIA FOR CONSULT
--- NOTE | 2019-08-01 15:03 | NUR ---
PAGED DR. CORLEY FOR CONSULT
--- NOTE | 2019-08-01 15:20 | NUR ---
PAGED DR. SANCHEZ.
--- NOTE | 2019-08-01 15:57 | NUR ---
called [facility]. pt is scheduled for dialysis tomorrow at 12pm. patient aware.
--- NOTE | 2019-08-01 16:01 | NUR ---
Patient discharged to home in stable condition. Written and verbal after care instructions given. Patient verbalizes understanding of instruction.
[2019-08-01 16:02] VITALS: BP 128/67
== END 2019-08-01 16:05 | disposition home or self-care (01) ==
LOC: ER 14:09
DX: T82.838A Hemorrhage due to vascular prosthetic devices, implants and grafts, initial encounter (principal); I10 Essential (primary) hypertension; I48.91 Unspecified atrial fibrillation; F17.200 Nicotine dependence, unspecified, uncomplicated; J44.9 Chronic obstructive pulmonary disease, unspecified; E78.5 Hyperlipidemia, unspecified; Z98.890 Other specified postprocedural states; Z60.2 Problems related to living alone; Z79.899 Other long term (current) drug therapy; Z79.82 Long term (current) use of aspirin
CPT/HCPCS: 36415; 71045; 80048; 85025; 85730; 99284; A6403

== ENCOUNTER 2019-08-05 16:00 | Inpatient (IN) | payer MEDICARE, OTHER ==
[~2019-08-05] VITALS: Ht 177.8 cm; Wt 77.7 kg
--- NOTE | 2019-08-05 16:27 | NUR ---
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 DENIES PAIN, DENIES WEAKNESS, DIZZINESS. NO ACUTE DISTRESS NOTED. APPEARS SLIGHTLY ANXIOUS. O2 SAT 95% ON RA. DIALYSIS CATHETER PRESENT AT RIGHT UPPER CHEST. ON MONITOR AND READY FOR EVAL.
[2019-08-05] MEDS ORDERED: IPRATROPIUM NEB FS 0.5 MG/2.5 ML AMPUL.NEB ONE (16:44)
[2019-08-05] MEDS ORDERED: ALBUTEROL FS 2.5 MG/3 ML VIAL.NEB ONE (16:44)
--- NOTE | 2019-08-05 16:58 | NUR ---
RT AT BEDSIDE
[2019-08-05 17:00] LABS: BASOPHILS % (AUTO) 0.7 % (0.0-2.0); EOSINOPHILS % (AUTO) 12.1 % (0.0-6.0); HEMATOCRIT 30 % (39-51); HEMOGLOBIN 9.7 g/dL (13.5-17.5); LYMPHOCYTES % (AUTO) 17.2 % (20.0-44.0); MEAN CORPUSCULAR HGB CONC 32 g/dl (31.0-36.0); MEAN CORPUSCULAR VOLUME 73 fL (80-96); MONOCYTES # (AUTO) 0.5 /CMM (0.1-1.30); MONOCYTES % (AUTO) 8.7 % (2.0-12.0); NEUTROPHILS # (AUTO) 3.5 /CMM (1.8-8.9); NEUTROPHILS % (AUTO) 61.3 % (43.0-81.0); PLATELET COUNT (AUTO) 181 /CMM (150-450); WHITE BLOOD COUNT (AUTO) 5.8 K/uL (4.3-11.0)
[2019-08-05] MEDS ORDERED: ALBUTEROL FS 2.5 MG/3 ML VIAL.NEB CONTNEB ONE (17:00)
[2019-08-05] MEDS ORDERED: IPRATROPIUM NEB FS 0.5 MG/2.5 ML AMPUL.NEB NEB ONE (17:00)
[2019-08-05 17:19] LABS: CALCIUM, SERUM 8.9 mg/dL (8.5-10.1); CARBON DIOXIDE 29 mmol/L (21-32); CHLORIDE 98 mmol/L (98-107); CREATININE 3.1 mg/dL (0.6-1.3); GLUCOSE 89 mg/dL (74-106); POTASSIUM 3.3 mmol/L (3.5-5.1); SODIUM SERUM 137 mmol/L (136-145); UREA NITROGEN, BLOOD 12 mg/dL (7-18)
[2019-08-05 17:27] LABS: ALANINE AMINOTRANSFERASE 10 U/L (12-78); ALBUMIN 3.1 g/dL (3.4-5.0); ALKALINE PHOSPHATASE 80 U/L (46-116); ASPARTATE AMINOTRANSFERASE 21 U/L (15-37); BILIRUBIN,DIRECT 0.1 mg/dL (0.0-0.2); BILIRUBIN,TOTAL 0.4 mg/dL (0.2-1.0)
--- NOTE | 2019-08-05 18:16 | NUR ---
PT IS ANXIOUS, CONSIDERING GOING HOME. ERMD AWARE.
[2019-08-05] MEDS ORDERED: MAGNESIUM OXIDE 400 MG TABLET PO ONE (19:30)
[2019-08-05] MEDS ORDERED: POTASSIUM CHLORIDE 10 MEQ TABLET.SA PO ONE (19:30)
[2019-08-05] MEDS ORDERED: POTASSIUM CHLORIDE 10 MEQ TABLET.SA ONE (19:45)
--- NOTE | 2019-08-05 19:52 | NUR ---
PT TO BE ADMITTED. STATES HE WILL STAY IF HE GETS A SINGLE OCCUPANT ROOM. ERMD NOTIFIED.
--- NOTE | 2019-08-05 20:05 | NUR ---
PAGED RUBIA HYDE
[2019-08-05] MEDS ORDERED: methylPREDNISolone SOD SUCC 125 MG/2ML VIAL IV ONE (20:30)
--- NOTE | 2019-08-05 20:45 | NUR ---
REPORT GIVEN TO BERNARDO SCHAEFER FOR [id number]. RUBIA HYDE ADMITTING
[2019-08-05] MEDS ORDERED: methylPREDNISolone SOD SUCC 125 MG/2ML VIAL ONE (20:48)
--- NOTE | 2019-08-05 21:26 | NUR ---
PT TRANSFERRED TO UNIT [facility]IA [facility]
[2019-08-05 21:30] VITALS: BP 146/78
--- NOTE | 2019-08-05 21:30 | NUR ---
RN OPENING NOTES RECEIVED PATIENT FROM ER VIA [facility]. A/OX4. NO SIGNS OF DISTRESS OR DISCOMFORT. BREATHING EVEN AND UNLABORED. ON 2LPM 02 VIA NC. IV ACCESS IN RAC, PATENT AND INTACT, NO SIGNS OF REDNESS OR INFILTRATION. HAS RCW HD CATH INTACT, DRESSING C/D/I. ORIENTED PATIENT TO UNIT AND ROOM. ATTACHED TELE MONITOR WITH SR 89 NOTED. BED IN LOW LOCKED POSITION WITH SIDE RAILS X2. CALL LIGHT WITHIN REACH. WILL CONTINUE TO MONITOR.
[2019-08-05] MEDS ORDERED: ONDANSETRON HCL/PF 4 MG/2 ML VIAL IVP PRN (22:00)
[2019-08-05] MEDS ORDERED: Z GUARD REMEDY 2 OZ OINT TP PRN (22:00)
[2019-08-05] MEDS ORDERED: ACETAMINOPHEN 325 MG TABLET PO PRN (22:00)
[2019-08-05] MEDS: ATORVASTATIN 40 MG TABLET PO SCH (22:49)
[2019-08-05] MEDS ORDERED: ALPRAZOLAM 0.25 MG TABLET PO ONE (23:30)
[2019-08-06 00:01] VITALS: BP 117/76
[2019-08-06] MEDS: IPRATROPIUM NEB FS 0.5 MG/2.5 ML AMPUL.NEB NEB SCH ×6 (03:26→23:06)
[2019-08-06 03:47] LABS: BASOPHILS % (AUTO) 0.6 % (0.0-2.0); EOSINOPHILS % (AUTO) 1.6 % (0.0-6.0); HEMATOCRIT 32 % (39-51); HEMOGLOBIN 10.2 g/dL (13.5-17.5); LYMPHOCYTES # (AUTO) 0.4 /CMM (0.8-4.8); LYMPHOCYTES % (AUTO) 11.4 % (20.0-44.0); MEAN CORPUSCULAR HGB CONC 32 g/dl (31.0-36.0); MEAN CORPUSCULAR VOLUME 73 fL (80-96); MONOCYTES # (AUTO) 0.1 /CMM (0.1-1.30); MONOCYTES % (AUTO) 1.7 % (2.0-12.0); NEUTROPHILS # (AUTO) 2.8 /CMM (1.8-8.9); NEUTROPHILS % (AUTO) 84.7 % (43.0-81.0); PLATELET COUNT (AUTO) 163 /CMM (150-450); RED BLOOD CELL COUNT(AUTO) 4.33 MIL/uL (4.5-6.0); WHITE BLOOD COUNT (AUTO) 3.3 K/uL (4.3-11.0)
[2019-08-06 04:01] VITALS: BP 138/72
[2019-08-06 04:05] LABS: ALANINE AMINOTRANSFERASE 12 U/L (12-78); ALBUMIN 3.1 g/dL (3.4-5.0); ALKALINE PHOSPHATASE 82 U/L (46-116); ASPARTATE AMINOTRANSFERASE 20 U/L (15-37); BILIRUBIN,TOTAL 0.3 mg/dL (0.2-1.0); CALCIUM, SERUM 9.2 mg/dL (8.5-10.1); CARBON DIOXIDE 32 mmol/L (21-32); CHLORIDE 98 mmol/L (98-107); CREATININE 3.7 mg/dL (0.6-1.3); GLUCOSE 146 mg/dL (74-106); MAGNESIUM 1.7 mg/dL (1.8-2.4); PHOSPHORUS 3.9 mg/dL (2.5-4.9); SODIUM SERUM 138 mmol/L (136-145); TOTAL PROTEIN, SERUM 7.2 g/dL (6.4-8.2); UREA NITROGEN, BLOOD 15 mg/dL (7-18)
[2019-08-06 04:11] LABS: CHOLESTEROL 124 mg/dL (<200); HDL CHOLESTEROL 47 mg/dL (40-60); LDL 63 mg/dL (0-99); THYROID STIMULATING HORMONE 1.176 uIU/mL (0.358-3.74); TRIGLYCERIDES 59 mg/dL (30-150)
[2019-08-06 04:25] LABS: IRON, SERUM 35 ug/dl (50-175); TOTAL IRON BINDING CAPACITY 258 ug/dl (250-450)
--- NOTE | 2019-08-06 07:06 | NUR ---
RN CLOSING NOTES PATIENT RESTING IN BED, EASILY AROUSABLE. A/OX4. NO SIGNS OF DISTRESS OR DISCOMFORT. BREATHING EVEN AND UNLABORED. ON 2LPM 02 VIA NC. ON TELE MONITOR WITH SR 77 NOTED. IV ACCESS IN RAC, PATENT AND INTACT, NO SIGNS OF REDNESS OR INFILTRATION. HAS RCW HD CATH INTACT, DRESSING C/D/I. ALL NEEDS MET. NO SIGNIFICANT CHANGES THROUGH THE NIGHT. BED IN LOW LOCKED POSITION WITH SIDE RAILS X2. CALL LIGHT WITHIN REACH. WILL ENDORSE TO AM SHIFT FOR NIKKY.
[2019-08-06 08:00] VITALS: BP 108/65
[2019-08-06] MEDS: PANTOPRAZOLE 40 MG TABLET.DR PO SCH (08:39)
[2019-08-06] MEDS: SERTRALINE HCL 25 MG TABLET PO SCH (08:39)
[2019-08-06] MEDS: FLUTICASONE/VILANTEROL 1 EACH BLST.W.DEV IH SCH (09:00)
[2019-08-06] MEDS ORDERED: HEPARIN SODIUM, PORCINE 5000 UNITS/1 ML VIAL SQ SCH (09:00)
[2019-08-06] MEDS ORDERED: ASPIRIN EC 81 MG TABLET.DR PO SCH (09:00)
[2019-08-06 10:05] LABS: ABG BASE EXCESS 1.3 mmol/L; ABG OXYGEN SATURATION 96.2 % (92.0-98.5); ABG PCO2 34.8 mmHg (35.0-45.0); ABG PH 7.469 (7.350-7.450); ABG PO2 88.2 mmHg (75.0-100.0); AaDO2 70.4 mmHg; MetHb 0.4 % (0.0-1.5); O2Hb 95.8 % (94.0-97.0); SITE, ABG Right Radial; VENT MODE, BG 2L NC
[2019-08-06 10:39] LABS: FERRITIN 105 ng/mL (8-388)
[2019-08-06 16:00] VITALS: BP 140/74
[2019-08-06] MEDS ORDERED: RIVAROXABAN 10 MG TABLET PO SCH (17:00)
[2019-08-06] MEDS: APIXABAN 2.5 MG TABLET PO SCH (17:40)
--- NOTE | 2019-08-06 18:47 | NUR ---
PATIENT A/OX4. BREATHING EVEN AND UNLABORED. ON 2LPM 02 VIA NC.ABLE TO WALK AROUND UNIT WITH NO OXYGEN. ON TELE MONITOR WITH A-FIB 84 NOTED. IV ACCESS IN RAC, PATENT AND INTACT, FLUSHING WELL. HD CATH INTACT, DRESSING C/D/I. ALL NEEDS ATTENDED. BED IN LOW LOCKED POSITION WITH SIDE RAILS X2. CALL LIGHT WITHIN REACH. WILL ENDORSE TO NEXT SHIFT FOR NIKKY.
[2019-08-06 20:00] VITALS: BP 156/88
[2019-08-06] MEDS ORDERED: ALPRAZOLAM 0.5 MG TABLET PO ONE (22:30)
[2019-08-06] MEDS: ATORVASTATIN 40 MG TABLET PO SCH (22:51)
[2019-08-07] VITALS (7 sets, daily range): BP systolic 134–162; BP diastolic 68–89
--- NOTE | 2019-08-07 02:07 | NUR ---
Patient A&O x4. No s/s of distress or pain. Breathing even and nonlabored. Patient sleeping with 2L O2 nasal canula. Patient on tele monitor. Prior to medications and sleep patients heart rate went to around 112 because he was anxious. Patient heart rate stable now. Side rails up. Call light in reach. Will continue to monitor throughout shift.
[2019-08-07] MEDS: IPRATROPIUM NEB FS 0.5 MG/2.5 ML AMPUL.NEB NEB SCH ×6 (03:09→23:03)
--- NOTE | 2019-08-07 05:28 | NUR ---
Patient A&O x4. Currently in bed sleeping. Call light in reach. Side rails up. Bed in lowest position. Will give report to day shift nurse.
[2019-08-07 06:20] LABS: BASOPHILS % (AUTO) 0.5 % (0.0-2.0); EOSINOPHILS % (AUTO) 1.4 % (0.0-6.0); HEMATOCRIT 25 % (39-51); HEMOGLOBIN 8.1 g/dL (13.5-17.5); LYMPHOCYTES # (AUTO) 1.1 /CMM (0.8-4.8); LYMPHOCYTES % (AUTO) 17.7 % (20.0-44.0); MEAN CORPUSCULAR HGB CONC 33 g/dl (31.0-36.0); MEAN CORPUSCULAR VOLUME 73 fL (80-96); MONOCYTES # (AUTO) 0.5 /CMM (0.1-1.30); MONOCYTES % (AUTO) 8.4 % (2.0-12.0); NEUTROPHILS # (AUTO) 4.4 /CMM (1.8-8.9); PLATELET COUNT (AUTO) 152 /CMM (150-450); RED BLOOD CELL COUNT(AUTO) 3.39 MIL/uL (4.5-6.0); WHITE BLOOD COUNT (AUTO) 6.1 K/uL (4.3-11.0)
[2019-08-07 07:03] LABS: CALCIUM, SERUM 8.8 mg/dL (8.5-10.1); CARBON DIOXIDE 31 mmol/L (21-32); CHLORIDE 99 mmol/L (98-107); CREATININE 4.1 mg/dL (0.6-1.3); GLUCOSE 123 mg/dL (74-106); MAGNESIUM 1.7 mg/dL (1.8-2.4); PHOSPHORUS 4.5 mg/dL (2.5-4.9); POTASSIUM 3.7 mmol/L (3.5-5.1); SODIUM SERUM 137 mmol/L (136-145); UREA NITROGEN, BLOOD 30 mg/dL (7-18)
[2019-08-07] MEDS: PANTOPRAZOLE 40 MG TABLET.DR PO SCH (07:30)
--- NOTE | 2019-08-07 07:45 | NUR ---
RN OPENING NOTE: RECEIVED PATIENT IN BED WITH NO SIGNS OF DISTRESS NOTED. PATIENT IS AOX4, DENIES PAIN. BREATHING IS EVEN AND UNLABORED WITH EQUAL RISE AND FALL OF CHEST. PATIENT IS AFIB ON TELE MONITOR. NPO OF THIS MORNING. SAT 97% ON 2L NC. RAC 20G C/D/I. SAFETY PRECAUTIONS IN PLACE. BED IN LOW, LOCKED POSITION WITH 2 SIDE RAILS UP FOR SAFETY. WILL CONTINUE TO MONITOR.
[2019-08-07] MEDS: APIXABAN 2.5 MG TABLET PO SCH (08:17)
[2019-08-07] MEDS: FLUTICASONE/VILANTEROL 1 EACH BLST.W.DEV IH SCH (08:17)
[2019-08-07] MEDS: SERTRALINE HCL 25 MG TABLET PO SCH (08:17)
--- NOTE | 2019-08-07 09:16 | NUR ---
RN NOTE: CONSENT CONSENT FORM SIGNED FOR CATH PROCEDURE.
[2019-08-07 09:29] LABS: EOSINOPHILS % (MANUAL) 3 % (0-4); LYMPHOCYTES % (MANUAL) 20 % (16-48); MONOCYTES % (MANUAL) 6 % (0-11.0); MYELOCYTES % 1 % (0-0); NEUTROPHILS % (MANUAL) 70 (42-76)
[2019-08-07] MEDS ORDERED: LIDOCAINE HCL/PF 1% 30 ML SDV ONE (10:09)
[2019-08-07] MEDS ORDERED: VERAPAMIL HCL IV 5 MG/2 ML VIAL ONE (10:09)
[2019-08-07] MEDS ORDERED: IODIXANOL 150 ML IV ONE (10:09)
[2019-08-07] MEDS ORDERED: IV NS 0.9% 500 ML IV ONE (10:19)
[2019-08-07] MEDS ORDERED: IV SET PRIMARY PUMP SET 1 EA INFUS.SET MC ONE ×2 (10:30→10:39)
[2019-08-07] MEDS ORDERED: HEPARIN SODIUM, PORCINE 1,000 UNIT/ML VIAL ONE (10:35)
[2019-08-07] MEDS ORDERED: NITROGLYCERIN ICAR 1,000 MCG/10 ML VIAL ICAR ONE (10:35)
--- NOTE | 2019-08-07 11:00 | NUR ---
RN NOTE PATIENT PICKED UP BY HEALTH INFORMATION MANAGER STAFF IN STABLE CONDITION. AOX4 WITH BREATHING EVEN AND UNLABORED.
--- NOTE | 2019-08-07 14:06 | NUR ---
RN NOTE: PATIENT RETURNED FROM ENVIRONMENTAL SAFETY SPECIALIST IN STABLE CONDITION. PROCEDURE WAS CANCELED DUE TO TECHNICAL ISSUES. PATIENT'S RENAL DIET HAS BEEN RESUMED. TO BE NPO AT MIDNIGHT.
--- NOTE | 2019-08-07 15:17 | NUR ---
RN NOTE: CATH RECEIVED CALL FROM RICHARD IN [facility]. PROCEDURE RESCHEDULED TO 10AM 08/07. TO BE NPO AT MIDNIGHT.
--- NOTE | 2019-08-07 18:37 | NUR ---
RN CLOSING NOTE: PATIENT IN BED WITH NO SIGNS OF DISTRESS NOTED. AMBULATORY. PATIENT IS AOX4, DENIES PAIN. BREATHING IS EVEN AND UNLABORED WITH EQUAL RISE AND FALL OF CHEST. PATIENT IS AFIB ON TELE MONITOR. NPO AT MIDNIGHT. CURRENTLY ON RENAL DIET. SAT 97% ON 2L NC. RAC 20G C/D/I. LAC 18G C/D/I. SAFETY PRECAUTIONS IN PLACE. BED IN LOW, LOCKED POSITION WITH 2 SIDE RAILS UP FOR SAFETY. WILL CONTINUE TO MONITOR. WILL ENDORSE CARE TO SOFTWARE SECURITY CONSULTANT RN FOR NIKKY.
--- NOTE | 2019-08-07 19:10 | NUR ---
RECEIVE PT A/O X 4 RESPIRATIONS EVEN AND UNLABORED, STABLE. NO S/S OF DISTRESS, SAFETY MEASURES AT ALL TIMES. WILL CONT TO MONITOR. S/P L INTERMEDULLARY NAIL ORIF DRESSING CLEAN NO S/S OF BLEEDING Addendum: 08/07/19 at 1946 by PRITESH MARTIN RN MISTAKEN ENTRY PLS DISREGARD THIS CHARTING (FOR DIFFERENT PATIENT)
--- NOTE | 2019-08-07 19:47 | NUR ---
CORE DROPPER RECEIVE PT A/O X 3 WALKING IN HALLWAY ON CARDIAC MONITORING. RESPIRATIONS EVEN AND UNLABORED, STABLE. NO S/S OF DISTRESS, SAFETY MEASURES AT ALL TIMES. WILL CONT TO MONITO
[2019-08-07] MEDS: ATORVASTATIN 40 MG TABLET PO SCH (21:39)
[2019-08-07] MEDS ORDERED: ALPRAZOLAM 0.5 MG TABLET PO ONE (22:00)
--- NOTE | 2019-08-07 22:00 | NUR ---
liv hospitalist pt c/o anxious liv hospitalist spoke to bradley relayed pt concern received verbal order of xanax 0.5 mg once po read back and verified orders noted and carried out
[2019-08-08] VITALS (27 sets, daily range): BP systolic 137–181; BP diastolic 51–95
[2019-08-08] MEDS: IPRATROPIUM NEB FS 0.5 MG/2.5 ML AMPUL.NEB NEB SCH ×6 (03:20→23:30)
--- NOTE | 2019-08-08 06:09 | NUR ---
PT SLEPT WELL, ON CARDIAC MONITORING SR 74 HR WITH 1ST DEGREE AV BLOCK. ALL NEEDS ATTENDED AND ANTICIPATED. KEPT CLEAN, DRY AND COMFORTABLE. MONITORED ACCORDINGLY. AM CARE RENDERED. MAINTAINS NPO MIDNIGHT CARDIAC CATH TODAY. PT COOPERATIVE WITH CARE. DENIES PAIN NO CHEST PAIN THROUGHOUT THE SHIFT. SAFETY MEASURES IN PLACE, WILL ENDORSE TO NEXT SHIFT POC.
--- NOTE | 2019-08-08 07:15 | NUR ---
PATIENT SERVICE ASSOCIATE NOTES PATIENT RESTING IN BED, NO RESPIRATORY DISTRESS, ON O2 2LPM VIA NC. PATIENT WITH NO C/O PAIN AT THIS TIME. PATIENT ON CERTIFIED DETENTION DEPUTY, SR WITH BBB AT 74. SKIN WARM TO TOUCH, IV ACCESS SITES INTACT AND PATENT. PATIENT ON NPO STATUS. PATIENT'S NEEDS ATTENDED, BED ON LOWEST LOCKED POSITION, CALL LIGHT WITHIN REACH. WILL CONTINUE TO MONITOR.
[2019-08-08] MEDS: PANTOPRAZOLE 40 MG TABLET.DR PO SCH (07:30)
[2019-08-08 07:33] LABS: BASOPHILS # (AUTO) 0.1 /CMM (0.0-0.2); BASOPHILS % (AUTO) 1.4 % (0.0-2.0); EOSINOPHILS % (AUTO) 7.3 % (0.0-6.0); HEMATOCRIT 29 % (39-51); LYMPHOCYTES # (AUTO) 1.2 /CMM (0.8-4.8); LYMPHOCYTES % (AUTO) 20.6 % (20.0-44.0); MEAN CORPUSCULAR HGB CONC 32 g/dl (31.0-36.0); MEAN CORPUSCULAR VOLUME 74 fL (80-96); MONOCYTES # (AUTO) 0.6 /CMM (0.1-1.30); NEUTROPHILS # (AUTO) 3.6 /CMM (1.8-8.9); NEUTROPHILS % (AUTO) 60.7 % (43.0-81.0); PLATELET COUNT (AUTO) 190 /CMM (150-450); RED BLOOD CELL COUNT(AUTO) 3.85 MIL/uL (4.5-6.0)
[2019-08-08 07:44] LABS: CALCIUM, SERUM 8.7 mg/dL (8.5-10.1); CARBON DIOXIDE 26 mmol/L (21-32); CHLORIDE 104 mmol/L (98-107); CREATININE 3.1 mg/dL (0.6-1.3); GLUCOSE 96 mg/dL (74-106); MAGNESIUM 1.7 mg/dL (1.8-2.4); SODIUM SERUM 139 mmol/L (136-145); UREA NITROGEN, BLOOD 23 mg/dL (7-18)
[2019-08-08] MEDS: ASPIRIN 81 MG TAB.CHEW PO SCH (08:14)
[2019-08-08] MEDS: SERTRALINE HCL 25 MG TABLET PO SCH (08:14)
[2019-08-08] MEDS: FLUTICASONE/VILANTEROL 1 EACH BLST.W.DEV IH SCH (09:20)
--- NOTE | 2019-08-08 12:00 | NUR ---
PHARMACY ASSISTANT NOTES PATIENT TAKEN DOWN TO OR AT THIS TIME. PATIENT IN STABLE CONDITION, NO RESPIRATORY DISTRESS, NO C/O PAIN AT THIS TIME. PATIENT LEFT VIA GURNEY.
[2019-08-08] MEDS ORDERED: VERAPAMIL HCL IV 5 MG/2 ML VIAL ONE (12:12)
[2019-08-08] MEDS ORDERED: NITROGLYCERIN ICAR 1,000 MCG/10 ML VIAL ICAR ONE (12:12)
[2019-08-08] MEDS ORDERED: IODIXANOL 150 ML IV ONE (12:12)
[2019-08-08] MEDS ORDERED: IV SET PRIMARY PUMP SET 1 EA INFUS.SET MC ONE ×2 (12:17→13:07)
[2019-08-08] MEDS ORDERED: IV NS 0.9% 1,000 ML ONE (12:17)
[2019-08-08] MEDS ORDERED: LIDOCAINE HCL/PF 1% 30 ML SDV ONE (12:28)
[2019-08-08] MEDS ORDERED: MIDAZOLAM HCL 2 MG/2ML VIAL ONE (12:29)
[2019-08-08] MEDS ORDERED: FENTANYL PF 100MCG/2ML AMPUL ONE (12:29)
[2019-08-08] MEDS ORDERED: HEPARIN SODIUM, PORCINE 1,000 UNIT/ML VIAL ONE (12:33)
[2019-08-08] MEDS ORDERED: IODIXANOL 320MG/ML 50 ML IV ONE ×2 (12:59→13:41)
[2019-08-08] MEDS ORDERED: CLOPIDOGREL BISULFATE 300 MG TABLET ONE (13:02)
[2019-08-08] MEDS ORDERED: BIVALIRUDIN 250 MG/VIAL IV ONE (13:07)
[2019-08-08] MEDS ORDERED: ASPIRIN 325 MG TABLET PO ONE (13:07)
[2019-08-08] MEDS ORDERED: ASPIRIN 325 MG TABLET ONE (13:07)
--- NOTE | 2019-08-08 14:15 | NUR ---
received pt from biological lab technician, s/p PCI mid Cx, a/o x4, SR, RA sat well, lungs clear, no edema, v/s stable, no pain, TR band R arm, no bleeding noted.
--- NOTE | 2019-08-08 16:15 | NUR ---
pt is resting in the bed, a/o x4, SR, on RA sat well, v/s stable, no pain, pt cleaned and changed, repositions by himself.
--- NOTE | 2019-08-08 18:05 | NUR ---
TR band still on after two hours of trying to deflate the cuff, still bleeding.
[2019-08-08] MEDS ORDERED: ALPRAZOLAM 0.25 MG TABLET PO ONE (21:30)
[2019-08-08] MEDS: ATORVASTATIN 40 MG TABLET PO SCH (22:04)
[2019-08-09] VITALS (8 sets, daily range): BP systolic 127–156; BP diastolic 59–96
[2019-08-09] MEDS: IPRATROPIUM NEB FS 0.5 MG/2.5 ML AMPUL.NEB NEB SCH ×4 (03:30→15:21)
--- NOTE | 2019-08-09 03:52 | NUR ---
RN NOTES RECEIVED PATIENT AWAKE IN BED RESTING COMFORTABLY WATCHING TV. IN NO APPARENT DISTRESS, BREATHING EVEN AND UNLABORED. ALERT AND ORIENTED WITH NO COMPLAINT OF PAIN UNTIL 0340 UPON WAKING UP. GIVEN TYLENOL 650 MG FOR HEADACHE, WITH RELIEF. VITAL SIGNS WITHIN NORMAL LIMITS. OFFERED PATIENT BED BATH AND TO CHANGED CLOTHINGS AND BEDDINGS X 3, BUT PATIENT CONSISTENTLY REFUSED. ON ROOM AIR WITH 02SAT 96-98%. FOR TRANSFER TO [facility] AT 0530 ROOM 315 BED 2. PATIENT IS CONTINENT USING URINAL. AMBULATORY STEADY BUT NEEDS SOME ASSIST. WILL ENDORSE TO [facility] NURSE AT BEDSIDE. TR BAND REMOVED AT 2200 WITHOUT ANY BLEEDING, PAIN OR ADVERSE EFFECT
[2019-08-09 04:48] LABS: BASOPHILS # (AUTO) 0.1 /CMM (0.0-0.2); BASOPHILS % (AUTO) 0.8 % (0.0-2.0); EOSINOPHILS % (AUTO) 6.1 % (0.0-6.0); HEMATOCRIT 28 % (39-51); HEMOGLOBIN 9.3 g/dL (13.5-17.5); LYMPHOCYTES # (AUTO) 1.1 /CMM (0.8-4.8); LYMPHOCYTES % (AUTO) 16.4 % (20.0-44.0); MEAN CORPUSCULAR HGB CONC 33 g/dl (31.0-36.0); MEAN CORPUSCULAR VOLUME 73 fL (80-96); MONOCYTES # (AUTO) 0.7 /CMM (0.1-1.30); NEUTROPHILS # (AUTO) 4.5 /CMM (1.8-8.9); NEUTROPHILS % (AUTO) 66.7 % (43.0-81.0); PLATELET COUNT (AUTO) 193 /CMM (150-450); RED BLOOD CELL COUNT(AUTO) 3.79 MIL/uL (4.5-6.0); WHITE BLOOD COUNT (AUTO) 6.8 K/uL (4.3-11.0)
[2019-08-09 05:11] LABS: CALCIUM, SERUM 8.5 mg/dL (8.5-10.1); CARBON DIOXIDE 26 mmol/L (21-32); CHLORIDE 102 mmol/L (98-107); CREATININE 2.9 mg/dL (0.6-1.3); GLUCOSE 96 mg/dL (74-106); MAGNESIUM 1.4 mg/dL (1.8-2.4); PHOSPHORUS 4.4 mg/dL (2.5-4.9); POTASSIUM 3.7 mmol/L (3.5-5.1); SODIUM SERUM 138 mmol/L (136-145); UREA NITROGEN, BLOOD 27 mg/dL (7-18)
[2019-08-09 05:45] LABS: EOSINOPHILS % (MANUAL) 10 % (0-4); LYMPHOCYTES % (MANUAL) 8 % (16-48); MONOCYTES % (MANUAL) 12 % (0-11.0); NEUTROPHILS % (MANUAL) 70 (42-76)
--- NOTE | 2019-08-09 06:15 | NUR ---
CTRSCLINICAL NURSING COORDINATOR NOTES RECEIVED PATIENT VIA GURNEY, ACCOMPANIED BY ICU STAFF; PATIENT OKAY TO TRANSFER; PATIENT AWAKE, A/OX4, BREATHING EVEN AND UNLABORED; NO SOB OR S/S OF ACUTE RESPIRATORY DISTRESS NOTED; PATIENT TOLERATING ROOM AIR WELL, VITALS STABLE AND WNL; RAC #20 L AC #18, BOTH IV SITES INTACT AND PATENT, FLUSHING WELL; NO S/S OF REDNESS OR INFILTRATION; TELE MONITOR ATTACHED; SR BBB AND HR 77. SAFETY PRECAUTIONS IN PLACE, BED LOCKED IN LOWEST POSITION; SIDE RAILS X2; CALL LIGHT WITHIN REACH. WILL ENDORSE NIKKY TO ONCOMING NURSE
--- NOTE | 2019-08-09 07:30 | NUR ---
PT RECEIVED RESTING COMFORTABLY IN BED WITH EYES CLOSED. NO S/S OR C/O PAIN OR DISTRESS NOTED. SIDE RAILS UP X2, CALL LIGHT LEFT WITHIN REACH. WILL CONTINUE PLAN OF CARE.
[2019-08-09] MEDS: ASPIRIN 81 MG TAB.CHEW PO SCH (08:25)
[2019-08-09] MEDS: SERTRALINE HCL 25 MG TABLET PO SCH (08:25)
[2019-08-09] MEDS: FLUTICASONE/VILANTEROL 1 EACH BLST.W.DEV IH SCH (08:25)
[2019-08-09] MEDS: PANTOPRAZOLE 40 MG TABLET.DR PO SCH (08:25)
[2019-08-09] MEDS ORDERED: APIXABAN 2.5 MG TABLET PO SCH (09:00)
[2019-08-09] MEDS ORDERED: CLOPIDOGREL BISULFATE 75 MG TABLET PO SCH (09:00)
--- NOTE | 2019-08-09 10:48 | NUR ---
MED TAYO RUSH STARTED.
[2019-08-09] MEDS ORDERED: APIX2.5T PO (15:14)
[2019-08-09] MEDS ORDERED: CLOP75TA15 PO (15:30)
--- NOTE | 2019-08-09 18:15 | NUR ---
DISCHARGE INSTRUCTIONS GIVEN ORDERED. ENCOURAGED TO FOLLOW UP WITH PMD INSTRUCTED. ALL QUESTIONS AND CONCERNS ADDRESSED. PATIENT VERBALIZED UNDERSTANDING. MEDICATION RECONCILIATION FORM COMPLETED AND COPY GIVEN TO PATIENT. IV REMOVED WITH CATHETER INTACT, PRESSURE DRESSING APPLIED. PATIENT TAKEN TO VEHICLE VIA WHEELCHAIR WITH ALL PERSONAL BELONGINGS, ACCOMPANIED [place] STAFF. NO DISTRESS NOTED AT TIME OF DEPARTURE.
[2019-08-11 11:07] LABS: HEPATITIS Be AB Negative (Negative)
== END 2019-08-09 17:55 | disposition home or self-care (01) | DRG 981 ==
LOC: ER 16:06 → TELE 20:05 → ICU 08-08 14:25 → TELE 08-09 06:02 → MED 08-09 13:35
PROVIDERS: ADMIT Nurse Practitioner Acute Care; ATTEND Registered Nurse
PROC: 5A1D70Z Performance of Urinary Filtration, Intermittent, Less than 6 Hours Per Day (ICD-10-PCS; 2019-08-07)
PROC: 4A023N7 Measurement of Cardiac Sampling and Pressure, Left Heart, Percutaneous Approach (ICD-10-PCS; principal; 2019-08-08)
PROC: 027034Z Dilation of Coronary Artery, One Artery with Drug-eluting Intraluminal Device, Percutaneous Approach (ICD-10-PCS; 2019-08-08)
PROC: B211YZZ Fluoroscopy of Multiple Coronary Arteries using Other Contrast (ICD-10-PCS; 2019-08-08)
DX: J44.1 Chronic obstructive pulmonary disease with (acute) exacerbation (principal); N18.6 End stage renal disease; I21.A1 Myocardial infarction type 2; I50.32 Chronic diastolic (congestive) heart failure; I13.2 Hypertensive heart and chronic kidney disease with heart failure and with stage 5 chronic kidney disease, or end stage renal disease; D68.69 Other thrombophilia; N17.9 Acute kidney failure, unspecified; I25.10 Atherosclerotic heart disease of native coronary artery without angina pectoris; E03.9 Hypothyroidism, unspecified; E78.5 Hyperlipidemia, unspecified; E83.42 Hypomagnesemia; E87.6 Hypokalemia; D63.1 Anemia in chronic kidney disease; F32.9 Major depressive disorder, single episode, unspecified; F41.9 Anxiety disorder, unspecified; Z79.01 Long term (current) use of anticoagulants; Z98.61 Coronary angioplasty status; Z99.2 Dependence on renal dialysis; Z87.891 Personal history of nicotine dependence; I48.0 Paroxysmal atrial fibrillation; F39 Unspecified mood [affective] disorder; K22.70 Barrett's esophagus without dysplasia; Z79.82 Long term (current) use of aspirin
CPT/HCPCS: 36415; 36600; 71045-TC; 80048-TC; 80053-TC; 80061-TC; 80076-TC; 82728-TC; 82803-TC; 83540-TC; 83605-TC; 83615-TC; 83735-TC; 84100-TC; 84443-TC; 84484-TC; 85025-TC; 85730-TC; 86705; 86707; 87040-TC; 87081-TC; 87350; 90935-TC; 92980; 92982; 94799-TC; C1725; C1887; G0378; G0500; J1644; J2250; J2930; J3010; J3490; J7030; J7040; Q9967

== ENCOUNTER 2019-08-21 11:55 | Inpatient (IN) | payer MEDICARE, OTHER ==
[~2019-08-21] VITALS: Ht 177.8 cm; Wt 73.9 kg
[~2019-08-21 11:55] MED LIST changes: +APIX2.5T PO; +CLOP75TA15 PO; -RIVA10TA PO
[2019-08-21] MEDS ORDERED: methylPREDNISolone SOD SUCC 125 MG/2ML VIAL ONE (12:45)
[2019-08-21] MEDS ORDERED: IPRATROPIUM NEB FS 0.5 MG/2.5 ML AMPUL.NEB NEB ONE (13:00)
[2019-08-21] MEDS ORDERED: ALBUTEROL FS 2.5 MG/3 ML VIAL.NEB NEB ONE (13:00)
[2019-08-21] MEDS ORDERED: methylPREDNISolone SOD SUCC 125 MG/2ML VIAL IV ONE (13:00)
--- NOTE | 2019-08-21 13:05 | NUR ---
BIBS TO ER BED 5. AAOX4. NOT IN RESPD DISTRESS, BREATHING. AMBULATORY. CAME IN FOR SOB X 3 DAYS. PER PT HE GET SHORT OF BREATHING UPON EXCERTION AND GET BACK QUICKLY TO NORMAL WHEN HE IS RESTING. PT IS NOTED WITH BILAT WHEEZING UPON AUSCULTATION. PT PLACED ON 02 @ 2LPM. WAS TA BEDSIDE FOR EVAL. IV LINE OBTAINED ON R WRSIT 20G. BLOOD DRAWN AND GIVEN TO CASH REGISTER MECHANIC. PLACED ON MONITOR. WILL CONTINUE TO MONITOR
--- NOTE | 2019-08-21 13:09 | NUR ---
XRAY AT BEDSIDE
[2019-08-21 13:10] LABS: BASOPHILS # (AUTO) 0.1 /CMM (0.0-0.2); BASOPHILS % (AUTO) 1.4 % (0.0-2.0); EOSINOPHILS % (AUTO) 13.3 % (0.0-6.0); HEMATOCRIT 30 % (39-51); HEMOGLOBIN 9.6 g/dL (13.5-17.5); LYMPHOCYTES # (AUTO) 1.2 /CMM (0.8-4.8); LYMPHOCYTES % (AUTO) 15.4 % (20.0-44.0); MEAN CORPUSCULAR HGB CONC 33 g/dl (31.0-36.0); MEAN CORPUSCULAR VOLUME 75 fL (80-96); MONOCYTES # (AUTO) 0.5 /CMM (0.1-1.30); NEUTROPHILS # (AUTO) 4.9 /CMM (1.8-8.9); NEUTROPHILS % (AUTO) 62.9 % (43.0-81.0); PLATELET COUNT (AUTO) 180 /CMM (150-450); RED BLOOD CELL COUNT(AUTO) 3.94 MIL/uL (4.5-6.0); WHITE BLOOD COUNT (AUTO) 7.7 K/uL (4.3-11.0)
[2019-08-21 13:13] LABS: CALCIUM, SERUM 9.7 mg/dL (8.5-10.1); CARBON DIOXIDE 29 mmol/L (21-32); CHLORIDE 100 mmol/L (98-107); CREATININE 2.1 mg/dL (0.6-1.3); GLUCOSE 117 mg/dL (74-106); POTASSIUM 3.6 mmol/L (3.5-5.1); SODIUM SERUM 138 mmol/L (136-145); UREA NITROGEN, BLOOD 15 mg/dL (7-18)
[2019-08-21 13:27] LABS: B-TYPE NATRIURETIC PEPTIDE 4691 PG/ML (0-125)
[2019-08-21] MEDS ORDERED: ALBUTEROL FS 2.5 MG/3 ML VIAL.NEB ONE (13:40)
[2019-08-21] MEDS ORDERED: IPRATROPIUM NEB FS 0.5 MG/2.5 ML AMPUL.NEB ONE (13:40)
--- NOTE | 2019-08-21 14:38 | NUR ---
ROOM 316-1 ASSIGNED
--- NOTE | 2019-08-21 15:38 | NUR ---
REPORT GIVEN TI BERNARDO NAVARRETE FOR NIKKY.
[2019-08-21 16:00] VITALS: BP 107/70
--- NOTE | 2019-08-21 16:14 | NUR ---
PT TRANSPORTED TO UNIT ON [place] WITH RN AND EMT AT BEDSIDE W/ ACLS PROTOCOL. NAD NOTED. PT AMBULATED FROM [place] TO BED ON [facility] W/O ASSIST.
--- NOTE | 2019-08-21 16:15 | NUR ---
NETWORK ARCHITECT ADMITTING NOTES RECEIVED REPORT FROM ED NURSE, ELSIE RAMIREZ TRANSPORTED TO UNIT ON A GURNEY. AOX4 AND AWAKE. ON 2L OF O2 VIA N.BREATHING EVEN AND UNLABORED, NO SOB NOTED. NO SIGNS OF ACUTE DISTRESS. NO C/O PAIN OR DISCOMFORT AT THIS TIME. PT ON TELEMETRY TOPPIECE CUTTER READING CONTROLLED A FIB WITH HR OF 120. IV ACCESS LOCATED ON R WRIST G#20 SL, INTACT AND PATENT. PERMCATH LOCATED ON R UPPER CHEST, CLEAN DRY AND INTACT. SCRATCHES ON LEFT WRIST AND BILATERAL LOWER EXTREMITIES NOTED. PICTURES TAKEN AND FILED. ALL BELONGINGS CHECKED, DOCUMENTED AND FILED IN CHART BY FERNANDA GORDON. SAFETY PRECAUTIONS IN PLACE. BED IN LOCKED LOWEST POSITION, CALL LIGHT WITHIN REACH, SIDE RAILS UP. WILL CONTINUE ENDORSE TO NIGHT NURSE FOR NIKKY
[2019-08-21] MEDS ORDERED: ACETAMINOPHEN 325 MG TABLET PO PRN ×2 (18:00)
[2019-08-21] MEDS ORDERED: ONDANSETRON HCL/PF 4 MG/2 ML VIAL IVP PRN (18:00)
[2019-08-21] MEDS ORDERED: Z GUARD REMEDY 2 OZ OINT TP PRN (18:00)
[2019-08-21] MEDS ORDERED: BUMETANIDE INJ 0.25 MG/ML VIAL IV ONE (18:30)
--- NOTE | 2019-08-21 18:50 | NUR ---
RT CALLED RECOMMENDING THAT PT's ALBUTEROL ORDERS BE CHANGED FROM Q6HRS TO Q4HRS. DR HYDE WAS MADE AWARE OF PT's CONTROLLED A-FIB STATUS OF , AND DR HYDE APPROVED THE CHANGE. Addendum: 08/21/19 at 2045 by IMMKEHINDE THOMAS RN RT CALLED RECOMMENDING THAT PT's ALBUTEROL ORDERS BE CHANGED FROM Q6HRS TO Q4HRS SCHEDULE. DR HYDE WAS MADE AWARE OF PT's CONTROLLED A-FIB STATUS WITH HR OF 120. DR HYDE APPROVED CHANGE. ORDERS CARRIED OUT AND IMPLEMENTED.
--- NOTE | 2019-08-21 19:10 | NUR ---
SURVEYING TECHNICIAN ADMITTING NOTES PT IN BED, AWAKE AT THIS TIME. AOX4. ON 2L OF O2 VIA NC. PT ABLE TO VERBALIZE NEEDS. ALL NEEDS ATTENDED TO ORDERED. PT REMAINED STABLE THOUGH OUT SHIFT. SAFETY PRECAUTIONS IN PLACE. BED IN LOCKED LOWEST POSITION, CALL LIGHT WITHIN REACH, SIDE RAILS UP. WILL CONTINUE ENDORSE TO NIGHT NURSE FOR NIKKY
[2019-08-21] MEDS ORDERED: ALBUTEROL HALF STRENGTH 1.25 MG/3 ML VIAL.NEB NEB SCH (19:30)
--- NOTE | 2019-08-21 19:30 | NUR ---
UNIVERSITY SERVICES PROGRAM ASSOCIATE NOTES PT REQUESTING FOR BREATHING TREATMENT, CLAIMS HE HAS TROUBLE BREATHING AND FEELS OUT OF BREATH. CONTACTED RT. WILL CONTINUE TO MONITOR.
--- NOTE | 2019-08-21 19:39 | NUR ---
UNIVERSITY CONTROLLER OPENING NOTES PATIENT RECEIVED RESTING IN BED A/O X 4. ON 2L OF O2 VIA NC WITH BREATHING EVEN AND UNLABORED, NO SOB NOTED. NO SIGNS OF ACUTE DISTRESS. NO COMPLAINTS OF PAIN OR DISCOMFORT. TELE MONITOR READING CONTROLLED A FIB 100 IV LOCATED ON R WRIST #20 SL. PERMCATH LOCATED ON R UPPER CHEST. SAFETY PRECAUTIONS IN PLACE WITH BED IN LOWEST POSITION, CALL LIGHT WITHIN REACH, BREAKS ON, SIDE RAILS UP. WILL CONTINUE TO MONITOR THROUGHOUT THE NIGHT.
[2019-08-21 20:00] VITALS: BP 117/71
[2019-08-21] MEDS: IPRATROPIUM NEB FS 0.5 MG/2.5 ML AMPUL.NEB NEB SCH ×2 (20:38→22:38)
[2019-08-21] MEDS: ALBUTEROL HALF STRENGTH 1.25 MG/3 ML VIAL.NEB NEB SCH ×2 (20:38→22:38)
--- NOTE | 2019-08-21 20:50 | NUR ---
HOSPITAL TECHNICIAN NOTES PATIENT FEELING ANXIOUS, REQUESTING FOR SOMETHING TO CALM HIM DOWN AND TO HELP HIM SLEEP- LIKE ATIVAN. NOTIFIED MEDICAL DOCTOR NUCLEAR MEDICINE LEO, ORDERED ATIVAN 1MG PO Q6H PRN. ORDERED CARRIED OUT. WILL CONTINUE TO MONITOR.
[2019-08-21] MEDS ORDERED: ACETAMINOPHEN ES 500 MG TABLET ONE (21:11)
[2019-08-21] MEDS ORDERED: ATORVASTATIN 40 MG TABLET PO SCH (22:00)
[2019-08-21] MEDS: LORAZEPAM 1 MG TABLET PO PRN (23:10)
--- NOTE | 2019-08-21 23:13 | NUR ---
LABORER BITUMINOUS PAVING NOTES ADMINISTERED 1MG ATIVAN TO PT- PER REQUEST PATIENT FEELING 'ANTSY' WANTS TO REST. WILL CONTINUE TO MONITOR.
[2019-08-21] MEDS ORDERED: LEVALBUTEROL HCL NEB 1.25 MG/0.5 ML VIAL.NEB NEB SCH (23:30)
[2019-08-22] VITALS: BP 103/67
[2019-08-22] MEDS: IPRATROPIUM NEB FS 0.5 MG/2.5 ML AMPUL.NEB NEB SCH ×6 (02:39→23:31)
[2019-08-22] MEDS: ALBUTEROL HALF STRENGTH 1.25 MG/3 ML VIAL.NEB NEB SCH ×6 (02:39→23:32)
[2019-08-22 04:00] VITALS: BP 114/61
--- NOTE | 2019-08-22 06:47 | NUR ---
FRUIT PRESS OPERATOR CLOSING NOTES PATIENT RESTING IN BED A/O X 4. ON 2L OF O2 VIA NC WITH BREATHING EVEN AND UNLABORED, NO SOB NOTED. NO SIGNS OF ACUTE DISTRESS. NO COMPLAINTS OF PAIN OR DISCOMFORT. TELE MONITOR READING CONTROLLED A FIB 84. IV LOCATED ON R WRIST #20 SL. PERMCATH LOCATED ON R UPPER CHEST. SAFETY PRECAUTIONS IN PLACE WITH BED IN LOWEST POSITION, CALL LIGHT WITHIN REACH, BREAKS ON, SIDE RAILS UP. ALL NEEDS ATTENDED TO THROUGHOUT THE NIGHT. WILL ENDORSE TO ONCOMING SHIFT ABOUT NIKKY.
[2019-08-22 08:00] VITALS: BP 120/85
--- NOTE | 2019-08-22 08:00 | NUR ---
PIANO TEACHER OPENING NOTES PATIENT RECEIVED RESTING IN BED A/O X 4. ON 2L OF O2 VIA NC WITH BREATHING EVEN AND UNLABORED, NO SOB NOTED. NO SIGNS OF ACUTE DISTRESS. NO COMPLAINTS OF PAIN OR DISCOMFORT. TELE MONITOR READING CONTROLLED A FIB 100 IV LOCATED ON R WRIST #20 SL. PERMACATH LOCATED ON R UPPER CHEST. SAFETY PRECAUTIONS IN PLACE WITH BED IN LOWEST POSITION, PT WALKING ALONG THE HALLWAY.CALL LIGHT WITHIN REACH, BREAKS ON, SIDE RAILS UP. WILL CONTINUE TO MONITOR
[2019-08-22 08:32] LABS: BASOPHILS % (AUTO) 0.1 % (0.0-2.0); EOSINOPHILS % (AUTO) 0.1 % (0.0-6.0); HEMATOCRIT 29 % (39-51); HEMOGLOBIN 9.4 g/dL (13.5-17.5); LYMPHOCYTES # (AUTO) 0.8 /CMM (0.8-4.8); LYMPHOCYTES % (AUTO) 12.4 % (20.0-44.0); MEAN CORPUSCULAR HGB CONC 32 g/dl (31.0-36.0); MEAN CORPUSCULAR VOLUME 75 fL (80-96); MONOCYTES # (AUTO) 0.2 /CMM (0.1-1.30); NEUTROPHILS # (AUTO) 5.2 /CMM (1.8-8.9); NEUTROPHILS % (AUTO) 83.4 % (43.0-81.0); PLATELET COUNT (AUTO) 171 /CMM (150-450); RED BLOOD CELL COUNT(AUTO) 3.85 MIL/uL (4.5-6.0); WHITE BLOOD COUNT (AUTO) 6.2 K/uL (4.3-11.0)
[2019-08-22 08:45] LABS: ALANINE AMINOTRANSFERASE 14 U/L (12-78); ALBUMIN 3.5 g/dL (3.4-5.0); ALKALINE PHOSPHATASE 86 U/L (46-116); ASPARTATE AMINOTRANSFERASE 18 U/L (15-37); BILIRUBIN,TOTAL 0.3 mg/dL (0.2-1.0); CALCIUM, SERUM 9.4 mg/dL (8.5-10.1); CARBON DIOXIDE 26 mmol/L (21-32); CHLORIDE 101 mmol/L (98-107); CREATININE 2.3 mg/dL (0.6-1.3); GLUCOSE 141 mg/dL (74-106); IRON, SERUM 61 ug/dl (50-175); MAGNESIUM 1.8 mg/dL (1.8-2.4); PHOSPHORUS 3.3 mg/dL (2.5-4.9); POTASSIUM 3.9 mmol/L (3.5-5.1); SODIUM SERUM 140 mmol/L (136-145); TOTAL IRON BINDING CAPACITY 265 ug/dl (250-450); UREA NITROGEN, BLOOD 25 mg/dL (7-18)
[2019-08-22] MEDS: ATORVASTATIN 40 MG TABLET PO SCH (08:57)
[2019-08-22] MEDS: CLOPIDOGREL BISULFATE 75 MG TABLET PO SCH (08:57)
[2019-08-22] MEDS: SERTRALINE HCL 50 MG TABLET PO SCH (08:57)
[2019-08-22] MEDS: ASPIRIN 81 MG TAB.CHEW PO SCH (08:58)
[2019-08-22] MEDS: predniSONE 20 MG TABLET PO SCH (08:58)
[2019-08-22 09:00] LABS: ABG BASE EXCESS 0.3 mmol/L; ABG OXYGEN SATURATION 94.5 % (92.0-98.5); ABG PCO2 36.6 mmHg (35.0-45.0); ABG PO2 75.1 mmHg (75.0-100.0); AaDO2 81.4 mmHg; COHb 0.1 % (0.5-1.5); MetHb 0.5 % (0.0-1.5); O2Hb 93.9 % (94.0-97.0); SITE, ABG Right Radial; VENT MODE, BG Nasal Cannula
[2019-08-22 09:06] LABS: CHOLESTEROL 116 mg/dL (<200); HDL CHOLESTEROL 61 mg/dL (40-60); LDL 44 mg/dL (0-99); TRIGLYCERIDES 40 mg/dL (30-150)
[2019-08-22] MEDS: PANTOPRAZOLE 40 MG TABLET.DR PO SCH (09:39)
[2019-08-22] MEDS: APIXABAN 2.5 MG TABLET PO SCH ×2 (09:40→17:47)
[2019-08-22] MEDS: FLUTICASONE/VILANTEROL 1 EACH BLST.W.DEV IH SCH (09:52)
[2019-08-22] MEDS: LORAZEPAM 1 MG TABLET PO PRN ×2 (09:57→17:54)
[2019-08-22 16:00] VITALS: BP 98/50
[2019-08-22] MEDS ORDERED: LORAZEPAM 0.5 MG TABLET PO PRN (18:00)
--- NOTE | 2019-08-22 19:30 | NUR ---
MS RN RECEIVE PT IN BED, A/O X 4 STABLE AND NOT IN DISTRESS, SAFETY MEASURES AT ALL TIMES. WILL CONT TO MONITOR
[2019-08-22 20:00] VITALS: BP 127/80
[2019-08-23] MEDS ORDERED: GUAIFENESIN/D-METHORPHAN HB 5 ML UDC PO PRN
--- NOTE | 2019-08-23 | NUR ---
MS BERNARDO BRENNAN HOSPITALIST OBTAINED ORDERS PT C/O WANTED TO HAVE COUGH MEDICINE PER DR. SUAREZ ORDER ROBITUSSIN 10 ML Q6HR PRN READ BACK AND VERIFIED ORDERS NOTED AND CARRIED OUT Addendum: 08/23/19 at 0537 by PRITESH MARTIN RN MISTAKEN ENTRY OBTAINED ORDERS FROM DR TARUN GAYLE. NOT DR. SUAREZ
[2019-08-23] MEDS: ALBUTEROL HALF STRENGTH 1.25 MG/3 ML VIAL.NEB NEB SCH ×4 (03:44→15:06)
[2019-08-23] MEDS: IPRATROPIUM NEB FS 0.5 MG/2.5 ML AMPUL.NEB NEB SCH ×4 (03:44→15:06)
--- NOTE | 2019-08-23 05:37 | NUR ---
MS RN NO SIGNIFICANT CHANGES, NO C/O CHEST PAIN. NO SOB, 2LPM VIA NC O2 SAT 95%. MONITORED ACCORDINGLY, NEEDS ATTENDED AND ANTICIPATED, KEPT CLEAN, DRY AND COMFORTABLE AT ALL TIMES, NO S/S OF DISTRESS, NO C/O OF PAIN. SAFETY MEASURES AT ALL TIMES. ENDORSE TO NEXT SHIFT POC.
--- NOTE | 2019-08-23 07:05 | NUR ---
MS RN OPENING NOTES RECEIVED PT RESTING IN BED. A/O X 4. ON 2LPM OF O2 VIA NC. BREATHING EVEN AND UNLABORED, NO SOB NOTED. NO S/S OF ANY ACUTE DISTRESS. NO C/O PAIN OR DISCOMFORT AT THIS TIME. IV ACCESS ON R WRIST G#20 . R UPPER CHEST PERMACATH IN PLACE. SAFETY PRECAUTIONS IN PLACE BED IN LOCKED LOWEST POSITION WITH SIDE RAILS X2. CALL LIGHT WITHIN REACH. WILL CONTINUE TO MONITOR.
[2019-08-23 07:07] LABS: BASOPHILS % (AUTO) 0.1 % (0.0-2.0); EOSINOPHILS % (AUTO) 0.3 % (0.0-6.0); HEMATOCRIT 26 % (39-51); HEMOGLOBIN 8.9 g/dL (13.5-17.5); LYMPHOCYTES % (AUTO) 12.4 % (20.0-44.0); MEAN CORPUSCULAR HGB CONC 34 g/dl (31.0-36.0); MEAN CORPUSCULAR VOLUME 75 fL (80-96); MONOCYTES # (AUTO) 0.5 /CMM (0.1-1.30); MONOCYTES % (AUTO) 6.5 % (2.0-12.0); NEUTROPHILS # (AUTO) 6.3 /CMM (1.8-8.9); NEUTROPHILS % (AUTO) 80.7 % (43.0-81.0); PLATELET COUNT (AUTO) 169 /CMM (150-450); RED BLOOD CELL COUNT(AUTO) 3.49 MIL/uL (4.5-6.0); WHITE BLOOD COUNT (AUTO) 7.8 K/uL (4.3-11.0)
[2019-08-23 07:31] LABS: CALCIUM, SERUM 8.7 mg/dL (8.5-10.1); CARBON DIOXIDE 29 mmol/L (21-32); CHLORIDE 101 mmol/L (98-107); CREATININE 1.9 mg/dL (0.6-1.3); GLUCOSE 110 mg/dL (74-106); MAGNESIUM 1.6 mg/dL (1.8-2.4); PHOSPHORUS 3.6 mg/dL (2.5-4.9); POTASSIUM 3.6 mmol/L (3.5-5.1); SODIUM SERUM 140 mmol/L (136-145); UREA NITROGEN, BLOOD 35 mg/dL (7-18)
[2019-08-23 08:00] VITALS: BP 150/71
[2019-08-23] MEDS: PANTOPRAZOLE 40 MG TABLET.DR PO SCH (08:09)
[2019-08-23] MEDS: predniSONE 20 MG TABLET PO SCH (09:15)
[2019-08-23] MEDS: SERTRALINE HCL 50 MG TABLET PO SCH (09:16)
[2019-08-23] MEDS: ASPIRIN 81 MG TAB.CHEW PO SCH (09:16)
[2019-08-23] MEDS: CLOPIDOGREL BISULFATE 75 MG TABLET PO SCH (09:16)
[2019-08-23] MEDS: ATORVASTATIN 40 MG TABLET PO SCH (09:17)
[2019-08-23] MEDS: APIXABAN 2.5 MG TABLET PO SCH ×2 (09:20→17:13)
[2019-08-23] MEDS: FLUTICASONE/VILANTEROL 1 EACH BLST.W.DEV IH SCH (09:25)
[2019-08-23] MEDS ORDERED: PRED20TA PO (13:31)
--- NOTE | 2019-08-23 17:30 | NUR ---
MS DUMP MOTORMAN NOTES PT GOING HOME AT THIS TIME. PT AOX3-4. PT IS STABLE. ALL NEEDS ATTENDED TO ANTICIPATED. IV REMOVED, SKIN INTACT WITH NO INFILTRATION OR BLEEDING NOTED. NO C/O OF SOB, NO C/O OF PAIN. NO S/S OF ANY ACUTE DISTRESS. ALL BELONGINGS ACCOUNTED FOR. PT ACCOMPANIED TO LOBBY BY FERNANDA HIGGINS. PT TAKEN HOME IN PRIVATE TRANSPORTATION BY CAREGIVER JOSÉ.
== END 2019-08-23 17:15 | disposition home or self-care (01) | DRG 190 ==
LOC: ER 11:59 → TELE 15:43 → MED 08-22 13:43
PROVIDERS: ADMIT Nurse Practitioner Acute Care; ATTEND Nurse Practitioner Acute Care
DX: J44.1 Chronic obstructive pulmonary disease with (acute) exacerbation (principal); I21.A1 Myocardial infarction type 2; N17.0 Acute kidney failure with tubular necrosis; D68.69 Other thrombophilia; I50.32 Chronic diastolic (congestive) heart failure; I11.0 Hypertensive heart disease with heart failure; E78.5 Hyperlipidemia, unspecified; E03.9 Hypothyroidism, unspecified; I48.91 Unspecified atrial fibrillation; F32.9 Major depressive disorder, single episode, unspecified; K21.9 Gastro-esophageal reflux disease without esophagitis; Z79.01 Long term (current) use of anticoagulants; I25.10 Atherosclerotic heart disease of native coronary artery without angina pectoris; Z79.82 Long term (current) use of aspirin; D50.9 Iron deficiency anemia, unspecified; Z95.5 Presence of coronary angioplasty implant and graft; Z79.899 Other long term (current) drug therapy
CPT/HCPCS: 36415; 36600; 71045-TC; 80048-TC; 80053-TC; 80061-TC; 83540-TC; 83605-TC; 83735-TC; 83880; 84100-TC; 84484-TC; 85025-TC; 87081-TC; 94799-TC; G0378; J2930; J3490

== ENCOUNTER 2019-09-29 19:26 | Inpatient (IN) | payer MEDICARE, OTHER ==
[~2019-09-29] VITALS: Ht 167.6 cm; Wt 73.0 kg
[~2019-09-29 19:26] MED LIST changes: +PRED20TA PO
--- NOTE | 2019-09-29 19:35 | NUR ---
AT THE BED SIDE
[2019-09-29] MEDS ORDERED: methylPREDNISolone SOD SUCC 125 MG/2ML VIAL IV ONE (20:00)
[2019-09-29] MEDS ORDERED: IPRATROPIUM NEB FS 0.5 MG/2.5 ML AMPUL.NEB NEB ONE (20:00)
[2019-09-29] MEDS ORDERED: ALBUTEROL FS 2.5 MG/3 ML VIAL.NEB CONTNEB ONE (20:00)
[2019-09-29] MEDS ORDERED: methylPREDNISolone SOD SUCC 125 MG/2ML VIAL ONE (20:01)
[2019-09-29 20:04] LABS: BASOPHILS # (AUTO) 0.1 /CMM (0.0-0.2); BASOPHILS % (AUTO) 1.3 % (0.0-2.0); EOSINOPHILS % (AUTO) 4.6 % (0.0-6.0); HEMATOCRIT 36 % (39-51); HEMOGLOBIN 11.7 g/dL (13.5-17.5); LYMPHOCYTES # (AUTO) 2.1 /CMM (0.8-4.8); LYMPHOCYTES % (AUTO) 26.3 % (20.0-44.0); MEAN CORPUSCULAR HGB CONC 32 g/dl (31.0-36.0); MEAN CORPUSCULAR VOLUME 81 fL (80-96); MONOCYTES # (AUTO) 0.3 /CMM (0.1-1.30); MONOCYTES % (AUTO) 4.2 % (2.0-12.0); NEUTROPHILS % (AUTO) 63.6 % (43.0-81.0); PLATELET COUNT (AUTO) 228 /CMM (150-450); RED BLOOD CELL COUNT(AUTO) 4.48 MIL/uL (4.5-6.0); WHITE BLOOD COUNT (AUTO) 7.8 K/uL (4.3-11.0)
[2019-09-29 20:13] LABS: CALCIUM, SERUM 8.9 mg/dL (8.5-10.1); CARBON DIOXIDE 23 mmol/L (21-32); CHLORIDE 104 mmol/L (98-107); CREATININE 1.4 mg/dL (0.6-1.3); GLUCOSE 165 mg/dL (74-106); POTASSIUM 3.8 mmol/L (3.5-5.1); SODIUM SERUM 140 mmol/L (136-145); UREA NITROGEN, BLOOD 22 mg/dL (7-18)
[2019-09-29 20:18] LABS: ALANINE AMINOTRANSFERASE 17 U/L (12-78); ALBUMIN 4.1 g/dL (3.4-5.0); ALKALINE PHOSPHATASE 109 U/L (46-116); ASPARTATE AMINOTRANSFERASE 22 U/L (15-37); BILIRUBIN,DIRECT 0.1 mg/dL (0.0-0.2); BILIRUBIN,TOTAL 0.3 mg/dL (0.2-1.0); TOTAL PROTEIN, SERUM 7.7 g/dL (6.4-8.2)
[2019-09-29] MEDS ORDERED: IPRATROPIUM NEB FS 0.5 MG/2.5 ML AMPUL.NEB ONE (20:28)
[2019-09-29] MEDS ORDERED: ALBUTEROL FS 2.5 MG/3 ML VIAL.NEB ONE (20:28)
[2019-09-29] MEDS ORDERED: CEFEPIME 1 GM in IV D5W 50 ML IV ONE (20:30)
[2019-09-29] MEDS ORDERED: VANCOMYCIN 1 GM in IV D5W 250 ML IV ONE (20:30)
--- NOTE | 2019-09-29 21:15 | NUR ---
END TIME FOR [facility]: [id number]
--- NOTE | 2019-09-29 21:52 | NUR ---
TELE [id number]
[2019-09-29] MEDS ORDERED: ASPIRIN 81 MG TAB.CHEW PO ONE (22:00)
--- NOTE | 2019-09-29 22:14 | NUR ---
REPORT GIVEN TO COREEN ON THIRD FLOOR
--- NOTE | 2019-09-29 22:15 | NUR ---
RECEIVED REPORT FROM SERAFIN FROM ER.
[2019-09-29] MEDS ORDERED: IV NS 0.9% 1,000 ML BAG IV ONE (22:30)
[2019-09-29 22:40] VITALS: BP 147/91
--- NOTE | 2019-09-29 22:40 | NUR ---
RN OPENING NOTES RECEIVED PATIENT VIA GURNEY FROM THE ED. PT IS AOX3, VERBAL ABLE TO MAKE NEEDS KNOWN. HE IS ON 2L OF OXYGEN FOR COMFORT, NO SOB OR RESP DISTRESS. TELE MONITOR SHOWING SR. IV SITE ON RAC #18G IS PATENT AND INTACT. EYES ARE PERRLA, LUNGS SOUND CLEAR UPON AUSCULTATION, SKIN IS INTACT. BILATERAL LOWER EXT EDEMA NOTED SKIN INTACT TO THE SITES. ABDOMEN SOFT AND NON DISTENDED. PATIENT ORIENTED TO ROOM AND EQUIPMENT. SAFETY MEASURES HAVE BEEN IMPLEMENTED, CALL LIGHT IS WITHIN REACH, BED IS IN LOWEST AND LOCKED POSITION, SIDE RAILS UP X2, WILL CONTINUE TO MONITOR FOR ANY CHANGES.
--- NOTE | 2019-09-29 22:40 | NUR ---
PT WAS TRANSFERRED TO [facility] [place] UNDER ACLS
[2019-09-30] VITALS: BP 143/80
[2019-09-30] MEDS ORDERED: IPRATROPIUM NEB FS 0.5 MG/2.5 ML AMPUL.NEB NEB PRN (01:00)
[2019-09-30] MEDS ORDERED: ALBUTEROL FS 2.5 MG/3 ML VIAL.NEB NEB PRN ×2 (01:00→17:00)
[2019-09-30] MEDS ORDERED: MAG HYDROX/AL HYDROX/SIMETH 30 ML UDC PO PRN (01:00)
[2019-09-30] MEDS ORDERED: Z GUARD REMEDY 2 OZ OINT TP PRN (01:00)
[2019-09-30] MEDS ORDERED: MAGNESIUM HYDROXIDE 30 ML UDC PO PRN (01:00)
[2019-09-30] MEDS ORDERED: ONDANSETRON HCL/PF 4 MG/2 ML VIAL IVP PRN (01:00)
[2019-09-30] MEDS ORDERED: ACETAMINOPHEN 325 MG TABLET PO PRN (01:00)
[2019-09-30] MEDS ORDERED: HYDROCODONE/APAP 5/325MG 1 EACH TABLET PO PRN (01:00)
--- NOTE | 2019-09-30 03:25 | NUR ---
DR. DANNY NASCIMENTO NOTIFIED OF PATIENT'S TROPONIN LEVEL TRENDING UP FROM 0.060 TO 3.280. PATIENT IS ON PLAVIX 75MG QD, AND ELIQUIS 2.5MG BID. PER MD PATIENT IS ALREADY ON ANTICOAGULANTS NO NEW ORDER RECEIVED AT THIS TIME. WILL ENDORSE TO UP COMING NURSE TO FOLLOW UP WITH DR LOZA. PATIENT IS IN STABLE CONDITION, NO SOB NO S/S OF ACUTE DISTRESS NOTED. WILL CONT TO MONITOR.
[2019-09-30 04:00] VITALS: BP 134/60
[2019-09-30 06:31] LABS: BASOPHILS % (AUTO) 0.1 % (0.0-2.0); EOSINOPHILS % (AUTO) 0.1 % (0.0-6.0); HEMATOCRIT 33 % (39-51); LYMPHOCYTES # (AUTO) 0.4 /CMM (0.8-4.8); LYMPHOCYTES % (AUTO) 10.5 % (20.0-44.0); MEAN CORPUSCULAR HGB CONC 34 g/dl (31.0-36.0); MEAN CORPUSCULAR VOLUME 80 fL (80-96); MONOCYTES # (AUTO) 0.1 /CMM (0.1-1.30); MONOCYTES % (AUTO) 1.2 % (2.0-12.0); NEUTROPHILS # (AUTO) 3.8 /CMM (1.8-8.9); NEUTROPHILS % (AUTO) 88.1 % (43.0-81.0); PLATELET COUNT (AUTO) 177 /CMM (150-450); WHITE BLOOD COUNT (AUTO) 4.3 K/uL (4.3-11.0)
[2019-09-30 07:00] LABS: CALCIUM, SERUM 9.2 mg/dL (8.5-10.1); CARBON DIOXIDE 23 mmol/L (21-32); CHLORIDE 103 mmol/L (98-107); CREATININE 1.4 mg/dL (0.6-1.3); GLUCOSE 170 mg/dL (74-106); MAGNESIUM 1.7 mg/dL (1.8-2.4); PHOSPHORUS 4.4 mg/dL (2.5-4.9); POTASSIUM 4.4 mmol/L (3.5-5.1); SODIUM SERUM 138 mmol/L (136-145); UREA NITROGEN, BLOOD 20 mg/dL (7-18)
--- NOTE | 2019-09-30 07:30 | NUR ---
RN OPENING NOTES Patient is resting in bed, A&O x 3. Breathing even and non-labored on 2L oxygen via NC. No respiratory or cardiac distress noted. On tele monitor, reading SR, HR 81. Patient denies any pain/discomfort at this time. Sensation from all peripheral extremities intact. IV access noted on RAC #18g, patent and intact, and flushing well. Fall precautions maintained. Will continue current medical management. Addendum: 09/30/19 at 1841 by RUBEN SARMIENTO RN TELE MONITOR CORRECTION: A-Fib reading, HR 81
[2019-09-30] MEDS: PANTOPRAZOLE 40 MG TABLET.DR PO SCH (07:34)
[2019-09-30 08:00] VITALS: BP 136/88
[2019-09-30] MEDS: FLUTICASONE/VILANTEROL 1 EACH BLST.W.DEV IH SCH (08:03)
[2019-09-30] MEDS: ATORVASTATIN 40 MG TABLET PO SCH (08:19)
[2019-09-30] MEDS: CLOPIDOGREL BISULFATE 75 MG TABLET PO SCH (08:20)
[2019-09-30] MEDS: methylPREDNISolone SOD SUCC 40 MG/ML VIAL IV SCH ×3 (08:20→16:35)
[2019-09-30] MEDS: SERTRALINE HCL 25 MG TABLET PO SCH (08:31)
[2019-09-30] MEDS ORDERED: APIXABAN 2.5 MG TABLET PO SCH (09:00)
[2019-09-30] MEDS: CEFEPIME 2 GM in IV D5W 100 ML IV SCH ×2 (09:28→21:34)
[2019-09-30] MEDS ORDERED: CLOPIDOGREL BISULFATE 75 MG TABLET PO ONE (10:00)
--- NOTE | 2019-09-30 10:00 | NUR ---
RN NOTES Critical lab value reported for Troponin: 6.358. Notified AARON Cespedes who was at the bedside. Dr. Almendarez sent orders for the following consents: coronary stent, percutaneous transluminal coronary angioplasty, right and left heart catheter, and coronary angioplasty.
[2019-09-30] MEDS: IV NS 0.9% 1,000 ML IV PRN (10:35)
[2019-09-30] MEDS: VANCOMYCIN 0.75 GM in IV D5W 250 ML IV SCH ×2 (11:04→22:33)
[2019-09-30] MEDS ORDERED: Magnesium 1GM/D5W 100ML PREMIX 100 ML IV SCH (11:30)
[2019-09-30] MEDS ORDERED: FEE PK DOSING 1 MIN EA MC ONE (12:24)
[2019-09-30] MEDS: Magnesium 1GM/D5W 100ML PREMIX 100 ML IV SCH ×2 (12:46→13:45)
[2019-09-30] MEDS: LORAZEPAM 0.5 MG TABLET PO PRN ×2 (14:13→21:36)
[2019-09-30] MEDS: GUAIFENESIN LA 600 MG TABLET.SA PO SCH ×2 (14:14→21:34)
[2019-09-30] MEDS: IPRATROPIUM NEB FS 0.5 MG/2.5 ML AMPUL.NEB NEB SCH ×2 (15:20→20:20)
[2019-09-30 16:00] VITALS: BP 125/66
[2019-09-30] MEDS ORDERED: ENOXAPARIN SODIUM 80 MG/0.8 ML DISP.SYRIN SQ SCH (17:00)
[2019-09-30 17:20] LABS: APPEARANCE,URINE CLEAR (CLEAR); BILIRUBIN,URINE NEGATIVE (NEGATIVE); BLOOD, URINE NEGATIVE Ery/uL (NEGATIVE); COLOR,URINE YELLOW (YELLOW); KETONES,URINE NEGATIVE (NEGATIVE); LEUKOCYTE ESTERASE ,URINE NEGATIVE (NEGATIVE); NITRITE, URINE NEGATIVE (NEGATIVE); PROTEIN,URINE NEGATIVE (NEGATIVE); UGLUCOSE NEGATIVE (NEGATIVE); UROBILINOGEN,URINE 0.2 EU/dL (0.2)
[2019-09-30 18:00] LABS: CREATININE, URINE 70.9 MG/DL (30.0-125.0); URINE TOTAL PROTEIN 20.3 mg/dL (0-11.9)
--- NOTE | 2019-09-30 18:30 | NUR ---
RN CLOSING NOTES Patient is resting in bed, A&O x 3. Breathing even and non-labored on 2L oxygen via NC. Patient last took ativan at 1413, he states that he's anxious about the procedures being done tomorrow. Patient needs to be NPO after midnight. Consents signed for the cardiac procedures tomorrow. No respiratory or cardiac distress noted. On tele monitor, reading A-fib. HR 67. Patient denies any chest pain/discomfort at this time. Sensation from all peripheral extremities intact. IV access noted on R forearm #20, patent and intact, and flushing well. Fall precautions maintained. Will endorse to the night stocker nurse.
[2019-09-30 18:40] LABS: EOSINOPHIL,URINE None Seen
--- NOTE | 2019-09-30 20:21 | NUR ---
MS/TELE/RN RECEIVED PATIENT AT 1930 FOR CONTINUITY OF CARE. PATIENT WAS AWAKE, ALERT, ORIENTED, COMFORTABLE, NO C/O PAIN, NO DISTRESS NOTED, PLAN OF CARE DISCUSSED RE: HEART CATH IN A.M.. PATIENT WAS WELL AWARE ABOUT THE PROCEDURE AND AGREED ON THE PLAN OF CARE. PLACED CALL LIGHT IN REACH. WILL MONITOR.
[2019-09-30 20:45] VITALS: BP 153/89
--- NOTE | 2019-09-30 21:45 | NUR ---
MS/RN ATIVAN 1 MG PO WAS GIVEN PER PATIENT'S REQUEST FOR ANXIETY. WILL MONITOR.
[2019-10-01] VITALS (7 sets, daily range): BP systolic 115–167; BP diastolic 61–82
[2019-10-01] MEDS: IPRATROPIUM NEB FS 0.5 MG/2.5 ML AMPUL.NEB NEB SCH ×4 (02:17→19:56)
[2019-10-01] MEDS: IV NS 0.9% 1,000 ML IV PRN ×2 (03:21→22:58)
--- NOTE | 2019-10-01 03:24 | NUR ---
MS/TELE/RN PATIENT IS SLEEPING AT THIS TIME, APPEAR COMFORTABLE, NO DISTRESS NOTED, CALL LIGHT IN REACH, NPO STATUS, CALL LIGHT IN REACH. WILL CONTINUE TO MONITOR.
--- NOTE | 2019-10-01 04:15 | NUR ---
MS/TELE/RN CALLED LAB TO DRAW BLOOD AT 0500. SPOKE TO ANATOLY.
[2019-10-01 05:38] LABS: BASOPHILS % (AUTO) 0.1 % (0.0-2.0); HEMATOCRIT 29 % (39-51); HEMOGLOBIN 9.4 g/dL (13.5-17.5); MEAN CORPUSCULAR HGB CONC 32 g/dl (31.0-36.0); MEAN CORPUSCULAR VOLUME 80 fL (80-96); MONOCYTES # (AUTO) 0.7 /CMM (0.1-1.30); NEUTROPHILS # (AUTO) 9.5 /CMM (1.8-8.9); NEUTROPHILS % (AUTO) 84.9 % (43.0-81.0); PLATELET COUNT (AUTO) 187 /CMM (150-450); RED BLOOD CELL COUNT(AUTO) 3.66 MIL/uL (4.5-6.0); WHITE BLOOD COUNT (AUTO) 11.2 K/uL (4.3-11.0)
[2019-10-01 05:48] LABS: ALANINE AMINOTRANSFERASE 15 U/L (12-78); ALBUMIN 3.3 g/dL (3.4-5.0); ALKALINE PHOSPHATASE 74 U/L (46-116); ASPARTATE AMINOTRANSFERASE 29 U/L (15-37); BILIRUBIN,TOTAL 0.2 mg/dL (0.2-1.0); CALCIUM, SERUM 8.9 mg/dL (8.5-10.1); CARBON DIOXIDE 24 mmol/L (21-32); CHLORIDE 106 mmol/L (98-107); CREATININE 1.2 mg/dL (0.6-1.3); GLUCOSE 132 mg/dL (74-106); PHOSPHORUS 3.4 mg/dL (2.5-4.9); POTASSIUM 4.4 mmol/L (3.5-5.1); SODIUM SERUM 139 mmol/L (136-145); TOTAL PROTEIN, SERUM 6.3 g/dL (6.4-8.2); UREA NITROGEN, BLOOD 28 mg/dL (7-18)
[2019-10-01 05:57] LABS: CHOLESTEROL 121 mg/dL (<200); CREATINE KINASE, TOTAL 157 U/L (39-308); HDL CHOLESTEROL 59 mg/dL (40-60); LDL 50 mg/dL (0-99); THYROID STIMULATING HORMONE 0.255 uIU/mL (0.358-3.74); TRIGLYCERIDES 55 mg/dL (30-150)
--- NOTE | 2019-10-01 06:01 | NUR ---
MS/TELE/RN PATIENT IS AWAKE, COMFORTABLE, NO DISTRESS NOTED, ALL NEEDS ATTENDED AT THIS TIME, WILL CONTINUE TO MONITOR.
[2019-10-01] MEDS ORDERED: IODIXANOL 150 ML IV ONE ×2 (06:09→08:00)
[2019-10-01] MEDS ORDERED: LIDOCAINE HCL/PF 1% 30 ML SDV ONE (06:10)
[2019-10-01] MEDS ORDERED: VERAPAMIL HCL IV 5 MG/2 ML VIAL ONE (06:53)
[2019-10-01] MEDS ORDERED: HEPARIN SODIUM, PORCINE 1,000 UNIT/ML VIAL ONE (06:53)
[2019-10-01] MEDS ORDERED: NITROGLYCERIN ICAR 1,000 MCG/10 ML VIAL ICAR ONE (06:53)
[2019-10-01] MEDS ORDERED: IV SET PRIMARY PUMP SET 1 EA INFUS.SET MC ONE (06:55)
[2019-10-01] MEDS ORDERED: IV NS 0.9% 50 ML IV ONE (06:55)
[2019-10-01] MEDS ORDERED: IV NS 0.9% 1,000 ML ONE (06:55)
[2019-10-01] MEDS ORDERED: FENTANYL PF 100MCG/2ML AMPUL ONE (07:02)
[2019-10-01] MEDS ORDERED: MIDAZOLAM HCL 2 MG/2ML VIAL ONE (07:03)
[2019-10-01] MEDS: PANTOPRAZOLE 40 MG TABLET.DR PO SCH (07:30)
--- NOTE | 2019-10-01 08:04 | NUR ---
RT NOTE PT NOT IN UNIT. TX NOT ADMINISTERED. CHARGE NURSE RAE ORTEZ.
--- NOTE | 2019-10-01 08:45 | NUR ---
POST AERIAL LINEMAN NOTES: Patient post left heart cath, transferred to manager cath lab recovery, patient tolerated the procedure well. Right radial access covered with TR band,will follow TR band protocol.
[2019-10-01] MEDS: FLUTICASONE/VILANTEROL 1 EACH BLST.W.DEV IH SCH (09:00)
[2019-10-01] MEDS ORDERED: CLOPIDOGREL BISULFATE 75 MG TABLET PO SCH (09:00)
--- NOTE | 2019-10-01 09:30 | NUR ---
RN NOTES: Removed TR band per protocol, Covered with dry dressing. Instructed patient regarding post TR band removal. Patient verbalizes understanding. Report given to Roseanne Villalta RN.
[2019-10-01] MEDS: methylPREDNISolone SOD SUCC 40 MG/ML VIAL IV SCH ×3 (09:55→16:33)
[2019-10-01] MEDS: CLOPIDOGREL BISULFATE 75 MG TABLET PO SCH (09:55)
[2019-10-01] MEDS: GUAIFENESIN LA 600 MG TABLET.SA PO SCH ×2 (09:55→21:01)
[2019-10-01] MEDS: ATORVASTATIN 40 MG TABLET PO SCH (09:55)
[2019-10-01] MEDS: SERTRALINE HCL 25 MG TABLET PO SCH (09:55)
[2019-10-01] MEDS: CEFEPIME 2 GM in IV D5W 100 ML IV SCH ×2 (09:58→21:05)
--- NOTE | 2019-10-01 10:35 | NUR ---
SHEET FINISHER NOTES RECEIVED PT FROM AM/BERNARDO/MADDISON. PT IN BED. AWAKE, JUST CAME BACK FROM [facility]. PT AMBULATORY, A/O X4. PT TOLERATING RA, WITH NO ACUTE RESPIRATORY DISTRESS NOTED. PT DENIES ANY PAIN OR DISCOMFORT AT THIS TIME. ON TELEMONITORING SR WITH BBB AND OCCASIONAL PVCS, HR 82. PT INSTRUCTED NOT TO MOVE RIGHT UPPER EXTREMITY FOR AN HOUR OR TWO FOR NOW. IVF NS AT 100ML/HR TO LFA G18, INTACT AND FLUID INFUSING WELL. PIV TO RFA, FLUSHED NS, INTACT AND OPERATIONAL. PT KEPT COMFORTABLE AT THIS TIME. CALL LIGHT KEPT WITHIN REACH. PT'S BED IN LOWEST, LOCKED POSITION WITH SRX3. WILL CONTINUE PLAN OF CARE.
[2019-10-01] MEDS: VANCOMYCIN 0.75 GM in IV D5W 250 ML IV SCH ×2 (12:08→22:57)
[2019-10-01] MEDS: LORAZEPAM 0.5 MG TABLET PO PRN ×2 (12:31→22:55)
--- NOTE | 2019-10-01 18:20 | NUR ---
MS RN NOTES PT REMAINS IN BED. AWAKE, A/O X4. PT TOLERATING RA, WITH NO ACUTE RESPIRATORY DISTRESS NOTED. PT DENIES ANY PAIN OR DISCOMFORT AT THIS TIME. IVF NS AT 100ML/HR TO LFA G18, INTACT AND FLUID INFUSING WELL. PIV TO RFA G20, FLUSHED NS, INTACT AND OPERATIONAL. PT KEPT COMFORTABLE AT THIS TIME. ALL NEEDS AND CARE ATTENDED. CALL LIGHT KEPT WITHIN REACH. PT'S BED IN LOWEST, LOCKED POSITION WITH SRX3. WILL ENDORSE TO INCOMING NIGHT NURSE FOR NIKKY.
--- NOTE | 2019-10-01 19:30 | NUR ---
MS/TELE/RN RECEIVE PATIENT ON BED AWAKE, ALERT, ORIENTED, COMFORTABLE, NO C/O PAIN, NO DISTRESS NOTED, CALL LIGHT IN REACH. WILL MONITOR.
[2019-10-01] MEDS: APIXABAN 5 MG TABLET PO SCH (21:02)
[2019-10-02] MEDS: IPRATROPIUM NEB FS 0.5 MG/2.5 ML AMPUL.NEB NEB SCH ×4 (01:20→19:54)
--- NOTE | 2019-10-02 01:41 | NUR ---
MS/TELE/RN PATIENT IS SLEEPING AT THIS TIME, APPEAR COMFORTABLE, NO SIGNS OF DISTRESS NOTED, CALL LIGHT IN REACH. WILL CONTINUE TO MONITOR.
--- NOTE | 2019-10-02 06:08 | NUR ---
MS/TELE/RN PATIENT IS STILL SLEEPING, APPEAR COMFORTABLE, NO SIGNS OF DISTRESS NOTED, CALL LIGHT IN REACH. ALL NEEDS ATTENDED AT THIS TIME, WILL CONTINUE TO MONITOR.
[2019-10-02 07:03] LABS: HEMATOCRIT 29 % (39-51); HEMOGLOBIN 9.6 g/dL (13.5-17.5); MEAN CORPUSCULAR HGB CONC 33 g/dl (31.0-36.0); MEAN CORPUSCULAR VOLUME 80 fL (80-96); MONOCYTES # (AUTO) 0.5 /CMM (0.1-1.30); MONOCYTES % (AUTO) 5.8 % (2.0-12.0); NEUTROPHILS # (AUTO) 6.7 /CMM (1.8-8.9); NEUTROPHILS % (AUTO) 82.2 % (43.0-81.0); PLATELET COUNT (AUTO) 182 /CMM (150-450); RED BLOOD CELL COUNT(AUTO) 3.61 MIL/uL (4.5-6.0); WHITE BLOOD COUNT (AUTO) 8.2 K/uL (4.3-11.0)
[2019-10-02 07:12] LABS: CALCIUM, SERUM 8.9 mg/dL (8.5-10.1); CREATININE 1.1 mg/dL (0.6-1.3); MAGNESIUM 1.8 mg/dL (1.8-2.4); PHOSPHORUS 3.5 mg/dL (2.5-4.9); POTASSIUM 3.9 mmol/L (3.5-5.1)
--- NOTE | 2019-10-02 07:20 | NUR ---
MS RN NOTES RECEIVED PT IN BED. AWAKE, A/O X4. PT TOLERATING RA, WITH NO ACUTE RESPIRATORY DISTRESS NOTED. PT DENIES ANY PAIN OR DISCOMFORT AT THIS TIME. PT DENIES ANY QUESTIONS AND CONCERNS AT THIS TIME WELL. IVF NS AT 100ML/HR TO LFA G18, INTACT AND FLUID INFUSING WELL. PIV TO RFA, FLUSHED NS, INTACT AND OPERATIONAL. PT KEPT COMFORTABLE AT THIS TIME. CALL LIGHT KEPT WITHIN REACH. PT'S BED IN LOWEST, LOCKED POSITION WITH SRX3. WILL CONTINUE PLAN OF CARE.
[2019-10-02 08:00] VITALS: BP 166/76
[2019-10-02] MEDS: GUAIFENESIN LA 600 MG TABLET.SA PO SCH ×2 (08:09→20:06)
[2019-10-02] MEDS: ATORVASTATIN 40 MG TABLET PO SCH (08:09)
[2019-10-02] MEDS: CLOPIDOGREL BISULFATE 75 MG TABLET PO SCH (08:09)
[2019-10-02] MEDS: PANTOPRAZOLE 40 MG TABLET.DR PO SCH (08:09)
[2019-10-02] MEDS: methylPREDNISolone SOD SUCC 40 MG/ML VIAL IV SCH ×3 (08:09→16:01)
[2019-10-02] MEDS: SERTRALINE HCL 25 MG TABLET PO SCH (08:10)
[2019-10-02] MEDS: CEFEPIME 2 GM in IV D5W 100 ML IV SCH (08:11)
[2019-10-02] MEDS: APIXABAN 5 MG TABLET PO SCH ×2 (08:11→16:03)
[2019-10-02] MEDS: FLUTICASONE/VILANTEROL 1 EACH BLST.W.DEV IH SCH (08:23)
[2019-10-02] MEDS ORDERED: CLONIDINE HCL 0.1 MG TABLET PO PRN (09:00)
[2019-10-02] MEDS ORDERED: ZOLPIDEM TARTRATE 5 MG TABLET PO PRN (09:00)
[2019-10-02] MEDS: VANCOMYCIN 0.75 GM in IV D5W 250 ML IV SCH (10:29)
[2019-10-02] MEDS: IV NS 0.9% 1,000 ML IV PRN ×2 (11:02→23:25)
[2019-10-02 12:11] LABS: *SPE A/G RATIO 1.1 (0.7-1.7); *SPE ALPHA-1-GLOBULIN 0.3 g/dL (0.0-0.4); *SPE ALPHA-2-GLOBULIN 0.8 g/dL (0.4-1.0); *SPE BETA GLOBULIN 0.8 g/dL (0.7-1.3); *SPE GLOBULIN, TOTAL 2.7 g/dL (2.2-3.9); *SPE M-SPIKE Not Observed g/dL (Not Observed); *SPEGAMMA GLOBULIN 0.8 g/dL (0.4-1.8); PTH, INTACT 33 pg/mL (15-65)
[2019-10-02] MEDS: AZITHROMYCIN 500 MG in IV D5W 250 ML IV SCH (13:46)
[2019-10-02] MEDS: LORAZEPAM 0.5 MG TABLET PO PRN (13:51)
[2019-10-02 16:00] VITALS: BP 169/85
--- NOTE | 2019-10-02 18:56 | NUR ---
MS RN NOTES PT REMAINS IN BED. AWAKE, A/O X4. PT TOLERATING RA, WITH NO ACUTE RESPIRATORY DISTRESS NOTED. PT DENIES ANY PAIN OR DISCOMFORT AT THIS TIME. IVF NS AT 100ML/HR TO LFA G18, INTACT AND FLUID INFUSING WELL. PIV TO RFA, FLUSHED NS, INTACT AND OPERATIONAL. PT KEPT COMFORTABLE AT THIS TIME. ALL NEEDS AND CARE ATTENDED. CALL LIGHT KEPT WITHIN REACH. PT'S BED IN LOWEST, LOCKED POSITION WITH SRX3. WILL ENDORSE TO INCOMING NIGHT NURSE FOR NIKKY.
--- NOTE | 2019-10-02 19:19 | NUR ---
MS RN OPENING NOTES PATIENT AWAKE IN ROOM. A/OX4. ABLE TO VERBALIZE NEEDS. ON RA. NO S/S OF ACUTE RESPIRATORY DISTRESS OR C/O PAIN AT THIS TIME. IV PRESENT ON LEFT FA, SIZE 18, INTACT & PATENT, HEP LOCKED. IV PRESENT ON RIGHT FA, SIZE 20, INTACT & PATENT WITH NS RUNNING AT 100 ML/HR. SAFETY MEASURES IN PLACE AND PATIENT'S NEEDS MET. BED LOCKED, SIDE RAILS X2, HOB ELEVATED, CALL LIGHT WITHIN REACH. WILL CONTINUE TO MONITOR.
--- NOTE | 2019-10-02 19:21 | NUR ---
MS BERNARDO OPENING NOTES PATIENT SLEEPING IN BED, EASY TO AWAKEN. A/OX1. ON RA. NO S/S OF ACUTE RESPIRATORY DISTRESS; BREATHING IS EVEN AND UNLABORED. NO S/S OF PAIN NOTED. BILATERAL SOFT WRIST RESTRAINTS PRESENT FOR PATIENT SAFETY; SKIN CIRCULATION WNL. IV PRESENT ON LEFT HAND, SIZE 22, INTACT & PATENT WITH NS RUNNING AT 100 ML/HR. SAFETY MEASURES IN PLACE AND PATIENT'S NEEDS MET. BED LOCKED, ALARM ON, SIDE RAILS X2, CALL LIGHT WITHIN REACH. WILL CONTINUE TO MONITOR. Addendum: 10/02/19 at 2138 by MARE CAMPBELL RN WRONG PATIENT
[2019-10-02 19:54] VITALS: BP 138/84
[2019-10-02 20:00] VITALS: BP 158/84
[2019-10-03] MEDS: IPRATROPIUM NEB FS 0.5 MG/2.5 ML AMPUL.NEB NEB SCH ×3 (01:23→13:49)
[2019-10-03 06:36] LABS: BASOPHILS % (AUTO) 0.1 % (0.0-2.0); HEMATOCRIT 29 % (39-51); HEMOGLOBIN 9.7 g/dL (13.5-17.5); LYMPHOCYTES # (AUTO) 1.1 /CMM (0.8-4.8); LYMPHOCYTES % (AUTO) 12.9 % (20.0-44.0); MEAN CORPUSCULAR HGB CONC 34 g/dl (31.0-36.0); MEAN CORPUSCULAR VOLUME 79 fL (80-96); MONOCYTES # (AUTO) 0.7 /CMM (0.1-1.30); MONOCYTES % (AUTO) 7.9 % (2.0-12.0); NEUTROPHILS # (AUTO) 6.9 /CMM (1.8-8.9); NEUTROPHILS % (AUTO) 79.1 % (43.0-81.0); PLATELET COUNT (AUTO) 192 /CMM (150-450); RED BLOOD CELL COUNT(AUTO) 3.64 MIL/uL (4.5-6.0); WHITE BLOOD COUNT (AUTO) 8.8 K/uL (4.3-11.0)
[2019-10-03] MEDS: PANTOPRAZOLE 40 MG TABLET.DR PO SCH (06:36)
--- NOTE | 2019-10-03 06:45 | NUR ---
MS RN CLOSING NOTES PATIENT SLEEPING. A/OX4. ON RA. NO S/S OF ACUTE RESPIRATORY DISTRESS OR C/O PAIN AT THIS TIME. IV PRESENT ON LEFT FA, SIZE 18, INTACT & PATENT, WITH NS RUNNING AT 75 ML/HR. IV ON RIGHT FA, SIZE 20, REMAINS INTACT & PATENT, HEP LOCKED. SAFETY MEASURES IN PLACE AND PATIENT'S NEEDS MET. BED LOCKED, SIDE RAILS X2, HOB ELEVATED, CALL LIGHT WITHIN REACH. WILL ENDORSE TO DAY SHIFT NURSE PLAN OF CARE.
[2019-10-03 06:55] LABS: CALCIUM, SERUM 8.7 mg/dL (8.5-10.1); POTASSIUM 3.7 mmol/L (3.5-5.1)
--- NOTE | 2019-10-03 07:06 | NUR ---
MS RN OPENING NOTES RECEIVED PT IN BED RESTING AND EASILY AWAKEN AT THIS TIME. AOX4, PT ABLE TO VERBALIZE NEEDS. NO SOB NOTED. NO S/S OF ANY ACUTE DISTRESS NOTED AT THIS TIME. PT IS ON RA SATURATING AT 94%. IV ACCESS TO LFA G#18, INTACT AND PATENT. SAFETY PRECAUTIONS IN PLACE. BED IN LOWEST LOCKED POSITION, BED ALARM ON, HOB ELEVATED TO FOWLERS POSITION, CALL LIGHT WITHIN REACH. WILL CONTINUE PLAN OF CARE AND CONTINUE TO MONITOR
[2019-10-03 08:33] VITALS: BP 172/85
[2019-10-03] MEDS: CLOPIDOGREL BISULFATE 75 MG TABLET PO SCH (09:10)
[2019-10-03] MEDS: SERTRALINE HCL 25 MG TABLET PO SCH (09:12)
[2019-10-03] MEDS: ATORVASTATIN 40 MG TABLET PO SCH (09:12)
[2019-10-03] MEDS: GUAIFENESIN LA 600 MG TABLET.SA PO SCH (09:12)
[2019-10-03] MEDS: methylPREDNISolone SOD SUCC 40 MG/ML VIAL IV SCH ×2 (09:13→13:23)
[2019-10-03] MEDS: APIXABAN 5 MG TABLET PO SCH (09:13)
[2019-10-03] MEDS: FLUTICASONE/VILANTEROL 1 EACH BLST.W.DEV IH SCH (09:16)
[2019-10-03] MEDS ORDERED: AZIT1PAC9 PO (10:15)
[2019-10-03] MEDS ORDERED: METH4TAB3 PO (10:15)
[2019-10-03] MEDS ORDERED: CLOP75TA15 PO (10:15)
[2019-10-03] MEDS ORDERED: ZOLP5TAB2 PO (10:15)
[2019-10-03] MEDS ORDERED: APIX5TAB PO (10:15)
[2019-10-03] MEDS: AZITHROMYCIN 500 MG in IV D5W 250 ML IV SCH (14:00)
--- NOTE | 2019-10-03 14:00 | NUR ---
MS TRUCK JUMPER NOTES PT DISCHARGED AT THIS TIME. ALL NEEDS, CARE, TREATMENT AND MEDICATIONS ADMINISTERED ANTICIPATED PER ORDER. PT IS STABLE WITH STABLE VITAL SIGNS. ALL DISCHARGED EDUCATION PROVIDED AND PT VERBALIZED UNDERSTANDING. ALL BELONGINGS ACCOUNTED FOR, SIGNED BY PATIENT AND FILED IN CHART. IV ACCESS REMOVED, SKIN INTACT, NO BLEEDING NOTED AND NO SIGN OF INFILTRATION. IV SITE CLEAN AND DRESSED WITH GAUZE AND TAPE. PAT ACCOMPANIED TO LOBBY BY FERNANDA GORDON. PT PICKED UP IN PRIVATE CARE BY CAREGIVER, JOSÉ.
== END 2019-10-03 14:10 | disposition home or self-care (01) | DRG 280 ==
LOC: ER 19:27 → TELE 21:53 → MED 09-30 08:03 → TELE 09-30 14:44 → MED 10-01 13:18
PROVIDERS: ADMIT Hospitalist; ATTEND Nurse Practitioner Acute Care
PROC: 4A023N7 Measurement of Cardiac Sampling and Pressure, Left Heart, Percutaneous Approach (ICD-10-PCS; principal; 2019-09-29)
PROC: B211YZZ Fluoroscopy of Multiple Coronary Arteries using Other Contrast (ICD-10-PCS; 2019-09-29)
PROC: B215YZZ Fluoroscopy of Left Heart using Other Contrast (ICD-10-PCS; 2019-09-29)
DX: I21.4 Non-ST elevation (NSTEMI) myocardial infarction (principal); N17.0 Acute kidney failure with tubular necrosis; J96.90 Respiratory failure, unspecified, unspecified whether with hypoxia or hypercapnia; J44.1 Chronic obstructive pulmonary disease with (acute) exacerbation; I48.92 Unspecified atrial flutter; E87.2 Acidosis; J98.11 Atelectasis; N25.81 Secondary hyperparathyroidism of renal origin; I13.0 Hypertensive heart and chronic kidney disease with heart failure and stage 1 through stage 4 chronic kidney disease, or unspecified chronic kidney disease; I50.32 Chronic diastolic (congestive) heart failure; I25.10 Atherosclerotic heart disease of native coronary artery without angina pectoris; E78.5 Hyperlipidemia, unspecified; E03.9 Hypothyroidism, unspecified; N18.9 Chronic kidney disease, unspecified; K21.9 Gastro-esophageal reflux disease without esophagitis; D64.9 Anemia, unspecified; F41.9 Anxiety disorder, unspecified; F32.9 Major depressive disorder, single episode, unspecified; M54.5 Low back pain; G89.29 Other chronic pain; Z87.891 Personal history of nicotine dependence; I25.2 Old myocardial infarction; Z98.61 Coronary angioplasty status; I48.0 Paroxysmal atrial fibrillation; Z79.01 Long term (current) use of anticoagulants
CPT/HCPCS: 36415; 71045-TC; 80048-TC; 80053-TC; 80061-TC; 80076-TC; 80202-TC; 81000-TC; 82550-TC; 82570-TC; 83605-TC; 83735-TC; 83970; 84100-TC; 84155; 84155-TC; 84165; 84300-TC; 84443-TC; 84484-TC; 85025-TC; 85730-TC; 87040-TC; 87081-TC; 87086-TC; 93307-TC; 94799-TC; A4216; C1887; G0378; G0500; J0456; J0692; J1644; J1650; J2250; J2920; J2930; J3010; J3370; J3475; J3490; J7030; J7060; Q9967

== ENCOUNTER 2019-11-25 11:38 | Inpatient (IN) | payer MEDICARE, OTHER ==
[~2019-11-25] VITALS: Ht 177.8 cm; Wt 80.7 kg
[2019-11-25] VITALS (8 sets, daily range): BP systolic 114–132; BP diastolic 66–75
[~2019-11-25 11:38] MED LIST changes: -APIX2.5T PO; +APIX5TAB PO; +AZIT1PAC9 PO; +METH4TAB3 PO; -PRED20TA PO; +ZOLP5TAB2 PO
--- NOTE | 2019-11-25 11:43 | NUR ---
PT PULLED OUT FROM A CAR & TRANSFERRED TO RM 5. PT UNRESPONSIVE, PALE, ASYSTOLE. CPR INITIATED. DR. CASTILLO & RT @ BS.
--- NOTE | 2019-11-25 11:48 | NUR ---
PT INTUBATED BY DR. CASTILLO
--- NOTE | 2019-11-25 11:50 | NUR ---
RT Pt recvd in ER unconscious, CPR performed, pt resuscitated, intubated and placed on vent with initial settings of AC 16 500 100% +5. ETT patent and secured.
--- NOTE | 2019-11-25 11:54 | NUR ---
CPR STOPPED, PT RETURN OF SPONTANEOUS CIRCULATION. PLACED ON VENT. WILL CONT TO MONITOR.
[2019-11-25] MEDS ORDERED: SODIUM BICARBONATE SYR 50 MEQ/50 ML DISP.SYRIN ONE (11:55)
[2019-11-25] MEDS ORDERED: DOPamine 400MG/D5W 250ML RTU 250 ML ONE (12:13)
[2019-11-25] MEDS ORDERED: PROPOFOL 100 ML ONE (12:22)
[2019-11-25] MEDS: PROPOFOL 1,000 MG/100 ML BOTTLE IV ONE (12:32)
[2019-11-25 12:33] LABS: BASOPHILS # (AUTO) 0.1 /CMM (0.0-0.2); BASOPHILS % (AUTO) 0.5 % (0.0-2.0); EOSINOPHILS % (AUTO) 4.7 % (0.0-6.0); HEMATOCRIT 36 % (39-51); HEMOGLOBIN 11.2 g/dL (13.5-17.5); LYMPHOCYTES # (AUTO) 3.9 /CMM (0.8-4.8); LYMPHOCYTES % (AUTO) 35.3 % (20.0-44.0); MEAN CORPUSCULAR HGB CONC 31 g/dl (31.0-36.0); MEAN CORPUSCULAR VOLUME 86 fL (80-96); MONOCYTES # (AUTO) 0.6 /CMM (0.1-1.30); MONOCYTES % (AUTO) 5.7 % (2.0-12.0); NEUTROPHILS # (AUTO) 5.9 /CMM (1.8-8.9); NEUTROPHILS % (AUTO) 53.8 % (43.0-81.0); PLATELET COUNT (AUTO) 213 /CMM (150-450); RED BLOOD CELL COUNT(AUTO) 4.16 MIL/uL (4.5-6.0)
--- NOTE | 2019-11-25 12:33 | NUR ---
SPOKE TO DR LOZA, HE WILL COME DOWN TO SEE DR CASTILLO
[2019-11-25 12:41] LABS: CALCIUM, SERUM 10.6 mg/dL (8.5-10.1); CARBON DIOXIDE 22 mmol/L (21-32); CHLORIDE 104 mmol/L (98-107); CREATININE 1.4 mg/dL (0.6-1.3); GLUCOSE 218 mg/dL (74-106); POTASSIUM 4.3 mmol/L (3.5-5.1); SODIUM SERUM 143 mmol/L (136-145); UREA NITROGEN, BLOOD 16 mg/dL (7-18)
[2019-11-25 12:54] LABS: ALANINE AMINOTRANSFERASE 21 U/L (12-78); ALBUMIN 3.2 g/dL (3.4-5.0); ALKALINE PHOSPHATASE 87 U/L (46-116); ASPARTATE AMINOTRANSFERASE 26 U/L (15-37); B-TYPE NATRIURETIC PEPTIDE 2444 PG/ML (0-125); BILIRUBIN,DIRECT 0.1 mg/dL (0.0-0.2); BILIRUBIN,TOTAL 0.2 mg/dL (0.2-1.0)
[2019-11-25] MEDS ORDERED: CEFEPIME 1 GM in IV D5W 50 ML IV ONE (13:00)
[2019-11-25] MEDS ORDERED: VANCOMYCIN 1 GM in IV D5W 250 ML IV ONE (13:00)
[2019-11-25] MEDS ORDERED: LORAZEPAM INJ 2 MG/ML VIAL ONE (13:09)
[2019-11-25] MEDS ORDERED: SERT100T PO (13:24)
[2019-11-25] MEDS ORDERED: NIFE60TA73 PO (13:24)
--- NOTE | 2019-11-25 13:26 | NUR ---
LAB CALLED COVID RESULT NEG (-)
[2019-11-25] MEDS ORDERED: IV NS 0.9% 1,000 ML IV ONE (13:30)
[2019-11-25] MEDS ORDERED: LORAZEPAM INJ 2 MG/ML VIAL IV ONE ×2 (13:30→15:30)
--- NOTE | 2019-11-25 14:40 | NUR ---
PT TO CT VIA [facility].
--- NOTE | 2019-11-25 14:46 | NUR ---
REPORT GIVEN TO MELVA CHANG FOR NIKKY.
[2019-11-25] MEDS ORDERED: LORAZEPAM INJ 2 MG/ML VIAL IV PRN ×2 (15:30)
[2019-11-25] MEDS ORDERED: DEXTROSE 50%-WATER 50 ML DISP.SYRIN IV PRN (15:30)
[2019-11-25] MEDS ORDERED: Z GUARD REMEDY 2 OZ OINT TP PRN (15:30)
[2019-11-25] MEDS ORDERED: ONDANSETRON HCL/PF 4 MG/2 ML VIAL IVP PRN (15:30)
[2019-11-25] MEDS ORDERED: FEE PK DOSING 1 MIN EA MC ONE (15:59)
--- NOTE | 2019-11-25 16:00 | NUR ---
RN OPENING NOTES RECEIVED PATIENT VIA GURNEY FROM ED. PT IS SEDATED AND ON MECH VENT, AC 16, TV 500, FIO2 100%, AND PEEP: 5, TOLERATING SETTINGS WELL. ON DIPRIVAN AT 35 MCG/MIN, WILL INCREASE TO MAKE MORE COMFORTABLE. IV SITE ON FEMORAL PICC PATENT AND INTACT. SKIN IS INTACT. SAFETY MEASURES HAVE BEEN IMPLEMENTED, CALL LIGHT IS WITHIN REACH, BED IS IN LOWEST AND LOCKED POSITION, SIDE RIALS UP X2, WILL CONTINUE TO MONITOR
[2019-11-25 16:04] LABS: ABG BASE EXCESS -3.9 mmol/L; ABG OXYGEN SATURATION 99.6 % (92.0-98.5); ABG PCO2 53.5 mmHg (35.0-45.0); ABG PH 7.261 (7.350-7.450); ABG PO2 345.2 mmHg (75.0-100.0); COHb 0.3 % (0.5-1.5); MetHb 0.4 % (0.0-1.5); O2Hb 98.9 % (94.0-97.0); PEEP,BG 5 cm H2O; SITE, ABG Left Radial; VT, ABG 500 mL
[2019-11-25] MEDS ORDERED: CALCIUM CHLORIDE 1,000 MG/10 ML DISP.SYRIN IV ONE (16:59)
[2019-11-25] MEDS ORDERED: FEE EMEERGENCY 1 MIN EA MC ONE (16:59)
[2019-11-25] MEDS ORDERED: SODIUM BICARBONATE SYR 50 MEQ/50 ML DISP.SYRIN IV ONE (16:59)
[2019-11-25] MEDS ORDERED: EPINEPHRINE (1:10,000) SYRINGE 1 MG/10 ML DISP.SYRIN IVP ONE (16:59)
[2019-11-25] MEDS: methylPREDNISolone SOD SUCC 40 MG/ML VIAL IV SCH (17:27)
[2019-11-25] MEDS: PROPOFOL 100 ML IV PRN ×2 (17:27→22:18)
--- NOTE | 2019-11-25 18:10 | NUR ---
RN NOTES PAGED PILY FITZPATRICK FOR DIET ORDER, NO RESPONSE YET. WILL TRY AGAIN
[2019-11-25] MEDS: BLOOD SUGAR DIAGNOSTIC 1 EACH STRIP IN SCH (18:46)
--- NOTE | 2019-11-25 19:00 | NUR ---
DISASSEMBLER. RECEIVED THE PT REST ON THE BED. ORALLY INTUBATED. SEDATED WITH DIPRIVAN. ETT 7.5,LIP 25,AC 16,TV 550,FIO2 50%,PEEP 5 SAT 98%. NO ACUTE DISTRESS NOTED. ORDAINED MINISTER SHOWING NSR. IV RT FEMORAL PICC LINE. DIPRIVAN 50MCG/KG/MIN,IVF D51/2NS 75 ML/H.FC PATENT. URINE DRAINING. ROBIN SOFT WRIST RESTRAINT CHECKED AND RELEASED,. NO INJURY OR REDNESS NOTED. AFEBRILE. OGT INTACT. CLAMPED. HOB ELEVATED, WILL CONTINUE TO MONITOR VITALS.
--- NOTE | 2019-11-25 19:00 | NUR ---
MACHINE TRACER,, RECEIVED THE PT WITH 2ND DEGREE HEART BLOCK.
[2019-11-25] MEDS: IPRATROPIUM NEB FS 0.5 MG/2.5 ML AMPUL.NEB NEB SCH ×2 (19:30→23:13)
--- NOTE | 2019-11-25 19:55 | NUR ---
RN CLOSING NOTES PATIENT IS RESTING COMFORTABLY IN BED AT THIS TIME, NO S.SX OF DISTRESS. ON DIPRIVAN 50 MCG/MIN. NO ACUTE CHANGES OCCURRED THROUGHOUT THE SHIFT, VITAL SIGNS ARE STABLE, NO ACUTE CHANGES OCCURRED THROUGHOUT THE SHIFT. SAFETY MEASURES HAVE BEEN IMPLEMENTED, CALL LIGHT IS WITHIN REACH, BED IS IN LOWEST AND LOCKED POSITION, SIDE RIALS UP X2, PT HAS BEEN ENDORSED TO NIGHTSHIFT RN FOR NIKKY.
--- NOTE | 2019-11-25 20:35 | NUR ---
DINING SERVICES MANAGER. SUDDEN GUNSTOCK SPRAY UNIT ADJUSTER SHOWING A FLUTTER. NOTIFIED WING . STAT BMP AND MAG DONE, RESULT NOTIFIED WING.WILL CONTINUE TO MONITOR VITALS.
[2019-11-25] MEDS ORDERED: HEPARIN SODIUM, PORCINE 5000 UNITS/1 ML VIAL SQ SCH (21:00)
[2019-11-25] MEDS: CEFEPIME 2 GM in IV D5W 100 ML IV SCH (21:44)
[2019-11-25] MEDS: IV D5/0.45 NACL 1,000 ML IV PRN (21:44)
[2019-11-25 22:32] LABS: MAGNESIUM 1.6 mg/dL (1.8-2.4); POTASSIUM 3.8 mmol/L (3.5-5.1)
--- NOTE | 2019-11-25 23:46 | NUR ---
CHROME CLEANER SPOKE WITH PT PROGRAM DIRECTOR/TRAFFIC DIRECTOR
[2019-11-26] VITALS (24 sets, daily range): BP systolic 116–166; BP diastolic 59–91
[2019-11-26] MEDS: BLOOD SUGAR DIAGNOSTIC 1 EACH STRIP IN SCH ×5 (01:21→23:23)
[2019-11-26] MEDS: PROPOFOL 100 ML IV PRN ×6 (02:13→22:32)
[2019-11-26] MEDS: IPRATROPIUM NEB FS 0.5 MG/2.5 ML AMPUL.NEB NEB SCH ×6 (03:10→23:53)
--- NOTE | 2019-11-26 03:42 | NUR ---
CARDIOPULMONARY TECHNICIAN AND EEG TECH. AM CARE, ORAL CARE, BED BATH GIVEN. LINEN CHANGED. REMAINING SAME VENT SETTING TOLERATED WELL. SAT 100%. NO ACUTE DISTRESS NOTED, OFFICE AUTOMATION CLERK SHOWING SINUS WITH BBB. HOB ELEVATED, OGT INTACT. CLAMPED. HOB ELEVATED. ROBIN SOFT WRIST RESTRAINT CHECKED AND RELEASED. NO INJURY OR REDNESS NOTED. IV RT FEMORAL PICC LINE. DIPRIVAN 50MCG/KG/MIN, IVF D51/2NS 75 ML/H, TURN AND REPOSITION Q2H. WILL CONTINUE TO MONITOR VITALS.
[2019-11-26] MEDS ORDERED: VANCOMYCIN 1.25 GM in IV D5W 250 ML IV SCH (06:00)
[2019-11-26 06:34] LABS: BASOPHILS % (AUTO) 0.1 % (0.0-2.0); EOSINOPHILS % (AUTO) 0.1 % (0.0-6.0); HEMATOCRIT 32 % (39-51); HEMOGLOBIN 10.4 g/dL (13.5-17.5); LYMPHOCYTES # (AUTO) 0.6 /CMM (0.8-4.8); LYMPHOCYTES % (AUTO) 4.8 % (20.0-44.0); MEAN CORPUSCULAR HGB CONC 33 g/dl (31.0-36.0); MEAN CORPUSCULAR VOLUME 82 fL (80-96); MONOCYTES # (AUTO) 0.5 /CMM (0.1-1.30); NEUTROPHILS # (AUTO) 11.3 /CMM (1.8-8.9); PLATELET COUNT (AUTO) 174 /CMM (150-450); RED BLOOD CELL COUNT(AUTO) 3.84 MIL/uL (4.5-6.0); WHITE BLOOD COUNT (AUTO) 12.4 K/uL (4.3-11.0)
[2019-11-26] MEDS: INSULIN REGULAR, HUMAN 100 UNIT/ML 3 ML VIAL SQ PRN ×2 (06:41→23:26)
[2019-11-26 06:47] LABS: THYROID STIMULATING HORMONE 0.145 uIU/mL (0.358-3.74)
--- NOTE | 2019-11-26 07:14 | NUR ---
PROGRAM CHECKER. PT HAD VOMITING X3. NOTIFIED WING. ORDERED NGT LOW INTERMITTENT SUCTION
[2019-11-26 07:59] LABS: ALBUMIN 3.2 g/dL (3.4-5.0); BILIRUBIN,TOTAL 0.3 mg/dL (0.2-1.0); CALCIUM, SERUM 8.4 mg/dL (8.5-10.1); CREATININE 0.8 mg/dL (0.6-1.3); MAGNESIUM 1.5 mg/dL (1.8-2.4); PHOSPHORUS 3.9 mg/dL (2.5-4.9); POTASSIUM 3.7 mmol/L (3.5-5.1); TOTAL PROTEIN, SERUM 6.2 g/dL (6.4-8.2)
[2019-11-26 08:01] LABS: ABG BASE EXCESS -2.4 mmol/L; ABG OXYGEN SATURATION 98.5 % (92.0-98.5); ABG PCO2 39.4 mmHg (35.0-45.0); ABG PH 7.376 (7.350-7.450); ABG PO2 121.4 mmHg (75.0-100.0); AaDO2 118.5 mmHg; COHb 0.3 % (0.5-1.5); MetHb 0.3 % (0.0-1.5); O2Hb 97.9 % (94.0-97.0); SITE, ABG Right Radial
--- NOTE | 2019-11-26 08:20 | NUR ---
PER ROVING TELLER PT HAS DVT'S IN BILAT UPPER LEGS, REPORT PENDING. DR. GARCIA AND DR. REARDON NOTIFIED.
[2019-11-26] MEDS: CEFEPIME 2 GM in IV D5W 100 ML IV SCH ×2 (09:27→20:29)
[2019-11-26] MEDS: methylPREDNISolone SOD SUCC 40 MG/ML VIAL IV SCH ×2 (09:27→18:15)
[2019-11-26] MEDS: ENOXAPARIN SODIUM 80 MG/0.8 ML DISP.SYRIN SQ SCH ×2 (09:31→20:32)
--- NOTE | 2019-11-26 10:00 | NUR ---
EEG DONE. PER PRINTING PLATE SETTER PT DID NOT HAVE ANY SEIZURES. SEE IV SPREADSHEET FOR SEDATION MODIFICATIONS.
[2019-11-26] MEDS: Magnesium 1GM/D5W 100ML PREMIX 100 ML IV SCH ×2 (11:37→13:01)
[2019-11-26] MEDS: IV D5/0.45 NACL 1,000 ML IV PRN (15:45)
[2019-11-26] MEDS: VANCOMYCIN 1 GM in IV D5W 250 ML IV SCH (18:15)
--- NOTE | 2019-11-26 19:47 | NUR ---
END OF SHIFT NOTE: PER PREVIOUSLY NOTED EEG AND DOPPLER OF ROBIN LEGS WAS PERFORMED TODAY. PT IS POSITIVE FOR BILAT FEMORAL DVTS. EEG IS YET TO BE READ. PT DISPLAYED AGITATION WITHOUT OPENING EYES WHEN SEDATION WAS TURNED DOWN. PROPOFOL IS CURRENTLY INFUSING AT 50MCG/KG/MIN. PT CHECKED ON HOURLY AND PRN BY NURSING STAFF.
--- NOTE | 2019-11-26 20:28 | NUR ---
RT NOTE PT INTUBATED WITH 7.5 ET TUBE @ 25 CM. MOVED ET TUBE TO MID LIP LINE. TX GIVEN, NO ADVERSE REACTIONS NOTED. SX DONE, ET TUBE SECURED AND PATENT. ALARMS ON AND AUDIBLE. NO DISTRESS NOTED AT THIS TIME. VENT PLUGGED TO RED OUTLET. NO DISTRESS NOTED AT THIS TIME. WILL CONTINUE TO MONITOR T/O SHIFT. Addendum: 11/26/19 at 2030 by SILVANO LOPEZ RT Amended: Links added.
[2019-11-26] MEDS ORDERED: ENOXAPARIN SODIUM 80 MG/0.8 ML DISP.SYRIN SQ SCH (21:00)
[2019-11-27] VITALS (40 sets, daily range): BP systolic 128–177; BP diastolic 66–88
[2019-11-27] MEDS: PROPOFOL 100 ML IV PRN ×3 (02:00→10:53)
[2019-11-27] MEDS: IPRATROPIUM NEB FS 0.5 MG/2.5 ML AMPUL.NEB NEB SCH ×6 (03:44→23:26)
[2019-11-27 04:09] LABS: BASOPHILS % (AUTO) 0.1 % (0.0-2.0); HEMATOCRIT 32 % (39-51); HEMOGLOBIN 10.3 g/dL (13.5-17.5); LYMPHOCYTES # (AUTO) 0.8 /CMM (0.8-4.8); LYMPHOCYTES % (AUTO) 5.8 % (20.0-44.0); MEAN CORPUSCULAR HGB CONC 33 g/dl (31.0-36.0); MEAN CORPUSCULAR VOLUME 82 fL (80-96); MONOCYTES # (AUTO) 0.7 /CMM (0.1-1.30); MONOCYTES % (AUTO) 4.7 % (2.0-12.0); NEUTROPHILS % (AUTO) 89.4 % (43.0-81.0); PLATELET COUNT (AUTO) 184 /CMM (150-450); RED BLOOD CELL COUNT(AUTO) 3.86 MIL/uL (4.5-6.0); WHITE BLOOD COUNT (AUTO) 14.5 K/uL (4.3-11.0)
[2019-11-27 04:28] LABS: CREATININE 0.9 mg/dL (0.6-1.3); MAGNESIUM 2.1 mg/dL (1.8-2.4); PHOSPHORUS 3.9 mg/dL (2.5-4.9); POTASSIUM 3.6 mmol/L (3.5-5.1)
[2019-11-27 04:48] LABS: CALCIUM, SERUM 8.4 mg/dL (8.5-10.1)
[2019-11-27] MEDS: IV D5/0.45 NACL 1,000 ML IV PRN ×2 (05:27→17:59)
[2019-11-27] MEDS: VANCOMYCIN 1 GM in IV D5W 250 ML IV SCH ×2 (05:27→17:06)
[2019-11-27] MEDS: BLOOD SUGAR DIAGNOSTIC 1 EACH STRIP IN SCH ×3 (05:47→17:06)
--- NOTE | 2019-11-27 06:39 | NUR ---
RN CLOSING NOTE NO ACUTE CHANGES OBSERVED OVERNIGHT. PT TOLERATING VENT SETTINGS WELL WHICH REMAINED UNCHANGED THROUGHOUT SHIFT. EEG READING PENDING. DPOA TO FAX OVER ADVANCED DIRECTIVE. WILL ENDORSE TO MORNING RN FOR CONTINUATION OF CARE.
[2019-11-27] MEDS ORDERED: CLOPIDOGREL BISULFATE 300 MG TABLET PO ONE (08:30)
[2019-11-27] MEDS: ENOXAPARIN SODIUM 80 MG/0.8 ML DISP.SYRIN SQ SCH ×2 (08:41→20:31)
[2019-11-27] MEDS: methylPREDNISolone SOD SUCC 40 MG/ML VIAL IV SCH ×2 (08:42→16:14)
[2019-11-27] MEDS: CEFEPIME 2 GM in IV D5W 100 ML IV SCH ×2 (08:42→20:30)
[2019-11-27] MEDS: MORPHINE SULFATE INJ 2 MG/ML DISP.SYRIN IV PRN ×2 (08:57→20:30)
--- NOTE | 2019-11-27 09:03 | NUR ---
RN NOTE 0715: Received patient with ETT to vent, tolerated settings at this time, no respiratory distress noted. With OGT intact, to LIS, noted with minimal gastric residuals. SR on the monitor. Trimble cath intact, noted with clear yellow urine drained to BSD. FURNACE FEEDER restraints on for safety. Right femoral TLC intact, on Diprivan @ 50mcg and IVF infusing as ordered. 0900: Noted with high BP when Diprivan lowered, Morphine given. Patient has no response to tactile stimuli. S/E by Dr. Richter, made aware no PERRLA, but noted with gag reflex when suctioned. Gave MD SCOTT's number as requested.
--- NOTE | 2019-11-27 13:14 | NUR ---
RN NOTE Spoke with SONIA Grant [phone], and requested that if daughter from [place] may visit, CN asked and it's ok to visit. Dr. Richter spoke with SONIA and discussed POC.
--- NOTE | 2019-11-27 15:26 | NUR ---
RN NOTE Still with high BP, 150-160s SBP, obtained order for Nifedipine @ 60 and Hydralazine PRN.
[2019-11-27] MEDS ORDERED: NIFEdipine XL (30MG) 30 MG TAB PO SCH (15:30)
[2019-11-27] MEDS ORDERED: NIFEdipine (10MG) 10 MG CAPSULE NG SCH (16:00)
[2019-11-27] MEDS: hydrALAZINE HCL IV 20 MG VIAL IV PRN ×2 (16:14→22:28)
--- NOTE | 2019-11-27 16:33 | NUR ---
RN NOTE Noted with temp 101.3, made MD aware, rendered cooling measures, obtained order for BC.
[2019-11-27] MEDS: AMLODIPINE BESYLATE 10 MG TABLET GT SCH (16:37)
[2019-11-27] MEDS: ACETAMINOPHEN 650 MG/SUPP.RECT RC PRN (16:37)
--- NOTE | 2019-11-27 16:50 | NUR ---
RN NOTE S/E by Dr. Earl, noted with left pupil reaction. Still with +gag and +cough reflexes, noted with facial grimace at times for painful stimuli.MD ordered to turn off Diprivan and will try to manage high BP with BP meds.
[2019-11-27] MEDS: INSULIN REGULAR, HUMAN 100 UNIT/ML 3 ML VIAL SQ PRN (17:07)
--- NOTE | 2019-11-27 17:53 | NUR ---
RN NOTE Still noted with SBP 160's, started on Norvasc. Hydralazine PRN given. Blood culture x2 specimens sent to lab.
--- NOTE | 2019-11-27 19:15 | NUR ---
STRUCTURAL STEEL FITTER RCD PT W/DX S/P CARDIAC ARREST; PT IS OBTUNDED ON BLSW RESTRAINTS. NSR ON MONITOR WITH SBP IN THE 160s; MEDICATION PREVIOUSLY GIVEN. TEMP 100.5 W/COOLING MEASURES ALREADY INITIATED. OGT LIS. PT NPO. HARLEY CATH DRAINING CLEAR YELLOW URINE. NO SKIN ISSUES AT THIS TIME. R FEM TLC W/ONE PORT MISSING. PT W/BLE DVT RECEIVING LOVENOX.
[2019-11-28] VITALS (61 sets, daily range): BP systolic 62–171; BP diastolic 26–90
[2019-11-28] MEDS: BLOOD SUGAR DIAGNOSTIC 1 EACH STRIP IN SCH ×4 (00:48→17:37)
[2019-11-28] MEDS: INSULIN REGULAR, HUMAN 100 UNIT/ML 3 ML VIAL SQ PRN ×4 (01:06→17:40)
[2019-11-28] MEDS: MORPHINE SULFATE INJ 2 MG/ML DISP.SYRIN IV PRN ×2 (02:10→06:15)
[2019-11-28] MEDS: IPRATROPIUM NEB FS 0.5 MG/2.5 ML AMPUL.NEB NEB SCH ×5 (03:04→19:46)
[2019-11-28] MEDS: ACETAMINOPHEN 650 MG/SUPP.RECT RC PRN (03:21)
[2019-11-28 04:31] LABS: BASOPHILS % (AUTO) 0.1 % (0.0-2.0); HEMATOCRIT 29 % (39-51); HEMOGLOBIN 9.6 g/dL (13.5-17.5); LYMPHOCYTES # (AUTO) 1.1 /CMM (0.8-4.8); LYMPHOCYTES % (AUTO) 6.3 % (20.0-44.0); MEAN CORPUSCULAR HGB CONC 33 g/dl (31.0-36.0); MEAN CORPUSCULAR VOLUME 82 fL (80-96); MONOCYTES # (AUTO) 1.5 /CMM (0.1-1.30); MONOCYTES % (AUTO) 8.1 % (2.0-12.0); NEUTROPHILS # (AUTO) 15.6 /CMM (1.8-8.9); NEUTROPHILS % (AUTO) 85.5 % (43.0-81.0); PLATELET COUNT (AUTO) 253 /CMM (150-450); RED BLOOD CELL COUNT(AUTO) 3.59 MIL/uL (4.5-6.0); WHITE BLOOD COUNT (AUTO) 18.2 K/uL (4.3-11.0)
[2019-11-28] MEDS: hydrALAZINE HCL IV 20 MG VIAL IV PRN (04:32)
[2019-11-28 04:44] LABS: CALCIUM, SERUM 8.3 mg/dL (8.5-10.1); CREATININE 0.9 mg/dL (0.6-1.3); PHOSPHORUS 2.8 mg/dL (2.5-4.9); POTASSIUM 3.5 mmol/L (3.5-5.1)
[2019-11-28] MEDS: VANCOMYCIN 1 GM in IV D5W 250 ML IV SCH ×2 (05:00→18:01)
[2019-11-28 08:00] LABS: ABG BASE EXCESS -2.2 mmol/L; ABG OXYGEN SATURATION 98.6 % (92.0-98.5); ABG PCO2 31.7 mmHg (35.0-45.0); ABG PH 7.444 (7.350-7.450); ABG PO2 130.8 mmHg (75.0-100.0); AaDO2 117.9 mmHg; COHb 0.3 % (0.5-1.5); MetHb 0.1 % (0.0-1.5); O2Hb 98.2 % (94.0-97.0); PEEP,BG 5 cm H2O; SITE, ABG Right Radial; VENT MODE, BG AC 40%; VT, ABG 550 mL
[2019-11-28] MEDS: PROPOFOL 100 ML IV PRN ×3 (08:06→22:55)
--- NOTE | 2019-11-28 08:25 | NUR ---
RN NOTE 0715: Received patient with ETT to vent, tolerated settings at this time. With OGT intact, to LIS, noted with very minimal straw residuals. Noted with HR 130's, obtained EKG order. Trimble cath intact, noted wtih clear estrella colored urine drained to BSD. With DRIVEWAY ATTENDANT restraints for safety. With Right fem TLC intact, with 2 usable ports. Assessed neuro, with left pupil PERRLA, right pupil not equal, non reactive, +gag/cough, +grimace. S/E by Dr. Almendarez, no new order at this time. 0800: ABG resulted, Dr. Richter in the unit ordered to Vt 500 from 550. Made MD aware, HR 140's, ST with BBB, high BP and RR 26 on rate 16, does not follow, no eyes opening but with reflexes noted. verbalized to may restart on Diprivan for sedation. 0815: S/E by Dr. Mauro, aware for the EKG result. Made aware for low gastric residuals, ordered to DC LIS and start on TF.
[2019-11-28] MEDS: CEFEPIME 2 GM in IV D5W 100 ML IV SCH ×2 (08:45→21:25)
[2019-11-28] MEDS: AMLODIPINE BESYLATE 10 MG TABLET GT SCH (08:46)
[2019-11-28] MEDS: methylPREDNISolone SOD SUCC 40 MG/ML VIAL IV SCH ×2 (08:46→17:33)
[2019-11-28] MEDS ORDERED: NEPRO 1,000 ML BOTTLE GT PRN ×2 (09:00→15:00)
[2019-11-28] MEDS ORDERED: CLOPIDOGREL BISULFATE 75 MG TABLET PO SCH (09:00)
[2019-11-28] MEDS ORDERED: AMIODARONE 150 MG in IV D5W 100 ML IV ONE (09:26)
[2019-11-28] MEDS: APIXABAN 5 MG TABLET PO SCH ×2 (09:30→17:33)
[2019-11-28] MEDS: AMIODARONE 450 MG in IV D5W 250 ML IV PRN ×2 (10:15→16:46)
--- NOTE | 2019-11-28 10:15 | NUR ---
RN NOTE Started on Amio drip with bolus, for sustaining HR 140's per Dr. Almendarez, despite on Diprivan already.
[2019-11-28] MEDS: IV D5/0.45 NACL 1,000 ML IV PRN (11:09)
[2019-11-28] MEDS ORDERED: GLUCERNA 1.2 1,000 ML BOTTLE NG PRN (17:00)
--- NOTE | 2019-11-28 17:27 | NUR ---
RT NOTE RECEIVED PATIENT ON MECHANICAL VENT WITH ORDERED SETTINGS. AIRWAY PATENT, ET TUBE SIZE 7.5 25@ RIGHT LIP, MOVED TO LEFT LIP AND SECURED WITH ANCHOR FAST. VENT PLUGGED IN TO RED OUTLET WITH ALARMS ON AND AUDIBLE. AMBU BAG BY THE BEDSIDE. VT TO 500 PER ORDERS. MONITOR THROUGHOUT SHIFT.
[2019-11-28] MEDS: PHENYLEPHRINE 50 MG in IV NS 0.9% 245 ML IV PRN ×2 (18:41→22:55)
--- NOTE | 2019-11-28 18:48 | NUR ---
RN NOTE Started on Jakob per Dr. Mauro for SBP low 80's. Still on Amio, ST 100's. Ankushrivan @ 25mcg. OGT feeding on 50ml/hr. Tolerated at this time.
[2019-11-28] MEDS: NOREPINEPHRINE 8 MG in IV NS 0.9% 242 ML IV PRN (21:30)
--- NOTE | 2019-11-28 23:30 | NUR ---
EXECUTIVE ADMINISTRATOR JB @ 3 MCG/KG/MIN WITH BP 81/53 LEVOPHED PER PROTOCOL.
--- NOTE | 2019-11-28 23:30 | NUR ---
FIREARMS INSTRUCTOR PROPOFOL TITRATED OFF PER PROTOCOL; PT NOT RESPONDING TO PAINFUL STIMULI. SPO2 SENSOR MOVED TO MULTIPLE LOCATIONS UNABLE TO GET A READING. MADE AWARE. CONTINUE TO MONITOR.
[2019-11-28] MEDS ORDERED: IV NS 0.9% 500 ML IV STA (23:48)
[2019-11-29] VITALS (91 sets, daily range): BP systolic 55–164; BP diastolic 23–92
--- NOTE | 2019-11-29 | NUR ---
VENETIAN BLIND WASHER LEVOPHED MAX @ 1 MCG/KG/MIN WITH BP 79/32; JB PREVIOUSLY MAX W/ORDERS TO GIVE PT 500 NS BOLUS. CONTINUE TO MONITOR.
[2019-11-29] MEDS: IPRATROPIUM NEB FS 0.5 MG/2.5 ML AMPUL.NEB NEB SCH ×6 (00:03→19:34)
[2019-11-29] MEDS: BLOOD SUGAR DIAGNOSTIC 1 EACH STRIP IN SCH ×4 (00:09→17:29)
--- NOTE | 2019-11-29 00:30 | NUR ---
CUSTOMER SERVICER ABG W/PH 7.161 PCO2 30.7 PO2 164.1 HCO3 10.7 RCD ORDER FROM [facility] FOR ONE AMP BICARB. CONTINUE TO MONITOR.
[2019-11-29] MEDS: IV D5/0.45 NACL 1,000 ML IV PRN (00:32)
[2019-11-29 00:54] LABS: ABG BASE EXCESS -16.5 mmol/L; ABG OXYGEN SATURATION 98.3 % (92.0-98.5); ABG PCO2 30.7 mmHg (35.0-45.0); ABG PH 7.161 (7.350-7.450); ABG PO2 164.1 mmHg (75.0-100.0); AaDO2 85.8 mmHg; COHb 0.3 % (0.5-1.5); MetHb 0.9 % (0.0-1.5); O2Hb 97.1 % (94.0-97.0); SITE, ABG Right Brachial; VENT MODE, BG AC 16 500 40% +5
[2019-11-29] MEDS ORDERED: SODIUM BICARBONATE SYR 50 MEQ/50 ML DISP.SYRIN IV ONE (01:00)
[2019-11-29] MEDS ORDERED: SODIUM BICARBONATE SYR 50 MEQ/50 ML DISP.SYRIN ONE ×3 (01:18→01:54)
[2019-11-29] MEDS: Sodium Bicarbonate 100 MEQ in IV D5W 1,000 ML IV PRN ×2 (01:59→13:24)
[2019-11-29] MEDS ORDERED: Sodium Bicarbonate 100 MEQ in IV NS 0.9% 1,000 ML IV PRN (02:00)
[2019-11-29] MEDS: NOREPINEPHRINE 8 MG in IV NS 0.9% 242 ML IV PRN (02:05)
[2019-11-29] MEDS: PHENYLEPHRINE 50 MG in IV NS 0.9% 245 ML IV PRN ×3 (02:06→08:51)
[2019-11-29] MEDS ORDERED: NOREPINEPHRINE 4 MG/4 ML AMPUL IV ONE (02:53)
[2019-11-29] MEDS: NOREPINEPHRINE 32 MG in IV NS 0.9% 218 ML IV PRN ×4 (03:30→20:06)
[2019-11-29] MEDS ORDERED: IV NS 0.9% 250 ML IV PRN (05:00)
[2019-11-29 05:06] LABS: CALCIUM, SERUM 6.8 mg/dL (8.5-10.1); CARBON DIOXIDE 15 mmol/L (21-32); CHLORIDE 101 mmol/L (98-107); GLUCOSE 70 mg/dL (74-106); POTASSIUM 5.8 mmol/L (3.5-5.1); SODIUM SERUM 134 mmol/L (136-145); UREA NITROGEN, BLOOD 40 mg/dL (7-18)
[2019-11-29] MEDS: VANCOMYCIN 1 GM in IV D5W 250 ML IV SCH (05:30)
--- NOTE | 2019-11-29 06:24 | NUR ---
INTERNATIONAL SALES REPRESENTATIVE UNABLE TO ASSESS PTS BACK. PT HAS BEEN HEMODYNAMICALLY UNSTABLE ALL THROUGH OUT SHIFT; BACK ASSESSED AT 1999 AND REMAINED INTACT. PT REMAINED SUPINE, CONTINUE TO MONITOR.
--- NOTE | 2019-11-29 07:10 | NUR ---
RT NOTE RECEIVED ORALLY INTUBATED, ON VENT, O2 SAT IN 70'S , PT ON JB AT 3 MCG/KG/MIN. LEVO AT 1 MCG/KG/ MIN, , BP STABLE AT THIS TIME, O2 SAT IN 70'S , ABG DONE, ON TELE SR WITH BBB, HR IN 80'S, PUPILS ARE FIXED AND NON REACTIVE, DR. SUAREZ AT THE BEDSIDE, NEW ORDER RECEIVED, R FEMORAL IV SITE CLEAN, DRY AND INTACT, PT ON BICARB DRIP AT 100CC/HR , SR UP x3, CALL LIGHT WITHIN EASY REACH, CONTINUE TO MONITOR .
--- NOTE | 2019-11-29 07:22 | NUR ---
RN NOTES ABG DONE , DR SUAREZ AND DR REARDON NOTIFED REGARDING THE RESULTS , PT IS HEMODYNAMICALLY UNSTABLE. CONTINUE TO MONITOR.
[2019-11-29 07:24] LABS: ABG BASE EXCESS -21.5 mmol/L; ABG OXYGEN SATURATION 98.3 % (92.0-98.5); ABG PH 7.044 (7.350-7.450); ABG PO2 179.2 mmHg (75.0-100.0); AaDO2 76.1 mmHg; COHb 0.1 % (0.5-1.5); MetHb 0.8 % (0.0-1.5); O2Hb 97.4 % (94.0-97.0); PEEP,BG 5 cm H2O; SITE, ABG Left Brachial; VT, ABG 500 mL
[2019-11-29] MEDS ORDERED: HYDROCORTISONE SOD SUCCINATE 100 MG/2 ML VIAL IV SCH (07:30)
[2019-11-29] MEDS ORDERED: IV NS 0.9% 1,000 ML BAG IV ONE (07:30)
[2019-11-29] MEDS ORDERED: IV NS 0.9% 500 ML IV ONE (07:30)
[2019-11-29 07:38] LABS: BASOPHILS # (AUTO) 0.1 /CMM (0.0-0.2); BASOPHILS % (AUTO) 0.4 % (0.0-2.0); EOSINOPHILS % (AUTO) 0.1 % (0.0-6.0); LYMPHOCYTES # (AUTO) 2.6 /CMM (0.8-4.8); LYMPHOCYTES % (AUTO) 9.7 % (20.0-44.0); MEAN CORPUSCULAR HGB CONC 31 g/dl (31.0-36.0); MEAN CORPUSCULAR VOLUME 86 fL (80-96); MONOCYTES # (AUTO) 3.7 /CMM (0.1-1.30); MONOCYTES % (AUTO) 13.6 % (2.0-12.0); NEUTROPHILS # (AUTO) 20.7 /CMM (1.8-8.9); NEUTROPHILS % (AUTO) 76.2 % (43.0-81.0); PLATELET COUNT (AUTO) 197 /CMM (150-450); WHITE BLOOD COUNT (AUTO) 27.1 K/uL (4.3-11.0)
[2019-11-29] MEDS ORDERED: SODIUM POLYSTYRENE SULFONATE 15 G/60 ML BOTTLE PO ONE (08:00)
[2019-11-29] MEDS: CEFEPIME 2 GM in IV D5W 100 ML IV SCH ×2 (08:13→21:05)
[2019-11-29] MEDS: methylPREDNISolone SOD SUCC 40 MG/ML VIAL IV SCH ×2 (08:16→16:20)
[2019-11-29] MEDS: AMLODIPINE BESYLATE 10 MG TABLET GT SCH (08:21)
[2019-11-29 08:30] LABS: APPEARANCE,URINE SL CLOUDY (CLEAR); BILIRUBIN,URINE NEGATIVE (NEGATIVE); BLOOD, URINE SMALL Ery/uL (NEGATIVE); COLOR,URINE YELLOW (YELLOW); KETONES,URINE NEGATIVE (NEGATIVE); LEUKOCYTE ESTERASE ,URINE TRACE (NEGATIVE); NITRITE, URINE NEGATIVE (NEGATIVE); PROTEIN,URINE TRACE mg/dl (NEGATIVE); UGLUCOSE NEGATIVE (NEGATIVE); UROBILINOGEN,URINE 0.2 EU/dL (0.2)
--- NOTE | 2019-11-29 08:33 | NUR ---
RN NOTES CALL RECEIVED FROM RADIOLOGIST , PT HAS R KIDNEY PERITONEAL BLEEDING. DR REARDON AND JOSE AND DANIELA TORRES .ORDER RECEIVED TO TRANSFUSED BLOOD AND DOPAMINE GTT. CONTINUE TO MONITOR . Addendum: 11/29/19 at 1024 by MARGARET BLAIR RN CORRECTION : PT HAS PERITONEAL BLEEDING ON LEFT KIDNEY .
[2019-11-29 08:34] LABS: RED BLOOD CELL COUNT(AUTO) 1.86 MIL/uL (4.5-6.0)
[2019-11-29 08:37] LABS: HEMATOCRIT 16 % (39-51); HEMOGLOBIN 4.9 g/dL (13.5-17.5)
[2019-11-29 08:47] LABS: CREATININE, URINE 211.8 MG/DL (30.0-125.0); URINE TOTAL PROTEIN 78.9 mg/dL (0-11.9)
--- NOTE | 2019-11-29 09:00 | NUR ---
RN NOTES TF ON HOLD PER REPORT DUE TO LOW BP AND PT BEING IN SUPINE POSITION.
--- NOTE | 2019-11-29 09:30 | NUR ---
RN NOTES FAMILY REQUESTING DNR STATUS AT THIS TIME, SPOKEN TO JOSÉ ( TELEVISION AUDIO ENGINEER AND DPOA) AND PILO CHRISTY (PT'S DAUGHTER) ON THE PHONE .
[2019-11-29 09:42] LABS: BACTERIA,URINE Few /HPF (None Seen); SQUAMOUS EPITHELIAL CELL,UR Few /HPF (None Seen); URINE AMORPHOUS URATE Few /HPF (None Seen)
[2019-11-29] MEDS: DOPamine 800 MG in IV D5W 250 ML IV PRN ×2 (09:50→18:36)
--- NOTE | 2019-11-29 09:50 | NUR ---
RN NOTES DOPAMINE GTT STARTED , UNABLE TO GET BLOOD PRESSURE READING AT TIMES , HR WNL, CONTINUE TO MONITOR .
[2019-11-29 09:57] LABS: EOSINOPHIL,URINE None Seen
--- NOTE | 2019-11-29 10:00 | NUR ---
RN NOTES 2100 CC NS BOLUS INFUSED PER DR. SUAREZ ORDER .
[2019-11-29 10:03] LABS: BAND % (MANUAL) 2 % (0.0-5.0); LYMPHOCYTES % (MANUAL) 10 % (16-48); MONOCYTES % (MANUAL) 11 % (0-11.0); NEUTROPHILS % (MANUAL) 77 (42-76)
--- NOTE | 2019-11-29 11:13 | NUR ---
RN NOTES BLOOD TRANSFUSION STARTED, PT STILL HEMODYNAMICALLY UNSTABLE, CONTINUE TO MONITOR. CONTINUE TO MONITOR.
--- NOTE | 2019-11-29 11:19 | NUR ---
RN NOTES BLOOD GLUCOSE IS 51, ONE AMP OF D50 IV GIVEN PER PROTOCOL , CONTINUE TO MONITOR .
[2019-11-29 11:59] LABS: CALCIUM, SERUM 6.2 mg/dL (8.5-10.1); CHLORIDE 104 mmol/L (98-107); CREATININE 3.3 mg/dL (0.6-1.3); GLUCOSE 133 mg/dL (74-106); POTASSIUM 6.1 mmol/L (3.5-5.1); SODIUM SERUM 136 mmol/L (136-145); UREA NITROGEN, BLOOD 39 mg/dL (7-18)
--- NOTE | 2019-11-29 12:00 | NUR ---
RN NOTES T=92.2,PT WARM BLANKET PLACED ON THE PT , MD TORRES . CONTINUE TO MONITOR .
[2019-11-29 12:05] LABS: BILIRUBIN,DIRECT 0.6 mg/dL (0.0-0.2)
[2019-11-29 12:10] LABS: CARBON DIOXIDE 8 mmol/L (21-32)
[2019-11-29] MEDS: PHENYLEPHRINE 100 MG in IV NS 0.9% 240 ML IV PRN ×2 (12:26→20:05)
--- NOTE | 2019-11-29 13:00 | NUR ---
RN NOTES DR REARDON NOTIFED REGARDING LOW BLOOD GLUCOSE , CONTINUE TO MONITOR .
--- NOTE | 2019-11-29 14:00 | NUR ---
RN NOTES NO BM AND NO URINE OUT PUT YEY , LOW BP AND LOW O2 SAT , MD AWARE, HR WNL, CONTINUE TO TITRATE PRESSORS PER ORDER .
--- NOTE | 2019-11-29 18:00 | NUR ---
RN NOTES PT REMAINS INTUBATED AND ON VENT , RECEIVED ONE UNIT OF PRBC ON THIS SHIFT, TOLERATED WELL , PT HAS BEEN HEMODYNAMICALLY UNSTABLE ALL THROUGH OUT SHIFT, O2 SAT 60-80%, MD AWARE, ON LEVO AND JB AND DOPAMINE GTT, ON BICARB AT 100CC/HR, PT ON CIELO HUGGER , T=91.5 AT THIS TIME, PT IS DNR PER FAMILY REQUEST, SR UP X3,CALL LIGHT WITHIN EASY REACH, BED LOCKED AND IN LOWEST POSITION, WILL ENDORSE TO PM NURSE FOR CONTINUITY OF CARE .
--- NOTE | 2019-11-29 18:00 | NUR ---
RN NOTES DR REARDON NOTIFED REGARDING K=6.1 , PT HAS NO BM YET.
[2019-11-29] MEDS ORDERED: INSULIN REGULAR, HUMAN 100 UNIT/ML 3 ML VIAL IV ONE ×2 (18:30→19:00)
[2019-11-29] MEDS ORDERED: DEXTROSE 50%-WATER 50 ML DISP.SYRIN IVP ONE (18:30)
--- NOTE | 2019-11-29 19:51 | NUR ---
WEB UI DESIGNER. INITIAL ASSESSMENT. RECEIVED THE PT REST ON THE BED, ORALLY INTUBATED. ETT 7.5,LIP 25,AC 16,TV550,FIO2 40%.SAT 50%. ONSITE HEALTH COACH SHOWING AFIB CONTROLLED. PT IS UNDER COMA. ROBIN LOWER AND UPPER EXTREMITY COLD. PUPIL DILATED AND FIXED. PT IS PALE, BAGGER HUGGER ON. FC PATENT NO URINE OUT PUT. OGT INTACT. CLAMPED. RT FEMORAL TRIPLE LUMEN LEVO 1MCG/KG/MIN,JB 2.4MCG/KG/MIN,DOPAMINE 20MCG/KG/MIN. IVF D5W IN 2AMP BICARB 100ML/H,HOB ELEVATED. NPO. PT IS VERY UNSTABLE. WILL CONTINUE TO MONITOR VITALS
--- NOTE | 2019-11-29 22:30 | NUR ---
agricultural mechanic. daughter at bed side decided to terminally extubation. nallely villegas made aware. pt terminally extubated at 2320. at [phone].[phone] send with daughter. post mortem care given. body send to [facility].
--- NOTE | 2019-11-29 22:42 | NUR ---
PUBLIC RELATIONS REPRESENTATIVE. PT DAUGHTER AT BED SIDE. DECIDED TO COMFORT MEASURE
[2019-11-29] MEDS ORDERED: MORPHINE SULFATE INJ 4 MG/ML DISP.SYRIN IV PRN (23:00)
[2019-11-29] MEDS ORDERED: LORAZEPAM INJ 2 MG/ML VIAL IV PRN (23:00)
--- NOTE | 2019-11-29 23:20 | NUR ---
PT TERMINALLY EXTUBATED. FAMILY AT BEDSIDE. VENT TURNED OFF. SX'D MOUTH. PLACED ON NC.
--- NOTE | 2019-11-29 23:30 | NUR ---
icu nurse. notified [employer].#[id number]. SPOKE PERSON NAME IS NITIN. NOTIFIED CORNER. BODY RELEASED.
[2019-11-30] MEDS ORDERED: VANCOMYCIN 1 GM in IV D5W 250 ML IV SCH (06:00)
[2019-12-05] MEDS ORDERED: APIXABAN 5 MG TABLET PO SCH (09:00)
== END 2019-11-29 23:24 | disposition expired | DRG 870 ==
LOC: ER 11:43 → ICU 13:50
PROVIDERS: ADMIT Hospitalist; ATTEND Internal Medicine
PROC: 5A1955Z Respiratory Ventilation, Greater than 96 Consecutive Hours (ICD-10-PCS; principal; 2019-11-25)
PROC: 0BH18EZ Insertion of Endotracheal Airway into Trachea, Via Natural or Artificial Opening Endoscopic (ICD-10-PCS; 2019-11-25)
PROC: 5A12012 Performance of Cardiac Output, Single, Manual (ICD-10-PCS; 2019-11-25)
PROC: 06HM33Z Insertion of Infusion Device into Right Femoral Vein, Percutaneous Approach (ICD-10-PCS; 2019-11-25)
PROC: B54BZZA Ultrasonography of Right Lower Extremity Veins, Guidance (ICD-10-PCS; 2019-11-25)
PROC: 30233N1 Transfusion of Nonautologous Red Blood Cells into Peripheral Vein, Percutaneous Approach (ICD-10-PCS; 2019-11-29)
DX: A41.9 Sepsis, unspecified organism (principal); J96.01 Acute respiratory failure with hypoxia; G93.41 Metabolic encephalopathy; R65.21 Severe sepsis with septic shock; I21.A1 Myocardial infarction type 2; I26.99 Other pulmonary embolism without acute cor pulmonale; N17.0 Acute kidney failure with tubular necrosis; K66.1 Hemoperitoneum; I48.92 Unspecified atrial flutter; E44.1 Mild protein-calorie malnutrition; E87.2 Acidosis; Z51.5 Encounter for palliative care; G93.1 Anoxic brain damage, not elsewhere classified; I82.413 Acute embolism and thrombosis of femoral vein, bilateral; K92.2 Gastrointestinal hemorrhage, unspecified; I46.9 Cardiac arrest, cause unspecified; I48.91 Unspecified atrial fibrillation; Z79.01 Long term (current) use of anticoagulants; Z87.891 Personal history of nicotine dependence; E03.9 Hypothyroidism, unspecified; D64.9 Anemia, unspecified; E78.5 Hyperlipidemia, unspecified; I25.10 Atherosclerotic heart disease of native coronary artery without angina pectoris; Z79.82 Long term (current) use of aspirin; Z95.5 Presence of coronary angioplasty implant and graft; Z66 Do not resuscitate; G89.29 Other chronic pain; F41.9 Anxiety disorder, unspecified; F32.9 Major depressive disorder, single episode, unspecified; I50.9 Heart failure, unspecified; R56.9 Unspecified convulsions; I44.0 Atrioventricular block, first degree; I27.20 Pulmonary hypertension, unspecified; G47.33 Obstructive sleep apnea (adult) (pediatric); Z68.25 Body mass index [BMI] 25.0-25.9, adult; I11.0 Hypertensive heart disease with heart failure
CPT/HCPCS: 31720; 36415; 36600; 70450-TC; 71045-TC; 76770-TC; 80048-TC; 80053-TC; 80061-TC; 80076-TC; 80202-TC; 81000-TC; 82247-TC; 82248-TC; 82533; 82570-TC; 82803-TC; 82962-TC; 83605-TC; 83735-TC; 83880; 84100-TC; 84155-TC; 84300-TC; 84443-TC; 84484-TC; 85025-TC; 85730-TC; 86850-TC; 86921-TC; 87040-TC; 87070-TC; 87081-TC; 92950-TC; 93307-TC; 93970-TC; 94003-TC; 94640-TC; 94760-TC; 94799-TC; 95819-TC; 99082-TC; A6403; G0378; J0171; J0282; J0360; J0692; J1265; J1644; J1650; J1815; J2060; J2270; J2370; J2405; J2920; J3370; J3475; J3490; J7030; J7040; J7050; J7060; J7070; P9016-BL